=== PATIENT | male | born 1955 | race Caucasian/White ===

== ENCOUNTER 2018-08-13 15:23 | Observation (INO) | payer OTHER, SELFPAY ==
[2018-08-13 16:19] LABS: #Basophils 0.1 thou/uL (0.0-0.2); #Eosinphils 0.2 thou/uL (0.0-0.7); #Lymphocytes 2.3 thou/uL (1.20-3.40); #Monocytes 0.9 thou/uL (0.11-0.59); #Neutrophils 4.9 thou/uL (1.40-6.50); %Basophils 1.5 % (0.0-1.0); %Lymphocytes 27.7 % (21.0-51.0); %Monocytes 10.7 % (0.0-10.0); Mean Corpuscular HGB CONC 31.9 g/dL (32.0-36.0); Mean Corpuscular Hemoglobin 29.3 pg (27.0-31.0); Mean Corpuscular Volume 91.9 fL (78.0-98.0); Platelet Count 252 thou/uL (130-400); Red Blood Cell (RBC) Count 5.79 mill/uL (4.70-6.10); White Blood Cell (WBC) Count 8.4 thou/uL (4.8-10.8)
[2018-08-13 16:27] LABS: INR-International Normal Ratio 1.1; PTT 29.8 SEC (22.9-36.1); Prothrombin Time 13.8 SEC (12.0-14.7)
[2018-08-13 16:41] LABS: ALT (SGPT) 14 U/L (8-55); AST (SGOT) 18 U/L (5-34); Albumin 4.2 g/dL (3.4-4.8); Alkaline Phosphatase 130 U/L (40-150); Anion Gap 15 mmol/L (10-20); BUN (Urea Nitrogen) 14 mg/dL (8.4-25.7); Bilirubin, Total 0.2 mg/dL (0.2-1.2); Calc. Creatinine Clearance 0 mL/min (70-130); Calcium 9.7 mg/dL (7.8-10.44); Carbon Dioxide 20 mmol/L (23-31); Chloride 103 mmol/L (98-107); Estimated GFR-MDRD 87; Globulin 3.8 g/dL (2.4-3.5); Glucose 124 mg/dL (80-115); Potassium 4.2 mmol/L (3.5-5.1); Sodium 134 mmol/L (136-145)
[2018-08-13] MEDS ORDERED: Morphine 4 MG/ML VIAL ONE (17:52)
[2018-08-13] MEDS ORDERED: Ondansetron PF 4 MG/2 ML Vial ONE (17:52)
--- NOTE | 2018-08-13 19:27 | RAD ---
PORTABLE CHEST: 08/13/18 HISTORY: Upper extremity edema. No comparison available. Mild interstitial prominence in the lung bases. No infiltrate or significant vascular congestion. Hea rt size is within normal range. No significant effusion. IMPRESSION: Questionable interstitial prominence. No evidence of acute process. POS: [facility]
[2018-08-13] MEDS ORDERED: Ondansetron PF 4 MG/2 ML Vial IVP PRN (22:45)
[2018-08-13] MEDS ORDERED: Acetaminophen 325 MG TAB PO PRN (22:45)
[2018-08-13] MEDS ORDERED: Ondansetron ODT 4 MG TAB PO PRN (22:45)
[2018-08-13] MEDS ORDERED: Melatonin 3 MG TAB PO PRN (22:54)
[2018-08-13] MEDS ORDERED: Amlodipine 5 MG TAB PO SCH (23:15)
[2018-08-13] MEDS ORDERED: Nicotine 14 MG PATCH TOP SCH (23:59)
[2018-08-14] MEDS ORDERED: Morphine 4 MG/ML VIAL ONE ×2 (00:10→01:41)
[2018-08-14] MEDS ORDERED: Amlodipine 5 MG TAB ONE (03:10)
[2018-08-14] MEDS ORDERED: Ketorolac Tromethamine 30 MG/ML VIAL ONE (03:11)
[2018-08-14] MEDS ORDERED: Amlodipine 5 MG TAB PO SCH (03:30)
[2018-08-14] MEDS ORDERED: Dextrose 5% in Water 1,000 ML IV PRN (03:51)
[2018-08-14] MEDS ORDERED: Dextrose 50% Abboject 50 ML SYRINGE SLOW IVP PRN (03:51)
[2018-08-14 04:01] LABS: #Basophils 0.1 thou/uL (0.0-0.2); #Eosinphils 0.2 thou/uL (0.0-0.7); #Lymphocytes 2.4 thou/uL (1.20-3.40); #Monocytes 0.9 thou/uL (0.11-0.59); %Eosinophils 1.9 % (0.0-10.0); %Lymphocytes 27.7 % (21.0-51.0); %Monocytes 10.9 % (0.0-10.0); %Neutrophils 58.6 % (42.0-75.0); Hemoglobin 15.4 g/dL (14.0-18.0); Mean Corpuscular HGB CONC 32.9 g/dL (32.0-36.0); Mean Corpuscular Hemoglobin 30.4 pg (27.0-31.0); Mean Corpuscular Volume 92.3 fL (78.0-98.0); Mean Platelet Volume 8.1 fL (7.4-10.4); Platelet Count 225 thou/uL (130-400); RBC Distribution Width 13.9 % (11.5-14.5); Red Blood Cell (RBC) Count 5.07 mill/uL (4.70-6.10); White Blood Cell (WBC) Count 8.5 thou/uL (4.8-10.8)
[2018-08-14 04:13] LABS: Anion Gap 14 mmol/L (10-20); BUN (Urea Nitrogen) 12 mg/dL (8.4-25.7); Calc. Creatinine Clearance 0 mL/min (70-130); Calcium 8.9 mg/dL (7.8-10.44); Carbon Dioxide 21 mmol/L (23-31); Chloride 99 mmol/L (98-107); Estimated GFR-MDRD 81; Glucose 386 mg/dL (80-115); Potassium 4.1 mmol/L (3.5-5.1); Sodium 130 mmol/L (136-145)
[2018-08-14 05:20] VITALS: BMI 28.9
--- NOTE | 2018-08-14 05:37 | HP ---
PRIMARY CARE PHYSICIAN: The patient goes to [facility]. CODE STATUS: Full code. TIME OF EVALUATION: 8:10 p.m. CHIEF COMPLAINT: "My fingers are turning blue." HISTORY OF PRESENT ILLNESS: This is a 63-year-old male patient with past medical history of diabetes, hyperlipidemia, hypertension, came to the hospital after having worsening of fingers, pain, primary distribution with blue discoloration. Symptoms have been present for the past couple of months. For the past week, it has been really very very severe, the discoloration started about 3 days. The pain has been very severe. No clear triggers. No alleviating factors. Also cold temperatures making worse and when he is able to warm up his fingers, it gets better. REVIEW OF SYSTEMS: CONSTITUTIONAL: No fever or chills. The patient reported generalized weakness. RESPIRATORY: No cough, sputum production, or shortness of breath. CARDIOVASCULAR: No chest pain or palpitation. The patient has bluish discoloration of bilateral lower extremities. GASTROINTESTINAL: The patient has no nausea, vomiting, diarrhea or abdominal pain. RADIOGRAPHER TECHNOLOGIST: No dizziness, headache, or feeling lightheaded. GENITOURINARY: No burning on urination. EXTREMITIES: The patient has right big toe ingrown nail. PAST MEDICAL HISTORY: As mentioned in HPI. PAST SURGICAL HISTORY: No surgical history. PSYCHIATRIC HISTORY: Depression and anxiety. SOCIAL HISTORY: The patient drinks everyday more than 10 drinks per day. No drugs. Smokes on a daily basis. Reportedly has not been drinking in the past seven months. KNOWN ALLERGIES: No known drug allergies reported. MEDICATIONS: 1. Buspirone. 2. Amitriptyline. 3. Pantoprazole. 4. Glyburide. 5. Atorvastatin. 6. Lisinopril. 7. Hydrochlorothiazide. 8. Levothyroxine. 9. Vitamin B1. 10. Metformin. PHYSICAL EXAMINATION: VITAL SIGNS: On presentation, blood pressure 146/86, heart rate 102, respiratory rate was 18, temperature 98.1, pain was 9. Oxygen saturation was 95% on room air. GENERAL APPEARANCE: The patient is alert, and oriented, in mild distress due to bilateral hand pain. HEENT: Eyes, normal conjunctivae. Moist oral mucosa. Anicteric. No JVD. RESPIRATORY: Bilateral air entry. No rales. No wheezes. Symmetric expansion. CARDIOVASCULAR: Normal rate, regular rhythm. No murmurs. No gallops. No edema. ABDOMEN: Soft. Normal bowel sounds. MUSCULOSKELETAL: Baseline range of motion and strength. No tenderness except for bilateral hands. The patient has bilateral fingers with bluish discoloration and swelling. The patient reportedly has been having this problem for about a few days. Significant tenderness. SKIN: Warm, intact. No pallor. No rash. No redness. The patient has bluish discoloration in bilateral fingers. Peripheral pulses are present. Capillary refill seems to be intact. NEUROLOGIC: No evidence of any new focal weakness. Baseline speech. Cranial nerves seems to be intact. PSYCHIATRIC: The patient is in good mood. No anxiety. Optimal judgment. IMAGING STUDIES: EKG was reviewed. The patient has sinus tachycardia at the rate of 108 with HI 152, QRS 82, QT corrected 444. Chest x-ray was reviewed. The patient has questionable interstitial prominence, no evidence of acute process. LABORATORY DATA: Labs were reviewed. The patient has white count 8.4, hemoglobin 17, MCV 91.9, platelet count 252, coagulation 13.8, INR 1.1, PTT 29.8. Chemistry; sodium 134, potassium 4.2, chloride 103, carbon dioxide 20, anion gap 15, BUN 14 , creatinine 0.88, GFR 87, glucose 134, calcium 9.7, total bilirubin 0.2. LFTs were negative. C-reactive protein 0.71, globulin 3.8, albumin to globulin ratio is 1.1. ASSESSMENT AND PLAN: The patient will be placed in the hospital with following medical problems: 1. possible Raynauds syndrome, Bluish bilateral finger discoloration of unclear etiology. The patient has been having these symptoms for the past few days, although he referred that all the symptoms have been going on and gradually getting worse for the past 2 months. 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 We have sent some workup trying to find any other neurological disease may be related to current presentation, all possibilities could be vasculitis, or changes secondary to advanced neuropathy from diabetes. Less frequent diagnosis could be infections disease with insidious presentation like endocarditis, although this is rare, and lesions did not exactly recall Osler's nodules or Janeway lesions. Blood cultures have been sent. ESR is normal. We will send a procalcitonin . Workup has been sent and we will follow. 2. Controlled diabetes. We will reconcile home medications, sliding scale for optimal control. 3. Hyperlipidemia, low-cholesterol diet is advised, reconcile home medications. 4. Contemporary hypertension. The patient presents with systolic blood pressure more than 140, we will reconcile home medications and we will adjust treatment as needed. 5. Deep venous thrombosis prophylaxis. Job ID: [id number] [email or web address]
[2018-08-14] MEDS: Levothyroxine 150 MCG TAB PO SCH (06:37)
[2018-08-14] MEDS ORDERED: busPIRone HCl 10 MG TAB PO PRN (08:04)
[2018-08-14] MEDS ORDERED: glyBURIDE 5 MG TAB PO SCH (08:15)
[2018-08-14] MEDS: Ketorolac Tromethamine 30 MG/ML VIAL IVP SCH ×2 (08:16→13:25)
[2018-08-14] MEDS: Amlodipine 5 MG TAB PO SCH (08:20)
[2018-08-14] MEDS: Lisinopril/Hydrochlorothiazide 20 mg/12.5 mg Tablet PO SCH (08:21)
[2018-08-14] MEDS: Multivit, Therapeutic 1 TAB PO SCH (08:21)
[2018-08-14] MEDS: Folic Acid 1 MG TAB PO SCH (08:21)
[2018-08-14] MEDS: Thiamine 100 MG TAB PO SCH (08:21)
[2018-08-14] MEDS: Enoxaparin Sodium 40 MG/0.4 ML SYRINGE SC SCH (08:21)
[2018-08-14] MEDS ORDERED: methylPREDNISolone Sod Succ 40 MG VIAL IVP SCH (11:00)
--- NOTE | 2018-08-14 12:17 | PDOC.PN ---
- Subjective Encounter Start Date: 08/14/18 Encounter Start Time: 09:00 -: old records requested/rev Patient seen and examined. No new complaints. No overnight events he has dectylitis, he has buck phenomenon - Objective Resuscitation Status - Order Detail: 08/13/18 22:45 Resuscitation Status Routine Resuscitation Status: FULL: Full Resuscitation MAR Reviewed: Yes Vital Signs & Weight: Vital Signs (12 hours) Temp Pulse Resp BP Pulse Ox 08/14/18 11:00 97.9 F 91 20 127/73 95 08/14/18 08:21 92 08/14/18 08:20 92 08/14/18 07:30 97.9 F 92 20 133/80 95 08/14/18 07:06 93 08/14/18 07:03 93 08/14/18 04:38 98.0 F 93 20 148/83 H 97 Weight Weight 195 lb 12.8 oz I&O: 08/13/18 08/14/18 08/15/18 06:59 06:59 06:59 Intake Total 240 Balance 240 Result Diagrams: 08/14/18 03:30 08/14/18 03:30 Additional Labs: Accuchecks 08/14/18 05:22 POC Glucose 260 H Phys Exam - Physical Examination Constitutional: NAD HEENT: PERRLA, moist MMs, sclera anicteric Neck: no JVD, supple Respiratory: no wheezing, no rales, no rhonchi Cardiovascular: RRR, no significant murmur, no rub Gastrointestinal: soft, non-tender, no distention, positive bowel sounds Musculoskeletal: no edema, pulses present Neurological: non-focal, normal sensation, moves all 4 limbs Lymphatic: no nodes Psychiatric: normal affect, A&O x 3 Skin: no rash, normal turgor Dx/Plan (1) Dactylitis Code(s): GNI1233 - Status: Acute (2) Buck syndrome Code(s): M35.8 - OTHER SPECIFIED SYSTEMIC INVOLVEMENT OF CONNECTIVE TISSUE Status: Acute (3) Hyponatremia Code(s): E87.1 - HYPO-OSMOLALITY AND HYPONATREMIA Status: Acute Comment: mild (4) Alcohol abuse Code(s): F10.10 - ALCOHOL ABUSE, UNCOMPLICATED Status: Chronic (5) DM2 (diabetes mellitus, type 2) Status: Chronic Comment: continue accuchecks, insulin sliding scale (6) Dyslipidemia Code(s): E78.5 - HYPERLIPIDEMIA, UNSPECIFIED Status: Chronic Comment: hold statin until LFTs improve significantly (7) Hypothyroidism Code(s): E03.9 - HYPOTHYROIDISM, UNSPECIFIED Status: Chronic Comment: on synthroid (8) Tobacco use Code(s): Z72.0 - TOBACCO USE Status: Chronic Comment: continue nicotine patch - Plan cont current plan of care * outpt rheumatology follow up advised * will start solumedrol today * continue toradol * nicotin patch * medication reviewed as below * symptomatic treatment. * follow up on send out test result Review of Systems - Review of Systems ENT: negative: Ear Pain, Ear Discharge, Nose Pain, Nose Discharge, Nose Congestion, Mouth Pain, Mouth Swelling, Throat Pain, Throat Swelling, Other Respiratory: negative: Cough, Dry, Shortness of Breath, Hemoptysis, SOB with Excertion, Pleuritic Pain, Sputum, Wheezing Cardiovascular: negative: chest pain, palpitations, orthopnea, paroxysmal nocturnal dyspnea, edema, light headedness, other Gastrointestinal: negative: Nausea, Vomiting, Abdominal Pain, Diarrhea, Constipation, Melena, Hematochezia, Other Genitourinary: negative: Dysuria, Frequency, Incontinence, Hematuria, Retention , Other Musculoskeletal: negative: Neck Pain, Shoulder Pain, Arm Pain, Back Pain, Hand Pain, Leg Pain, Foot Pain, Other Skin: negative: Rash, Lesions, Vik, Bruising, Other - Medications/Allergies Allergies/Adverse Reactions: Allergies Allergy/AdvReac Type Severity Reaction Status Date / Time No Known Allergies Allergy Unverified 01/10/18 00:40 Medications: Current Medications Acetaminophen (Tylenol) 650 mg PO Q4H PRN PRN Reason: Headache/Fever/Mild Pain (1-3) Amitriptyline HCl (Elavil) 25 mg PO HS KAMINI Amlodipine Besylate (Norvasc) 5 mg PO DAILY [facility] Last Admin: 08/14/18 08:20 Dose: 5 mg Buspirone HCl (Buspar) 10 mg PO BIDPRN PRN PRN Reason: Anxiety Dextrose/Water (Dextrose 50%) 25 gm SLOW IVP PRN PRN PRN Reason: Hypoglycemia Enoxaparin Sodium (Lovenox) 40 mg SC 0900 [facility] Last Admin: 08/14/18 08:21 Dose: 40 mg Folic Acid (Folvite) 1 mg PO DAILY [facility] Last Admin: 08/14/18 08:21 Dose: 1 mg Glucagon (Glucagon) 1 mg IM PRN PRN PRN Reason: Hypoglycemia Glyburide (Diabeta) 5 mg PO DAILY-[facility] Lisinopril/HCTZ (Prinizide 20-12.5) 1 tab PO DAILY [facility] Last Admin: 08/14/18 08:21 Dose: 1 tab Dextrose/Water (D5w) 1,000 mls @ 0 mls/hr IV .Q0M PRN PRN Reason: Hypoglycemia Insulin Human Lispro (Humalog) 0 units SC .MILD SLIDING SCALE PRN PRN Reason: Mild Correctional Scale Ketorolac Tromethamine (Toradol) 15 mg IVP Q6HR [facility] Stop: 08/15/18 06:01 Last Admin: 08/14/18 08:16 Dose: 15 mg Levothyroxine Sodium (Synthroid) 150 mcg PO 0600 [facility] Last Admin: 08/14/18 06:37 Dose: 150 mcg Melatonin (Melatonin) 3 mg PO HS PRN PRN Reason: Insomnia Metformin HCl (Glucophage) 1,000 mg PO BID-[facility] Methylprednisolone Sodium Succinate (Solu-Medrol) 40 mg IVP Q6H [facility] Multivitamins (Theragran) 1 tab PO DAILY [facility] Last Admin: 08/14/18 08:21 Dose: 1 tab Nicotine (Nicoderm Patch) 14 mg TOP 2359 [facility] Last Admin: 08/14/18 07:04 Dose: Not Given Ondansetron HCl (Zofran Odt) 4 mg PO Q6H PRN PRN Reason: Nausea/Vomiting Ondansetron HCl (Zofran) 4 mg IVP Q6H PRN PRN Reason: Nausea/Vomiting Pantoprazole Sodium (Protonix) 40 mg PO DAILY-[facility] Pravastatin Sodium (Pravachol) 10 mg PO QPM [facility] Thiamine HCl (Thiamine) 100 mg PO DAILY [facility] Last Admin: 08/14/18 08:21 Dose: 100 mg
[2018-08-14] MEDS: HYDROcodone/Acetaminophen 10/325 mg Tablet PO PRN ×2 (13:28→20:14)
[2018-08-14] MEDS ORDERED: predniSONE 20 MG TAB PO SCH (13:30)
[2018-08-14] MEDS ORDERED: Nicotine 21 MG PATCH TOP SCH (14:30)
[2018-08-14] MEDS: HumaLOG 300 UNITS/3 ML VIAL SC PRN ×2 (17:26→20:39)
[2018-08-14] MEDS ORDERED: Amitriptyline HCl 25 MG TAB PO SCH (21:00)
[2018-08-14] MEDS ORDERED: Atorvastatin Calcium 10 MG TAB PO SCH (21:00)
[2018-08-14] MEDS ORDERED: Pravastatin Sodium 20 MG TAB PO SCH (21:00)
[2018-08-15] MEDS: Levothyroxine 150 MCG TAB PO SCH (05:27)
[2018-08-15 07:22] VITALS: TEMP 98
[2018-08-15] MEDS ORDERED: glyBURIDE 5 MG TAB PO SCH (07:30)
[2018-08-15] MEDS ORDERED: predniSONE 20 MG TAB PO SCH (08:00)
[2018-08-15] MEDS ORDERED: metFORMIN 500 MG TAB PO SCH (08:00)
[2018-08-15] MEDS: Lisinopril/Hydrochlorothiazide 20 mg/12.5 mg Tablet PO SCH (08:23)
[2018-08-15] MEDS: Multivit, Therapeutic 1 TAB PO SCH (08:23)
[2018-08-15] MEDS: Folic Acid 1 MG TAB PO SCH (08:23)
[2018-08-15] MEDS: Enoxaparin Sodium 40 MG/0.4 ML SYRINGE SC SCH ×2 (08:24→08:34)
[2018-08-15] MEDS: Amlodipine 5 MG TAB PO SCH (08:24)
[2018-08-15] MEDS: HYDROcodone/Acetaminophen 10/325 mg Tablet PO PRN ×2 (08:27→14:59)
[2018-08-15] MEDS: Thiamine 100 MG TAB PO SCH (08:29)
--- NOTE | 2018-08-15 09:46 | DIS ---
DATE OF ADMISSION: 08/13/2018 DATE OF DISCHARGE: 08/15/2018 PRIMARY CARE PHYSICIAN: Westley Abbasi. DISCHARGE DISPOSITION: Home. PRIMARY DISCHARGE DIAGNOSES: 1. Raynaud phenomenon. 2. Dactylitis. SECONDARY DISCHARGE DIAGNOSES: Alcohol abuse, diabetes type 2, dyslipidemia, hypothyroidism, tobacco abuse. PRIMARY PROCEDURE/OPERATION: None. RADIOLOGICAL INVESTIGATION: Chest x-ray normal. SIGNIFICANT LABORATORY DATA: WBC 8.5, hemoglobin 15.4, platelets 225. INR 1.1, sodium 130, potassium 4.1, BUN 12, creatinine 0.94, glucose 8.9. LFT normal. CRP 0.71. Procalcitonin 0.02. DISCHARGE MEDICATIONS: 1. Prednisone 40 mg p.o. daily for 10 days, and the patient will follow up with Rheumatology as an outpatient basis. 2. Continue amitriptyline 25 mg p.o. at bedtime. 3. Lipitor 10 mg p.o. at bedtime. 4. Buspirone 10 mg b.i.d. 5. Glyburide 5 mg p.o. daily. 6. Synthroid 150 mcg p.o. daily. 7. Prinzide 20/12.5 one tablet daily. 8. Metformin 1000 mg p.o. b.i.d. 9. Melatonin 3 mg p.o. at bedtime p.r.n. 10. Protonix 40 mg p.o. daily. 11. Multivitamin one tablet p.o. daily. 12. Thiamine 100 mg p.o. daily. CONTRAINDICATION: None. CODE STATUS: Full code. INPATIENT REGISTERED VETERINARY TECHNICIAN: None. ALLERGIES: NO KNOWN DRUG ALLERGIES. DISCHARGE PLAN: Posthospital, the patient is instructed to follow up with Rheumatology in 1 or 2 weeks. HOSPITAL COURSE: A 63-year-old male who was admitted for Raynaud phenomenon. He was having discoloration of the tip of the finger, which was getting worse with cold exposure. Based on his history, it was consistent with Raynaud syndrome. He was also having dactylitis of second and third fingers on the left side. We treated him with Solu-Medrol with significant improvement. The patient is doing very well. We provided the patient education that he needs to follow up with Rheumatology as an outpatient basis. He will continue all his previous medication. The patient will follow up with the primary care physician and primary care physician will refer him to Rheumatology. I have provided the patient education to avoid smoking and alcohol abuse. The patient is seen and examined at bedside today. REVIEW OF SYSTEMS: All review of systems reviewed with him and negative. PHYSICAL EXAMINATION: VITAL SIGNS: Currently, temperature 98.0, pulse 96, blood pressure 158/89, saturation 98% on room air, weight 195 pounds. GENERAL: The patient is currently alert, oriented, no obvious acute distress. HEENT: Head; normocephalic, atraumatic. Eyes; pupils round, reactive to light. Extraocular muscles intact. ENT; oropharynx within normal limits. Moist mucous membranes. No oral lesion. No pharyngeal erythema. No exudate. NECK: Supple. No thyromegaly. No carotid bruit. No jugular venous distention. LUNGS: Clear to auscultation without any rhonchi or rales. CARDIAC: S1, S2. Regular without any murmur. ABDOMEN: Soft and benign. EXTREMITIES: No edema. NEUROLOGIC: Nonfocal examination. Job ID: [id number]
[2018-08-15 11:33] VITALS: BP 119/72
[2018-08-15] MEDS: HumaLOG 300 UNITS/3 ML VIAL SC PRN (12:04)
[2018-08-15 17:45] LABS: ANA Symphony (Qualitative) Negative (Negative); ANA Symphony (Quantitative) 0.1 Ratio (< 0.7 Negative); EliA RAS New Method **** NEW METHOD ****; Rheumatoid Factor IgM Antibody 8.9 IU/mL (<3.5 Negative); dsDNA IgG Antibody Less than 0.5 IU/mL (<10 Negative)
== END 2018-08-15 15:47 | disposition home or self-care (01) ==
LOC: ERS 15:23 → ERHOLD 18:24 → T4-A 08-14 04:34
PROVIDERS: ADMIT Emergency Medicine; ATTEND Emergency Medicine
DX: I73.00 Raynaud's syndrome without gangrene (principal); F10.10 Alcohol abuse, uncomplicated; E11.9 Type 2 diabetes mellitus without complications; E78.5 Hyperlipidemia, unspecified; E03.9 Hypothyroidism, unspecified; I10 Essential (primary) hypertension; F41.9 Anxiety disorder, unspecified; F32.9 Major depressive disorder, single episode, unspecified; F17.200 Nicotine dependence, unspecified, uncomplicated; Z79.52 Long term (current) use of systemic steroids; Z79.84 Long term (current) use of oral hypoglycemic drugs; Z79.899 Other long term (current) drug therapy
CPT/HCPCS: 36415; 36416; 71045; 80048; 80053; 83520; 84145; 85025; 85610; 85652; 85730; 86038; 86140; 86200; 86225; 87040; 93005; 96372; 96374; 96375; 96376; G0378; J1650; J1885; J2270; J2405; J2920

== ENCOUNTER 2018-08-24 11:59 | Emergency (ER) | payer SELFPAY | END 2018-08-24 14:55 | disposition home or self-care (01) | LOC: ERS 11:59 | DX: I73.00 Raynaud's syndrome without gangrene (principal); E11.9 Type 2 diabetes mellitus without complications; E78.5 Hyperlipidemia, unspecified; I10 Essential (primary) hypertension; F32.9 Major depressive disorder, single episode, unspecified; F41.9 Anxiety disorder, unspecified; F17.210 Nicotine dependence, cigarettes, uncomplicated | CPT/HCPCS: 99283 ==

== ENCOUNTER 2019-06-11 08:32 | Emergency (ER) | payer MEDICARE, MEDICAID ==
[2019-06-11] MEDS ORDERED: Multivitamins, Adult 10 ML, Thiamine HCl 100 MG, Folic Acid 1 MG in Dextrose 5 %-0.45 %... IV SCH (09:00)
--- NOTE | 2019-06-11 09:01 | CT ---
EXAM: CT brain without contrast HISTORY: Alcoholic withdrawal with multiple falls COMPARISON: None TECHNIQUE: Multiple contiguous axial images were obtained and a CT of the brain without contrast. FINDINGS: There are scattered hypodensities in the subcortical and periventricular white matter consi stent with small vessel ischemic disease. There is no evidence of hydrocephalus, intracranial hemorrhage, or extra-axial fluid collection. The calvarium and overlying soft tissues are unremarkable. The visualized paranasal sinuses and masto id air cells are well aerated. IMPRESSION: No evidence of acute intracranial abnormality
[2019-06-11 09:33] LABS: Hemoglobin 17.3 g/dL (14.0-18.0); Mean Corpuscular HGB CONC 34.7 g/dL (32.0-36.0); Mean Corpuscular Hemoglobin 30.2 pg (27.0-31.0); Mean Platelet Volume 8.2 fL (7.4-10.4); Platelet Count 216 thou/uL (130-400); RBC Distribution Width 14.8 % (11.5-14.5); Red Blood Cell (RBC) Count 5.73 mill/uL (4.70-6.10); White Blood Cell (WBC) Count 9.4 thou/uL (4.8-10.8)
[2019-06-11 09:57] LABS: ALT (SGPT) 21 U/L (8-55); AST (SGOT) 37 U/L (5-34); Acetaminophen Less than 6.0 mcg/mL (10.0-30.0); Albumin 4.8 g/dL (3.4-4.8); Alcohol 211 mg/dL (Less than 10); Alkaline Phosphatase 187 U/L (40-110); Anion Gap 21 mmol/L (10-20); BUN (Urea Nitrogen) 5 mg/dL (8.4-25.7); Band 2 % (5-11); Bilirubin, Total 0.7 mg/dL (0.2-1.2); CK (CPK) 110 U/L (30-200); Calc. Creatinine Clearance 0 mL/min (70-130); Calcium 9.7 mg/dL (7.8-10.44); Carbon Dioxide 21 mmol/L (23-31); Chloride 85 mmol/L (98-107); Estimated GFR-MDRD 81; Globulin 4.4 g/dL (2.4-3.5); Glucose 304 mg/dL (80-115); Lymphocytes 26 % (21-51); MDiff Complete? YES; Monocytes 3 % (0-10); Neutrophil 69 % (42-75); Potassium 4.9 mmol/L (3.5-5.1); Protein, Total 9.2 g/dL (5.8-8.1); RBC Morphology Normal; Salicylate Less than 8.0 mg/dL (15.0-30.0); Sodium 122 mmol/L (136-145)
[2019-06-11 10:38] LABS: Amphetamine Not Detected (NotDetected); Barbiturates Screen Not Detected (NotDetected); Benzodiazepine Screen Not Detected (NotDetected); Cocaine Metabolite Screen Not Detected (NotDetected); Medtox Control Line Valid? VALID (VALID); Medtox Reader # READER 4; Methadone Not Detected (NotDetected); Methamphetamine Not Detected (NotDetected); Opiate Screen Not Detected (NotDetected); Oxycodone Screen Not Detected (NotDetected); Phencyclidine (PCP) Not Detected (NotDetected); THC/Cannabinoid Screen Detected (NotDetected); Tricyclic Screen Not Detected (NotDetected)
[2019-06-11] MEDS ORDERED: Thiamine HCl 200 MG/2 ML VIAL IM SCH (12:15)
[2019-06-11 13:34] LABS: Bilirubin Negative (Negative); Blood, Urine Negative (Negative); Clarity Clear (Clear); Glucose, Urine (Dipstick) >=1000 mg/dL (Negative); Leukocyte Negative Leu/uL (Negative); Nitrite Negative (Negative); Protein, Urine (Dipstick) Negative (Neg-Trace); Urobilinogen Normal mg/dL (Less than 2)
== END 2019-06-11 17:52 | disposition home or self-care (01) ==
LOC: ERS 08:32
DX: F10.129 Alcohol abuse with intoxication, unspecified (principal); E86.0 Dehydration; E11.9 Type 2 diabetes mellitus without complications; E78.5 Hyperlipidemia, unspecified; E78.00 Pure hypercholesterolemia, unspecified; I10 Essential (primary) hypertension; F32.9 Major depressive disorder, single episode, unspecified; F41.9 Anxiety disorder, unspecified; F17.290 Nicotine dependence, other tobacco product, uncomplicated; F17.210 Nicotine dependence, cigarettes, uncomplicated; F17.220 Nicotine dependence, chewing tobacco, uncomplicated; Z79.899 Other long term (current) drug therapy; Z79.82 Long term (current) use of aspirin; Z79.84 Long term (current) use of oral hypoglycemic drugs
CPT/HCPCS: 36415; 70450; 80053; 80306; 80307; 81003; 82010; 82140; 82550; 83690; 83880; 84443; 84484; 85025; 93005; 96361; 96365; 96366; J3411; J7042

== ENCOUNTER 2019-12-24 09:29 | Inpatient (IN) | payer MEDICARE, MEDICAID ==
[2019-12-24] MEDS ORDERED: Cefepime 2 GM VIAL ONE (10:36)
[2019-12-24] MEDS ORDERED: Vancomycin 1 GM/200 ML BAG ONE (10:36)
[2019-12-24 11:01] LABS: #Basophils 0.1 thou/uL (0.0-0.2); #Eosinphils 0.1 thou/uL (0.0-0.7); #Lymphocytes 1.5 thou/uL (1.20-3.40); #Monocytes 0.4 thou/uL (0.11-0.59); #Neutrophils 5.3 thou/uL (1.40-6.50); %Basophils 1.1 % (0.0-1.0); %Eosinophils 1.6 % (0.0-10.0); %Lymphocytes 20.4 % (21.0-51.0); %Neutrophils 70.9 % (42.0-75.0); Hemoglobin 14.6 g/dL (14.0-18.0); Mean Corpuscular HGB CONC 31.9 g/dL (32.0-36.0); Mean Corpuscular Hemoglobin 30.8 pg (27.0-31.0); Mean Corpuscular Volume 96.7 fL (78.0-98.0); Mean Platelet Volume 8.1 fL (7.4-10.4); Platelet Count 194 thou/uL (130-400); RBC Distribution Width 13.1 % (11.5-14.5); Red Blood Cell (RBC) Count 4.72 mill/uL (4.70-6.10); White Blood Cell (WBC) Count 7.4 thou/uL (4.8-10.8)
[2019-12-24] MEDS ORDERED: Morphine 4 MG/ML VIAL ONE (11:08)
[2019-12-24 11:19] LABS: Bilirubin Negative (Negative); Blood, Urine Negative (Negative); Clarity Clear (Clear); Glucose, Urine (Dipstick) Greater than 1000 mg/dL (Negative); Ketone, Urine Negative (Negative); Leukocyte Negative Leu/uL (Negative); Nitrite Negative (Negative); Protein, Urine (Dipstick) Negative (Neg-Trace); Specific Gravity, Urine 1.021 (1.002-1.036); Urobilinogen Normal mg/dL (Less than 2); pH, Urine 7.5 (5.0-9.0)
[2019-12-24 11:25] LABS: ALT (SGPT) 28 U/L (8-55); AST (SGOT) 51 U/L (5-34); Albumin 3.7 g/dL (3.4-4.8); Alkaline Phosphatase 168 U/L (40-110); Anion Gap 13 mmol/L (10-20); BUN (Urea Nitrogen) 8 mg/dL (8.4-25.7); Bilirubin, Total 0.2 mg/dL (0.2-1.2); Calc. Creatinine Clearance 0 mL/min (70-130); Calcium 8.9 mg/dL (7.8-10.44); Carbon Dioxide 25 mmol/L (23-31); Chloride 100 mmol/L (98-107); Estimated GFR-MDRD 69; Glucose 119 mg/dL (80-115); Protein, Total 7.7 g/dL (5.8-8.1); Sodium 134 mmol/L (136-145)
--- NOTE | 2019-12-24 11:42 | RAD ---
RIGHT FOOT 3 VIEWS: Date: 12/24/2019 HISTORY: Right foot pain. Concern for toe infection. FINDINGS/IMPRESSION: No acute fracture, dislocation, bony destruction, or periosteal reaction is seen. There is soft tissu e swelling in the right great toe. There is a small plantar calcaneal spur. If there is high clinical concern for osteomyelitis, further evaluation with MRI is recommended. POS: [facility]
[2019-12-24] MEDS ORDERED: HYDROcodone/Acetaminophen 5/325 mg Tablet PO PRN ×2 (13:40)
[2019-12-24] MEDS ORDERED: Ondansetron ODT 4 MG TAB SL PRN (13:40)
[2019-12-24] MEDS ORDERED: Ondansetron PF 4 MG/2 ML Vial IVP PRN (13:40)
[2019-12-24] MEDS ORDERED: Acetaminophen 325 MG TAB PO PRN (13:40)
[2019-12-24 14:19] VITALS: BMI 28.7
[2019-12-24] MEDS ORDERED: Dextrose 50% Abboject 50 ML SYRINGE SLOW IVP PRN (14:42)
[2019-12-24] MEDS ORDERED: Dextrose 5% in Water 1,000 ML IV PRN (14:42)
[2019-12-24] MEDS ORDERED: Vancomycin HCl 1.5 GM in Sodium Chloride 0.9% 250 ML 300 ML IVPB SCH (14:45)
--- NOTE | 2019-12-24 14:48 | PDOC.HHP ---
Hospitalist HPI - History of Present Illness Right foot pain History of Present Illness: 64 years old white male with past medical history of diabetes hyperlipidemia hypertension who came to the emergency room complaining of right foot swelling and pain that started 3 weeks ago started gradually with his big toe, more swelling and edema pain has increased now is sharp 8 out of 10 not relieved by anything denies any nausea vomiting fevers chills cough or shortness of breath or chest pain no exacerbating or alleviating factors no emergency room concern for cellulitis and osteo-therefore patient has been requested for admission he received IV vancomycin treatments Past medical history diabetes hyperlipidemia hypertension Past surgical history none Social history patient drinks daily however denies any symptoms of alcohol withdrawal denies any drug or smoking history No known allergies Patient denies no significant family history Hospitalist ROS - Review of Systems All other systems reviewed; all pertinent +/- noted in HPI/Subj - Medication Medications: Medication Instructions Recorded Confirmed Type glyBURIDE [Glyburide] 5 mg PO DAILY 01/10/18 12/24/19 History metFORMIN HCl [Metformin HCl] 1,000 mg PO BID-[facility] 01/10/18 12/24/19 History Atorvastatin Calcium 10 mg PO HS 08/14/18 12/24/19 History Pantoprazole Sodium 40 mg PO DAILY 08/14/18 12/24/19 History Canagliflozin [Invokana] 300 mg PO DAILY 12/24/19 12/24/19 History Finasteride 5 mg PO DAILY 12/24/19 12/24/19 History - Exam General Appearance: NAD, awake alert Eye: PERRL, anicteric sclera ENT: normocephalic atraumatic Neck: supple, symmetric Heart: RRR, no murmur Respiratory: CTAB, no wheezes Gastrointestinal: soft, non-tender Extremities - other findings: Right foot big toe erythema swelling up to the midfoot with tenderness to p Neurological: cranial nerve grossly intact, normal sensation to touch Musculoskeletal: normal tone, normal strength Psychiatric: normal affect, normal behavior Hospitalist Results - Labs Result Diagrams: 12/24/19 10:31 12/24/19 10:31 Lab results: WBC 7.4 thou/uL (4.8-10.8) 12/24/19 10:31 Hgb 14.6 g/dL (14.0-18.0) 12/24/19 10: Hct 45.6 % (42.0-52.0) 12/24/19 10:31 MCV 96.7 fL (78.0-98.0) 12/24/19 10:31 Plt Count 194 thou/uL (130-400) 12/24/19 10:31 Neutrophils % 70.9 % (42.0-75.0) 12/24/19 10:31 ESR Westergren 12 mm/hr (Less than 20) 12/24/19 10:31 Sodium 134 mmol/L (136-145) L 12/24/19 10:31 Potassium 4.0 mmol/L (3.5-5.1) 12/24/19 10:31 Chloride 100 mmol/L (98-107) 12/24/19 10:31 Carbon Dioxide 25 mmol/L (23-31) 12/24/19 10:31 BUN 8 mg/dL (8.4-25.7) L 12/24/19 10:31 Creatinine 1.07 mg/dL (0.7-1.3) 12/24/19 10:31 Glucose 119 mg/dL (80-115) H 12/24/19 10:31 Lactic Acid 0.7 mmol/L (0.5-2.2) 12/24/19 10:31 Calcium 8.9 mg/dL (7.8-10.44) 12/24/19 10:31 Total Bilirubin 0.2 mg/dL (0.2-1.2) 12/24/19 10:31 AST 51 U/L (5-34) H 12/24/19 10:31 ALT 28 U/L (8-55) 12/24/19 10:31 Alkaline Phosphatase 168 U/L (40-110) H 12/24/19 10:31 C-Reactive Protein 1.21 mg/dL (= or < 0.5) H 12/24/19 10:31 Serum Total Protein 7.7 g/dL (5.8-8.1) 12/24/19 10:31 Albumin 3.7 g/dL (3.4-4.8) 12/24/19 10:31 Urine Ketones Negative mg/dL (Negative) 12/24/19 10:54 Urine Blood Negative (Negative) 12/24/19 10:54 Urine Nitrite Negative (Negative) 12/24/19 10:54 Ur Leukocyte Esterase Negative Va/uL (Negative) 12/24/19 10:54 - Radiology Interpretation Other Additional Comment: Right foot x-ray showing high concerns for osteo-recommendation for MRI Hospitalist H&P A/P - Problem (1) Cellulitis of foot Code(s): L03.119 - CELLULITIS OF UNSPECIFIED PART OF LIMB Status: Acute (2) Alcohol abuse Code(s): F10.10 - ALCOHOL ABUSE, UNCOMPLICATED Status: Chronic (3) DM2 (diabetes mellitus, type 2) Status: Chronic (4) Dyslipidemia Code(s): E78.5 - HYPERLIPIDEMIA, UNSPECIFIED Status: Chronic (5) Hypothyroidism Code(s): E03.9 - HYPOTHYROIDISM, UNSPECIFIED Status: Chronic - Plan Plan: Patient presented with right foot swelling erythema and possible cellulitis Osteomyelitis: X-ray reviewed showed concerns for osteo-will order MRI We will continue with vancomycin follow blood cultures Continue with pain management PRN Depending on the MRI and if it shows osteo-will consider podiatry and infectious disease consult Type 2 diabetes: We will restart home medications Start patient on lispro sliding scale Send for A1c Diabetic diet hyperlipidemia: Continue with statin Continue the rest of home medications Monitor electrolytes and replace as needed DVT prophylaxis with Lovenox GI prophylaxis Patient is full code Plan discussed with patient and all questions has been answered Patient will be admitted under hospitalist services with anticipated length of stay for over 2 midnights
[2019-12-24] MEDS: Atorvastatin Calcium 10 MG TAB PO SCH (20:37)
[2019-12-24] MEDS: HumaLOG 300 UNITS/3 ML VIAL SC PRN (21:08)
[2019-12-24] MEDS ORDERED: Vancomycin 1 GM in Premix Bag 1 BAG IVPB SCH (22:00)
[2019-12-24] MEDS ORDERED: diphenhydrAMINE 50 MG/ML VIAL IVP SCH (23:45)
[2019-12-25] MEDS ORDERED: HYDROcodone/Acetaminophen 5/325 mg Tablet PO PRN (01:30)
[2019-12-25] MEDS: HYDROcodone/Acetaminophen 5/325 mg Tablet PO PRN ×4 (01:45→23:00)
[2019-12-25 06:57] LABS: Hemoglobin A1c 12.4 % (4.0-6.0)
[2019-12-25 06:57] LABS: #Eosinphils 0.1 thou/uL (0.0-0.7); #Lymphocytes 0.9 thou/uL (1.20-3.40); #Monocytes 0.4 thou/uL (0.11-0.59); #Neutrophils 3.5 thou/uL (1.40-6.50); %Basophils 0.7 % (0.0-1.0); %Eosinophils 1.7 % (0.0-10.0); %Lymphocytes 19.2 % (21.0-51.0); %Monocytes 7.4 % (0.0-10.0); Hemoglobin 15.3 g/dL (14.0-18.0); Mean Corpuscular HGB CONC 32.9 g/dL (32.0-36.0); Mean Corpuscular Volume 97.5 fL (78.0-98.0); Mean Platelet Volume 8.4 fL (7.4-10.4); Platelet Count 172 thou/uL (130-400); RBC Distribution Width 12.9 % (11.5-14.5); Red Blood Cell (RBC) Count 4.79 mill/uL (4.70-6.10); White Blood Cell (WBC) Count 4.9 thou/uL (4.8-10.8)
[2019-12-25 07:13] LABS: Anion Gap 13 mmol/L (10-20); BUN (Urea Nitrogen) 7 mg/dL (8.4-25.7); Calc. Creatinine Clearance 109 mL/min (70-130); Calcium 9.2 mg/dL (7.8-10.44); Carbon Dioxide 24 mmol/L (23-31); Cardiac Risk 3.2 (Less than 4.5); Chloride 100 mmol/L (98-107); Cholesterol 170 mg/dl (< 200 Desired); Estimated GFR-MDRD Greater than 90; Glucose 138 mg/dL (80-115); HDL Cholesterol 53 mg/dL (>60 Neg Risk); LDL Cholesterol, Calculated 104 mg/dL; Magnesium 1.9 mg/dL (1.6-2.6); Potassium 3.7 mmol/L (3.5-5.1); Sodium 133 mmol/L (136-145); Triglycerides 67 mg/dL (Less than 150)
[2019-12-25] MEDS: Empagliflozin 25 MG TAB PO SCH (08:17)
[2019-12-25] MEDS: glyBURIDE 5 MG TAB PO SCH (08:17)
[2019-12-25] MEDS: Enoxaparin Sodium 40 MG/0.4 ML SYRINGE SC SCH (08:18)
[2019-12-25] MEDS: Finasteride 5 MG TAB PO SCH (08:18)
[2019-12-25] MEDS ORDERED: Prevnar 13-Val Conj/PF 0.5 ML SYRINGE IM ONE (09:00)
--- NOTE | 2019-12-25 10:52 | PDOC.HOSPP ---
- Subjective Encounter Date: 12/25/19 Subjective: Patient seen and examined bedside this morning resting in bed no acute distress reports that he feels is right for swelling and tenderness has improved since admission no significant overnight events no chest pain shortness of breath nausea vomiting reports some mild itching after vancomycin which resolved with Benadryl - Objective Vital Signs & Weight: Vital Signs (12 hours) Temp Pulse Resp BP BP Pulse Ox 12/25/19 08:00 97.5 F L 84 20 153/78 H 100 12/25/19 04:20 97.7 F 77 18 143/85 H 96 12/24/19 23:43 97.5 F L 87 18 131/82 98 Weight Weight 194 lb 6.4 oz I&O: 12/24/19 12/25/19 12/26/19 06:59 06:59 06:59 Output Total 1400 Balance -1400 Result Diagrams: 12/25/19 06:24 12/25/19 06:24 Additional Labs: Accuchecks 12/25/19 12/24/19 12/24/19 05:21 19:26 16:22 POC Glucose 165 H 252 H 175 H Hospitalist ROS - Medication Medications: Active Medications Generic Name Dose Route Start Last Admin Trade Name Freq PRN Reason Stop Dose Admin Hydrocodone Bitart/Acetaminophen 2 tab 12/25/19 01:30 12/25/19 08:19 Harvey 5/325 PO 2 tab Q6H PRN Administration Moderate to Severe Pain (6-10) Atorvastatin Calcium 10 mg 12/24/19 21:00 12/24/19 20:37 Lipitor PO 10 mg HS KAMINI Administration Enoxaparin Sodium 40 mg 12/25/19 09:00 12/25/19 08:18 Lovenox SC 40 mg 0900 KAMINI Administration Finasteride 5 mg 12/25/19 09:00 12/25/19 08:18 Proscar PO 5 mg DAILY KAMINI Administration Glyburide 5 mg 12/25/19 07:30 12/25/19 08:17 Diabeta PO 5 mg DAILY-AC KAMINI Administration Insulin Human Lispro 0 units 12/24/19 20:49 12/24/19 21:08 Humalog SC 3 unit .BEDTIME SLIDING SC PRN Administration Bedtime Correctional Scale Miscellaneous Medication 25 mg 12/25/19 09:00 12/25/19 08:17 Jardiance PO 25 mg DAILY KAMINI Administration Pantoprazole Sodium 40 mg 12/25/19 09:00 12/25/19 08:18 Protonix PO 40 mg DAILY KAMINI Administration - Exam General Appearance: NAD Eye: PERRL ENT: normocephalic atraumatic Heart: RRR Respiratory: CTAB Gastrointestinal: soft, non-tender Extremities - other findings: Right foot erythema discharge with third and second toe with some improveme Hosp A/P (1) Cellulitis of foot Code(s): L03.119 - CELLULITIS OF UNSPECIFIED PART OF LIMB Status: Acute (2) Alcohol abuse Code(s): F10.10 - ALCOHOL ABUSE, UNCOMPLICATED Status: Chronic (3) DM2 (diabetes mellitus, type 2) Status: Chronic (4) Dyslipidemia Code(s): E78.5 - HYPERLIPIDEMIA, UNSPECIFIED Status: Chronic (5) Hypothyroidism Code(s): E03.9 - HYPOTHYROIDISM, UNSPECIFIED Status: Chronic - Plan Patient presented with right foot swelling erythema and possible cellulitis Rule out osteomyelitis: X-ray reviewed showed concerns for osteo-will order MRI Patient responded to the IV antibiotics swelling and erythema improving will follow on the cultures continue with wound care patient awaiting MRI to check for osteomyelitis. Depending on the MRI and if it shows osteo-will consider podiatry and infectious disease consult Continue with pain management PRN Type 2 diabetes: Uncontrolled with A1c above 12% We will restart home medications Start patient on lispro sliding scale Diabetic diet hyperlipidemia: Continue with statin Continue the rest of home medications Monitor electrolytes and replace as needed DVT prophylaxis with Lovenox GI prophylaxis Patient is full code Plan discussed with patient and all questions has been answered Depending on clinical improvement MRI results patient might need another 24 to 48 hours hospital stay
--- NOTE | 2019-12-25 14:50 | MRI ---
EXAM: RIGHT FOOT MRI WITH AND WITHOUT IV CONTRAST: 12/25/19 HISTORY: Swelling of the left second toe with concern for osteomyelitis, history of diabetes mellitus. There is extensive soft tissue swelling of the forefoot and midfoot, particularly dorsally, evidence for extensive edema and/or cellulitis. There is a metallic susceptibility artifact on the plantar asp ect of the second toe at the middle phalanx region. There is abnormal T1 hypointensity and T2 and ST IR hyperintensity involving the proximal, middle and distal phalanges of the second toe with some ass ociated soft tissue swelling. This is consistent with that of osteomyelitis without overt bony destru ctive change. No evidence for drainable abscess. There are generalized arthrosis and degenerative quita nges of the forefoot. IMPRESSION: Abnormal T1 hypointense, T2 and STIR hyperintense changes within the proximal middle and distal phala nges of the second toe, evidence for osteomyelitis. No evidence for drainable abscess. The third toe does not demonstrate any evidence for osteomyelitis. POS: RRE
[2019-12-25] MEDS: Atorvastatin Calcium 10 MG TAB PO SCH (20:16)
[2019-12-26] MEDS: HYDROcodone/Acetaminophen 5/325 mg Tablet PO PRN ×3 (06:12→19:19)
[2019-12-26] MEDS: Saccharomyces boulardii 250 MG CAP PO SCH (08:59)
[2019-12-26] MEDS: Finasteride 5 MG TAB PO SCH (08:59)
[2019-12-26] MEDS: Empagliflozin 25 MG TAB PO SCH (09:00)
[2019-12-26] MEDS: Enoxaparin Sodium 40 MG/0.4 ML SYRINGE SC SCH (09:00)
[2019-12-26] MEDS: glyBURIDE 5 MG TAB PO SCH (09:00)
--- NOTE | 2019-12-26 12:17 | PDOC.GSPN ---
Surgery Progress Note: Subj - Subjective Narrative: H&P states pt drinks daily but he clarifies that he used to drink daily but quit 2 years ago. Surgery Progress Note: Obj - Vital signs Vital signs: Vital Signs - Most Recent Temp Pulse Resp BP Pulse Ox 97.9 F 81 16 171/95 H 97 12/26/19 11:58 12/26/19 11:58 12/26/19 11:58 12/26/19 11:58 12/26/19 11:58 Surgery Progress Note: Results - Labs Result Diagrams: 12/25/19 06:24 12/25/19 06:24 Lab results: Laboratory Results - last 24 hr 12/26/19 05:41 POC Glucose 119 H
[2019-12-26] MEDS: HumaLOG 300 UNITS/3 ML VIAL SC PRN (12:34)
[2019-12-26] MEDS ORDERED: Polyethylene Glycol 3350 17 GM Packet PO PRN (13:19)
--- NOTE | 2019-12-26 13:21 | CON ---
DATE OF CONSULTATION: REASON FOR CONSULT: Right second toe infection. HISTORY OF PRESENT ILLNESS: Mr. Soler is a 64-year-old diabetic male who reports a 4 to 5 week history of a sore on his right second toe, which he has been trying to doctor at home. However, it got increasingly swollen and tender, so he decided to come into the hospital. He states that he would have come in sooner except for he has transportation issues. He does not recall any trauma or injury to the toe and does not know how he got the wound on his toe and he has not had any fevers or chills at home. He states since coming into the hospital 2 days ago and being placed on IV antibiotics, the swelling and redness and tenderness in his toe have significantly improved. He denies any history of claudication or rest pain. He denies any previous history of sores on his toes. He does have balance issues and has fallen several times at home. He states that he gets dizzy and overcorrect and then falls and has been unable to get back up. He lives by himself and has been down for hours at a time with these falls. PAST MEDICAL HISTORY: Hypertension, hyperlipidemia, diabetes, and Raynaud syndrome in both hands, benign prostatic hypertrophy. PAST SURGICAL HISTORY: None. ALLERGIES: NO KNOWN DRUG ALLERGIES. OUTPATIENT MEDICATIONS: Include: 1. Glyburide. 2. Metformin. 3. Atorvastatin. 4. Pantoprazole. 5. Invokana. 6. Finasteride. SOCIAL HISTORY: The patient smokes a couple of cigars a day and drinks daily as well. He denies any history of withdrawal and denies any drug use. FAMILY HISTORY: None. REVIEW OF SYSTEMS: Ten system review of systems is negative except per HPI. He specifically denies any dyspnea on exertion, orthopnea, or lower extremity swelling. He denies any chest pain or shortness of breath, cough or sore throat. PHYSICAL EXAMINATION: GENERAL: Reveals a talkative, healthy-appearing older man, in no acute distress. He is not flushed or toxic in appearance. He is not jaundiced or icteric. HEENT: Unremarkable. NECK: Supple without lymphadenopathy or thyroid nodules. HEART: Regular in its rate and rhythm without murmurs, rubs, or gallops. LUNGS: Clear to auscultation bilaterally. ABDOMEN: Soft, nontender, nondistended. He has an easily reducible protuberant of the abdominal hernia, which contains fat only. The fascial defect is slightly larger than a fingertip. EXTREMITIES: Warm and well perfused with normal pedal pulses. He has an ulceration of his lateral right second toe, which appears to be full thickness. There is no expressible drainage. He has minimal erythema of the toe and mild edema. The bone is palpable in the base of the wound. NEUROLOGIC: Slightly diminished peripheral sensation. No focal neural deficits. PSYCHIATRIC: Alert, oriented, and appropriate. LABORATORY DATA: White count is normal. Electrolytes are unremarkable. Foot x-ray showed osteomyelitis of the right second toe, which was confirmed by MRI. ASSESSMENT: Right second toe osteomyelitis. I have recommended toe amputation. He has lost a significant amount of skin and to salvage is not likely to be successful. He is agreeable to proceed with this. Unfortunately, he had creamer in his coffee this morning. Would require 8 hours of n.p.o., so I am adding him onto the OR schedule for tomorrow. He will be n.p.o. after midnight and continue his IV antibiotics in the meantime. Inherent risks of the surgery were discussed with the patient including risks of need for amputation at a higher level if he fails to heal. I am concerned about his functional status. He has had multiple falls at home and lives alone, has minimal social support, and is a drinker. I do not think he will be safe to discharge home post amputation and I have recommended that he go to rehab and he is considering this. We will ask Case Management to look into this further. Job ID: [id number]
--- NOTE | 2019-12-26 14:09 | PDOC.HOSPP ---
- Subjective Encounter Date: 12/26/19 Encounter Time: 14:00 Subjective: Patient seen and examined for toe infection. Pain controlled. No fever/N/V. No new complaints. No overnight events - Objective Vital Signs & Weight: Vital Signs (12 hours) Temp Pulse Resp BP BP Pulse Ox 12/26/19 13:49 138/86 12/26/19 11:58 97.9 F 81 16 171/95 H 97 12/26/19 07:15 98.1 F 89 16 137/83 95 Weight Admit Weight 194 lb Weight 194 lb 6.4 oz I&O: 12/25/19 12/26/19 12/27/19 06:59 06:59 06:59 Output Total 1400 Balance -1400 Result Diagrams: 12/27/19 05:34 12/27/19 05:34 Additional Labs: Accuchecks 12/26/19 12/26/19 12/25/19 12:05 05:41 19:38 POC Glucose 187 H 119 H 220 H 12/25/19 16:52 POC Glucose 145 H Microbiology 12/24/19 10:47 Venous blood - Right Hand Blood Culture - Preliminary NO GROWTH AT 48 HOURS 12/24/19 10:31 Venous blood - Right Arm Blood Culture - Preliminary NO GROWTH AT 48 HOURS Laboratory Tests 12/24/19 12/25/19 10:31 06:25 Hemoglobin A1c 12.4 H C-Reactive Protein 1.21 H Radiology Reviewed by me: Yes (MRI - osteo) Hospitalist ROS - Review of Systems Respiratory: denies: cough, dry, shortness of breath, hemoptysis, SOB with excertion, pleuritic pain, sputum, wheezing, other Cardiovascular: denies: chest pain, palpitations, orthopnea, paroxysmal noc. dyspnea, edema, light headedness, other Gastrointestinal: denies: nausea, vomiting, abdominal pain, diarrhea, constipation, melena, hematochezia, other - Medication Medications: Active Medications Generic Name Dose Route Start Last Admin Trade Name Freq PRN Reason Stop Dose Admin Hydrocodone Bitart/Acetaminophen 2 tab 12/25/19 01:30 12/26/19 12:38 [place] 5/325 PO 2 tab Q6H PRN Administration Moderate to Severe Pain (6-10) Atorvastatin Calcium 10 mg 12/24/19 21:00 12/25/19 20:16 Lipitor PO 10 mg HS KAMINI Administration Enoxaparin Sodium 40 mg 12/25/19 09:00 12/26/19 09:00 Lovenox SC 40 mg 0900 KAMINI Administration Finasteride 5 mg 12/25/19 09:00 12/26/19 08:59 Proscar PO 5 mg DAILY KAMINI Administration Glyburide 5 mg 12/25/19 07:30 12/26/19 09:00 Diabeta PO 5 mg DAILY-AC KAMINI Administration Levofloxacin 500 mg/ Device 100 mls @ 100 mls/hr 12/26/19 09:00 12/26/19 08: 59 IVPB 100 mls Q24HR KAMINI Administration Insulin Human Lispro 0 units 12/24/19 14:42 12/26/19 12:34 Humalog SC 2 unit .MODERATE SLIDING SC PRN Administration Moderate Correctional Scale Insulin Human Lispro 0 units 12/24/19 20:49 12/24/19 21:08 Humalog SC 3 unit .BEDTIME SLIDING SC PRN Administration Bedtime Correctional Scale Miscellaneous Medication 25 mg 12/25/19 09:00 12/26/19 09:00 Jardiance PO 25 mg DAILY KAMINI Administration Pantoprazole Sodium 40 mg 12/25/19 09:00 12/26/19 09:00 Protonix PO 40 mg DAILY KAMINI Administration Polyethylene Glycol 17 gm 12/26/19 13:19 12/26/19 13:40 Miralax PO 17 gm DAILYPRN PRN Administration Constipation Saccharomyces Boulardii 250 mg 12/26/19 09:00 12/26/19 08:59 Florastor PO 250 mg DAILY KAMINI Administration - Exam General Appearance: NAD Heart: RRR, no gallops Respiratory: no wheezes, no ronchi Gastrointestinal: non-tender, non-distended, normal bowel sounds Extremities: no cyanosis Extremities - other findings: no new findings Neurological: no new deficit Hosp A/P - Plan DVT proph w/SCDs Rt second toe cellulitis with Osteomyelitis HTN DM2 - uncontrolled HLD BPH PLAN: Cont IV Vancomycin Monitor Vancomycin level Add Levaquin Cont sliding scale Toe amputation in AM
[2019-12-26] MEDS: Senokot S 8.6-50 MG TAB PO SCH (20:29)
[2019-12-26] MEDS: Atorvastatin Calcium 10 MG TAB PO SCH (20:29)
[2019-12-27] MEDS: HYDROcodone/Acetaminophen 5/325 mg Tablet PO PRN ×4 (01:12→23:22)
[2019-12-27 05:49] LABS: #Eosinphils 0.2 thou/uL (0.0-0.7); #Lymphocytes 2.3 thou/uL (1.20-3.40); #Monocytes 0.5 thou/uL (0.11-0.59); #Neutrophils 3.3 thou/uL (1.40-6.50); %Basophils 0.5 % (0.0-1.0); %Eosinophils 3.3 % (0.0-10.0); %Lymphocytes 36.1 % (21.0-51.0); %Monocytes 7.8 % (0.0-10.0); %Neutrophils 52.3 % (42.0-75.0); Hemoglobin 15.2 g/dL (14.0-18.0); Mean Corpuscular HGB CONC 32.8 g/dL (32.0-36.0); Mean Corpuscular Hemoglobin 31.7 pg (27.0-31.0); Mean Corpuscular Volume 96.5 fL (78.0-98.0); Mean Platelet Volume 8.3 fL (7.4-10.4); Platelet Count 203 thou/uL (130-400); RBC Distribution Width 12.9 % (11.5-14.5); Red Blood Cell (RBC) Count 4.79 mill/uL (4.70-6.10); White Blood Cell (WBC) Count 6.3 thou/uL (4.8-10.8)
[2019-12-27 06:02] LABS: ALT (SGPT) 23 U/L (8-55); AST (SGOT) 48 U/L (5-34); Albumin 3.8 g/dL (3.4-4.8); Alkaline Phosphatase 135 U/L (40-110); Anion Gap 14 mmol/L (10-20); BUN (Urea Nitrogen) 10 mg/dL (8.4-25.7); Bilirubin, Total 0.4 mg/dL (0.2-1.2); Calc. Creatinine Clearance 101 mL/min (70-130); Calcium 9.2 mg/dL (7.8-10.44); Carbon Dioxide 22 mmol/L (23-31); Chloride 100 mmol/L (98-107); Estimated GFR-MDRD 84; Globulin 3.8 g/dL (2.4-3.5); Glucose 121 mg/dL (80-115); Magnesium 2.1 mg/dL (1.6-2.6); Potassium 3.7 mmol/L (3.5-5.1); Protein, Total 7.6 g/dL (5.8-8.1); Sodium 132 mmol/L (136-145)
[2019-12-27] MEDS ORDERED: Bupivacaine 0.25% HCL 30 ML VIAL ONE (06:34)
[2019-12-27] MEDS ORDERED: Lidocaine 1% w/Epinephrine 1:100K 20 ML VIAL ONE (06:34)
[2019-12-27] MEDS: glyBURIDE 5 MG TAB PO SCH (07:16)
[2019-12-27] MEDS: Enoxaparin Sodium 40 MG/0.4 ML SYRINGE SC SCH (07:16)
[2019-12-27] MEDS: Senokot S 8.6-50 MG TAB PO SCH ×2 (08:06→20:17)
[2019-12-27] MEDS: Polyethylene Glycol 3350 17 GM Packet PO SCH (08:06)
[2019-12-27] MEDS: Empagliflozin 25 MG TAB PO SCH (08:07)
[2019-12-27] MEDS ORDERED: Fentanyl 100 MCG/2 ML VIAL ONE (09:14)
[2019-12-27] MEDS: Saccharomyces boulardii 250 MG CAP PO SCH (10:20)
[2019-12-27] MEDS: Finasteride 5 MG TAB PO SCH (10:20)
[2019-12-27] MEDS: HumaLOG 300 UNITS/3 ML VIAL SC PRN ×3 (11:15→21:05)
[2019-12-27] MEDS ORDERED: EPHEDRINE 25 MG/5 ML SYRINGE ONE (11:45)
[2019-12-27] MEDS ORDERED: Lidocaine 1% PF 5 ML VIAL ONE (11:45)
[2019-12-27] MEDS ORDERED: PROPOFOL 200 MG/20 ML VIAL ONE (11:45)
[2019-12-27] MEDS ORDERED: Ondansetron PF 4 MG/2 ML Vial ONE (11:45)
[2019-12-27] MEDS ORDERED: PHENYLEPHRINE-NS 100 MCG/ML 10 ML SYRINGE ONE (11:45)
--- NOTE | 2019-12-27 12:32 | PDOC.OP ---
Operative Note - Operative Note Operative Note: DATE OF PROCEDURE: 12/27/2019 PROCEDURES: Right second toe ray amputation SURGEON: Charlotte Brown M.D. PREOPERATIVE DIAGNOSIS: Osteomyelitis of the right second toe POSTOPERATIVE DIAGNOSIS: Osteomyelitis of the right second toe FINDINGS: Tissues at the level of the metatarsal are viable. No abscess or necrosis. HISTORY: Patient with a 4-week history of a wound on his right second toe and obvious osteomyelitis on bedside exam. He also had undergone x-rays and MRI which confirmed presence of osteomyelitis in the proximal middle and distal phalanges of the right second toe. Amputation of the toe was recommended. He appears to have adequate blood flow to his foot to heal an amputation. PROCEDURE: After informed consent was obtained the patient was taken to the operating room he was placed in the supine position and general endotracheal anesthesia was administered. He was prepped and draped in the standard sterile fashion. A digital block was performed of the right second toe and a paddle shaped incision made to the level of the distal metatarsal bone. Soft tissues were divided down to the level of the distal metatarsal bone which was transected with bone yuri. The toe was passed from the field and the metatarsal bone was rongeured back to smooth the edges. These bone chips were sent for bone culture, but the metatarsal bone appeared grossly normal. The surrounding tissues were healthy and well perfused and there was no abscess or necrosis. The wound was irrigated and the subcutaneous tissues partially reapproximated with 3-0 Monocryl suture. The skin was partially reapproximated proximally as well and the wound base packed with wet-to-dry dressings. Wound care has been consulted for placement of a VAC dressing postoperatively. The patient tolerated the procedure well. Estimated blood loss was minimal. There were no complications. Specimen is right second toe, and metatarsal bone chips for bone culture.
--- NOTE | 2019-12-27 18:41 | PDOC.HOSPP ---
- Subjective Encounter Date: 12/27/19 Encounter Time: 14:00 Subjective: Patient seen and examined for Osteomyelitis. s/p toe amputation. Pain controlled. No new complaints. No overnight events - Objective Vital Signs & Weight: Vital Signs (12 hours) Temp Pulse Resp BP BP Pulse Ox 12/27/19 16:25 97.8 F 84 20 131/74 96 12/27/19 10:52 98.1 F 87 18 111/71 95 12/27/19 09:58 97.5 F L 64 18 118/72 95 12/27/19 08:00 98 12/27/19 07:38 97.6 F 71 18 144/85 H 98 Weight Admit Weight 194 lb Weight 194 lb 6.4 oz I&O: 12/26/19 12/27/19 12/28/19 06:59 06:59 06:59 Intake Total 920 Output Total 1200 Balance -280 Result Diagrams: 12/27/19 05:34 12/27/19 05:34 Additional Labs: Accuchecks 12/27/19 12/27/19 12/27/19 15:36 10:54 05:31 POC Glucose 246 H 156 H 119 H 12/26/19 19:22 POC Glucose 210 H Hospitalist ROS - Review of Systems Respiratory: denies: cough, dry, shortness of breath, hemoptysis, SOB with excertion, pleuritic pain, sputum, wheezing, other Cardiovascular: denies: chest pain, palpitations, orthopnea, paroxysmal noc. dyspnea, edema, light headedness, other - Medication Medications: Active Medications Generic Name Dose Route Start Last Admin Trade Name Freq PRN Reason Stop Dose Admin Hydrocodone Bitart/Acetaminophen 2 tab 12/25/19 01:30 12/27/19 16:55 [place] 5/325 PO 2 tab Q6H PRN Administration Moderate to Severe Pain (6-10) Atorvastatin Calcium 10 mg 12/24/19 21:00 12/26/19 20:29 Lipitor PO 10 mg HS KAMINI Administration Enoxaparin Sodium 40 mg 12/25/19 09:00 12/27/19 07:16 Lovenox SC Not Given 0900 KAMINI Finasteride 5 mg 12/25/19 09:00 12/27/19 10:20 Proscar PO 5 mg DAILY KAMINI Administration Glyburide 5 mg 12/25/19 07:30 12/27/19 07:16 Diabeta PO Not Given DAILY-AC KAMINI Levofloxacin 500 mg/ Device 100 mls @ 100 mls/hr 12/26/19 09:00 12/27/19 08: 08 IVPB 100 mls Q24HR KAMINI Administration Insulin Human Lispro 0 units 12/24/19 14:42 12/27/19 16:56 Humalog SC 4 unit .MODERATE SLIDING SC PRN Administration Moderate Correctional Scale Insulin Human Lispro 0 units 12/24/19 20:49 12/24/19 21:08 Humalog SC 3 unit .BEDTIME SLIDING SC PRN Administration Bedtime Correctional Scale Miscellaneous Medication 25 mg 12/25/19 09:00 12/27/19 08:07 Jardiance PO Not Given DAILY KAMINI Pantoprazole Sodium 40 mg 12/25/19 09:00 12/27/19 10:20 Protonix PO 40 mg DAILY KAMINI Administration Polyethylene Glycol 17 gm 12/27/19 09:00 12/27/19 08:06 Miralax PO Not Given DAILY KAMINI Polyethylene Glycol 17 gm 12/26/19 13:19 12/26/19 13:40 Miralax PO 17 gm DAILYPRN PRN Administration Constipation Saccharomyces Boulardii 250 mg 12/26/19 09:00 12/27/19 10:20 Florastor PO 250 mg DAILY KAMINI Administration Senna/Docusate Sodium 1 tab 12/26/19 21:00 12/27/19 08:06 Senokot S PO Not Given BID KAMINI - Exam General Appearance: NAD Heart: RRR, no gallops Respiratory: no wheezes, no ronchi Gastrointestinal: non-tender, non-distended Extremities: no cyanosis Extremities - other findings: wound dressing + Neurological: no new deficit Hosp A/P - Plan DVT proph w/SCDs Rt second toe cellulitis with Osteomyelitis -s/p toe amputation 12/26 HTN DM2 - uncontrolled HLD BPH PLAN: Cont IV Vancomycin/Levaquin Monitor Vancomycin level Cont sliding scale Cont wound care DC planning
[2019-12-27] MEDS ORDERED: Vancomycin 1 GM in Premix Bag 1 BAG IVPB SCH (18:45)
[2019-12-27] MEDS: Atorvastatin Calcium 10 MG TAB PO SCH (20:17)
[2019-12-27] MEDS ORDERED: Insulin Glargine 10 UNITS in Pre-Filled Syringe 1 EACH SC SCH (21:00)
[2019-12-27] MEDS ORDERED: Vancomycin 1.5 GRAM/300 ML BAG 1.5 GM in Premix Bag 1 BAG IVPB SCH (21:00)
[2019-12-28] MEDS: HYDROcodone/Acetaminophen 5/325 mg Tablet PO PRN ×4 (05:23→23:44)
[2019-12-28 06:37] LABS: #Basophils 0.1 thou/uL (0.0-0.2); #Eosinphils 0.2 thou/uL (0.0-0.7); #Lymphocytes 1.4 thou/uL (1.20-3.40); #Monocytes 0.5 thou/uL (0.11-0.59); #Neutrophils 4.7 thou/uL (1.40-6.50); %Basophils 0.9 % (0.0-1.0); %Eosinophils 2.5 % (0.0-10.0); %Lymphocytes 20.8 % (21.0-51.0); %Monocytes 7.3 % (0.0-10.0); %Neutrophils 68.4 % (42.0-75.0); Hemoglobin 14.6 g/dL (14.0-18.0); Mean Corpuscular HGB CONC 33.7 g/dL (32.0-36.0); Mean Corpuscular Hemoglobin 32.4 pg (27.0-31.0); Mean Corpuscular Volume 95.9 fL (78.0-98.0); Mean Platelet Volume 8.1 fL (7.4-10.4); Platelet Count 203 thou/uL (130-400); RBC Distribution Width 12.7 % (11.5-14.5); Red Blood Cell (RBC) Count 4.51 mill/uL (4.70-6.10); White Blood Cell (WBC) Count 6.9 thou/uL (4.8-10.8)
[2019-12-28 07:07] LABS: ALT (SGPT) 20 U/L (8-55); AST (SGOT) 40 U/L (5-34); Albumin 3.8 g/dL (3.4-4.8); Alkaline Phosphatase 121 U/L (40-110); Anion Gap 12 mmol/L (10-20); BUN (Urea Nitrogen) 10 mg/dL (8.4-25.7); Bilirubin, Total 0.4 mg/dL (0.2-1.2); Calc. Creatinine Clearance 100 mL/min (70-130); Calcium 9.1 mg/dL (7.8-10.44); Carbon Dioxide 23 mmol/L (23-31); Chloride 102 mmol/L (98-107); Estimated GFR-MDRD 83; Globulin 3.5 g/dL (2.4-3.5); Glucose 117 mg/dL (80-115); Protein, Total 7.3 g/dL (5.8-8.1); Sodium 133 mmol/L (136-145)
[2019-12-28] MEDS: metFORMIN 500 MG TAB PO SCH ×2 (08:29→16:24)
[2019-12-28] MEDS: Finasteride 5 MG TAB PO SCH (08:29)
[2019-12-28] MEDS: glyBURIDE 5 MG TAB PO SCH ×2 (08:30→16:24)
[2019-12-28] MEDS: Enoxaparin Sodium 40 MG/0.4 ML SYRINGE SC SCH (08:30)
[2019-12-28] MEDS: Empagliflozin 25 MG TAB PO SCH (08:30)
[2019-12-28] MEDS: Polyethylene Glycol 3350 17 GM Packet PO SCH (08:31)
[2019-12-28] MEDS: Saccharomyces boulardii 250 MG CAP PO SCH (08:31)
[2019-12-28] MEDS: Senokot S 8.6-50 MG TAB PO SCH ×2 (08:31→21:03)
[2019-12-28] MEDS ORDERED: Vancomycin HCl 1.25 GM in Sodium Chloride 0.9% 250 ML 250 ML IVPB SCH (09:00)
--- NOTE | 2019-12-28 10:06 | PDOC.GSPN ---
Surgery Progress Note: Subj - Subjective Narrative: Patient is feeling okay this morning. He had quite a bit of pain last night but this has improved. He thinks he overdid it "showing off" for physical therapy. He has been ambulating in the halls with his postop shoe. He is try to keep all of his weight on his heel. His wound VAC is in place and has minimal serosanguineous drainage. He is afebrile. I will see him with the wound care team tomorrow for his VAC change. Surgery Progress Note: Obj - Vital signs Vital signs: Vital Signs - Most Recent Temp Pulse Resp BP Pulse Ox 97.9 F 84 18 111/75 94 L 12/28/19 07:45 12/28/19 07:45 12/28/19 07:45 12/28/19 07:45 12/28/19 08:00 Surgery Progress Note: Results - Labs Result Diagrams: 12/28/19 06:24 12/28/19 06:24 Lab results: Laboratory Results - last 24 hr 12/28/19 12/28/19 12/28/19 00:06 05:20 06:24 WBC RBC Hgb Hct MCV MCH MCHC RDW Plt Count MPV Neutrophils % Lymphocytes % Monocytes % Eosinophils % Basophils % Neutrophils # Lymphocytes # Monocytes # Eosinophils # Basophils # Sodium 133 L Potassium 4.0 Chloride 102 Carbon Dioxide 23 Anion Gap 12 BUN 10 Creatinine 0.92 Estimated GFR (MDRD) 83 Glucose 117 H POC Glucose 234 H 127 H Calcium 9.1 Total Bilirubin 0.4 AST 40 H ALT 20 Alkaline Phosphatase 121 H Serum Total Protein 7.3 Albumin 3.8 Globulin 3.5 Albumin/Globulin Ratio 1.1 L 12/28/19 06:24 WBC 6.9 RBC 4.51 L Hgb 14.6 Hct 43.3 MCV 95.9 MCH 32.4 H MCHC 33.7 RDW 12.7 Plt Count 203 MPV 8.1 Neutrophils % 68.4 Lymphocytes % 20.8 L Monocytes % 7.3 Eosinophils % 2.5 Basophils % 0.9 Neutrophils # 4.7 Lymphocytes # 1.4 Monocytes # 0.5 Eosinophils # 0.2 Basophils # 0.1 Sodium Potassium Chloride Carbon Dioxide Anion Gap BUN Creatinine Estimated GFR (MDRD) Glucose POC Glucose Calcium Total Bilirubin AST ALT Alkaline Phosphatase Serum Total Protein Albumin Globulin Albumin/Globulin Ratio
--- NOTE | 2019-12-28 11:41 | PDOC.HOSPP ---
- Subjective Encounter Date: 12/28/19 Encounter Time: 13:59 Subjective: Mr. Soler is seen today for follow up of osteomyelitis of the right second toe s/p amputation 12/27/[address] Brown. He reports some brief episodes of shooting pains into his toe, but these only last a second. He also reports some ongoing soreness and pain in the toe, but this is significantly improved with his pain medications. He has been able to walk around in his post surgical shoe under the guidance of PT. - Objective Vital Signs & Weight: Vital Signs (12 hours) Temp Pulse Resp BP Pulse Ox 12/28/19 08:00 94 L 12/28/19 07:45 97.9 F 84 18 111/75 94 L 12/28/19 04:00 98.7 F 76 20 110/73 97 12/27/19 23:58 97.5 F L 74 20 114/72 98 Weight Admit Weight 194 lb Weight 194 lb 6.4 oz I&O: 12/27/19 12/28/19 12/29/19 06:59 06:59 06:59 Intake Total 920 Output Total 1200 Balance -280 Result Diagrams: 12/28/19 06:24 12/28/19 06:24 Additional Labs: Accuchecks 12/28/19 12/28/19 12/27/19 05:20 00:06 19:19 POC Glucose 127 H 234 H 328 H 12/27/19 15:36 POC Glucose 246 H Hospitalist ROS - Review of Systems Respiratory: denies: cough, dry, shortness of breath, hemoptysis, SOB with excertion, pleuritic pain, sputum, wheezing, other Cardiovascular: denies: chest pain, palpitations, orthopnea, paroxysmal noc. dyspnea, edema, light headedness, other - Medication Medications: Active Medications Generic Name Dose Route Start Last Admin Trade Name Freq PRN Reason Stop Dose Admin Hydrocodone Bitart/Acetaminophen 2 tab 12/25/19 01:30 12/28/19 11:05 [place] 5/325 PO 2 tab Q6H PRN Administration Moderate to Severe Pain (6-10) Atorvastatin Calcium 10 mg 12/24/19 21:00 12/27/19 20:17 Lipitor PO 10 mg HS KAMINI Administration Enoxaparin Sodium 40 mg 12/25/19 09:00 12/28/19 08:30 Lovenox SC 40 mg 0900 KAMINI Administration Finasteride 5 mg 12/25/19 09:00 12/28/19 08:29 Proscar PO 5 mg DAILY KAMINI Administration Glyburide 5 mg 12/28/19 08:00 12/28/19 08:30 Diabeta PO 5 mg BID-WM KAMINI Administration Levofloxacin 500 mg/ Device 100 mls @ 100 mls/hr 12/26/19 09:00 12/28/19 08: 37 IVPB 100 mls Q24HR KAMINI Administration Vancomycin HCl 1.25 gm/ Sodium 250 mls @ 166.667 mls/hr 12/28/19 09:00 08:37 Chloride IVPB 250 mls Q12HR KAMINI Administration Insulin Human Lispro 0 units 12/24/19 14:42 12/27/19 16:56 Humalog SC 4 unit .MODERATE SLIDING SC PRN Administration Moderate Correctional Scale Insulin Human Lispro 0 units 12/24/19 20:49 12/27/19 21:05 Humalog SC 4 unit .BEDTIME SLIDING SC PRN Administration Bedtime Correctional Scale Metformin HCl 1,000 mg 12/28/19 08:00 12/28/19 08:29 Glucophage PO 1,000 mg BID-WM KAMINI Administration Miscellaneous Medication 25 mg 12/25/19 09:00 12/28/19 08:30 Jardiance PO 25 mg DAILY KAMINI Administration Pantoprazole Sodium 40 mg 12/25/19 09:00 12/28/19 08:31 Protonix PO 40 mg DAILY KAMINI Administration Polyethylene Glycol 17 gm 12/27/19 09:00 12/28/19 08:31 Miralax PO 17 gm DAILY KAMINI Administration Polyethylene Glycol 17 gm 12/26/19 13:19 12/26/19 13:40 Miralax PO 17 gm DAILYPRN PRN Administration Constipation Saccharomyces Boulardii 250 mg 12/26/19 09:00 12/28/19 08:31 Florastor PO 250 mg DAILY KAMINI Administration Senna/Docusate Sodium 1 tab 12/26/19 21:00 12/28/19 08:31 Senokot S PO 1 tab BID KAMINI Administration - Exam General Appearance: NAD, awake alert Heart: RRR, no murmur, no gallops, no rubs Respiratory: CTAB Gastrointestinal: soft, non-tender, normal bowel sounds Extremities: no cyanosis Extremities - other findings: Wound vac in place over Rt 2nd toe draining some serosanguinous fluid Psychiatric: normal affect, A&O x 3 Hosp A/P - Plan Rt second toe cellulitis with Osteomyelitis -s/p toe amputation 12/26 HTN DM2 HLD BPH PLAN: Cont IV Vancomycin/Levaquin Monitor Vancomycin level Glyburide dose increased Cont sliding scale Cont wound care [facility] setup DC planning
[2019-12-28 20:29] LABS: Vancomycin, Trough 11.4 ug/mL
[2019-12-28] MEDS: Vancomycin 1.5 GRAM/300 ML BAG 1.5 GM in Premix Bag 1 BAG IVPB SCH (21:02)
[2019-12-28] MEDS: Atorvastatin Calcium 10 MG TAB PO SCH (21:03)
[2019-12-29] MEDS: HYDROcodone/Acetaminophen 5/325 mg Tablet PO PRN ×2 (05:51→11:59)
[2019-12-29] MEDS: glyBURIDE 5 MG TAB PO SCH (07:47)
[2019-12-29] MEDS: metFORMIN 500 MG TAB PO SCH (07:47)
[2019-12-29] MEDS: Senokot S 8.6-50 MG TAB PO SCH (07:47)
[2019-12-29] MEDS: Empagliflozin 25 MG TAB PO SCH (07:47)
[2019-12-29] MEDS: Finasteride 5 MG TAB PO SCH (07:47)
[2019-12-29] MEDS: Saccharomyces boulardii 250 MG CAP PO SCH (07:47)
[2019-12-29] MEDS: Enoxaparin Sodium 40 MG/0.4 ML SYRINGE SC SCH (07:48)
[2019-12-29] MEDS: Polyethylene Glycol 3350 17 GM Packet PO SCH (07:48)
--- NOTE | 2019-12-29 09:59 | PDOC.HOSPP ---
- Subjective Encounter Date: 12/29/19 - Objective Vital Signs & Weight: Vital Signs (12 hours) Temp Pulse Resp BP Pulse Ox 12/29/19 07:33 98.9 F 93 20 129/81 97 Weight Admit Weight 194 lb Weight 194 lb 6.4 oz I&O: 12/28/19 12/29/19 12/30/19 06:59 06:59 06:59 Intake Total 920 1220 Output Total 1200 975 Balance -280 245 Result Diagrams: 12/28/19 06:24 12/28/19 06:24 Additional Labs: Accuchecks 12/29/19 12/28/19 12/28/19 05:43 19:46 16:33 POC Glucose 123 H 123 H 89 12/28/19 12/27/19 11:35 15:36 POC Glucose 141 H 246 H Hospitalist ROS - Medication Medications: Active Medications Generic Name Dose Route Start Last Admin Trade Name Freq PRN Reason Stop Dose Admin Hydrocodone Bitart/Acetaminophen 2 tab 12/25/19 01:30 12/29/19 05:51 [place] 5/325 PO 2 tab Q6H PRN Administration Moderate to Severe Pain (6-10) Atorvastatin Calcium 10 mg 12/24/19 21:00 12/28/19 21:03 Lipitor PO 10 mg HS KAMINI Administration Enoxaparin Sodium 40 mg 12/25/19 09:00 12/29/19 07:48 Lovenox SC 40 mg 0900 KAMINI Administration Finasteride 5 mg 12/25/19 09:00 12/29/19 07:47 Proscar PO 5 mg DAILY KAMINI Administration Glyburide 5 mg 12/28/19 08:00 12/29/19 07:47 Diabeta PO 5 mg BID-WM KAMINI Administration Levofloxacin 500 mg/ Device 100 mls @ 100 mls/hr 12/26/19 09:00 12/29/19 07: 48 IVPB 100 mls Q24HR KAMINI Administration Vancomycin HCl 1.5 gm/ Device 300 mls @ 200 mls/hr 12/28/19 21:00 12/28/19 21 :02 IVPB 300 mls Q12HR KAMINI Administration Insulin Human Lispro 0 units 12/24/19 14:42 12/27/19 16:56 Humalog SC 4 unit .MODERATE SLIDING SC PRN Administration Moderate Correctional Scale Insulin Human Lispro 0 units 12/24/19 20:49 12/27/19 21:05 Humalog SC 4 unit .BEDTIME SLIDING SC PRN Administration Bedtime Correctional Scale Metformin HCl 1,000 mg 12/28/19 08:00 12/29/19 07:47 Glucophage PO 1,000 mg BID-WM KAMINI Administration Miscellaneous Medication 25 mg 12/25/19 09:00 12/29/19 07:47 Jardiance PO 25 mg DAILY KAMINI Administration Pantoprazole Sodium 40 mg 12/25/19 09:00 12/29/19 07:47 Protonix PO 40 mg DAILY KAMINI Administration Polyethylene Glycol 17 gm 12/27/19 09:00 12/29/19 07:48 Miralax PO 17 gm DAILY KAMINI Administration Polyethylene Glycol 17 gm 12/26/19 13:19 12/26/19 13:40 Miralax PO 17 gm DAILYPRN PRN Administration Constipation Saccharomyces Boulardii 250 mg 12/26/19 09:00 12/29/19 07:47 Florastor PO 250 mg DAILY KAMINI Administration Senna/Docusate Sodium 1 tab 12/26/19 21:00 12/29/19 07:47 Senokot S PO 1 tab BID KAMINI Administration Sodium Chloride 10 ml 12/24/19 13:40 12/28/19 21:03 Flush - Normal Saline IVF 10 ml PRN PRN Administration Saline Flush Hosp A/P - Plan Rt second toe cellulitis with Osteomyelitis -s/p toe amputation 12/26 HTN DM2 HLD BPH PLAN: Case d/w ID regarding outpt [facility] - Dr Andino recommended to wait on cultures Will consult ID Cont IV Vancomycin/Levaquin Monitor Vancomycin level Cont Glyburide Cont sliding scale Cont wound care [facility] setup DC planning
--- NOTE | 2019-12-29 11:25 | PDOC.GSPN ---
Surgery Progress Note: Subj - Subjective Narrative: Patient is feeling good today. He is ambulating with standby assist by physical therapy using a walker and a postop shoe. He will need these for home use. His wound looks good and has good blood flow and is granulating. VAC dressing was replaced and he will need this for home use as well. From a surgical standpoint he is ready for discharge. I will see him back in my clinic in 2 to 3 weeks. Surgery Progress Note: Obj - Vital signs Vital signs: Vital Signs - Most Recent Temp Pulse Resp BP Pulse Ox 97.5 F L 94 18 146/97 H 99 12/29/19 11:16 12/29/19 11:16 12/29/19 11:16 12/29/19 11:16 12/29/19 11:16 Surgery Progress Note: Results - Labs Result Diagrams: 12/28/19 06:24 12/28/19 06:24 Lab results: Laboratory Results - last 24 hr 12/29/19 05:43 POC Glucose 123 H
[2019-12-29] MEDS: Vancomycin 1.5 GRAM/300 ML BAG 1.5 GM in Premix Bag 1 BAG IVPB SCH (11:32)
[2019-12-29 15:51] VITALS: BP 133/82; TEMP 97.7
--- NOTE | 2019-12-29 17:24 | CON ---
DATE OF CONSULTATION: 12/29/2019 REASON FOR CONSULTATION: Osteomyelitis of right foot. HISTORY OF PRESENT ILLNESS: A 64-year-old with history of chronic smoking, peripheral vascular disease, type 2 diabetes, and hypertension, who was referred from his PCP's office with inflammatory process of right second toe cellulitis. His O2 saturations were 98, temperature 98.7, and BP 130/80. The patient had an MRI of the foot, which showed evidence of osteomyelitis of the middle and distal phalanges of second toe. There was redness along the dorsal aspect of the right foot and some swelling as well, but most of the inflammatory changes in ulceration were noted at the second toe site. He had a surgical amputation by Dr. Brown, that was carried out on 12/26. The surgical report was reviewed. The incision was made at the level of the distal metatarsal bone. Soft tissues divided down to the level of the distal metatarsal bone, which was transected with bone yuri, and the pathology report showed adequate and viable soft tissue margins. Currently, Mr. Soler has been prepared for discharge planning and he denies any headaches. No visual symptoms. He denies any respiratory symptoms or abdominal pain. He is voiding without difficulty. Minimal pain in the right foot. PAST MEDICAL HISTORY: 1. Type 2 diabetes. 2. Hypertension. 3. Hyperlipidemia. 4. Raynaud's. 5. Peripheral vascular disease. 6. Depression. SOCIAL HISTORY: Heavy drinker. Chronic smoker. Lives by himself. ALLERGIES: NONE. MEDICATIONS: Currently on: 1. [place]o. 2. Lipitor. 3. Lovenox. 4. Proscar. 5. DiaBeta. 6. Insulin. 7. Levofloxacin. 8. Metformin. 9. Protonix. 10. MiraLAX. 11. Florastor. 12. Vancomycin. FAMILY HISTORY: Noncontributory. PHYSICAL EXAMINATION: VITAL SIGNS: Temperature max 98.9, blood pressure 140/90, pulse 94, respirations 18, and O2 saturation 99. SKIN: The area of amputation. There is a hole in the removal of the distal aspect of the second metatarsal. The amputation site appears well. All the inflammatory changes have subsided. The patient has a peripheral IV access. No Kendall catheter. No lymphadenopathy. HEENT: He has numerous missing teeth, remainder one with quite a bit of decay and gum disease. NECK: Supple. No jugular vein distention. LUNGS: Symmetric. Clear breath sounds. HEART: S1 and S2. Regular rate. No S3 or S4. ABDOMEN: Soft, not distended or tender. No ascites. No bladder distention. EXTREMITIES: No joint inflammatory activity outside the involved area. Pulses are faintly palpable in popliteal, 1+ in dorsalis pedis. Cap refill is normal. NEUROLOGIC: He moves extremities on command. He is oriented. Follows commands. Strength appears to be preserved. Speech is normal. LABORATORY DATA: White cell count 7.4 and 6.9, hemoglobin is 14.6, and platelets 203 with mild lymphocytopenia. Creatinine 0.92, AST 40, ALT 20, and albumin 3.8. Urinalysis was essentially normal except for some glycosuria. Cultures revealed group B Streptococcus. The Gram stain with no organisms seen. There is some normal skin antonio present as well. ASSESSMENT: 1. Type 2 diabetes. 2. Chronic smoking. 3. Alcoholism. 4. Peripheral vascular disease. 5. Osteomyelitis of the second toe status post a second ray amputation, partial. DISCUSSION: In view of the wide margin of clearance, we will recommend transition to oral antimicrobial therapy with Keflex and rifampin for 3 weeks. Follow up clinical course in the outpatient setting. There is some risk because of the clinical evidence of peripheral vascular disease and an ultrasound has not been done. I would probably consider doing an arterial duplex ultrasound in the outpatient setting since he has been discharged. Job ID: [id number]
--- NOTE | 2019-12-30 09:27 | DIS ---
DATE OF ADMISSION: 12/24/2019 DATE OF DISCHARGE: 12/29/2019 DISCHARGE DISPOSITION: Home with [facility] with wound VAC. ALLERGIES: NO KNOWN DRUG ALLERGIES. FOLLOWUP: 1. The patient was advised to follow up with primary care physician in 1 week. 2. Follow up with Dr. Brown and Dr. Andino in 2 weeks. DISCHARGE MEDICATIONS: 1. Keflex 500 mg every eight hourly for 3 weeks. 2. Rifampin 300 mg b.i.d. for 3 weeks. 3. All other home medications were left unchanged. The patient was seen and examined on the day of discharge. Denies any new complaints. No chest pain, shortness of breath, or palpitations reported. BRIEF HOSPITAL COURSE: The patient is a 64-year-old male with diabetes mellitus type 2, hyperlipidemia, and hypertension, presented to the hospital with right foot swelling along with pain of 3 weeks' duration. His workup was consistent with cellulitis along with osteomyelitis of the right second toe. He had an MRI, which confirmed osteomyelitis. He was evaluated by General Surgery as well as Infectious Disease. He underwent right second toe ray amputation by Dr. Brown on December 27, 2019. Wound VAC has been placed. He will follow up with Dr. Brown as outpatient. He will be discharged home on antibiotics per Infectious Disease, Dr. Andino. The patient was found to have uncontrolled diabetes mellitus type 2 with A1c of 12.4. He was advised to increase glyburide to twice a day. His blood sugars were stable on glyburide b.i.d. He was extensively counseled on diabetes mellitus type 2 as well as dietary modification. He was counseled to monitor blood sugars on the daily basis and to maintain a log. If his blood sugar remains persistently elevated, he may benefit from insulin. Please note that the patient was placed on IV vancomycin and Levaquin, which were discontinued at discharge. The patient understands the side effects of the above medications and also understands the above plan of care. FINAL DIAGNOSES: 1. Right foot cellulitis with right second toe osteomyelitis, status post amputation as discussed above. 2. Hypertension. 3. Uncontrolled diabetes mellitus type 2. 4. Hyperlipidemia. 5. Benign prostatic hypertrophy. 6. Hyponatremia. 7. Elevated inflammatory markers. 8. Chronic kidney disease stage 2. TIME SPENT: Time coordinating the discharge of this patient was 35 minutes. Home Health Care has been arranged. Home wound VAC was placed at the time of discharge. Job ID: [id number]
== END 2019-12-29 16:44 | disposition home or self-care (01) | DRG 617 ==
LOC: ERS 09:29 → T4-A 13:32
PROVIDERS: ADMIT Internal Medicine; ATTEND Internal Medicine
PROC: 0Y6R0Z3 Detachment at Right 2nd Toe, Low, Open Approach (ICD-10-PCS; principal; 2019-12-27)
DX: E11.69 Type 2 diabetes mellitus with other specified complication (principal); M86.8X7 Other osteomyelitis, ankle and foot; L03.115 Cellulitis of right lower limb; E11.621 Type 2 diabetes mellitus with foot ulcer; E11.65 Type 2 diabetes mellitus with hyperglycemia; E11.51 Type 2 diabetes mellitus with diabetic peripheral angiopathy without gangrene; L97.519 Non-pressure chronic ulcer of other part of right foot with unspecified severity; E78.5 Hyperlipidemia, unspecified; I10 Essential (primary) hypertension; F10.10 Alcohol abuse, uncomplicated; E03.9 Hypothyroidism, unspecified; N40.0 Benign prostatic hyperplasia without lower urinary tract symptoms; I73.00 Raynaud's syndrome without gangrene; F32.9 Major depressive disorder, single episode, unspecified; Z79.84 Long term (current) use of oral hypoglycemic drugs; Z79.899 Other long term (current) drug therapy; E78.00 Pure hypercholesterolemia, unspecified; F41.9 Anxiety disorder, unspecified; F17.210 Nicotine dependence, cigarettes, uncomplicated
CPT/HCPCS: 36415; 36416; 80048; 80053; 80061; 80202; 81003; 83036; 83605; 83735; 85025; 85652; 86140; 87040; 87070; 87077; 87205; 88305; 88311; 96365; 96367; 96375; J0692; J1200; J1650; J1815; J1956; J2270; J2405; J2704; J3010; J3370; J7050; S0020

== ENCOUNTER 2020-02-05 23:21 | Inpatient (IN) | payer MEDICARE, MEDICAID, OTHER ==
--- NOTE | 2020-02-06 00:01 | RAD ---
XR Chest 1 View Portable HISTORY: Dizziness COMPARISON: 08/13/2018 FINDINGS: The heart size is normal. The lungs are well expanded without focal areas of consolidation, pneumothorax or pleural effusions. Mild chronic changes are again seen.. IMPRESSION: No radiographic evidence of acute cardiopulmonary process.
[2020-02-06 00:11] LABS: #Eosinphils 0.1 thou/uL (0.0-0.7); #Monocytes 0.6 thou/uL (0.11-0.59); %Basophils 0.3 % (0.0-1.0); %Eosinophils 1.8 % (0.0-10.0); %Lymphocytes 13.2 % (21.0-51.0); %Monocytes 7.4 % (0.0-10.0); %Neutrophils 77.2 % (42.0-75.0); Hemoglobin 13.2 g/dL (14.0-18.0); Mean Corpuscular HGB CONC 36.2 g/dL (32.0-36.0); Mean Corpuscular Hemoglobin 32.8 pg (27.0-31.0); Mean Corpuscular Volume 90.5 fL (78.0-98.0); Mean Platelet Volume 7.7 fL (7.4-10.4); Platelet Count 258 thou/uL (130-400); RBC Distribution Width 12.3 % (11.5-14.5); Red Blood Cell (RBC) Count 4.03 mill/uL (4.70-6.10); White Blood Cell (WBC) Count 7.7 thou/uL (4.8-10.8)
[2020-02-06 00:26] LABS: ALT (SGPT) 31 U/L (8-55); AST (SGOT) 91 U/L (5-34); Albumin 3.6 g/dL (3.4-4.8); Alkaline Phosphatase 147 U/L (40-110); Anion Gap 14 mmol/L (10-20); BUN (Urea Nitrogen) 8 mg/dL (8.4-25.7); Bilirubin, Total 0.7 mg/dL (0.2-1.2); Calc. Creatinine Clearance 0 mL/min (70-130); Calcium 8.3 mg/dL (7.8-10.44); Carbon Dioxide 22 mmol/L (23-31); Chloride 83 mmol/L (98-107); Estimated GFR-MDRD 86; Globulin 3.5 g/dL (2.4-3.5); Glucose 118 mg/dL (80-115); Potassium 3.5 mmol/L (3.5-5.1); Protein, Total 7.1 g/dL (5.8-8.1)
[2020-02-06 00:29] LABS: Sodium 115 mmol/L (136-145)
[2020-02-06 01:01] LABS: Acetaminophen Less than 6.0 mcg/mL (10.0-30.0); Alcohol Less than 10 mg/dL (Less than 10); Salicylate Less than 8.0 mg/dL (15.0-30.0)
[2020-02-06 01:49] LABS: Bilirubin Negative (Negative); Blood, Urine Negative (Negative); Clarity Clear (Clear); Glucose, Urine (Dipstick) Normal (Negative); Ketone, Urine Negative (Negative); Leukocyte Negative Leu/uL (Negative); Nitrite Negative (Negative); Protein, Urine (Dipstick) Negative (Neg-Trace); Specific Gravity, Urine 1.013 (1.002-1.036); Urobilinogen Normal mg/dL (Less than 2); pH, Urine 6.5 (5.0-9.0)
[2020-02-06 02:11] LABS: Amphetamine Not Detected (NotDetected); Barbiturates Screen Not Detected (NotDetected); Benzodiazepine Screen Not Detected (NotDetected); Cocaine Metabolite Screen Detected (NotDetected); Medtox Reader # READER 4; Methadone Not Detected (NotDetected); Methamphetamine Not Detected (NotDetected); Opiate Screen Detected (NotDetected); Oxycodone Screen Not Detected (NotDetected); Phencyclidine (PCP) Not Detected (NotDetected); THC/Cannabinoid Screen Not Detected (NotDetected); Tricyclic Screen Not Detected (NotDetected)
[2020-02-06 02:12] LABS: Medtox Control Line Valid? VALID (VALID)
[2020-02-06] MEDS ORDERED: Dextrose 50% Abboject 50 ML SYRINGE SLOW IVP PRN (03:12)
[2020-02-06] MEDS ORDERED: Dextrose 5% in Water 1,000 ML IV PRN (03:12)
[2020-02-06] MEDS ORDERED: Sodium Chloride 0.9% 1,000 ML IV SCH (03:15)
[2020-02-06 03:28] LABS: Troponin I 0.019 ng/mL (< 0.028)
--- NOTE | 2020-02-06 03:47 | HP ---
REASON FOR ADMISSION: Dizziness. HISTORY OF PRESENT ILLNESS: This is a 64-year-old male patient presenting to the ER reporting weakness. History going back to a couple of weeks before his presentation. He is somewhat of a poor historian, but he reports to me that he has been feeling weak and getting dizzy spells and losing his equilibrium. He fell a lot four times this last week. He also complains of generalized pain. Also, he recently was in our hospital, diagnosed with osteomyelitis of the right second toe. He was evaluated by the general surgery and ID. He underwent a right second toe amputation. Wound VAC was placed. He continues to follow with Dr. Brown and Dr. Andino as an outpatient. PAST MEDICAL HISTORY: 1. Diabetes type 2. 2. High blood pressure. 3. High cholesterol. 4. BPH. 5. Chronic kidney disease, stage 2. SOCIAL HISTORY: He has a documented history of alcoholism, but he claims he is not drinking anymore. ALLERGIES: NO NOTE OF ANY DRUG ALLERGY. REVIEW OF SYSTEMS: All systems reviewed except the above mentioned, found to be negative. PHYSICAL EXAMINATION: GENERAL: Awake, alert, and oriented. Does not appear in distress. VITAL SIGNS: His blood pressure is 158/81, heart rate is 83, temperature is 98 degrees, and saturating 95% on room air. HEENT: Head is nontraumatic and normocephalic. Pupils equal and reactive. Extraocular movements are intact. Nonicteric sclerae. Well injected conjunctivae. Oral mucosa normal. Nasal mucosa normal. NECK: Supple. No adenopathy. No murmur. Thyroid is not palpable. Trachea is midline. No supraclavicular lymphadenopathy. HEART: S1 and S2. Regular. No murmur. No gallop. No friction rubs. No displacement of PMI. LUNGS: Clear to auscultation bilaterally. No wheezes. No rhonchi. No crackles. ABDOMEN: Bowel sounds are positive. Nontender abdomen. EXTREMITIES: He does have 1+ pitting edema, mainly bilateral feet. I did examine the scar from his amputation, seems that it is dry. No erythema and no discharge. NEURO: Cranial nerves 2 through 12 within normal limits. Normal motor function. Normal sensory function. Normal reflexes. IMAGING: CT of the brain shows no acute disease. EKG shows normal sinus rhythm. LABORATORY DATA: Blood work shows WBC of 7.7, hemoglobin of 13.2, and platelets of 258. Sodium 115, potassium 3.5, bicarb 22, creatinine 0.89, AST 91, and ALT 31. Urine tox screen positive for opiates and cocaine. Alcohol level less than 10. ASSESSMENT AND PLAN: This is a 64-year-old male patient presenting with frequent falls, found to be severely hyponatremic. His urine tox screen showing cocaine. He is known to be an alcoholic, but denies actively drinking. His alcohol level is less than 10. Renal. The patient will be on IV fluids and we will recheck his sodium, adjust the fluid rate as per improvement of his potassium and we will ask Nephrology to see him. In regards of his alcoholism, he will be on thiamine, multivitamin, and folic acid. In regards of his wound, we will ask Wound Care team to see him. For his diabetes, he will be on insulin sliding scale. I am awaiting his med rec to be done. For deep venous thrombosis prophylaxis, he will be on Lovenox. For his pain, we will start him on [place] as needed. For his frequent falls, we will have Physical Therapy assess him. I did discuss with him his code status and he wishes to be full code. Job ID: [id number]
[2020-02-06] MEDS: HYDROcodone/Acetaminophen 5/325 mg Tablet PO PRN ×5 (05:37→23:49)
[2020-02-06 06:17] LABS: #Eosinphils 0.2 thou/uL (0.0-0.7); #Lymphocytes 1.1 thou/uL (1.20-3.40); #Monocytes 0.5 thou/uL (0.11-0.59); #Neutrophils 4.4 thou/uL (1.40-6.50); %Basophils 0.6 % (0.0-1.0); %Eosinophils 3.2 % (0.0-10.0); %Monocytes 7.2 % (0.0-10.0); Hemoglobin 13.4 g/dL (14.0-18.0); Mean Corpuscular HGB CONC 35.1 g/dL (32.0-36.0); Mean Corpuscular Volume 91.1 fL (78.0-98.0); Mean Platelet Volume 7.1 fL (7.4-10.4); Platelet Count 233 thou/uL (130-400); RBC Distribution Width 12.2 % (11.5-14.5); Red Blood Cell (RBC) Count 4.18 mill/uL (4.70-6.10); White Blood Cell (WBC) Count 6.2 thou/uL (4.8-10.8)
[2020-02-06 06:35] LABS: Anion Gap 9 mmol/L (10-20); BUN (Urea Nitrogen) 6 mg/dL (8.4-25.7); Calc. Creatinine Clearance 126 mL/min (70-130); Calcium 7.9 mg/dL (7.8-10.44); Carbon Dioxide 21 mmol/L (23-31); Chloride 90 mmol/L (98-107); Estimated GFR-MDRD Greater than 90; Glucose 151 mg/dL (80-115); Potassium 3.2 mmol/L (3.5-5.1)
[2020-02-06 06:39] LABS: Sodium 117 mmol/L (136-145)
[2020-02-06 06:41] LABS: Troponin I 0.021 ng/mL (< 0.028)
[2020-02-06] MEDS: HumaLOG 300 UNITS/3 ML VIAL SC PRN ×2 (06:50→16:57)
[2020-02-06] MEDS ORDERED: Potassium Chloride 20 MEQ TAB PO SCH (07:45)
[2020-02-06] MEDS ORDERED: NS 0.9% w/ 40 MEQ KCL 1,000 ML IV SCH (07:45)
--- NOTE | 2020-02-06 07:45 | PDOC.HOSPP ---
- Subjective Encounter Date: 02/06/20 (f/u severe hyponatremia) Encounter Time: 07:43 Subjective: Patient admitted overnight for severe hyponatremia. Pt reports he is feeling a little better. Reports a long history of back pain that's unchanged, and weakness/falls at home with little movement surviving on sips of water and food at his bedside. He denies any new sx today. He does report constipation at home. - Objective Vital Signs & Weight: Vital Signs (12 hours) Temp Pulse Ox 02/06/20 07:18 100 02/06/20 07:00 97.8 F 02/06/20 04:00 97.9 F 98 Weight Weight 205 lb 7.533 oz Most Recent Monitor Data Heart Rate from ECG 81 NIBP 135/55 NIBP BP-Mean 81 Respiration from ECG 10 SpO2 93 I&O: 02/05/20 02/06/20 02/07/20 06:59 06:59 06:59 Intake Total 240 Output Total 700 200 Balance -460 -200 Result Diagrams: 02/06/20 06:07 02/06/20 12:11 Additional Labs: Accuchecks 02/05/20 23:41 POC Glucose 131 H EKG Reviewed by me: Yes (tele - sinus 80's, no alarms) Hospitalist ROS - Medication Medications: Active Medications Generic Name Dose Route Start Last Admin Trade Name Freq PRN Reason Stop Dose Admin Hydrocodone Bitart/Acetaminophen 1 tab 02/06/20 03:09 02/06/20 05:37 [place]ilton 5/325 PO 1 tab Q4H PRN Administration Moderate Pain (4-6) Insulin Human Lispro 0 units 02/06/20 03:12 02/06/20 06:50 Humalog SC 2 unit .MILD SLIDING SCALE PRN Administration Mild Correctional Scale - Exam General Appearance: NAD Heart: RRR, no murmur Respiratory: CTAB, no wheezes, no rales, no ronchi Gastrointestinal: soft, non-tender, non-distended Extremities: no cyanosis, no clubbing, no edema Extremities - other findings: healing right 2nd toe amputation Psychiatric - other findings: sad at times discussing his current health Hosp A/P (1) Hyponatremia Code(s): E87.1 - HYPO-OSMOLALITY AND HYPONATREMIA Status: Acute (2) DM2 (diabetes mellitus, type 2) Status: Chronic (3) Dyslipidemia Code(s): E78.5 - HYPERLIPIDEMIA, UNSPECIFIED Status: Chronic (4) Hypothyroidism Code(s): E03.9 - HYPOTHYROIDISM, UNSPECIFIED Status: Chronic (5) Hypokalemia Code(s): E87.6 - HYPOKALEMIA Status: Acute (6) Constipation Code(s): K59.00 - CONSTIPATION, UNSPECIFIED Status: Acute - Plan Severe hyponatremia = - Add fluid restriction - continue NS and add potassium - at low rate - q4h bmp - nephrology consult Hypokalemia - replace orally and add potassium to NS IVF Home meds - resume finasteride Chronic pain - norco prn constipation - schedule bowel meds pt/ot as able dvt prophy - lovenox gi prophy - not indicated code status full pt remains at high risk in current condition reviewed plan of care, no questions or further needs at end of eval Addendum 12:57 - reviewed labs and sodium is now 123-124. will d/c IVF, Dr. Ackerman updated. Per RN - wound care team is requesting re-evaluation of foot by Dr. Brown - will place consult for tomorrow. Addendum 14:43 - reviewed labs and TSH is significantly elevated. Free T4 and T3 added - will need to initiate thyroid hormone replacement.
[2020-02-06] MEDS: Enoxaparin Sodium 40 MG/0.4 ML SYRINGE SC SCH (08:32)
[2020-02-06] MEDS: Docusate 100 MG CAP PO SCH ×2 (08:32→20:20)
[2020-02-06] MEDS: Folic Acid 1 MG TAB PO SCH (08:32)
[2020-02-06] MEDS: Multivitamin W/ Minerals 1 TAB PO SCH (08:32)
[2020-02-06] MEDS: Thiamine 100 MG TAB PO SCH (08:32)
[2020-02-06] MEDS: Finasteride 5 MG TAB PO SCH (08:33)
[2020-02-06] MEDS: Polyethylene Glycol 3350 17 GM Packet PO SCH (08:33)
--- NOTE | 2020-02-06 09:15 | CT ---
PRELIMINARY REPORT/DIRECT RADIOLOGY/AFTER HOURS PROCEDURE FINAL REPORT I agree with the preliminary report provided. There is a remote interval lacunar infarct involving the paraventricular white matter of the right fr ontal lobe when compared to prior, dated 06/11/2019. The Virchow-Sekou space involving the inferior a spect of the left globus pallidus is stable appearing. Mild chronic small vessel white matter ischemi c change is stable. No definite acute infarct, hemorrhage or hydrocephalus is present. CODE QA POS: BRITTANY
--- NOTE | 2020-02-06 09:50 | CON ---
DATE OF CONSULTATION: 02/06/2020 REASON FOR CONSULTATION: ICU management. HISTORY OF PRESENT ILLNESS: Mr. Soler is a 64-year-old male, who has been admitted to the hospital service for symptomatic hyponatremia. He is a heavy drinker. He is a very poor historian. He came to the ER with dizziness. He was found to have a sodium of 115, was subsequently placed in the ICU for further care. He has had no reported seizures. He is actually able to verbalize without much limitation. PAST MEDICAL HISTORY: 1. Diabetes mellitus type 2. 2. Alcohol abuse. 3. Hypertension. 4. Hyperlipidemia. 5. Peripheral vascular disease. 6. Benign prostatic hypertrophy. 7. Chronic kidney disease. PAST SURGICAL HISTORY: He has had a toe amputation. ALLERGIES: NONE. SOCIAL HISTORY: Very heavy drinker, smokes crack cocaine, smokes cigarettes. Lives by himself. He is retired from sales. MEDICATIONS: Prior to admission; 1. Tramadol. 2. Hydrocodone. 3. Finasteride. 4. Metformin. 5. Glyburide. 6. Florastor. 7. Atorvastatin. Current inpatient medications; 1. He is on normal saline at 75 mL/h. 2. Enoxaparin. 3. Finasteride. 4. [place]. 5. Insulin. 6. Thiamine. REVIEW OF SYSTEMS: Remarkable for back pain, some dizziness. No fever, chills, nausea, vomiting, hematemesis, melena, hematochezia, hematuria, or dysuria. PHYSICAL EXAMINATION: VITAL SIGNS: Temperature 97.8, pulse 81, blood pressure 135/55, O2 saturation 93%. GENERAL: He is awake, alert, and in no distress. HEENT: Unremarkable. NECK: No adenopathy or JVD. LUNGS: Clear. CARDIAC: S1, S2, regular. ABDOMEN: Protuberant, inverted umbilicus. He has dilated veins consistent with cirrhosis. EXTREMITIES: No clubbing, cyanosis, or edema. LABORATORY DATA: Sodium 117, potassium 3.2, chloride 90, CO2 of 21, BUN 6, creatinine 0.7, glucose 151. White blood cell count 6.2, hematocrit 38.1, platelet count 233. Urine drug screen was positive for cocaine and opiates. ASSESSMENT: 1. Beer drinkers potomania. 2. Hyponatremia, largely asymptomatic except for dizziness. 3. Alcohol abuse. RECOMMENDATIONS: 1. As you are doing slow correction of sodium, no faster than a rate of 0.5 mEq sodium corrected per hour. Normal saline is appropriate since the patient is not that symptomatic. 2. Nephrology has been consulted to deal with the hyponatremia. 3. Alcohol withdrawal precautions. Job ID: [id number]
[2020-02-06 12:15] LABS: SARS-CoV-2 MS2 Positive; SARS-CoV-2 N Gene Negative; SARS-CoV-2 S Gene Negative; SARS-CoV-2 by NAA Not Detected (NotDetected); SARS-CoV-2 orf1ab Negative
[2020-02-06 12:39] LABS: Anion Gap 8 mmol/L (10-20); BUN (Urea Nitrogen) 7 mg/dL (8.4-25.7); Calc. Creatinine Clearance 133 mL/min (70-130); Calcium 8.2 mg/dL (7.8-10.44); Carbon Dioxide 26 mmol/L (23-31); Chloride 94 mmol/L (98-107); Estimated GFR-MDRD Greater than 90; Glucose 122 mg/dL (80-115); Potassium 3.8 mmol/L (3.5-5.1); Sodium 124 mmol/L (136-145)
[2020-02-06 12:43] LABS: Anion Gap 9 mmol/L (10-20); BUN (Urea Nitrogen) 7 mg/dL (8.4-25.7); Calc. Creatinine Clearance 133 mL/min (70-130); Calcium 8.2 mg/dL (7.8-10.44); Carbon Dioxide 25 mmol/L (23-31); Chloride 93 mmol/L (98-107); Estimated GFR-MDRD Greater than 90; Glucose 120 mg/dL (80-115); Potassium 3.8 mmol/L (3.5-5.1); Sodium 123 mmol/L (136-145)
[2020-02-06 13:47] LABS: Creatinine, Urine 23.42 mg/dL (63-166); Sodium, Urine Less than 20 mmol/L (Not Available)
[2020-02-06] MEDS ORDERED: Levothyroxine Sodium 25 MCG TAB PO SCH (15:00)
--- NOTE | 2020-02-06 17:56 | CON ---
DATE OF CONSULTATION: HISTORY OF PRESENT ILLNESS: Mr. Soler is a 64-year-old white male, who initially came in for generalized malaise with dizziness. During the initial evaluation, he was found to be hyponatremic with a serum sodium 115. Empiric volume repletion was given and this has improved his serum sodium to a most recent value of 123. Due to the rapid correction, the IV fluid was discontinued. Please note, the patient has history of heavy alcohol intake, but he is denying that he is taking significant alcohol. REVIEW OF SYSTEMS: Positive for dizziness. Positive for generalized malaise. Appetite and energy level fair. No chest pain. No shortness of breath. No gross hematuria. No productive cough. No abdominal pain. No dysuria. No urinary frequency. No melena. No hematochezia. MEDICATIONS: Include the following 1. Docusate 100 mg p.o. b.i.d. 2. Lovenox 40 mg subcu daily. 3. Proscar 5 mg daily. 4. Folic acid 1 mg daily. 5. Hydrocodone p.r.n. 6. Multivitamin daily. 7. Normal saline at 75 mL/hour-currently on hold status post KCl. Home medications included 1. Atorvastatin 10 mg at bedtime. 2. Florastor 250 mg once a day. 3. Glyburide 5 mg p.o. b.i.d. 4. Metformin 1000 mg p.o. b.i.d. 5. Finasteride 5 mg daily. 6. Hydrocodone p.r.n. PAST MEDICAL HISTORY: 1. Heavy alcohol intake. 2. Type 2 diabetes mellitus. 3. BPH. 4. Hyperlipidemia. PAST SURGICAL HISTORY: Includes status post second toe amputation for osteomyelitis, status post inguinal hernia repair as a child. SOCIAL HISTORY: The patient has history of heavy alcohol intake. He is single. No children. He lives alone. 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 Smokes cigars, 1 to 2 cigars per day. Education, high school. ALLERGIES: NO KNOWN DRUG ALLERGIES. TRAUMA: None. IMMUNIZATIONS: Not up-to-date. HOSPITALIZATIONS: Please see past medical history. FAMILY HISTORY: No family history of ESRD. PHYSICAL EXAMINATION: VITAL SIGNS: Blood pressure 158/81, heart rate 83, respiratory rate 12, temperature is 98, O2 saturation 95% on room air. GENERAL: He is awake, alert, comfortable, not in distress, following commands. SKIN: Adequate turgor. HEENT: Pinkish conjunctivae, anicteric sclerae. NECK: No neck mass, no carotid bruits. No JVD. CHEST: No deformities. LUNGS: Clear breath sounds. No wheezing. No crackles. HEART: Normal sinus rhythm. No murmur. No gallops. No rubs. ABDOMEN: Globular, soft, nontender. No masses. Positive for umbilical hernia. EXTREMITIES: Positive for edema. NEUROLOGIC: Oriented to 3 spheres. Moving all extremities. No tremors. No asterixis. IMAGING: CT scan of the brain shows no acute intracranial abnormality. LABORATORY DATA: February 06, 2020, serum sodium 123, potassium 3.8, chloride 93, carbon dioxide 25, BUN 7, creatinine 0.73, glucose 120. Serum osmolality is 256. Uric acid 2.0. Urine sodium less than 20. Urine creatinine 23.42. Urine osmolality is 119. TSH is noted at 52. Cortisol level is 6.9. ASSESSMENT AND PLAN: 1. Hyponatremia-this could be multifactorial. It could be possibly from chronic heavy alcohol intake in the recent past. However, he is also noted to be hypothyroid with a TSH noted at 52. My bias is to start correcting these and start the patient's Synthroid at 25 mcg tablet daily. 2. IV fluid correction for the hyponatremia has been discontinued due to the rapid correction. Initial serum sodium with this patient was noted at 115 and it is currently at 123. He is simply placed on free water restriction at the present time. 3. The patient is mentating well. 4. Hypothyroidism. Synthroid 25 mcg tablet daily will be started. Overall prognosis remains guarded. Recheck base met in a.m. and at 8 p.m. Job ID: [id number]
[2020-02-06 17:57] LABS: Anion Gap 12 mmol/L (10-20); BUN (Urea Nitrogen) 8 mg/dL (8.4-25.7); Calc. Creatinine Clearance 117 mL/min (70-130); Calcium 8.3 mg/dL (7.8-10.44); Carbon Dioxide 22 mmol/L (23-31); Chloride 93 mmol/L (98-107); Estimated GFR-MDRD Greater than 90; Glucose 191 mg/dL (80-115); Potassium 3.7 mmol/L (3.5-5.1); Sodium 123 mmol/L (136-145)
[2020-02-06 18:32] LABS: Free T4 (Free Thyroxine) Less than 0.40 ng/dL (0.70-1.48)
[2020-02-06 20:27] LABS: Anion Gap 12 mmol/L (10-20); BUN (Urea Nitrogen) 10 mg/dL (8.4-25.7); Calc. Creatinine Clearance 118 mL/min (70-130); Calcium 8.3 mg/dL (7.8-10.44); Carbon Dioxide 23 mmol/L (23-31); Chloride 95 mmol/L (98-107); Estimated GFR-MDRD Greater than 90; Glucose 121 mg/dL (80-115); Potassium 3.9 mmol/L (3.5-5.1); Sodium 126 mmol/L (136-145)
[2020-02-07 03:28] LABS: #Eosinphils 0.1 thou/uL (0.0-0.7); #Monocytes 0.4 thou/uL (0.11-0.59); #Neutrophils 3.5 thou/uL (1.40-6.50); %Basophils 0.6 % (0.0-1.0); %Eosinophils 2.7 % (0.0-10.0); %Lymphocytes 19.2 % (21.0-51.0); %Monocytes 8.4 % (0.0-10.0); %Neutrophils 69.1 % (42.0-75.0); Hemoglobin 13.4 g/dL (14.0-18.0); Mean Corpuscular HGB CONC 35.2 g/dL (32.0-36.0); Mean Corpuscular Hemoglobin 32.8 pg (27.0-31.0); Mean Corpuscular Volume 93.2 fL (78.0-98.0); Mean Platelet Volume 7.3 fL (7.4-10.4); Platelet Count 226 thou/uL (130-400); RBC Distribution Width 12.4 % (11.5-14.5); Red Blood Cell (RBC) Count 4.08 mill/uL (4.70-6.10); White Blood Cell (WBC) Count 5.1 thou/uL (4.8-10.8)
[2020-02-07 03:48] LABS: Anion Gap 12 mmol/L (10-20); BUN (Urea Nitrogen) 8 mg/dL (8.4-25.7); Calc. Creatinine Clearance 126 mL/min (70-130); Calcium 8.2 mg/dL (7.8-10.44); Carbon Dioxide 23 mmol/L (23-31); Chloride 95 mmol/L (98-107); Estimated GFR-MDRD Greater than 90; Glucose 158 mg/dL (80-115); Potassium 3.8 mmol/L (3.5-5.1); Sodium 126 mmol/L (136-145)
[2020-02-07] MEDS: HYDROcodone/Acetaminophen 5/325 mg Tablet PO PRN ×3 (03:57→20:32)
[2020-02-07] MEDS ORDERED: Levothyroxine Sodium 25 MCG TAB PO SCH (06:00)
[2020-02-07] MEDS: Thiamine 100 MG TAB PO SCH (09:25)
[2020-02-07] MEDS: Enoxaparin Sodium 40 MG/0.4 ML SYRINGE SC SCH (09:25)
[2020-02-07] MEDS: Polyethylene Glycol 3350 17 GM Packet PO SCH (09:26)
[2020-02-07] MEDS: Docusate 100 MG CAP PO SCH ×2 (09:26→20:32)
[2020-02-07] MEDS: Finasteride 5 MG TAB PO SCH (09:26)
[2020-02-07] MEDS: Multivitamin W/ Minerals 1 TAB PO SCH (09:26)
[2020-02-07] MEDS: Folic Acid 1 MG TAB PO SCH (09:26)
--- NOTE | 2020-02-07 09:41 | PRG ---
DATE OF SERVICE: 02/07/2020 SUBJECTIVE: The patient is doing fairly well, had no acute complaints other than the fact that he is on fluid restriction. OBJECTIVE: VITAL SIGNS: Temperature 97.8, pulse 79, blood pressure 143/79, and O2 sat 97%. HEENT: Unremarkable. NECK: No JVD. LUNGS: Clear. CARDIAC: S1 and S2, regular. ABDOMEN: Soft. EXTREMITIES: No edema. LABORATORY DATA: White blood cell count 5.1, hematocrit 38, and platelet count 226. Sodium 126, potassium 3.8, chloride 95, CO2 of 23, BUN 8, creatinine 0.7, and glucose 158. ASSESSMENT: 1. Hyponatremia - most likely beer drinker's potomania. 2. Hypothyroidism. 3. Alcohol abuse. PLAN: He is stable enough for transfer to the medical floor. He is continuing fluid restriction. It looks like his normal saline was stopped by the hospitalist yesterday. No further pulmonary recommendations. We will sign off. Job ID: [id number]
--- NOTE | 2020-02-07 09:55 | PDOC.HOSPP ---
- Subjective Encounter Date: 02/07/20 Encounter Time: 11:10 Subjective: No complaints this morning. No pain or confusion. States he thinks he has been taking Levothyroxine daily since his radioablation of thyroid years ago, but wasn't in his bag of home meds. Nurse will call his pharmacy to confirm if on med and how much. - Objective Vital Signs & Weight: Vital Signs (12 hours) Temp 02/07/20 08:00 97.8 F 02/07/20 04:00 97.8 F 02/06/20 23:26 98.4 F Weight Weight 211 lb 11.2 oz Most Recent Monitor Data Heart Rate from ECG 79 NIBP 143/79 NIBP BP-Mean 100 Respiration from ECG 12 SpO2 97 I&O: 02/06/20 02/07/20 02/08/20 06:59 06:59 06:59 Intake Total 240 570 Output Total 700 3300 Balance -460 -3673 Result Diagrams: 02/07/20 03:03 02/07/20 03:03 Additional Labs: Accuchecks 02/07/20 02/06/20 02/06/20 06:27 20:15 16:52 POC Glucose 137 H 136 H 229 H 02/06/20 12:17 POC Glucose 134 H Hospitalist ROS - Review of Systems Constitutional: denies: fever, chills Respiratory: denies: cough, shortness of breath Cardiovascular: denies: chest pain, palpitations Gastrointestinal: denies: nausea, vomiting, abdominal pain - Medication Medications: Active Medications Generic Name Dose Route Start Last Admin Trade Name Freq PRN Reason Stop Dose Admin Hydrocodone Bitart/Acetaminophen 1 tab 02/06/20 03:09 02/07/20 03:57 [place] 5/325 PO 1 tab Q4H PRN Administration Moderate Pain (4-6) Docusate Sodium 100 mg 02/06/20 09:00 02/07/20 09:26 Colace PO 100 mg BID KAMINI Administration Enoxaparin Sodium 40 mg 02/06/20 09:00 02/07/20 09:25 Lovenox SC 40 mg 0900 KAMINI Administration Finasteride 5 mg 02/06/20 09:00 02/07/20 09:26 Proscar PO 5 mg DAILY KAMINI Administration Folic Acid 1 mg 02/06/20 09:00 02/07/20 09:26 Folvite PO 1 mg DAILY KAMINI Administration Insulin Human Lispro 0 units 02/06/20 03:12 02/06/20 16:57 Humalog SC 3 unit .MILD SLIDING SCALE PRN Administration Mild Correctional Scale Iron/Minerals/Multivitamins 1 tab 02/06/20 09:00 02/07/20 09:26 Theragran M PO 1 tab DAILY KAMINI Administration Levothyroxine Sodium 25 mcg 02/07/20 06:00 02/07/20 06:29 Synthroid PO 25 mcg 0600 KAMINI Administration Polyethylene Glycol 17 gm 02/06/20 09:00 02/07/20 09:26 Miralax PO 17 gm DAILY KAMINI Administration Thiamine HCl 100 mg 02/06/20 09:00 02/07/20 09:25 Thiamine PO 100 mg DAILY KAMINI Administration - Exam General Appearance: NAD, awake alert ENT: moist mucosa Heart: RRR, no murmur, no gallops, no rubs Respiratory: CTAB, no wheezes, no rales, no ronchi Gastrointestinal: soft, non-tender, non-distended, normal bowel sounds Psychiatric: normal affect, normal behavior, A&O x 3 Hosp A/P (1) Hyponatremia Code(s): E87.1 - HYPO-OSMOLALITY AND HYPONATREMIA Status: Acute (2) Hypothyroidism Code(s): E03.9 - HYPOTHYROIDISM, UNSPECIFIED Status: Chronic (3) Alcohol abuse Code(s): F10.10 - ALCOHOL ABUSE, UNCOMPLICATED Status: Chronic (4) DM2 (diabetes mellitus, type 2) Status: Chronic (5) Dyslipidemia Code(s): E78.5 - HYPERLIPIDEMIA, UNSPECIFIED Status: Chronic (6) Tobacco use Code(s): Z72.0 - TOBACCO USE Status: Chronic (7) Constipation Code(s): K59.00 - CONSTIPATION, UNSPECIFIED Status: Acute - Plan Severe hyponatremia = Stable at 126 for 2 days - On fluid restriction - nephrology consulted - possibly due to severe hypothyroidism Hypothyroidism - significantly elevated TSH with very low fT3 and fT4, staring levothyroxine, will try and find out his dose he is supposed to be on Hypokalemia - replaced orally, normalized Home meds - resumed finasteride Chronic pain - norco prn constipation - schedule bowel meds Foot wound - wound care - General surgery consult pt/ot as able dvt prophy - lovenox gi prophy - not indicated code status full pt remains at high risk in current condition reviewed plan of care, no questions or further needs at end of eval
--- NOTE | 2020-02-07 10:10 | PRG ---
DATE OF SERVICE: 02/07/2020 SUBJECTIVE: Mr. Soler is a 64-year-old white male, who was seen for hyponatremia. This was thought to be initially from possible SIADH as well as a combination from heavy alcohol intake. During the initial workup, he was also noted to be hypothyroid. For that reason, he was started on levothyroxine. Serum sodium is slowly improving with free water restriction. Most recent serum sodium is now noted at 126. The patient voices no new complaints. He has no mental status change. OBJECTIVE: VITAL SIGNS: Blood pressure 143/79, heart rate 79, and respiratory rate 12. GENERAL: The patient is awake, comfortable, not in distress. SKIN: Adequate turgor. HEENT: He has pinkish conjunctivae. Anicteric sclerae. NECK: No neck mass. No carotid bruits. No JVD. CHEST: No deformities. LUNGS: Clear breath sounds. No wheezing. No crackles. HEART: Normal sinus rhythm. No murmur. No gallops. No rubs. ABDOMEN: Globular, soft, and nontender. No masses. EXTREMITIES: No edema. No deformities. MEDICATIONS: Of February 07, 2020, was reviewed. LABORATORY DATA: Laboratories of February 07, 2020; white count 5.1, hemoglobin 13.4. Sodium 126, potassium 3.8, chloride 95, carbon dioxide 23, BUN 8, creatinine 0.77, glucose 158, and calcium 8.2. ASSESSMENT AND PLAN: Hyponatremia, multiple etiology. Syndrome of inappropriate antidiuretic hormone secretion was considered, but the hypothyroidism/slow TSH may be contributing to the low serum sodium. In addition, he has history of heavy alcohol intake, which also may be contributing to the low serum sodium. The suggestion is we continue free water restriction, try to address the hypothyroidism. There is no indication for any hypertonic saline. We will recheck basic metabolic panel in a.m. Job ID: [id number]
[2020-02-07] MEDS: HumaLOG 300 UNITS/3 ML VIAL SC PRN ×2 (11:42→16:17)
[2020-02-07] MEDS: metFORMIN 500 MG TAB PO SCH (16:13)
[2020-02-07] MEDS ORDERED: Levothyroxine Sodium 125 MCG TAB PO SCH (16:45)
[2020-02-07] MEDS: Atorvastatin Calcium 10 MG TAB PO SCH (20:32)
[2020-02-08] MEDS: HYDROcodone/Acetaminophen 5/325 mg Tablet PO PRN ×5 (00:40→19:40)
[2020-02-08] MEDS: Levothyroxine 150 MCG TAB PO SCH (05:01)
[2020-02-08 06:18] LABS: Anion Gap 11 mmol/L (10-20); BUN (Urea Nitrogen) 8 mg/dL (8.4-25.7); Calc. Creatinine Clearance 124 mL/min (70-130); Calcium 8.4 mg/dL (7.8-10.44); Carbon Dioxide 26 mmol/L (23-31); Chloride 96 mmol/L (98-107); Estimated GFR-MDRD Greater than 90; Glucose 121 mg/dL (80-115); Potassium 3.7 mmol/L (3.5-5.1); Sodium 129 mmol/L (136-145)
[2020-02-08] MEDS ORDERED: Ondansetron PF 4 MG/2 ML Vial IVP PRN (06:26)
[2020-02-08] MEDS: Multivitamin W/ Minerals 1 TAB PO SCH (08:33)
[2020-02-08] MEDS: Docusate 100 MG CAP PO SCH ×2 (08:33→19:42)
[2020-02-08] MEDS: metFORMIN 500 MG TAB PO SCH ×2 (08:33→17:16)
[2020-02-08] MEDS: Finasteride 5 MG TAB PO SCH (08:33)
[2020-02-08] MEDS: Enoxaparin Sodium 40 MG/0.4 ML SYRINGE SC SCH (08:33)
[2020-02-08] MEDS: Thiamine 100 MG TAB PO SCH (08:33)
[2020-02-08] MEDS: Folic Acid 1 MG TAB PO SCH (08:33)
[2020-02-08] MEDS: Polyethylene Glycol 3350 17 GM Packet PO SCH (08:34)
--- NOTE | 2020-02-08 09:36 | PRG ---
DATE OF SERVICE: 02/08/2020 SERVICE: Renal Medicine. SUBJECTIVE: Mr. Soler is a 64-year-old white male, who was seen for hyponatremia. Workup suggested that hyponatremia may be related from his severe hypothyroidism. He has an elevated TSH. In addition, he has been started initially on Synthroid. He is mentating better today. He denies any complaints. No chest pain or shortness of breath. He is also on free water restriction. OBJECTIVE: VITAL SIGNS: Blood pressure 130/76, heart rate 74, respiratory rate 18, temperature 98.2, O2 saturation 94%. GENERAL: The patient is awake, alert, comfortable, not in distress. SKIN: Adequate turgor. HEENT: He has pinkish conjunctivae. Anicteric sclerae. NECK: No neck mass. No carotid bruits. No JVD. CHEST: No deformities. LUNGS: Clear breath sounds. HEART: Normal sinus rhythm. No murmur. No gallops. No rubs. ABDOMEN: Globular, soft, nontender. No masses. EXTREMITIES: No edema. No deformities. MEDICATIONS: On February 08, 2020, were reviewed. LABORATORY DATA: On February 07, 2020; white count 5.1, hemoglobin 13.4. Sodium 129, potassium 3.7, chloride 96, carbon dioxide 26, BUN 8, creatinine 0.78, calcium 8.4. ASSESSMENT AND PLAN: Hyponatremia-possibly secondary to hypothyroidism. Continue free water restriction. Continue Synthroid replacement and adjust as needed. No indication for any hypertonic saline. The patient is feeling better. Recheck basic metabolic profile in a.m. Job ID: [id number]
--- NOTE | 2020-02-08 11:05 | PDOC.HOSPP ---
- Subjective Encounter Date: 02/08/20 Encounter Time: 11:20 Subjective: Patient feeling much better. Very weak though and states he doesn't think he can go home until he has regained some strength and ability to walk. Open to rehab/SNF stay after hospitalization. - Objective Vital Signs & Weight: Vital Signs (12 hours) Temp Pulse Resp BP Pulse Ox 02/08/20 08:00 94 L 02/08/20 07:34 98.2 F 74 18 130/76 94 L 02/08/20 04:00 98.0 F 84 20 120/74 93 L 02/08/20 00:50 81 20 121/75 93 L Weight Admit Weight 205 lb 7.533 oz Weight 204 lb 1.6 oz Most Recent Monitor Data Heart Rate from ECG 88 NIBP 104/57 NIBP BP-Mean 72 Respiration from ECG 20 SpO2 97 I&O: 02/07/20 02/08/20 02/09/20 06:59 06:59 06:59 Intake Total 570 1210 Output Total 3300 1100 Balance -2730 110 Result Diagrams: 02/07/20 03:03 02/08/20 05:35 Additional Labs: Accuchecks 02/08/20 02/07/20 02/07/20 04:30 20:48 16:18 POC Glucose 125 H 188 H 232 H Hospitalist ROS - Review of Systems Constitutional: denies: fever, chills Respiratory: denies: cough, shortness of breath Cardiovascular: denies: chest pain, palpitations Gastrointestinal: denies: nausea, vomiting, abdominal pain - Medication Medications: Active Medications Generic Name Dose Route Start Last Admin Trade Name Freq PRN Reason Stop Dose Admin Hydrocodone Bitart/Acetaminophen 1 tab 02/06/20 03:09 02/08/20 10:12 [place] 5/325 PO 1 tab Q4H PRN Administration Moderate Pain (4-6) Atorvastatin Calcium 10 mg 02/07/20 21:00 02/07/20 20:32 Lipitor PO 10 mg HS KAMINI Administration Docusate Sodium 100 mg 02/06/20 09:00 02/08/20 08:33 Colace PO 100 mg BID KAMINI Administration Enoxaparin Sodium 40 mg 02/06/20 09:00 02/08/20 08:33 Lovenox SC 40 mg 0900 KAMINI Administration Finasteride 5 mg 02/06/20 09:00 02/08/20 08:33 Proscar PO 5 mg DAILY KAMINI Administration Folic Acid 1 mg 02/06/20 09:00 02/08/20 08:33 Folvite PO 1 mg DAILY KAMINI Administration Insulin Human Lispro 0 units 02/06/20 03:12 02/07/20 16:17 Humalog SC 3 unit .MILD SLIDING SCALE PRN Administration Mild Correctional Scale Iron/Minerals/Multivitamins 1 tab 02/06/20 09:00 02/08/20 08:33 Theragran M PO 1 tab DAILY KAMINI Administration Levothyroxine Sodium 150 mcg 02/08/20 06:00 02/08/20 05:01 Synthroid PO 150 mcg 0600 KAMINI Administration Metformin HCl 1,000 mg 02/07/20 17:00 02/08/20 08:33 Glucophage PO 1,000 mg BID-WM KAMINI Administration Ondansetron HCl 4 mg 02/08/20 06:26 02/08/20 06:37 Zofran IVP 4 mg Q6H PRN Administration Nausea/Vomiting Polyethylene Glycol 17 gm 02/06/20 09:00 02/08/20 08:34 Miralax PO 17 gm DAILY KAMINI Administration Sodium Chloride 10 ml 02/08/20 09:00 02/08/20 08:34 Flush - Normal Saline IVF 10 ml Q12HR KAMINI Administration Thiamine HCl 100 mg 02/06/20 09:00 02/08/20 08:33 Thiamine PO 100 mg DAILY KAMINI Administration - Exam General Appearance: NAD, awake alert ENT: moist mucosa Heart: RRR, no murmur, no gallops, no rubs Respiratory: CTAB, no wheezes, no rales, no ronchi Gastrointestinal: soft, non-tender, non-distended, normal bowel sounds Psychiatric: normal affect, normal behavior, A&O x 3 Hosp A/P (1) Hyponatremia Code(s): E87.1 - HYPO-OSMOLALITY AND HYPONATREMIA Status: Acute (2) Hypothyroidism Code(s): E03.9 - HYPOTHYROIDISM, UNSPECIFIED Status: Chronic (3) Alcohol abuse Code(s): F10.10 - ALCOHOL ABUSE, UNCOMPLICATED Status: Chronic (4) DM2 (diabetes mellitus, type 2) Status: Chronic (5) Dyslipidemia Code(s): E78.5 - HYPERLIPIDEMIA, UNSPECIFIED Status: Chronic (6) Tobacco use Code(s): Z72.0 - TOBACCO USE Status: Chronic (7) Constipation Code(s): K59.00 - CONSTIPATION, UNSPECIFIED Status: Acute - Plan Severe hyponatremia = improving, up to 129 today - On free water restriction - nephrology following - possibly due to severe hypothyroidism Hypothyroidism - significantly elevated TSH with very low fT3 and fT4, resumed home dose that patient hasn't refilled since July per his pharmacy Hypokalemia - replaced orally, normalized Home meds - resumed finasteride Chronic pain - norco prn constipation - schedule bowel meds 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 Brown to see today pt/ot as able dvt prophy - lovenox gi prophy - not indicated code status full Patient improved, ready for d/c to rehab/SNF once decision made about foot wound
[2020-02-08] MEDS: HumaLOG 300 UNITS/3 ML VIAL SC PRN (12:38)
[2020-02-08] MEDS: Atorvastatin Calcium 10 MG TAB PO SCH (19:40)
[2020-02-08] MEDS: Ibuprofen 200 MG TAB PO PRN (21:24)
[2020-02-09] MEDS: HYDROcodone/Acetaminophen 5/325 mg Tablet PO PRN ×6 (00:52→23:08)
[2020-02-09] MEDS: Ibuprofen 200 MG TAB PO PRN ×6 (00:55→23:08)
[2020-02-09] MEDS: Levothyroxine 150 MCG TAB PO SCH (05:34)
[2020-02-09] MEDS: HumaLOG 300 UNITS/3 ML VIAL SC PRN (05:36)
[2020-02-09 06:28] LABS: Anion Gap 11 mmol/L (10-20); BUN (Urea Nitrogen) 9 mg/dL (8.4-25.7); Calc. Creatinine Clearance 117 mL/min (70-130); Calcium 8.6 mg/dL (7.8-10.44); Carbon Dioxide 25 mmol/L (23-31); Chloride 91 mmol/L (98-107); Estimated GFR-MDRD Greater than 90; Glucose 168 mg/dL (80-115); Potassium 4.1 mmol/L (3.5-5.1); Sodium 123 mmol/L (136-145)
[2020-02-09] MEDS: metFORMIN 500 MG TAB PO SCH ×2 (08:35→17:08)
[2020-02-09] MEDS: Docusate 100 MG CAP PO SCH ×2 (08:35→19:49)
[2020-02-09] MEDS: Multivitamin W/ Minerals 1 TAB PO SCH (08:35)
[2020-02-09] MEDS: Finasteride 5 MG TAB PO SCH (08:35)
[2020-02-09] MEDS: Enoxaparin Sodium 40 MG/0.4 ML SYRINGE SC SCH (08:35)
[2020-02-09] MEDS: Folic Acid 1 MG TAB PO SCH (08:35)
[2020-02-09] MEDS: Thiamine 100 MG TAB PO SCH (08:35)
[2020-02-09] MEDS: Polyethylene Glycol 3350 17 GM Packet PO SCH (08:36)
--- NOTE | 2020-02-09 09:26 | PDOC.HOSPP ---
- Subjective Encounter Date: 02/09/20 Encounter Time: 12:30 Subjective: Patient without complaints. Energy feels a little better. - Objective Vital Signs & Weight: Vital Signs (12 hours) Temp Pulse Resp BP Pulse Ox 02/09/20 07:09 97.7 F 73 16 136/81 97 Weight Admit Weight 205 lb 7.533 oz Weight 201 lb Most Recent Monitor Data Heart Rate from ECG 88 NIBP 104/57 NIBP BP-Mean 72 Respiration from ECG 20 SpO2 97 I&O: 02/08/20 02/09/20 02/10/20 06:59 06:59 06:59 Intake Total 1210 1440 Output Total 1100 1550 Balance 110 -110 Result Diagrams: 02/07/20 03:03 02/09/20 13:03 Additional Labs: Accuchecks 02/09/20 02/09/20 02/08/20 06:43 04:28 19:32 POC Glucose 139 H 296 H 188 H 02/08/20 02/08/20 15:59 11:42 POC Glucose 155 H 183 H Hospitalist ROS - Review of Systems Constitutional: reports: weakness. denies: fever, chills Respiratory: denies: cough, shortness of breath Cardiovascular: denies: chest pain, palpitations Gastrointestinal: denies: nausea, vomiting, abdominal pain - Medication Medications: Active Medications Generic Name Dose Route Start Last Admin Trade Name Freq PRN Reason Stop Dose Admin Hydrocodone Bitart/Acetaminophen 1 tab 02/06/20 03:09 02/09/20 05:34 [place] 5/325 PO 1 tab Q4H PRN Administration Moderate Pain (4-6) Atorvastatin Calcium 10 mg 02/07/20 21:00 02/08/20 19:40 Lipitor PO 10 mg HS KAMINI Administration Docusate Sodium 100 mg 02/06/20 09:00 02/09/20 08:35 Colace PO 100 mg BID KAMINI Administration Enoxaparin Sodium 40 mg 02/06/20 09:00 02/09/20 08:35 Lovenox SC 40 mg 0900 KAMINI Administration Finasteride 5 mg 02/06/20 09:00 02/09/20 08:35 Proscar PO 5 mg DAILY KAMINI Administration Folic Acid 1 mg 02/06/20 09:00 02/09/20 08:35 Folvite PO 1 mg DAILY KAMINI Administration Ibuprofen 400 mg 02/08/20 20:50 02/09/20 05:34 Motrin PO 400 mg Q4H PRN Administration Pain Insulin Human Lispro 0 units 02/06/20 03:12 02/09/20 05:36 Humalog SC 4 unit .MILD SLIDING SCALE PRN Administration Mild Correctional Scale Iron/Minerals/Multivitamins 1 tab 02/06/20 09:00 02/09/20 08:35 Theragran M PO 1 tab DAILY KAMINI Administration Levothyroxine Sodium 150 mcg 02/08/20 06:00 02/09/20 05:34 Synthroid PO 150 mcg 0600 KAMINI Administration Metformin HCl 1,000 mg 02/07/20 17:00 02/09/20 08:35 Glucophage PO 1,000 mg BID-WM KAMINI Administration Ondansetron HCl 4 mg 02/08/20 06:26 02/08/20 06:37 Zofran IVP 4 mg Q6H PRN Administration Nausea/Vomiting Polyethylene Glycol 17 gm 02/06/20 09:00 02/09/20 08:36 Miralax PO 17 gm DAILY KAMINI Administration Sodium Chloride 10 ml 02/08/20 09:00 02/08/20 19:45 Flush - Normal Saline IVF 10 ml Q12HR KAMINI Administration Thiamine HCl 100 mg 02/06/20 09:00 02/09/20 08:35 Thiamine PO 100 mg DAILY KAMINI Administration - Exam General Appearance: NAD, awake alert ENT: moist mucosa Heart: RRR, no murmur, no gallops, no rubs Respiratory: CTAB, no wheezes, no rales, no ronchi Gastrointestinal: soft, non-tender, non-distended, normal bowel sounds Psychiatric: normal affect, normal behavior, A&O x 3 Hosp A/P (1) Hyponatremia Code(s): E87.1 - HYPO-OSMOLALITY AND HYPONATREMIA Status: Acute (2) Hypothyroidism Code(s): E03.9 - HYPOTHYROIDISM, UNSPECIFIED Status: Chronic (3) Alcohol abuse Code(s): F10.10 - ALCOHOL ABUSE, UNCOMPLICATED Status: Chronic (4) DM2 (diabetes mellitus, type 2) Status: Chronic (5) Dyslipidemia Code(s): E78.5 - HYPERLIPIDEMIA, UNSPECIFIED Status: Chronic (6) Tobacco use Code(s): Z72.0 - TOBACCO USE Status: Chronic (7) Constipation Code(s): K59.00 - CONSTIPATION, UNSPECIFIED Status: Acute - Plan Severe hyponatremia = back down to 123 today, drank 1400mL yesterday - On 1000mL free water restriction but not following, reiterated to patient how much he can drink. 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 Brown saw yesterday and per patient report he doesn't need surgery pt/ot as able dvt prophy - lovenox gi prophy - not indicated code status full Patient improved, ready for d/c to rehab/SNF once sodium stabilized
[2020-02-09] MEDS: Sodium Chloride 1 GM TAB PO SCH ×3 (09:53→19:49)
--- NOTE | 2020-02-09 09:55 | PRG ---
DATE OF SERVICE: 02/09/2020 SUBJECTIVE: Mr. Fontaine is a 64-year-old white male who was seen by the Renal Service for hyponatremia. Serum sodium has slowly been improving with replacement of his thyroid. However, this morning, his serum sodium was noted to be at 123 and yesterday, this was noted at 129. I will be repeating the serum sodium. If it is still low, we will probably start him on some hypertonic saline. Initially, I felt that he may have underlying SIADH as well as a contribution by the hypothyroidism to explain the low serum sodium. I did ask the nursing staff and they said he is on free water restriction at least 1 L per day. The patient is mentating well. I also started him sodium chloride tablets. OBJECTIVE: VITAL SIGNS: Blood pressure 136/81, heart rate 73, respiratory rate 16, temperature 97.7, and O2 saturation 97%. GENERAL: The patient is awake, alert, and comfortable, not in distress. SKIN: Adequate turgor. HEENT: Pinkish conjunctivae. Anicteric sclerae. NECK: No neck mass. No carotid bruits. No JVD. CHEST: No deformities. LUNGS: Clear breath sounds. HEART: Normal sinus rhythm. No murmur. No gallops. No rubs. ABDOMEN: Globular, soft, and nontender. No masses. EXTREMITIES: No edema. No deformities. MEDICATIONS: Medications of February 09, 2020, reviewed. LABORATORY DATA: Laboratories of February 09, 2020; sodium 123, potassium 4.1, chloride 91, carbon dioxide 25, BUN 9, and creatinine 0.81. ASSESSMENT AND PLAN: 1. Hyponatremia-serum sodium has dropped from 129 to 123. Start sodium chloride tablet at 1 g p.o. t.i.d. Continue free water restriction. Recheck basic met at 1:00 p.m. If it is still low or further goes done, we will start this patient on hypertonic 1.5% solution, which will run at 50 mL/h. 2. Continue current management. Job ID: [id number]
[2020-02-09 13:34] LABS: Anion Gap 11 mmol/L (10-20); BUN (Urea Nitrogen) 8 mg/dL (8.4-25.7); Calc. Creatinine Clearance 119 mL/min (70-130); Carbon Dioxide 27 mmol/L (23-31); Chloride 90 mmol/L (98-107); Estimated GFR-MDRD Greater than 90; Glucose 134 mg/dL (80-115); Potassium 4.1 mmol/L (3.5-5.1); Sodium 124 mmol/L (136-145)
[2020-02-09] MEDS ORDERED: Sodium Chloride 256 MEQ in Sterile Water Injection 936 ML IV SCH (15:30)
--- NOTE | 2020-02-09 19:10 | PDOC.GSPN ---
Surgery Progress Note: Subj - Subjective Narrative: Patient admitted for severe hyponatremia, possibly due to untreated hypothyroidism, seen on morning rounds yesterday and discussed with the wound care team today. He has a stable toe amputation wound which has been slow to heal, but has no exposed bone and does not appear to be actively infected. His perfusion appears adequate but he has multiple barriers to care and is unable to really reach or see the wound himself. I had asked his home health team, who can only come out 3 times a week, to place medihoney to the wound since the wound was getting desiccated between appointments, but this was denied by his insurance as they consider medihoney to be a "food". They denied my request for a doctor to doctor review of this denial. After discussion with the wound care team Promogran has been placed to the wound. This can be changed 3 times a week and hopefully will encourage continued ingrowth. He is at high risk for limb loss if we cannot get this wound to heal. No new recommendations. I will see him with the wound care team when they change his dressing. Hopefully the swelling in his legs will improve with treatment of his neglected hypothyroidism , which will also help with wound healing. Surgery Progress Note: Obj - Vital signs Vital signs: Vital Signs - Most Recent Temp Pulse Resp BP Pulse Ox 98.1 F 74 16 137/83 96 02/09/20 15:33 02/09/20 15:33 02/09/20 15:33 02/09/20 15:33 02/09/20 15:33 Surgery Progress Note: Results - Labs Result Diagrams: 02/07/20 03:03 02/09/20 13:03 Lab results: Laboratory Results - last 24 hr 02/09/20 02/09/20 02/09/20 11:29 13:03 15:37 Sodium 124 L Potassium 4.1 Chloride 90 L Carbon Dioxide 27 Anion Gap 11 BUN 8 L Creatinine 0.80 Estimated GFR (MDRD) Greater than 90 Glucose 134 H POC Glucose 199 H 152 H Calcium 9.0
[2020-02-09] MEDS: Atorvastatin Calcium 10 MG TAB PO SCH (19:49)
[2020-02-09 23:41] LABS: Anion Gap 11 mmol/L (10-20); BUN (Urea Nitrogen) 7 mg/dL (8.4-25.7); Calc. Creatinine Clearance 112 mL/min (70-130); Carbon Dioxide 27 mmol/L (23-31); Chloride 91 mmol/L (98-107); Estimated GFR-MDRD 90; Glucose 161 mg/dL (80-115); Sodium 125 mmol/L (136-145)
[2020-02-10] MEDS: HYDROcodone/Acetaminophen 5/325 mg Tablet PO PRN ×5 (05:05→22:35)
[2020-02-10] MEDS: Levothyroxine 150 MCG TAB PO SCH (05:05)
[2020-02-10] MEDS: Ibuprofen 200 MG TAB PO PRN ×5 (05:05→22:35)
[2020-02-10 06:14] LABS: Anion Gap 12 mmol/L (10-20); BUN (Urea Nitrogen) 7 mg/dL (8.4-25.7); Calc. Creatinine Clearance 123 mL/min (70-130); Calcium 8.9 mg/dL (7.8-10.44); Carbon Dioxide 25 mmol/L (23-31); Chloride 92 mmol/L (98-107); Estimated GFR-MDRD Greater than 90; Glucose 131 mg/dL (80-115); Potassium 3.9 mmol/L (3.5-5.1); Sodium 125 mmol/L (136-145)
[2020-02-10] MEDS: metFORMIN 500 MG TAB PO SCH ×2 (08:23→17:00)
[2020-02-10] MEDS: Folic Acid 1 MG TAB PO SCH (08:23)
[2020-02-10] MEDS: Sodium Chloride 1 GM TAB PO SCH ×3 (08:23→20:08)
[2020-02-10] MEDS: Multivitamin W/ Minerals 1 TAB PO SCH (08:23)
[2020-02-10] MEDS: Enoxaparin Sodium 40 MG/0.4 ML SYRINGE SC SCH (08:23)
[2020-02-10] MEDS: Thiamine 100 MG TAB PO SCH (08:23)
[2020-02-10] MEDS: Finasteride 5 MG TAB PO SCH (08:23)
[2020-02-10] MEDS: Docusate 100 MG CAP PO SCH ×2 (08:23→20:08)
[2020-02-10] MEDS: Polyethylene Glycol 3350 17 GM Packet PO SCH (08:26)
--- NOTE | 2020-02-10 09:11 | PDOC.HOSPP ---
- Subjective Encounter Date: 02/10/20 Encounter Time: 11:00 Subjective: Patient states strength coming and going. Also with increasing anxiety and insomnia. No other complaints. - Objective Vital Signs & Weight: Vital Signs (12 hours) Temp Pulse Resp BP Pulse Ox 02/10/20 08:00 69 16 132/56 L 98 02/10/20 04:00 98.1 F 74 18 128/79 96 02/10/20 00:00 97.7 F 81 18 121/78 94 L Weight Admit Weight 205 lb 7.533 oz Weight 197 lb 1.6 oz Most Recent Monitor Data Heart Rate from ECG 88 NIBP 104/57 NIBP BP-Mean 72 Respiration from ECG 20 SpO2 97 I&O: 02/09/20 02/10/20 02/11/20 06:59 06:59 06:59 Intake Total 1440 1480 Output Total 1550 650 Balance -110 830 Result Diagrams: 02/07/20 03:03 02/10/20 05:29 Additional Labs: Accuchecks 02/10/20 02/09/20 02/09/20 04:44 20:03 15:37 POC Glucose 170 H 153 H 152 H 02/09/20 11:29 POC Glucose 199 H Hospitalist ROS - Review of Systems Constitutional: reports: weakness. denies: fever, chills Respiratory: denies: cough, shortness of breath Cardiovascular: denies: chest pain, palpitations Gastrointestinal: denies: nausea, vomiting, abdominal pain - Medication Medications: Active Medications Generic Name Dose Route Start Last Admin Trade Name Freq PRN Reason Stop Dose Admin Hydrocodone Bitart/Acetaminophen 1 tab 02/06/20 03:09 02/10/20 05:05 [place] 5/325 PO 1 tab Q4H PRN Administration Moderate Pain (4-6) Atorvastatin Calcium 10 mg 02/07/20 21:00 02/09/20 19:49 Lipitor PO 10 mg HS KAMINI Administration Docusate Sodium 100 mg 02/06/20 09:00 02/10/20 08:23 Colace PO 100 mg BID KAMINI Administration Enoxaparin Sodium 40 mg 02/06/20 09:00 02/10/20 08:23 Lovenox SC 40 mg 0900 KAMINI Administration Finasteride 5 mg 02/06/20 09:00 02/10/20 08:23 Proscar PO 5 mg DAILY KAMINI Administration Folic Acid 1 mg 02/06/20 09:00 02/10/20 08:23 Folvite PO 1 mg DAILY KAMINI Administration Ibuprofen 400 mg 02/08/20 20:50 02/10/20 05:05 Motrin PO 400 mg Q4H PRN Administration Pain Insulin Human Lispro 0 units 02/06/20 03:12 02/09/20 05:36 Humalog SC 4 unit .MILD SLIDING SCALE PRN Administration Mild Correctional Scale Iron/Minerals/Multivitamins 1 tab 02/06/20 09:00 02/10/20 08:23 Theragran M PO 1 tab DAILY KAMINI Administration Levothyroxine Sodium 150 mcg 02/08/20 06:00 02/10/20 05:05 Synthroid PO 150 mcg 0600 KAMINI Administration Metformin HCl 1,000 mg 02/07/20 17:00 02/10/20 08:23 Glucophage PO 1,000 mg BID-WM KAMINI Administration Ondansetron HCl 4 mg 02/08/20 06:26 02/08/20 06:37 Zofran IVP 4 mg Q6H PRN Administration Nausea/Vomiting Polyethylene Glycol 17 gm 02/06/20 09:00 02/10/20 08:26 Miralax PO 17 gm DAILY KAMINI Administration Sodium Chloride 10 ml 02/08/20 09:00 02/10/20 08:26 Flush - Normal Saline IVF 10 ml Q12HR KAMINI Administration Sodium Chloride 1 gm 02/09/20 09:00 02/10/20 08:23 Sodium Chloride PO 1 gm TID KAMINI Administration Thiamine HCl 100 mg 02/06/20 09:00 02/10/20 08:23 Thiamine PO 100 mg DAILY KAMINI Administration - Exam General Appearance: NAD, awake alert ENT: moist mucosa Heart: RRR, no murmur, no gallops, no rubs Respiratory: CTAB, no wheezes, no rales, no ronchi Gastrointestinal: soft, non-tender, non-distended, normal bowel sounds Psychiatric: normal affect, normal behavior, A&O x 3 Psychiatric - other findings: a little sleepy Hosp A/P (1) Hyponatremia Code(s): E87.1 - HYPO-OSMOLALITY AND HYPONATREMIA Status: Acute (2) Hypothyroidism Code(s): E03.9 - HYPOTHYROIDISM, UNSPECIFIED Status: Chronic (3) Alcohol abuse Code(s): F10.10 - ALCOHOL ABUSE, UNCOMPLICATED Status: Chronic (4) DM2 (diabetes mellitus, type 2) Status: Chronic (5) Dyslipidemia Code(s): E78.5 - HYPERLIPIDEMIA, UNSPECIFIED Status: Chronic (6) Tobacco use Code(s): Z72.0 - TOBACCO USE Status: Chronic (7) Constipation Code(s): K59.00 - CONSTIPATION, UNSPECIFIED Status: Acute - Plan Severe hyponatremia = Sodium climbing back up to 125 today - On 1000mL oral free water restriction and kept to it yesterday. - nephrology following, added oral NaCl and hypertonic saline - possibly due to severe hypothyroidism Hypothyroidism - significantly elevated TSH with very low fT3 and fT4, resumed home dose that patient hasn't refilled since July per his pharmacy Hypokalemia - replaced orally, normalized Home meds - resumed finasteride Chronic pain - norco prn constipation - schedule bowel meds 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 Brown saw yesterday and per patient report he doesn't need surgery pt/ot as able dvt prophy - lovenox gi prophy - not indicated code status full Patient improved, ready for d/c to rehab/SNF once sodium stabilized and off hypertonic saline.
--- NOTE | 2020-02-10 09:41 | PRG ---
DATE OF SERVICE: 02/10/2020 SUBJECTIVE: Mr. Soler is a 64-year-old white man seen for his hyponatremia. This was felt that this could be from SIADH and/or worsened by his hypothyroidism. Yesterday, we noted his serum sodium has dropped from 129 to 124. On careful investigation, the patient has been drinking usual amounts of water, although he has instruction to limit his fluid intake. He was hiding a gallon of water in his cabinet. He voices no new complaints today. I started him on hypertonic saline yesterday-1.5% sodium chloride and running at 40 mL/h. His serum sodium this morning is noted at 125. The patient voices no new complaints. No chest pain or shortness of breath. OBJECTIVE: VITAL SIGNS: Blood pressure is 132/56, heart rate 69, respiratory rate 16, and O2 saturation 98%. GENERAL: The patient is awake, alert, and comfortable, not in distress. SKIN: Adequate turgor. HEENT: He has pinkish conjunctivae. Anicteric sclerae. No neck mass. No carotid bruits. No JVD. CHEST: No deformities. LUNGS: Clear breath sounds. No wheezing. No crackles. HEART: Normal sinus rhythm. No murmur. No gallops. No rubs. ABDOMEN: Globular, soft, and nontender. No masses. EXTREMITIES: No edema. No deformities. MEDICATIONS: Of February 10, 2020, were reviewed. LABORATORY DATA: February 10, 2020; sodium 125, potassium 3.9, chloride 92, carbon dioxide 25, BUN 7, creatinine 0.76, and calcium is 8.9. ASSESSMENT AND PLAN: 1. Hyponatremia-secondary to a possible syndrome of inappropriate antidiuretic hormone secretion. Continue free water restriction 1 L per day. I have started him on hypertonic saline 1.5% sodium chloride. We will increase from 40 mL/h to 50 mL/hour. We will repeat basement at 1:00 p.m. today. Adjust upwards as needed. Please note that Motrin at times also worsen the hyponatremia. 2. Continue free water restriction. Job ID: [id number]
[2020-02-10] MEDS: Sodium Chloride 256 MEQ in Sterile Water Injection 936 ML IV SCH ×2 (09:57→17:16)
--- NOTE | 2020-02-10 12:12 | PDOC.GSPN ---
Surgery Progress Note: Subj - Subjective Narrative: Saw patient with wound care team today. Amputation site is stable. He has some fibrinous peel which was removed from the wound and there is viable granulation tissue under this. No exposed bone and no expressible drainage. He still has mild to moderate edema of the foot and was encouraged to elevate it. We will continue with Promogran to the wound. From a surgical standpoint he can ambulate with heel weightbearing on the right with a postop shoe. Will continue to see with wound care. Next dressing changes scheduled for Friday. If he is discharged home he should have home health for Promogran dressing changes to the right toe amputation site 3 times per week, and follow-up with me every 2 weeks. Surgery Progress Note: Obj - Vital signs Vital signs: Vital Signs - Most Recent Temp Pulse Resp BP Pulse Ox 98.1 F 69 16 132/56 L 98 02/10/20 04:00 02/10/20 08:00 02/10/20 08:00 02/10/20 08:00 02/10/20 08:00 Surgery Progress Note: Results - Labs Result Diagrams: 02/07/20 03:03 02/10/20 05:29 Lab results: Laboratory Results - last 24 hr 02/09/20 02/10/20 02/10/20 20:03 04:44 05:29 Sodium 125 L Potassium 3.9 Chloride 92 L Carbon Dioxide 25 Anion Gap 12 BUN 7 L Creatinine 0.76 Estimated GFR (MDRD) Greater than 90 Glucose 131 H POC Glucose 153 H 170 H Calcium 8.9
[2020-02-10 13:37] LABS: Anion Gap 12 mmol/L (10-20); BUN (Urea Nitrogen) 6 mg/dL (8.4-25.7); Calc. Creatinine Clearance 118 mL/min (70-130); Calcium 9.1 mg/dL (7.8-10.44); Carbon Dioxide 26 mmol/L (23-31); Chloride 92 mmol/L (98-107); Estimated GFR-MDRD Greater than 90; Glucose 130 mg/dL (80-115); Sodium 126 mmol/L (136-145)
[2020-02-10] MEDS: Atorvastatin Calcium 10 MG TAB PO SCH (20:08)
[2020-02-10] MEDS: Temazepam 15 MG CAP PO PRN (20:08)
[2020-02-10] MEDS: HumaLOG 300 UNITS/3 ML VIAL SC PRN (21:41)
[2020-02-11] MEDS: Ibuprofen 200 MG TAB PO PRN (03:32)
[2020-02-11] MEDS: HYDROcodone/Acetaminophen 5/325 mg Tablet PO PRN ×4 (03:32→20:21)
[2020-02-11] MEDS: Levothyroxine 150 MCG TAB PO SCH (06:25)
[2020-02-11] MEDS: HumaLOG 300 UNITS/3 ML VIAL SC PRN ×2 (06:25→21:53)
[2020-02-11] MEDS: Thiamine 100 MG TAB PO SCH (08:23)
[2020-02-11] MEDS: metFORMIN 500 MG TAB PO SCH ×2 (08:23→16:00)
[2020-02-11] MEDS: Sodium Chloride 1 GM TAB PO SCH ×3 (08:23→20:21)
[2020-02-11] MEDS: Docusate 100 MG CAP PO SCH ×2 (08:24→20:21)
[2020-02-11] MEDS: Folic Acid 1 MG TAB PO SCH (08:24)
[2020-02-11] MEDS: Multivitamin W/ Minerals 1 TAB PO SCH (08:24)
[2020-02-11] MEDS: Finasteride 5 MG TAB PO SCH (08:24)
[2020-02-11] MEDS: Enoxaparin Sodium 40 MG/0.4 ML SYRINGE SC SCH (08:24)
[2020-02-11] MEDS: Polyethylene Glycol 3350 17 GM Packet PO SCH (08:25)
--- NOTE | 2020-02-11 09:00 | PDOC.HOSPP ---
- Subjective Encounter Date: 02/11/20 Encounter Time: 11:20 Subjective: Patient without complaints. Still quite weak but improving. Very worried about his bills. - Objective Vital Signs & Weight: Vital Signs (12 hours) Temp Pulse Resp BP Pulse Ox 02/11/20 07:32 97.4 F L 86 16 131/84 96 Weight Admit Weight 205 lb 7.533 oz Weight 197 lb 1.6 oz Most Recent Monitor Data Heart Rate from ECG 88 NIBP 104/57 NIBP BP-Mean 72 Respiration from ECG 20 SpO2 97 I&O: 02/10/20 02/11/20 02/12/20 06:59 06:59 06:59 Intake Total 1480 1380 Output Total 650 1650 Balance 830 -270 Result Diagrams: 02/07/20 03:03 02/11/20 09:23 Additional Labs: Accuchecks 02/11/20 02/10/20 02/10/20 05:12 19:38 15:37 POC Glucose 218 H 237 H 173 H 02/10/20 11:01 POC Glucose 184 H Hospitalist ROS - Review of Systems Constitutional: reports: weakness. denies: fever, chills Respiratory: denies: cough, shortness of breath Cardiovascular: denies: chest pain, palpitations Gastrointestinal: denies: nausea, vomiting, abdominal pain - Medication Medications: Active Medications Generic Name Dose Route Start Last Admin Trade Name Freq PRN Reason Stop Dose Admin Hydrocodone Bitart/Acetaminophen 1 tab 02/06/20 03:09 02/11/20 03:32 [place] 5/325 PO 1 tab Q4H PRN Administration Moderate Pain (4-6) Atorvastatin Calcium 10 mg 02/07/20 21:00 02/10/20 20:08 Lipitor PO 10 mg HS KAMINI Administration Docusate Sodium 100 mg 02/06/20 09:00 02/11/20 08:24 Colace PO 100 mg BID KAMINI Administration Enoxaparin Sodium 40 mg 02/06/20 09:00 02/11/20 08:24 Lovenox SC 40 mg 0900 KAMINI Administration Finasteride 5 mg 02/06/20 09:00 02/11/20 08:24 Proscar PO 5 mg DAILY KAMINI Administration Folic Acid 1 mg 02/06/20 09:00 02/11/20 08:24 Folvite PO 1 mg DAILY KAMINI Administration Insulin Human Lispro 0 units 02/06/20 03:12 02/11/20 06:25 Humalog SC 3 unit .MILD SLIDING SCALE PRN Administration Mild Correctional Scale Insulin Human Lispro 0 units 02/10/20 21:29 02/10/20 21:41 Humalog SC 2 unit .BEDTIME SLIDING SC PRN Administration Bedtime Correctional Scale Iron/Minerals/Multivitamins 1 tab 02/06/20 09:00 02/11/20 08:24 Theragran M PO 1 tab DAILY KAMINI Administration Levothyroxine Sodium 150 mcg 02/08/20 06:00 02/11/20 06:25 Synthroid PO 150 mcg 0600 KAMINI Administration Metformin HCl 1,000 mg 02/07/20 17:00 02/11/20 08:23 Glucophage PO 1,000 mg BID-WM KAMINI Administration Ondansetron HCl 4 mg 02/08/20 06:26 02/08/20 06:37 Zofran IVP 4 mg Q6H PRN Administration Nausea/Vomiting Polyethylene Glycol 17 gm 02/06/20 09:00 02/11/20 08:25 Miralax PO 17 gm DAILY KAMINI Administration Sodium Chloride 10 ml 02/08/20 09:00 02/11/20 08:25 Flush - Normal Saline IVF Not Given Q12HR KAMINI Sodium Chloride 1 gm 02/09/20 09:00 02/11/20 08:23 Sodium Chloride PO 1 gm TID KAMINI Administration Temazepam 15 mg 02/10/20 11:12 02/10/20 20:08 Restoril PO 15 mg HSPRN PRN Administration Insomnia Thiamine HCl 100 mg 02/06/20 09:00 02/11/20 08:23 Thiamine PO 100 mg DAILY KAMINI Administration - Exam General Appearance: NAD, awake alert ENT: moist mucosa Heart: RRR, no murmur, no gallops, no rubs Respiratory: CTAB, no wheezes, no rales, no ronchi Gastrointestinal: soft, non-tender, non-distended, normal bowel sounds Psychiatric: normal affect, normal behavior, A&O x 3 Hosp A/P (1) Hyponatremia Code(s): E87.1 - HYPO-OSMOLALITY AND HYPONATREMIA Status: Acute (2) Hypothyroidism Code(s): E03.9 - HYPOTHYROIDISM, UNSPECIFIED Status: Chronic (3) Alcohol abuse Code(s): F10.10 - ALCOHOL ABUSE, UNCOMPLICATED Status: Chronic (4) DM2 (diabetes mellitus, type 2) Status: Chronic (5) Dyslipidemia Code(s): E78.5 - HYPERLIPIDEMIA, UNSPECIFIED Status: Chronic (6) Tobacco use Code(s): Z72.0 - TOBACCO USE Status: Chronic (7) Constipation Code(s): K59.00 - CONSTIPATION, UNSPECIFIED Status: Acute - Plan Severe hyponatremia = Sodium climbing back up to 126 today - On 1000mL oral free water restriction and kept to it yesterday. 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 Brown saw and per patient report he doesn't need surgery pt/ot as able dvt prophy - lovenox gi prophy - not indicated code status full Patient improved, ready for d/c to rehab/SNF once sodium stabilized and off hypertonic saline/ cleared by nephrology.
--- NOTE | 2020-02-11 09:38 | PRG ---
DATE OF SERVICE: 02/11/2020 SERVICE: Renal Medicine. SUBJECTIVE: Mr. Soler is a 64-year-old white male, who was seen for his hyponatremia. He was also noted to have been hypothyroid. He was given Synthroid replacement. In addition, we felt that he may have underlying SIADH. Due to his noncompliance with free water restriction, his serum sodium worsened from 129, went down to 123. At that time, we did counseling department chair the patient on strict free water restriction. He told us that he will try to comply with this. In addition, I have started him on hypertonic saline - 1.5%. I have decided to increase this to 60 mL/hour. No other complaints. No acute events. OBJECTIVE: VITAL SIGNS: Blood pressure is 131/84, heart rate 86, respiratory rate 16, temperature 97.4, and O2 saturation 96%. GENERAL: The patient is awake, alert, comfortable, not in distress. SKIN: Adequate turgor. HEENT: He has pinkish conjunctivae. Anicteric sclerae. NECK: No neck mass. No carotid bruits. No JVD. CHEST: No deformities. LUNGS: Clear breath sounds. HEART: Normal sinus rhythm. No murmur. No gallops. No rubs. ABDOMEN: Globular, soft, and nontender. No masses. EXTREMITIES: No edema. No deformities. MEDICATIONS: Of February 11, 2020, was reviewed. LABORATORY DATA: Laboratories of February 10, 2020; sodium 126, potassium 4, chloride 92, carbon dioxide 26, BUN 6, and creatinine 0.79. ASSESSMENT AND PLAN: Hyponatremia. Last serum sodium is 126. Still with slow improvement. Increase 1.5% sodium chloride to 60 mL/hour. We will do a stat basic metabolic panel today and we will recheck another basic metabolic panel at 1800. Continue free water restriction. We will also recheck basic metabolic panel in a.m. I did not give him tolvaptan due to his mildly impaired liver function test. Job ID: [id number]
[2020-02-11 09:50] LABS: Anion Gap 11 mmol/L (10-20); BUN (Urea Nitrogen) 9 mg/dL (8.4-25.7); Calc. Creatinine Clearance 118 mL/min (70-130); Calcium 8.8 mg/dL (7.8-10.44); Carbon Dioxide 26 mmol/L (23-31); Chloride 96 mmol/L (98-107); Estimated GFR-MDRD Greater than 90; Glucose 116 mg/dL (80-115); Potassium 3.6 mmol/L (3.5-5.1); Sodium 129 mmol/L (136-145)
[2020-02-11] MEDS: Sodium Chloride 256 MEQ in Sterile Water Injection 936 ML IV SCH ×2 (10:53→16:02)
[2020-02-11 18:22] LABS: Anion Gap 11 mmol/L (10-20); BUN (Urea Nitrogen) 9 mg/dL (8.4-25.7); Calc. Creatinine Clearance 110 mL/min (70-130); Calcium 9.2 mg/dL (7.8-10.44); Carbon Dioxide 27 mmol/L (23-31); Chloride 95 mmol/L (98-107); Estimated GFR-MDRD 90; Glucose 128 mg/dL (80-115); Potassium 3.9 mmol/L (3.5-5.1); Sodium 129 mmol/L (136-145)
[2020-02-11] MEDS: Atorvastatin Calcium 10 MG TAB PO SCH (20:21)
[2020-02-11] MEDS: Temazepam 15 MG CAP PO PRN (21:52)
[2020-02-12] MEDS: HYDROcodone/Acetaminophen 5/325 mg Tablet PO PRN ×5 (00:51→21:07)
[2020-02-12] MEDS: Sodium Chloride 256 MEQ in Sterile Water Injection 936 ML IV SCH ×2 (01:23→10:17)
[2020-02-12] MEDS: Levothyroxine 150 MCG TAB PO SCH (05:21)
[2020-02-12 06:17] LABS: Anion Gap 13 mmol/L (10-20); BUN (Urea Nitrogen) 8 mg/dL (8.4-25.7); Calc. Creatinine Clearance 126 mL/min (70-130); Carbon Dioxide 23 mmol/L (23-31); Chloride 98 mmol/L (98-107); Estimated GFR-MDRD Greater than 90; Glucose 117 mg/dL (80-115); Potassium 3.8 mmol/L (3.5-5.1); Sodium 130 mmol/L (136-145)
[2020-02-12] MEDS: Docusate 100 MG CAP PO SCH ×2 (08:57→21:06)
[2020-02-12] MEDS: Enoxaparin Sodium 40 MG/0.4 ML SYRINGE SC SCH (08:57)
[2020-02-12] MEDS: metFORMIN 500 MG TAB PO SCH ×2 (08:57→16:27)
[2020-02-12] MEDS: Sodium Chloride 1 GM TAB PO SCH ×3 (08:57→21:06)
[2020-02-12] MEDS: Multivitamin W/ Minerals 1 TAB PO SCH (08:57)
[2020-02-12] MEDS: Folic Acid 1 MG TAB PO SCH (08:58)
[2020-02-12] MEDS: Finasteride 5 MG TAB PO SCH (08:58)
[2020-02-12] MEDS: Thiamine 100 MG TAB PO SCH (08:58)
[2020-02-12] MEDS ORDERED: Sodium Chloride 256 MEQ in Sterile Water Injection 936 ML IV SCH (10:59)
[2020-02-12] MEDS: Polyethylene Glycol 3350 17 GM Packet PO SCH (11:01)
--- NOTE | 2020-02-12 11:25 | PDOC.HOSPP ---
- Subjective Encounter Date: 02/12/20 Encounter Time: 12:30 Subjective: No complaints. Patient worrying about his bills at home. - Objective Vital Signs & Weight: Vital Signs (12 hours) Temp Pulse Resp BP Pulse Ox 02/12/20 08:00 98.0 F 87 17 136/89 94 L Weight Admit Weight 205 lb 7.533 oz Weight 197 lb 1.6 oz Most Recent Monitor Data Heart Rate from ECG 88 NIBP 104/57 NIBP BP-Mean 72 Respiration from ECG 20 SpO2 97 I&O: 02/11/20 02/12/20 02/13/20 06:59 06:59 06:59 Intake Total 1380 1810 Output Total 1650 550 850 Balance -270 1260 -850 Result Diagrams: 02/07/20 03:03 02/12/20 05:22 Additional Labs: Accuchecks 02/12/20 02/11/20 02/11/20 05:00 20:43 16:07 POC Glucose 123 H 319 H 167 H 02/11/20 12:08 POC Glucose 185 H Hospitalist ROS - Review of Systems Constitutional: denies: fever, chills Respiratory: denies: cough, shortness of breath Cardiovascular: denies: chest pain, palpitations, orthopnea Gastrointestinal: denies: nausea, vomiting, abdominal pain - Medication Medications: Active Medications Generic Name Dose Route Start Last Admin Trade Name Freq PRN Reason Stop Dose Admin Hydrocodone Bitart/Acetaminophen 1 tab 02/06/20 03:09 02/12/20 11:01 [place] 5/325 PO 1 tab Q4H PRN Administration Moderate Pain (4-6) Atorvastatin Calcium 10 mg 02/07/20 21:00 02/11/20 20:21 Lipitor PO 10 mg HS KAMINI Administration Docusate Sodium 100 mg 02/06/20 09:00 02/12/20 08:57 Colace PO 100 mg BID KAMINI Administration Enoxaparin Sodium 40 mg 02/06/20 09:00 02/12/20 08:57 Lovenox SC 40 mg 0900 KAMINI Administration Finasteride 5 mg 02/06/20 09:00 02/12/20 08:58 Proscar PO 5 mg DAILY KAMINI Administration Folic Acid 1 mg 02/06/20 09:00 02/12/20 08:58 Folvite PO 1 mg DAILY KAMINI Administration Insulin Human Lispro 0 units 02/06/20 03:12 02/11/20 06:25 Humalog SC 3 unit .MILD SLIDING SCALE PRN Administration Mild Correctional Scale Insulin Human Lispro 0 units 02/10/20 21:29 02/11/20 21:53 Humalog SC 4 unit .BEDTIME SLIDING SC PRN Administration Bedtime Correctional Scale Iron/Minerals/Multivitamins 1 tab 02/06/20 09:00 02/12/20 08:57 Theragran M PO 1 tab DAILY KAMINI Administration Levothyroxine Sodium 150 mcg 02/08/20 06:00 02/12/20 05:21 Synthroid PO 150 mcg 0600 KAMINI Administration Metformin HCl 1,000 mg 02/07/20 17:00 02/12/20 08:57 Glucophage PO 1,000 mg BID-WM KAMINI Administration Ondansetron HCl 4 mg 02/08/20 06:26 02/08/20 06:37 Zofran IVP 4 mg Q6H PRN Administration Nausea/Vomiting Polyethylene Glycol 17 gm 02/06/20 09:00 02/12/20 11:01 Miralax PO 17 gm DAILY KAMINI Administration Sodium Chloride 10 ml 02/08/20 09:00 02/12/20 09:04 Flush - Normal Saline IVF Not Given Q12HR KAMINI Sodium Chloride 1 gm 02/09/20 09:00 02/12/20 08:57 Sodium Chloride PO 1 gm TID KAMINI Administration Temazepam 15 mg 02/10/20 11:12 02/11/20 21:52 Restoril PO 15 mg HSPRN PRN Administration Insomnia Thiamine HCl 100 mg 02/06/20 09:00 02/12/20 08:58 Thiamine PO 100 mg DAILY KAMINI Administration - Exam General Appearance: NAD, awake alert ENT: moist mucosa Heart: RRR, no murmur, no gallops, no rubs Respiratory: CTAB, no wheezes, no rales, no ronchi Gastrointestinal: soft, non-tender, non-distended, normal bowel sounds Psychiatric: normal affect, normal behavior, A&O x 3 Hosp A/P (1) Hyponatremia Code(s): E87.1 - HYPO-OSMOLALITY AND HYPONATREMIA Status: Acute (2) Hypothyroidism Code(s): E03.9 - HYPOTHYROIDISM, UNSPECIFIED Status: Chronic (3) Alcohol abuse Code(s): F10.10 - ALCOHOL ABUSE, UNCOMPLICATED Status: Chronic (4) DM2 (diabetes mellitus, type 2) Status: Chronic (5) Dyslipidemia Code(s): E78.5 - HYPERLIPIDEMIA, UNSPECIFIED Status: Chronic (6) Tobacco use Code(s): Z72.0 - TOBACCO USE Status: Chronic (7) Constipation Code(s): K59.00 - CONSTIPATION, UNSPECIFIED Status: Acute - Plan Severe hyponatremia = Sodium climbing up to 130 today - On 1000mL oral free water restriction and kept to it yesterday. 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 Brown saw and per patient report he doesn't need surgery pt/ot as able dvt prophy - lovenox gi prophy - not indicated code status full Patient improved, ready for d/c to rehab/SNF once sodium stabilized and off hypertonic saline/ cleared by nephrology.
--- NOTE | 2020-02-12 11:31 | PRG ---
DATE OF SERVICE: 02/12/2020 SERVICE: Renal Medicine. SUBJECTIVE: Mr. 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 He has also a diagnosis of hypothyroidism. We have been adjusting his 1.5% sodium chloride in the last several days. Serum sodium is slowly improving. Most recent serum sodium is 130. No complaints of chest pain or shortness of breath. OBJECTIVE: VITAL SIGNS: Blood pressure 136/89, heart rate 87, respiratory rate 17, temperature 98, O2 saturation 94%. GENERAL: The patient is awake, alert, comfortable, not in distress. SKIN: Adequate turgor. HEENT: He has pinkish conjunctivae. Anicteric sclerae. NECK: No neck mass. No carotid bruits. No JVD. CHEST: No deformities. LUNGS: Clear breath sounds. No wheezing. No crackles. HEART: Normal sinus rhythm. No murmur. No gallops. No rubs. ABDOMEN: Globular, soft, nontender. No masses. EXTREMITIES: No edema. No deformities. MEDICATIONS: On February 12, 2020, were reviewed. LABORATORY DATA: On February 12, 2020; sodium 130, potassium 3.8, chloride 98, carbon dioxide 23, BUN 8, creatinine 0.74, glucose 117, calcium 9. ASSESSMENT AND PLAN: Hyponatremia. Continue 1.5% sodium chloride. We will increase it to 70 mL/h. We will be rechecking another basic metabolic profile at 1800 hours and adjust sodium chloride as needed. We will recheck basic metabolic profile also in a.m. Continue free water 1000 L, restriction. The patient is currently on sodium chloride tablet also at 1 g p.o. t.i.d. Job ID: [id number]
[2020-02-12] MEDS: HumaLOG 300 UNITS/3 ML VIAL SC PRN (12:20)
--- NOTE | 2020-02-12 13:15 | PDOC.GSPN ---
Surgery Progress Note: Subj - Subjective Narrative: Patient feels fine. He denies pain in his feet. His wound looks good and has slightly improved granulation tissue. Promogran was placed. I would recommend continuing this with home health as an outpatient. I have previously recommended on numerous occasions to the patient that he go to a assisted living situation due to his frequent falls but he has refused this. I will see him with the wound care team at his next dressing change if he is still an inpatient. If he is discharged, he should follow-up in my clinic in 2 weeks. Surgery Progress Note: Obj - Vital signs Vital signs: Vital Signs - Most Recent Temp Pulse Resp BP Pulse Ox 98.0 F 87 17 136/89 94 L 02/12/20 08:00 02/12/20 08:00 02/12/20 08:00 02/12/20 08:00 02/12/20 08:00 Surgery Progress Note: Results - Labs Result Diagrams: 02/07/20 03:03 02/12/20 05:22 Lab results: Laboratory Results - last 24 hr 02/12/20 02/12/20 02/12/20 05:00 05:22 11:48 Sodium 130 L Potassium 3.8 Chloride 98 Carbon Dioxide 23 Anion Gap 13 BUN 8 L Creatinine 0.74 Estimated GFR (MDRD) Greater than 90 Glucose 117 H POC Glucose 123 H 309 H Calcium 9.0
--- NOTE | 2020-02-12 14:41 | EKG ---
Test Reason : Blood Pressure : / mmHG Vent. Rate : 087 BPM Atrial Rate : 087 BPM P-R Int : 178 ms QRS Dur : 118 ms QT Int : 396 ms P-R-T Axes : 047 -28 089 degrees QTc Int : 476 ms Normal sinus rhythm Septal infarct , age undetermined Abnormal ECG Confirmed by CAITLYN AVALOS, FELICIANO Marcus ([id number]), sound editor HIRA GOLDSMITH ([id number]) on 02/12/2020 2:40:56 PM Referred By: Confirmed By:FELICIANO BRADY MD
[2020-02-12] MEDS: Atorvastatin Calcium 10 MG TAB PO SCH (21:06)
[2020-02-12] MEDS: Temazepam 15 MG CAP PO PRN (22:36)
[2020-02-12] MEDS ORDERED: Sodium Chloride 256 MEQ in Sterile Water Injection 897.6 ML IV SCH (23:45)
[2020-02-13] MEDS: HYDROcodone/Acetaminophen 5/325 mg Tablet PO PRN ×6 (01:41→23:22)
[2020-02-13] MEDS: Levothyroxine 150 MCG TAB PO SCH (05:37)
[2020-02-13] MEDS: HumaLOG 300 UNITS/3 ML VIAL SC PRN ×3 (05:37→16:45)
[2020-02-13 05:57] LABS: Anion Gap 12 mmol/L (10-20); BUN (Urea Nitrogen) 12 mg/dL (8.4-25.7); Calc. Creatinine Clearance 116 mL/min (70-130); Carbon Dioxide 25 mmol/L (23-31); Chloride 98 mmol/L (98-107); Estimated GFR-MDRD Greater than 90; Glucose 191 mg/dL (80-115); Potassium 3.9 mmol/L (3.5-5.1); Sodium 131 mmol/L (136-145)
[2020-02-13] MEDS: Sodium Chloride 1 GM TAB PO SCH ×3 (08:36→21:19)
[2020-02-13] MEDS: Polyethylene Glycol 3350 17 GM Packet PO SCH (08:37)
[2020-02-13] MEDS: Finasteride 5 MG TAB PO SCH (08:37)
[2020-02-13] MEDS: Multivitamin W/ Minerals 1 TAB PO SCH (08:37)
[2020-02-13] MEDS: Folic Acid 1 MG TAB PO SCH (08:37)
[2020-02-13] MEDS: Thiamine 100 MG TAB PO SCH (08:37)
[2020-02-13] MEDS: Docusate 100 MG CAP PO SCH ×2 (08:37→21:19)
[2020-02-13] MEDS: Enoxaparin Sodium 40 MG/0.4 ML SYRINGE SC SCH (08:37)
[2020-02-13] MEDS: metFORMIN 500 MG TAB PO SCH ×2 (08:38→16:45)
[2020-02-13 11:41] LABS: ALT (SGPT) 19 U/L (8-55); AST (SGOT) 39 U/L (5-34); Albumin 3.9 g/dL (3.4-4.8); Alkaline Phosphatase 127 U/L (40-110); Bilirubin, Direct 0.2 mg/dL (0.1-0.3); Bilirubin, Total 0.3 mg/dL (0.2-1.2); Protein, Total 7.6 g/dL (5.8-8.1)
--- NOTE | 2020-02-13 11:42 | PRG ---
DATE OF SERVICE: 02/13/2020 SUBJECTIVE: Mr. Soler is a 64-year-old white male, followed up for his hyponatremia secondary to SIADH. He has also finding of hypothyroidism. Serum sodium is slowly improving over time. I have decided to increase his 1.5% sodium chloride from 70 to 80 mL an hour. No new complaints today. Awaiting mcc placement. OBJECTIVE: VITAL SIGNS: Blood pressure is 147/83, heart rate 82, respiratory rate 16, temperature 98.1, O2 saturation 93%. GENERAL: The patient is awake, alert, comfortable, not in distress. SKIN: Adequate turgor. HEENT: Pinkish conjunctivae. Anicteric sclerae. NECK: No neck mass. No carotid bruits. No JVD. CHEST: No deformities. LUNGS: Clear breath sounds. No wheezing. No crackles. HEART: Normal sinus rhythm. No murmur. No gallops. No rubs. ABDOMEN: Globular, soft, nontender. No masses. EXTREMITIES: No edema. No deformities. MEDICATIONS: Medications of February 13, 2020, were reviewed. LABORATORY DATA: Laboratories of February 07, 2020; white count 5.1, hemoglobin 13.4. Sodium 131, potassium 3.9, chloride 98, carbon dioxide 25, BUN 12, creatinine 0.8, calcium is 9. ASSESSMENT AND PLAN: Hyponatremia secondary to presumed syndrome of inappropriate antidiuretic hormone secretion, slowly improving serum sodium. Most recent serum sodium was noted at 131. I will be checking a liver function test with this patient. If this is within normal, I will consider giving him tolvaptan and stopping the 1.5% sodium chloride. Continue free water restriction of 1 L per day. He is tolerating the 1.5% sodium chloride. He is not in any volume overload. We are awaiting mcc placement with this patient. Job ID: [id number]
[2020-02-13] MEDS: Sodium Chloride 256 MEQ in Sterile Water Injection 897.6 ML IV SCH (12:45)
--- NOTE | 2020-02-13 16:06 | PDOC.HOSPP ---
- Subjective Encounter Date: 02/13/20 Encounter Time: 09:20 Subjective: Pt has no clinical concerns. He is concerned about getting street clothes to wear while in rehab. He has no family or friends who can get his clothes from his home. He's also concerned about paying his bills. - Objective Vital Signs & Weight: Vital Signs (12 hours) Temp Pulse Resp BP BP Pulse Ox 02/13/20 15:15 82 12 143/94 H 97 02/13/20 12:20 78 18 151/90 H 96 02/13/20 08:36 93 L 02/13/20 08:00 98.1 F 82 16 147/83 H 93 L Weight Admit Weight 205 lb 7.533 oz Weight 197 lb 1.6 oz Most Recent Monitor Data Heart Rate from ECG 88 NIBP 104/57 NIBP BP-Mean 72 Respiration from ECG 20 SpO2 97 I&O: 02/12/20 02/13/20 02/14/20 06:59 06:59 06:59 Intake Total 1810 1965 Output Total 550 3650 Balance 1260 -1685 Result Diagrams: 02/07/20 03:03 02/13/20 05:17 Additional Labs: Accuchecks 02/13/20 02/13/20 02/12/20 11:15 04:29 20:58 POC Glucose 231 H 180 H 200 H 02/12/20 16:15 POC Glucose 97 Hospitalist ROS - Review of Systems Constitutional: denies: fever, chills, sweats, weakness, malaise, other Eyes: denies: pain, vision change, conjunctivae inflammation, eyelid inflammation, redness, other ENT: denies: ear pain, ear discharge, nose pain, nose discharge, nose congestion , mouth pain, mouth swelling, throat pain, throat swelling, other Respiratory: denies: cough, dry, shortness of breath, hemoptysis, SOB with excertion, pleuritic pain, sputum, wheezing, other Cardiovascular: denies: chest pain, palpitations, orthopnea, paroxysmal noc. dyspnea, edema, light headedness, other Gastrointestinal: denies: nausea, vomiting, abdominal pain, diarrhea, constipation, melena, hematochezia, other Genitourinary: denies: dysuria, frequency, incontinence, hematuria, retention, other Musculoskeletal: denies: neck pain, shoulder pain, arm pain, back pain, hand pain, leg pain, foot pain, other Neurological: reports: weakness - Medication Medications: Active Medications Generic Name Dose Route Start Last Admin Trade Name Freq PRN Reason Stop Dose Admin Hydrocodone Bitart/Acetaminophen 1 tab 02/06/20 03:09 02/13/20 14:31 [place] 5/325 PO 1 tab Q4H PRN Administration Moderate Pain (4-6) Atorvastatin Calcium 10 mg 02/07/20 21:00 02/12/20 21:06 Lipitor PO 10 mg HS KAMINI Administration Docusate Sodium 100 mg 02/06/20 09:00 02/13/20 08:37 Colace PO 100 mg BID KAMINI Administration Enoxaparin Sodium 40 mg 02/06/20 09:00 02/13/20 08:37 Lovenox SC 40 mg 0900 KAMINI Administration Finasteride 5 mg 02/06/20 09:00 02/13/20 08:37 Proscar PO 5 mg DAILY KAMINI Administration Folic Acid 1 mg 02/06/20 09:00 02/13/20 08:37 Folvite PO 1 mg DAILY KAMINI Administration Sodium Chloride 256 meq/ 1,000 mls @ 80 mls/hr 02/13/20 11:21 02/13/20 12:45 Sterile Water IV 1,000 mls .[id number] KAMINI Administration Insulin Human Lispro 0 units 02/06/20 03:12 02/13/20 12:27 Humalog SC 3 unit .MILD SLIDING SCALE PRN Administration Mild Correctional Scale Insulin Human Lispro 0 units 02/10/20 21:29 02/11/20 21:53 Humalog SC 4 unit .BEDTIME SLIDING SC PRN Administration Bedtime Correctional Scale Iron/Minerals/Multivitamins 1 tab 02/06/20 09:00 02/13/20 08:37 Theragran M PO 1 tab DAILY KAMINI Administration Levothyroxine Sodium 150 mcg 02/08/20 06:00 02/13/20 05:37 Synthroid PO 150 mcg 0600 KAMINI Administration Metformin HCl 1,000 mg 02/07/20 17:00 02/13/20 08:38 Glucophage PO 1,000 mg BID-WM KAMINI Administration Ondansetron HCl 4 mg 02/08/20 06:26 02/08/20 06:37 Zofran IVP 4 mg Q6H PRN Administration Nausea/Vomiting Polyethylene Glycol 17 gm 02/06/20 09:00 02/13/20 08:37 Miralax PO 17 gm DAILY KAMINI Administration Sodium Chloride 10 ml 02/08/20 09:00 02/13/20 08:38 Flush - Normal Saline IVF Not Given Q12HR KAMINI Sodium Chloride 1 gm 02/09/20 09:00 02/13/20 15:16 Sodium Chloride PO 1 gm TID KAMINI Administration Temazepam 15 mg 02/10/20 11:12 02/12/20 22:36 Restoril PO 15 mg HSPRN PRN Administration Insomnia Thiamine HCl 100 mg 02/06/20 09:00 02/13/20 08:37 Thiamine PO 100 mg DAILY KAMINI Administration - Exam General Appearance: awake alert Eye: PERRL, anicteric sclera ENT: normocephalic atraumatic, no oropharyngeal lesions Neck: supple, symmetric, no JVD, no thyromegaly Heart: RRR, no murmur, no gallops, no rubs Respiratory: CTAB, no wheezes, no rales, no ronchi Gastrointestinal: soft, non-tender, non-distended Extremities: no cyanosis, no clubbing, no edema Extremities - other findings: s/p right foot amputation covered with dressing Skin: normal turgor Neurological: cranial nerve grossly intact, no focal deficits Musculoskeletal: normal tone, no muscle wasting Musculoskeletal - other findings: s/p right foot amputation covered with dressing Psychiatric: normal affect, A&O x 3 Hosp A/P (1) Hyponatremia Code(s): E87.1 - HYPO-OSMOLALITY AND HYPONATREMIA Status: Acute Plan: Improving. Hypertonic saline to be d/c today. Cont water restriction. F/u with further Nephro recs. (2) Alcohol abuse Code(s): F10.10 - ALCOHOL ABUSE, UNCOMPLICATED Status: Chronic Plan: Has been counseled. (3) DM2 (diabetes mellitus, type 2) Status: Chronic Qualifiers: Diabetes mellitus complication status: with circulatory complication Diabetes mellitus complication detail: with other circulatory complications Plan: Controlled. Cont w metformin, cover with SSI. (4) Dyslipidemia Code(s): E78.5 - HYPERLIPIDEMIA, UNSPECIFIED Status: Chronic Plan: Cont Statins. (5) Hypothyroidism Code(s): E03.9 - HYPOTHYROIDISM, UNSPECIFIED Status: Chronic Qualifiers: Hypothyroidism type: unspecified Qualified Code(s): E03.9 - Hypothyroidism , unspecified Plan: Cont Synthroid. (6) Tobacco use Code(s): Z72.0 - TOBACCO USE Status: Chronic Plan: Has been counseled. (7) Amputation foot, unilat Code(s): S98.919A - COMPLETE TRAUMATIC AMPUTATION OF UNSP FOOT, LEVEL UNSP, INIT Status: Acute Qualifiers: Laterality: right Plan: S/p foot amputation. Cont wound dressing per Sx. - Plan DVT proph w/SCDs PPx: SCDs. CODE: FULL. Dispo: Monitor Na. Likely dc to SNF tmr.
[2020-02-13] MEDS: Atorvastatin Calcium 10 MG TAB PO SCH (21:19)
[2020-02-13] MEDS: Temazepam 15 MG CAP PO PRN (21:20)
[2020-02-14] MEDS: Sodium Chloride 256 MEQ in Sterile Water Injection 897.6 ML IV SCH ×2 (02:51→16:30)
[2020-02-14] MEDS: HYDROcodone/Acetaminophen 5/325 mg Tablet PO PRN ×4 (03:36→20:50)
[2020-02-14] MEDS: Levothyroxine 150 MCG TAB PO SCH (05:38)
[2020-02-14] MEDS: HumaLOG 300 UNITS/3 ML VIAL SC PRN ×2 (05:53→17:08)
[2020-02-14 06:20] LABS: Anion Gap 15 mmol/L (10-20); BUN (Urea Nitrogen) 10 mg/dL (8.4-25.7); Calc. Creatinine Clearance 119 mL/min (70-130); Calcium 8.8 mg/dL (7.8-10.44); Carbon Dioxide 21 mmol/L (23-31); Chloride 99 mmol/L (98-107); Estimated GFR-MDRD Greater than 90; Glucose 130 mg/dL (80-115); Potassium 3.9 mmol/L (3.5-5.1); Sodium 131 mmol/L (136-145)
[2020-02-14] MEDS: Thiamine 100 MG TAB PO SCH (08:16)
[2020-02-14] MEDS: Folic Acid 1 MG TAB PO SCH (08:16)
[2020-02-14] MEDS: Finasteride 5 MG TAB PO SCH (08:16)
[2020-02-14] MEDS: Docusate 100 MG CAP PO SCH ×2 (08:16→20:50)
[2020-02-14] MEDS: metFORMIN 500 MG TAB PO SCH ×2 (08:16→17:08)
[2020-02-14] MEDS: Sodium Chloride 1 GM TAB PO SCH ×3 (08:16→20:50)
[2020-02-14] MEDS: Polyethylene Glycol 3350 17 GM Packet PO SCH (08:16)
[2020-02-14] MEDS: Enoxaparin Sodium 40 MG/0.4 ML SYRINGE SC SCH (08:16)
[2020-02-14] MEDS: Multivitamin W/ Minerals 1 TAB PO SCH (08:16)
--- NOTE | 2020-02-14 09:42 | PRG ---
DATE OF SERVICE: 02/14/2020 SUBJECTIVE: Mr. Soler is a 64-year-old white male, followed up for his hyponatremia secondary to SIADH. He is currently still on hypertonic saline and free water restriction. Serum sodium is slowly improved. No other complaints today. We are awaiting long term placement with this patient. OBJECTIVE: VITAL SIGNS: Blood pressure is noted at 123/82, heart rate 76, respiratory rate 16, temperature 97.5, and O2 saturation 99%. GENERAL: The patient is awake, alert, comfortable, not in overt distress. SKIN: Adequate turgor. HEENT: Pinkish conjunctivae. Anicteric sclerae. NECK: No neck mass. No carotid bruits. No JVD. CHEST: No deformities. LUNGS: Clear breath sounds. HEART: Normal sinus rhythm. No murmur. No gallops. No rubs. ABDOMEN: Globular, soft, and nontender. No masses. EXTREMITIES: No edema. No deformities. MEDICATIONS: Of February 14, 2020, was reviewed. LABORATORY DATA: Laboratories of February 07, 2020, white count 5.1, hemoglobin 13.4. On February 14, 2020; sodium 131, potassium 3.9, chloride 99, carbon dioxide 21, BUN 10, creatinine 0.78, and calcium 8.8. ASSESSMENT AND PLAN: Chronic hyponatremia - currently on hypertonic saline. Continue current IV fluid. Continue sodium chloride tablet also 1 g p.o. t.i.d. We will recheck basic metabolic panel in a.m. No changes to be made for the moment. We have not given tolvaptan due to previously elevated LFT. Once it normalizes, we can give him one-time dose. Job ID: [id number]
--- NOTE | 2020-02-14 12:10 | PDOC.HOSPP ---
- Subjective Encounter Date: 02/14/20 Encounter Time: 12:02 Subjective: snoring, complained of inability to sleep when i woke him up (11:30am) - Objective Vital Signs & Weight: Vital Signs (12 hours) Temp Pulse Resp BP Pulse Ox 02/14/20 08:00 99 02/14/20 07:36 97.5 F L 76 16 123/82 99 Weight Admit Weight 205 lb 7.533 oz Weight 197 lb 1.6 oz Most Recent Monitor Data Heart Rate from ECG 88 NIBP 104/57 NIBP BP-Mean 72 Respiration from ECG 20 SpO2 97 I&O: 02/13/20 02/14/20 02/15/20 06:59 06:59 06:59 Intake Total 1965 2039 Output Total 9793 7319 300 Balance -1685 -2910 -300 Result Diagrams: 02/07/20 03:03 02/14/20 05:41 Additional Labs: Accuchecks 02/14/20 02/13/20 02/13/20 04:28 21:24 16:50 POC Glucose 213 H 166 H 263 H 02/13/20 11:15 POC Glucose 231 H Hospitalist ROS - Medication Medications: Active Medications Generic Name Dose Route Start Last Admin Trade Name Freq PRN Reason Stop Dose Admin Hydrocodone Bitart/Acetaminophen 1 tab 02/06/20 03:09 02/14/20 08:16 [place] 5/325 PO 1 tab Q4H PRN Administration Moderate Pain (4-6) Atorvastatin Calcium 10 mg 02/07/20 21:00 02/13/20 21:19 Lipitor PO 10 mg HS KAMINI Administration Docusate Sodium 100 mg 02/06/20 09:00 02/14/20 08:16 Colace PO 100 mg BID KAMINI Administration Enoxaparin Sodium 40 mg 02/06/20 09:00 02/14/20 08:16 Lovenox SC 40 mg 0900 KAMINI Administration Finasteride 5 mg 02/06/20 09:00 02/14/20 08:16 Proscar PO 5 mg DAILY KAMINI Administration Folic Acid 1 mg 02/06/20 09:00 02/14/20 08:16 Folvite PO 1 mg DAILY KAMINI Administration Sodium Chloride 256 meq/ 1,000 mls @ 80 mls/hr 02/13/20 11:21 02/14/20 02:51 Sterile Water IV 1,000 mls .[id number] KAMINI Administration Insulin Human Lispro 0 units 02/06/20 03:12 02/14/20 05:53 Humalog SC 3 unit .MILD SLIDING SCALE PRN Administration Mild Correctional Scale Insulin Human Lispro 0 units 02/10/20 21:29 02/11/20 21:53 Humalog SC 4 unit .BEDTIME SLIDING SC PRN Administration Bedtime Correctional Scale Iron/Minerals/Multivitamins 1 tab 02/06/20 09:00 02/14/20 08:16 Theragran M PO 1 tab DAILY KAMINI Administration Levothyroxine Sodium 150 mcg 02/08/20 06:00 02/14/20 05:38 Synthroid PO 150 mcg 0600 KAMINI Administration Metformin HCl 1,000 mg 02/07/20 17:00 02/14/20 08:16 Glucophage PO 1,000 mg BID-WM KAMINI Administration Ondansetron HCl 4 mg 02/08/20 06:26 02/08/20 06:37 Zofran IVP 4 mg Q6H PRN Administration Nausea/Vomiting Polyethylene Glycol 17 gm 02/06/20 09:00 02/14/20 08:16 Miralax PO 17 gm DAILY KAMINI Administration Sodium Chloride 10 ml 02/08/20 09:00 02/14/20 08:22 Flush - Normal Saline IVF Not Given Q12HR KAMINI Sodium Chloride 1 gm 02/09/20 09:00 02/14/20 08:16 Sodium Chloride PO 1 gm TID KAMINI Administration Temazepam 15 mg 02/10/20 11:12 02/13/20 21:20 Restoril PO 15 mg HSPRN PRN Administration Insomnia Thiamine HCl 100 mg 02/06/20 09:00 02/14/20 08:16 Thiamine PO 100 mg DAILY KAMINI Administration - Exam Neck: no JVD Heart: RRR, no murmur Respiratory: CTAB Gastrointestinal: soft, non-tender, normal bowel sounds Extremities: 1+ LE edema Hosp A/P (1) Hyponatremia Code(s): E87.1 - HYPO-OSMOLALITY AND HYPONATREMIA Status: Acute (2) DM2 (diabetes mellitus, type 2) Status: Chronic Qualifiers: Diabetes mellitus group home insulin use: without group home use Diabetes mellitus complication status: with circulatory complication Diabetes mellitus complication detail: with other circulatory complications Qualified Code(s): E11.59 - Type 2 diabetes mellitus with other circulatory complications (3) Dyslipidemia Code(s): E78.5 - HYPERLIPIDEMIA, UNSPECIFIED Status: Chronic (4) Hypothyroidism Code(s): E03.9 - HYPOTHYROIDISM, UNSPECIFIED Status: Chronic Qualifiers: Hypothyroidism type: acquired Qualified Code(s): E03.9 - Hypothyroidism, unspecified (5) Tobacco use Code(s): Z72.0 - TOBACCO USE Status: Chronic - Plan rpt liver profile, TSH, T4 cont iv fluids discuss with Renal cont metformin, etc
[2020-02-14 12:50] LABS: ALT (SGPT) 20 U/L (8-55); AST (SGOT) 37 U/L (5-34); Albumin 4.1 g/dL (3.4-4.8); Alkaline Phosphatase 123 U/L (40-110); Bilirubin, Direct 0.2 mg/dL (0.1-0.3); Bilirubin, Total 0.4 mg/dL (0.2-1.2); Protein, Total 7.8 g/dL (5.8-8.1)
[2020-02-14 13:16] LABS: Free T4 (Free Thyroxine) 0.78 ng/dL (0.70-1.48); Thyroid Stimulating Hormone 35.377 uIU/mL (0.35-4.94)
[2020-02-14 14:19] VITALS: BMI 29.0
[2020-02-14] MEDS ORDERED: Tolvaptan 15 MG TAB PO SCH (17:15)
[2020-02-14] MEDS: Atorvastatin Calcium 10 MG TAB PO SCH (20:50)
[2020-02-14] MEDS: Temazepam 15 MG CAP PO PRN (20:50)
[2020-02-15] MEDS: HYDROcodone/Acetaminophen 5/325 mg Tablet PO PRN ×4 (01:29→14:43)
[2020-02-15] MEDS: Levothyroxine 150 MCG TAB PO SCH (05:30)
[2020-02-15] MEDS: HumaLOG 300 UNITS/3 ML VIAL SC PRN (05:31)
[2020-02-15 05:50] LABS: ALT (SGPT) 18 U/L (8-55); AST (SGOT) 36 U/L (5-34); Alkaline Phosphatase 126 U/L (40-110); Anion Gap 14 mmol/L (10-20); BUN (Urea Nitrogen) 11 mg/dL (8.4-25.7); Bilirubin, Total 0.3 mg/dL (0.2-1.2); Calc. Creatinine Clearance 115 mL/min (70-130); Calcium 9.7 mg/dL (7.8-10.44); Carbon Dioxide 24 mmol/L (23-31); Chloride 103 mmol/L (98-107); Estimated GFR-MDRD Greater than 90; Globulin 3.9 g/dL (2.4-3.5); Glucose 148 mg/dL (80-115); Potassium 4.1 mmol/L (3.5-5.1); Protein, Total 7.9 g/dL (5.8-8.1); Sodium 137 mmol/L (136-145)
[2020-02-15 07:48] VITALS: BP 136/82; TEMP 97.9
[2020-02-15] MEDS: Finasteride 5 MG TAB PO SCH (09:49)
[2020-02-15] MEDS: Docusate 100 MG CAP PO SCH (09:49)
[2020-02-15] MEDS: Multivitamin W/ Minerals 1 TAB PO SCH (09:49)
[2020-02-15] MEDS: Sodium Chloride 1 GM TAB PO SCH ×2 (09:50→14:43)
[2020-02-15] MEDS: Folic Acid 1 MG TAB PO SCH (09:50)
[2020-02-15] MEDS: Polyethylene Glycol 3350 17 GM Packet PO SCH (09:50)
[2020-02-15] MEDS: Enoxaparin Sodium 40 MG/0.4 ML SYRINGE SC SCH (09:50)
[2020-02-15] MEDS: metFORMIN 500 MG TAB PO SCH (09:50)
[2020-02-15] MEDS: Thiamine 100 MG TAB PO SCH (09:51)
--- NOTE | 2020-02-15 10:05 | PRG ---
DATE OF SERVICE: 02/15/2020 SUBJECTIVE: Mr. Soler is a 64-year-old white male, who was seen by the Renal Service for his hyponatremia. He has received hypertonic saline in the last several days. We did lose the peripheral access yesterday and for that reason, we gave him a one-time dose of tolvaptan at 15 mg tablet once a day. His serum sodium has normalized to normal. We will continue sodium chloride tablets as well as free water restriction. The patient will be discharged to skilled nursing today. The patient voices no new complaints. He denies any chest pain or shortness of breath. OBJECTIVE: VITAL SIGNS: Blood pressure 136/82, heart rate 88, respiratory rate 18, temperature 97.9, and O2 saturation 97%. GENERAL: Sleeping, but arousable, comfortable. SKIN: Adequate turgor. HEENT: Pinkish conjunctivae. Anicteric sclerae. No neck mass. No carotid bruits. No JVD. CHEST: No deformities. LUNGS: Clear breath sounds. No wheezing. HEART: Normal sinus rhythm. No murmur. No gallops. No rubs. ABDOMEN: Globular, soft, and nontender. No masses. EXTREMITIES: No edema. No deformities. MEDICATIONS: Of February 15, 2020, reviewed. LABORATORY DATA: Of February 15, 2020; sodium 137, potassium 4.1, chloride 103, carbon dioxide 24, BUN 11, creatinine 0.81, alkaline phosphatase 126, AST 36, ALT 18, and albumin 4. ASSESSMENT AND PLAN: Hyponatremia-received one time dose of tolvaptan at 15 mg tablet once a day. Hyponatremia is much improved. Continue free water restriction and sodium chloride tablets. No indication to maintain him on tolvaptan. Agree with current management and the patient to be discharged to skilled nursing. Job ID: [id number]
--- NOTE | 2020-02-15 10:43 | DIS ---
DATE OF ADMISSION: 02/06/2020 DATE OF DISCHARGE: 02/15/2020 PRIMARY CARE PHYSICIAN: Hakeem Christy, Darion Portillo MD DISCHARGE DISPOSITION: [facility]. FINAL DIAGNOSES: Severe hyponatremia, hypothyroidism, diabetes mellitus type 2, anxiety disorder, dyslipidemia, and tobacco abuse. DISCHARGE MEDICATIONS: 1. Levothyroxine 150 mcg a day. 2. Glyburide 5 mg twice a day. 3. Lipitor 10 mg a day. 4. Tramadol 50 mg p.o. q.6 hours p.r.n. 5. Finasteride 5 mg a day. 6. Metformin 1000 mg twice a day. 7. Thiamine 100 mg a day. 8. Temazepam 15 mg at bedtime p.r.n. 9. Sodium chloride 1 g t.i.d. 10. Polyethylene glycol 17 g daily. 11. Multivitamin/folic acid 1 mg a day. 12. Colace 100 mg twice a day. ALLERGIES: NO KNOWN DRUG ALLERGIES. PENDING AT TIME OF DISCHARGE: Nothing. CODE STATUS: Full. DIET: Diabetic. HOSPITAL COURSE: The patient was admitted to the hospital through [facility] with lightheadedness, found to be severely hyponatremic with a sodium of 115, normal renal functions. Urine tox screen was positive for opiates and cocaine. He has a history of alcoholism. Initial laboratory; white count 7.7, hemoglobin 13.2, platelet count 258,000. Initial sodium 117, potassium 3.2, chloride 90, CO2 of 21, creatinine 0.77, blood sugar 151, uric acid 2, calcium 7.9. Consultations were obtained with Dr. Dale Law, Pulmonology, for ICU management. Dr. Jarrett Ackerman, Nephrology, for help with severe hyponatremia. He was placed in ICU. He has severe constipation among his other problems. He was given fluid restriction, continued on normal saline at a low rate, q.4 hours BMP. His finasteride was continued. He was put on Lovenox and Colace for his bowel movements. He also was seen by Dr. Brown, General Surgery, for a lesion on his foot. The patient had a brain CT, which showed no acute findings. Chest x-ray, no acute findings. The patient was eventually put on fluid restriction, oral salt. In evaluation, he was found to have a normal cortisol. His TSH, however, was 52. T3 and T4 were undetectable. Thyroid medicine was instituted. His sodium has now come up to 137, creatinine 0.81, BUN 11. Some minor abnormalities of his liver profile. His T4 has come up to normal 0.78, however, his TSH is slowly responding. He was negative for COVID. He is being discharged to [facility] for continuing care with the medicines as dictated. His exam at the time of discharge, vital signs were stable. Cardiorespiratory exam was normal. He is being discharged to care home facility, [facility], for continuing care. Physical therapy, occupational therapy. He will need his basic metabolic profile checked while he is there. He will also be receiving wound care per Dr. Brown. At discharge, he needs to follow up with his PCP. Job ID: [id number]
== END 2020-02-15 14:55 | DRG 645 ==
LOC: ERS 23:21 → ERHOLD 02-06 01:52 → CCU 02-06 03:47 → IMCU/EMU 02-06 13:59 → T4-B 02-07 15:09
PROVIDERS: ADMIT Internal Medicine; ATTEND Internal Medicine
DX: E22.2 Syndrome of inappropriate secretion of antidiuretic hormone (principal); E03.9 Hypothyroidism, unspecified; Z20.828 Contact with and (suspected) exposure to other viral communicable diseases; F41.9 Anxiety disorder, unspecified; E78.5 Hyperlipidemia, unspecified; F17.210 Nicotine dependence, cigarettes, uncomplicated; F10.20 Alcohol dependence, uncomplicated; K59.00 Constipation, unspecified; E78.00 Pure hypercholesterolemia, unspecified; I12.9 Hypertensive chronic kidney disease with stage 1 through stage 4 chronic kidney disease, or unspecified chronic kidney disease; E11.22 Type 2 diabetes mellitus with diabetic chronic kidney disease; N18.2 Chronic kidney disease, stage 2 (mild); E87.6 Hypokalemia; E11.51 Type 2 diabetes mellitus with diabetic peripheral angiopathy without gangrene; G89.29 Other chronic pain; G47.00 Insomnia, unspecified; N40.0 Benign prostatic hyperplasia without lower urinary tract symptoms; Z79.84 Long term (current) use of oral hypoglycemic drugs; Z79.899 Other long term (current) drug therapy
CPT/HCPCS: 36415; 36416; 36600; 70450; 71045; 80048; 80053; 80076; 80306; 80307; 81003; 82533; 82570; 83605; 83930; 83935; 84300; 84439; 84443; 84481; 84484; 84550; 85025; 87635; 93005; 96360; 96361; A4217; J1650; J2405; J3480; U0003

== ENCOUNTER 2020-02-29 20:00 | Emergency (ER) | payer MEDICARE, MEDICAID ==
--- NOTE | 2020-02-29 20:44 | RAD ---
Frontal radiograph chest: 02/29/2020 COMPARISON: 02/05/2020 HISTORY: Weakness FINDINGS: Stable increased linear interstitial density with pulmonary hyperinflation suggesting air t rapping. No pneumothorax or pleural fluid. No focal consolidation or alveolar edema. IMPRESSION: Stable appearance of the chest as detailed above.
[2020-02-29 21:09] LABS: Bacteria/HPF None Seen HPF (None Seen); Bilirubin Negative (Negative); Blood, Urine Negative (Negative); Clarity Clear (Clear); Glucose, Urine (Dipstick) Normal (Negative); Ketone, Urine Negative (Negative); Leukocyte Negative Leu/uL (Negative); Nitrite Negative (Negative); Protein, Urine (Dipstick) 30 mg/dL (Neg-Trace); RBC/HPF 0-3 HPF (0-3); Specific Gravity, Urine 1.021 (1.002-1.036); Squamous Epithelial None Seen HPF (0-3); Urobilinogen Normal mg/dL (Less than 2); WBC/HPF 0-3 HPF (0-3)
[2020-02-29 21:22] LABS: Hemoglobin 12.9 g/dL (14.0-18.0); Mean Corpuscular HGB CONC 34.2 g/dL (32.0-36.0); Mean Corpuscular Volume 96.4 fL (78.0-98.0); Platelet Count 250 thou/uL (130-400); RBC Distribution Width 12.1 % (11.5-14.5); Red Blood Cell (RBC) Count 3.92 mill/uL (4.70-6.10); White Blood Cell (WBC) Count 8.6 thou/uL (4.8-10.8)
[2020-02-29 21:23] LABS: Mean Platelet Volume 7.4 fL (7.4-10.4)
[2020-02-29 21:25] LABS: %Eosinophils 2.1 % (0.0-10.0); %Lymphocytes 17.5 % (21.0-51.0); %Monocytes 11.8 % (0.0-10.0); %Neutrophils 67.8 % (42.0-75.0)
[2020-02-29 21:26] LABS: %Basophils 0.8 % (0.0-1.0)
[2020-02-29 21:27] LABS: #Basophils 0.1 thou/uL (0.0-0.2); #Eosinphils 0.2 thou/uL (0.0-0.7); #Lymphocytes 1.5 thou/uL (1.20-3.40); #Neutrophils 5.8 thou/uL (1.40-6.50)
--- NOTE | 2020-02-29 21:40 | CT ---
Head CT without contrast 02/29/2020: COMPARISON: 02/06/2020 HISTORY: Fall, trauma, pain TECHNIQUE: Axial CT imaging at 5 mm intervals from vertex through skull base without contrast FINDINGS: Imaged paranasal sinuses and mastoid air cells are well-aerated. No displaced calvarial fra cture. No intracranial hemorrhage, midline shift, mass effect, or ventricular enlargement. Stable periventricular hypodensity, evidence of small vessel disease. IMPRESSION: No acute findings.
[2020-02-29 21:47] LABS: ALT (SGPT) 22 U/L (8-55); AST (SGOT) 38 U/L (5-34); Alkaline Phosphatase 149 U/L (40-110); BUN (Urea Nitrogen) 15 mg/dL (8.4-25.7); Calcium 9.6 mg/dL (7.8-10.44); Globulin 3.7 g/dL (2.4-3.5)
[2020-02-29 21:48] LABS: Anion Gap 16 mmol/L (10-20); Calc. Creatinine Clearance 0 mL/min (70-130); Carbon Dioxide 21 mmol/L (23-31); Chloride 97 mmol/L (98-107); Estimated GFR-MDRD Greater than 90; Glucose 97 mg/dL (80-115); Potassium 4.1 mmol/L (3.5-5.1); Sodium 130 mmol/L (136-145)
[2020-02-29 21:49] LABS: Albumin 4.1 g/dL (3.4-4.8); Bilirubin, Total 0.7 mg/dL (0.2-1.2); Protein, Total 7.8 g/dL (5.8-8.1)
--- NOTE | 2020-02-29 21:55 | CT ---
CT of thelumbar spine: 02/29/2020 COMPARISON:None available HISTORY:Fall, trauma, pain TECHNIQUE: Serial axial CT imaging at2.5 mm intervals from thelower thoracic spine through the lower sacrum without contrast. Coronal and sagittal reformatted imaging obtained Findings:There is an old fracture involving the medial aspect of the left 11th rib. There is scattere d atherosclerotic calcification of the abdominal aorta and its branches. Asymmetry of the pelvic musculature anterior to the left sacral ala noted, unchanged when compared to 01/17/2018 CT abdomen and pelvis. No significant anterolisthesis or retrolisthesis is noted within the lumbar spine. At T12-L1 there is minimal disc bulge with no osseous cause of significant central canal or neural fo raminal stenosis. At L1-2 there is disc space narrowing with vacuum disc formation and a disc osteophyte complex. This in combination with mild degenerative change causes mild central canal stenosis. Mild bilateral facet hypertrophy with mild central canal stenosis noted at L2-3. At L3-4 there is prominent bilateral facet hypertrophy with disc bulge causing moderate central canal stenosis and moderate bilateral neural foraminal stenosis. At L4-5 there is prominent bilateral facet hypertrophy with mild/moderate bilateral neural foraminal stenosis, left greater than right, and probable mild central canal stenosis. At the L5-S1 level there is no significant central canal or neural foraminal stenosis. The L5 vertebr al body is sacralized. No acute fracture or dislocation is seen. Impression: Degenerative change. No acute osseous abnormality.
== END 2020-02-29 23:50 | disposition home or self-care (01) ==
LOC: ERS 20:00
DX: M62.81 Muscle weakness (generalized) (principal); E11.9 Type 2 diabetes mellitus without complications; E78.5 Hyperlipidemia, unspecified; E78.00 Pure hypercholesterolemia, unspecified; I10 Essential (primary) hypertension; F41.9 Anxiety disorder, unspecified; F32.9 Major depressive disorder, single episode, unspecified; F17.210 Nicotine dependence, cigarettes, uncomplicated; W18.30XA Fall on same level, unspecified, initial encounter
CPT/HCPCS: 36415; 70450; 71045; 72131; 80053; 81003; 81015; 82550; 83605; 84443; 84484; 85025; 93005

== ENCOUNTER 2020-03-11 03:23 | Emergency (ER) | payer MEDICARE, MEDICAID | END 2020-03-11 03:40 | disposition home or self-care (01) | LOC: ERS 03:23 | DX: F10.10 Alcohol abuse, uncomplicated (principal); R29.6 Repeated falls; E11.9 Type 2 diabetes mellitus without complications; E78.5 Hyperlipidemia, unspecified; E78.00 Pure hypercholesterolemia, unspecified; I10 Essential (primary) hypertension; F41.9 Anxiety disorder, unspecified; F17.220 Nicotine dependence, chewing tobacco, uncomplicated | CPT/HCPCS: 99284 ==

== ENCOUNTER 2020-03-13 19:23 | Inpatient (IN) | payer MEDICARE, MEDICAID, OTHER ==
[~2020-03-13 19:23] MED LIST: Iopamidol-370 76% 500 ML 1 ML ONE
[2020-03-13 20:06] LABS: Bilirubin Negative (Negative); Blood, Urine Negative (Negative); Clarity Clear (Clear); Glucose, Urine (Dipstick) 30 mg/dL (Negative); Ketone, Urine Negative (Negative); Leukocyte Negative Leu/uL (Negative); Nitrite Negative (Negative); Protein, Urine (Dipstick) 20 mg/dL (Neg-Trace); Specific Gravity, Urine 1.017 (1.002-1.036); Urobilinogen Normal mg/dL (Less than 2); pH, Urine 7.5 (5.0-9.0)
[2020-03-13 20:10] LABS: ALT (SGPT) 22 U/L (8-55); AST (SGOT) 30 U/L (5-34); Alkaline Phosphatase 152 U/L (40-110); Anion Gap 16 mmol/L (10-20); BUN (Urea Nitrogen) 8 mg/dL (8.4-25.7); Bilirubin, Total 0.7 mg/dL (0.2-1.2); CK (CPK) 371 U/L (30-200); Calc. Creatinine Clearance 0 mL/min (70-130); Calcium 8.8 mg/dL (7.8-10.44); Carbon Dioxide 20 mmol/L (23-31); Chloride 101 mmol/L (98-107); Estimated GFR-MDRD Greater than 90; Globulin 3.6 g/dL (2.4-3.5); Glucose 206 mg/dL (80-115); Lipase 27 U/L (8-78); Potassium 3.8 mmol/L (3.5-5.1); Protein, Total 7.6 g/dL (5.8-8.1); Sodium 133 mmol/L (136-145)
[2020-03-13 20:13] LABS: #Basophils 0.1 thou/uL (0.0-0.2); #Eosinphils 0.3 thou/uL (0.0-0.7); #Lymphocytes 1.4 thou/uL (1.20-3.40); #Monocytes 0.7 thou/uL (0.11-0.59); #Neutrophils 6.1 thou/uL (1.40-6.50); %Basophils 0.8 % (0.0-1.0); %Eosinophils 3.8 % (0.0-10.0); %Lymphocytes 15.9 % (21.0-51.0); %Neutrophils 71.5 % (42.0-75.0); Hemoglobin 13.3 g/dL (14.0-18.0); Mean Corpuscular HGB CONC 35.1 g/dL (32.0-36.0); Mean Corpuscular Hemoglobin 33.4 pg (27.0-31.0); Mean Corpuscular Volume 95.3 fL (78.0-98.0); Mean Platelet Volume 7.8 fL (7.4-10.4); Platelet Count 184 thou/uL (130-400); RBC Distribution Width 11.9 % (11.5-14.5); Red Blood Cell (RBC) Count 3.99 mill/uL (4.70-6.10); White Blood Cell (WBC) Count 8.5 thou/uL (4.8-10.8)
[2020-03-13 20:16] LABS: Amphetamine Not Detected (NotDetected); Benzodiazepine Screen Not Detected (NotDetected); Cocaine Metabolite Screen Not Detected (NotDetected); Medtox Reader # READER 1; Methamphetamine Detected (NotDetected); Opiate Screen Not Detected (NotDetected); Phencyclidine (PCP) Not Detected (NotDetected); THC/Cannabinoid Screen Not Detected (NotDetected); Tricyclic Screen Not Detected (NotDetected)
[2020-03-13 20:17] LABS: Barbiturates Screen Not Detected (NotDetected); Medtox Control Line Valid? VALID (VALID); Methadone Not Detected (NotDetected); Oxycodone Screen Not Detected (NotDetected)
[2020-03-13 20:20] LABS: PTT 31.6 sec (22.9-36.1); Prothrombin Time 13.3 sec (12.0-14.7)
[2020-03-13 20:27] LABS: Acetaminophen Less than 6.0 mcg/mL (10.0-30.0); Alcohol Less than 10 mg/dL (Less than 10); Salicylate Less than 8.0 mg/dL (15.0-30.0)
--- NOTE | 2020-03-13 20:27 | CT ---
CT BRAIN WITHOUT CONTRAST: History: Stroke, left sided weakness, facial droop. Comparison: 02-29-2020 FINDINGS: Changes of chronic small vessel ischemic disease again seen. The ventricular size is stable and the b asilar cisterns patent. There is focal hypodensity in the right basal ganglia. This was not definitel y seen on the previous study. No midline shift, hemorrhage, or abnormal extraaxial fluid collection i s seen. The bony calvarium is intact. The visualized paranasal sinuses and mastoid air cells are well aerated. IMPRESSION: Findings are suggestive of right acute non-hemorrhagic infarction in the right basal ganglia. Discussed over the telephone with ER physician, Dr. Goodman at 7:33 p.m. POS: OFF
--- NOTE | 2020-03-13 20:28 | RAD ---
PORTABLE CHEST ONE VIEW: Date: 03-13-2020 Time: 8:00 p.m. History: Altered mental status. FINDINGS: Comparison made with exam of 02-29-2020. Mild chronic changes are again seen. The heart size is normal. The lungs are well expanded without lo bar consolidation, pneumothoraces, or pleural effusions. IMPRESSION: No acute process. POS: OFF
--- NOTE | 2020-03-13 20:56 | CT ---
CTA OF HEAD WITH IV CONTRAST AND 3D POST PROCESSING CTA OF NECK WITH IV CONTRAST AND 3D POST PROCESSING: FINDINGS: There is good flow in the internal carotid system of the neck and head and the right vertebral artery and basilar artery. There is moderate to severe stenosis involving a segment of the left cervical ve rtebral artery at C2 and C3 levels. It cannot be said with certainty if this is due to a intraluminal thrombus or mass effect from an external process such as a hematoma. However, no adjacent fracture i s seen. There are marked degenerative changes in the cervical spine in this region. No major branch occlusion or aneurysm formation seen. Discussed over the telephone with ER physician, Dr. Fazal Goodman at 8:06 p.m. POS: OFF
[2020-03-13] MEDS ORDERED: Multivitamins, Adult 10 ML, Thiamine HCl 100 MG, Folic Acid 1 MG in Dextrose 5 %-0.45 %... IV SCH (21:45)
[2020-03-13] MEDS ORDERED: Aspirin 325 MG TAB ONE (21:48)
[2020-03-13] MEDS ORDERED: Acetaminophen 500 MG TAB ONE (21:48)
[2020-03-13] MEDS ORDERED: Lorazepam 2 MG/ML VIAL ONE (21:48)
[2020-03-14] MEDS ORDERED: Aspirin 325 MG TAB PO SCH (00:45)
[2020-03-14] MEDS ORDERED: Sodium Chloride 0.9% 1,000 ML IV SCH (00:45)
[2020-03-14] MEDS ORDERED: Ondansetron PF 4 MG/2 ML Vial IVP PRN ×2 (00:45→05:56)
[2020-03-14] MEDS ORDERED: Ondansetron ODT 4 MG TAB SL PRN (00:45)
[2020-03-14] MEDS ORDERED: Dextrose 50% Abboject 50 ML SYRINGE SLOW IVP PRN (05:56)
[2020-03-14] MEDS ORDERED: Ondansetron ODT 4 MG TAB PO PRN (05:56)
[2020-03-14] MEDS ORDERED: Dextrose 5% in Water 1,000 ML IV PRN (05:56)
[2020-03-14] MEDS ORDERED: Labetalol HCl 100 MG/20 ML VIAL SLOW IVP PRN (05:56)
[2020-03-14] MEDS ORDERED: Lorazepam 2 MG/ML VIAL SLOW IVP PRN (05:56)
[2020-03-14] MEDS: Sodium Chloride 0.9% 1,000 ML IV SCH ×2 (06:13→20:35)
[2020-03-14] MEDS: Acetaminophen 500 MG TAB PO PRN ×2 (09:08→20:35)
[2020-03-14] MEDS: Levothyroxine 150 MCG TAB PO SCH (09:44)
[2020-03-14] MEDS: Thiamine 100 MG TAB PO SCH ×2 (09:44→09:46)
[2020-03-14] MEDS: Aspirin 325 mg Enteric Coated Tablet PO SCH (09:44)
[2020-03-14] MEDS: Famotidine/PF 20 mg/2ml Vial SLOW IVP SCH ×2 (09:45→20:33)
[2020-03-14] MEDS: Enoxaparin Sodium 40 MG/0.4 ML SYRINGE SC SCH (09:45)
--- NOTE | 2020-03-14 09:59 | HP ---
PRIMARY CARE PROVIDER: Dr. Darion Portillo. CHIEF COMPLAINT: Left-sided paralysis and unable to speak. HISTORY OF PRESENT ILLNESS: This is a 65-year-old male who presents to [facility] Emergency Department after presenting to his primary care provider's office with metabolic screening showing hyponatremia. The patient presented in the emergency room, however, was not wanting to stay in the emergency room, complaining of back pain, which is chronic. The patient was adamant about leaving against medical advice and did not want any further blood draws to assess his sodium level. The patient apparently returned back home, then presented back to the emergency room later in the evening on 03/13/2020 exhibiting left-sided deficit with aphasia consistent with stroke. The patient underwent CT imaging of the brain showing a right basal ganglia infarct without hemorrhage. The patient received aspirin 325 mg, intravenous normal saline x1 liter, Tylenol, Ativan, and a banana bag. The patient states that he typically is able to ambulate at home, but has been falling recently even using a walker. The patient states he has some assistance with a care provider at home, but is able to eat his meals on his own. PAST MEDICAL HISTORY: 1. Diabetes mellitus, type 2. 2. Hyperlipidemia. 3. Raynaud phenomenon. 4. Chronic back pain. 5. Polysubstance abuse including methamphetamines and alcohol. 6. Hypothyroidism. 7. Tobacco abuse. PAST SURGICAL HISTORY: 1. Status post amputation of the right second toe. 2. Status post hernia repair. CURRENT MEDICATIONS: 1. Lipitor 10 mg p.o. at bedtime. 2. Finasteride 5 mg p.o. daily. 3. Metformin 1000 mg p.o. b.i.d. 4. Levothyroxine 150 mcg p.o. daily. 5. Tramadol 50 mg p.o. q.6 hours p.r.n. 6. Folic acid 1 mg p.o. daily. 7. Glyburide 5 mg p.o. b.i.d. 8. Proscar 5 mg p.o. daily. 9. Thiamine 100 mg p.o. daily. 10. Multivitamin one tablet p.o. daily. ALLERGIES: NO KNOWN DRUG ALLERGIES. FAMILY HISTORY: Positive for hypertension. ALLERGIES: NO KNOWN DRUG ALLERGIES. SOCIAL HISTORY: Resides in [place], [place]. Ambulates with a walker at home. History of falls. Admits to drinking up to 10 alcoholic beverages daily. Smokes up to half a pack of cigarettes or cigars daily. Positive methamphetamine use. REVIEW OF SYSTEMS: CONSTITUTIONAL: Negative for weight loss or gain, ability to conduct usual activities. SKIN: Negative for rash, itching. EYES: Negative for double vision, pain. ENT/MOUTH: Negative for nose bleeding, neck stiffness, pain, tenderness. CARDIOVASCULAR: Negative for palpitations, dyspnea on exertion, orthopnea. RESPIRATORY: Negative for shortness of breath, wheezing, cough, hemoptysis, fever or night sweats. GASTROINTESTINAL: Negative for poor appetite, abdominal pain, heartburn, nausea, vomiting, constipation, or diarrhea. GENITOURINARY: Negative for urgency, frequency, dysuria, nocturia. MUSCULOSKELETAL: Negative for pain, swelling. NEUROLOGIC/PSYCHIATRIC: Negative for anxiety, depression. ALLERGY/IMMUNOLOGIC: Negative for skin rash, bleeding tendency. Otherwise negative except as stated per HPI. PHYSICAL EXAMINATION: VITAL SIGNS: On admission, blood pressure 161/101, pulse 89, respiratory rate 20, temperature 98 degrees Fahrenheit, and O2 saturation 98% on room air. GENERAL APPEARANCE: This is a 65-year-old male, alert, responsive with prominent expressive aphasia, in no acute distress. HEENT: Pupils are equal, round, reactive to light and accommodation. Extraocular muscles are intact. No scleral icterus. No conjunctival injection. Nares patent. OP is clear. Left facial droop. NECK: Supple. No cervical adenopathy. No thyromegaly. No carotid bruits. No JVD appreciated. Cervical spine with full active and passive range of motion. No meningeal signs noted. CHEST: Lungs are clear to auscultation bilaterally. CARDIOVASCULAR EXAM: S1 and S2 without noted murmur, rub, or gallop. ABDOMEN: Rounded, soft, nontender, and nondistended. Bowel sounds are positive in all 4 quadrants. There is no hepatosplenomegaly. No abdominal bruits. No rebound or guarding appreciated. EXTREMITIES: Warm and dry with fair turgor. No clubbing, cyanosis, or asymmetric edema appreciated. Pulses palpable distally at the dorsalis pedis, posterior tibial, and popliteal arteries bilaterally. Capillary refill less than 2 seconds. Postsurgical changes noted of the right foot. NEUROLOGIC: Left facial asymmetry. Left hemiparesis. Expressive aphasia. Not observed ambulatory during this exam. PERTINENT LABORATORY AND X-RAY FINDINGS: Sodium 133, potassium 3.8, chloride 101, CO2 of 20, BUN 8, creatinine 0.74, glucose 206, calcium 8.8. Alkaline phosphatase 152, total CK of 371. Serum ammonia level less than 12. BNP 49. Lipase 27. CBC showed a white blood cell count of 8.5, hemoglobin 13, hematocrit 38, platelet count 184. PT 13.3, INR 1.0, and PTT 31.6. Urinalysis negative. Urine drug screen dated 03/13/2020, positive for methamphetamines. Plasma alcohol level less than 10. CT of the brain without contrast dated 03/13/2020, showed acute nonhemorrhagic infarct of the right basal ganglia. CT angiogram of the head and neck dated 03/13/2020, showed [id number] stenosis of the left cervical vertebral artery at C2 and C3 levels. Portable chest x-ray dated 03/13/2020, showed chronic changes without acute process. EKG dated 03/13/2020, by my interpretation shows sinus mechanism with heart rates in the 90s. No acute ST-T wave changes appreciated. ASSESSMENT AND PLAN: 1. Acute right basal ganglia cerebrovascular accident. The patient will be admitted to the stroke unit. We will continue general stroke protocol. Neurosurgery was consulted in the emergency room regarding stenosis of the left cervical vertebral artery; however, no intervention was recommended due to the anatomy and location. Continue aspirin 325 mg daily. Check 2D transthoracic echocardiogram. Consult Neurology Service. PT, OT, and Speech Therapy. 2. Left hemiparesis secondary to #1. See #1 above. General fall risk precautions. 3. Polysubstance abuse. We will offer cessation resources prior to discharge. 4. Diabetes mellitus, type 2. Insulin sliding scale for reflexive coverage. ADA diet when tolerating p.o. intake. Serial Accu-Cheks before meals and at bedtime. 5. Hypothyroidism. Continue levothyroxine 150 mcg p.o. daily. 6. Prophylaxis. SCDs while in bed. Pepcid 20 mg IV b.i.d. Case Management consult for disposition planning. 7. Code status, full. Surrogate medical decision maker not identified. Job ID: [id number]
[2020-03-14] MEDS: Multivitamin W/ Minerals 1 TAB PO SCH (10:11)
--- NOTE | 2020-03-14 13:07 | MRI ---
MRI of thebrain: 03/14/2020 COMPARISON:None available HISTORY:Evaluate for acute infarction, altered mental status, left-sided weakness, facial droop TECHNIQUE: Multiplanar multisequence MR imaging of thebrain without contrast Findings:The diffusion weighted imaging demonstrates foci of restricted diffusion consistent with acu te infarction on the right including a 4 mm focus within the caudate head, a 4 mm focus within the ventral aspect of the thalamus, and a 1.9 cm area of acute infarction involving the periventricular w sherrie matter abutting the mid body of the right lateral ventricle extending into the region of the right lentiform nucleus. The axial gradient echo imaging demonstrates no evidence for intracranial he morrhage. Numerous subcentimeter foci of increased T2 and FLAIR signal noted within the periventricular, deep, and subcortical white matter, evidence of small vessel disease. The areas of above described acute infarction on the right also demonstrate increased T2 and FLAIR signal. The sagittal T1 weighted imaging demonstrates normal osseous marrow signal. Arterial flow voids at the axial level of the skull base appear grossly unremarkable on the T2-weight ed imaging. IMPRESSION:Multiple foci of acute infarction on the right as detailed above. Evidence of significant small vessel disease. No intracranial hemorrhage.
--- NOTE | 2020-03-14 13:54 | CON ---
NEUROLOGY CONSULTATION DATE OF CONSULTATION: 03/14/2020 REASON FOR CONSULTATION: Stroke-like symptoms. HISTORY OF PRESENT ILLNESS: Mr. Soler is a 65-year-old male with history significant for diabetes, hyperlipidemia, Raynaud phenomenon, chronic back pain, polysubstance abuse, hypothyroidism, tobacco abuse, presented to the emergency room from his primary care provider's office because of hyponatremia. The patient presented to the emergency room with complaint of back pain and wanted to leave against medical advice as he does not want further blood draws to assess his sodium level. He returned home and then he presented to the emergency room on evening of 03/13/2020 with acute-onset left-sided weakness with aphasia. The CT scan of the head was done, which showed right basal ganglia infarct without hemorrhage. He received 325 mg of aspirin and admitted for further stroke workup. The patient denies nausea, vomiting, headache, chest pain, abdominal pain, recent illness or recent exposure to COVID, blurred vision, double vision, loss of consciousness, dizziness, or vertigo associated with this episode. REVIEW OF SYSTEMS: All 14 systems were reviewed and were negative except the pertinent positive and negative mentioned in the HPI. PAST MEDICAL HISTORY: Diabetes mellitus, hyperlipidemia, Raynaud phenomenon, chronic back pain, polysubstance abuse, hypothyroidism, tobacco abuse. PAST SURGICAL HISTORY: Status post amputation of the right second toe, status post hernia repair. HOME MEDICATIONS: 1. Lipitor 10 mg at bedtime. 2. Finasteride 5 mg daily. 3. Metformin 1000 mg p.o. b.i.d. 4. Levothyroxine 150 mcg p.o. daily. 5. Tramadol 50 mg p.o. q.6 hours p.r.n. 6. Folic acid 1 mg p.o. daily. 7. Glyburide 5 mg twice daily. 8. Proscar 5 mg daily. 9. Thiamine 100 mg daily. 10. Multivitamin one tablet daily. ALLERGIES: NO KNOWN DRUG ALLERGIES. FAMILY HISTORY: Significant for hypertension. SOCIAL HISTORY: The patient lives in [place], [place]. He ambulates with a walker at home. He drinks up to 10 alcoholic beverages daily. He smokes a half a pack of cigars a day. He also has history of methamphetamine abuse. PHYSICAL EXAMINATION: VITAL SIGNS: Blood pressure 160/90, pulse 80, respiratory rate 18. GENERAL APPEARANCE: Alert and awake male with left facial droop and expressive aphasia. CARDIOVASCULAR SYSTEM: Regular rate and rhythm CHEST: Clear. ABDOMEN: Soft. NECK: Supple. NEUROLOGIC: Mental status; the patient is alert and oriented to person, place, and time. He does have dysarthria and receptive aphasia. Cranial nerves 2 through 12 intact except IX,X, dysarthria, and V11, left facial droop. Motor; muscle tone is decreased in the left upper and lower extremities. Left upper extremity, 1/5; left lower extremity, 2/5; right upper and lower extremities, 5/5. Toe Babinski upgoing on the left. Cerebellar, unable to perform on the left secondary to weakness. Gait, deferred due to patient's safety reasons. Sensory; withdraws to nailbed pressure, right upper and lower extremities greater than left upper and lower extremities. DATA REVIEWED: I reviewed the CT scan from 02/22/2020, which showed acute infarction in the right basal ganglia. CT angiogram of the head and neck showed [id number] stenosis in the left cervical vertebral artery at C2 and C3 level. EKG showed normal sinus rhythm. ASSESSMENT AND PLAN: Mr. William Soler is a 65-year-old male with history significant for hypertension, hyperlipidemia, presented with acute right basal ganglia infarction. Neurosurgery was consulted in the emergency room about stenosis of the left cervical vertebral artery. No intervention is needed at this time. Continue aspirin and high-intensity statin for secondary stroke prevention. MRI Brain to further assess acute intracranial process. Neuro checks every 4 hours. Telemetry to rule out arrhythmias. 2D echo to evaluate for left ventricular ejection fraction. Permissive control of blood pressure at this time. Strict control of blood glucose. Physical Therapy/Occupational Therapy/Speech. Check hemoglobin A1c, fasting lipid panel, and TSH. Continue home medications. Continue medical management per primary team. We will continue to follow. Thank you for the consult. Job ID: [id number] MTDD
[2020-03-14 15:03] LABS: SARS-CoV-2 MS2 Positive; SARS-CoV-2 N Gene Negative; SARS-CoV-2 S Gene Negative; SARS-CoV-2 by NAA Not Detected (NotDetected); SARS-CoV-2 orf1ab Negative
--- NOTE | 2020-03-14 18:30 | PDOC.HOSPP ---
- Subjective Encounter Date: 03/14/20 Encounter Time: 12:00 Subjective: The patient still has mild dysarthria. He is not able to move his left arm. He was initially demanding to leave, but after explaining MRI results, he has decided to stay. - Objective Vital Signs & Weight: Vital Signs (12 hours) Temp Pulse Pulse Pulse Resp BP BP 03/14/20 15:33 98.4 F 88 18 03/14/20 11:52 98.5 F 89 20 03/14/20 09:55 94 94 132/85 137/76 03/14/20 09:54 94 94 137/76 152/85 H 03/14/20 08:20 03/14/20 08:05 97.9 F 94 20 BP Pulse Ox 03/14/20 15:33 127/59 L 96 03/14/20 11:52 158/85 H 97 03/14/20 09:55 03/14/20 09:54 03/14/20 08:20 94 L 03/14/20 08:05 155/88 H 94 L Weight Admit Weight 187 lb 3.2 oz Weight 187 lb 3.2 oz Result Diagrams: 03/13/20 19:44 03/13/20 19:41 Additional Labs: Accuchecks 03/14/20 03/14/20 03/13/20 18:12 12:15 19:32 POC Glucose 164 H 233 H 215 H Hospitalist ROS - Review of Systems Constitutional: denies: fever, chills - Medication Medications: Active Medications Generic Name Dose Route Start Last Admin Trade Name Freq PRN Reason Stop Dose Admin Acetaminophen 1,000 mg 03/14/20 05:56 03/14/20 09:08 Acetaminophen 500 Mg Tab PO 1,000 mg Q6H PRN Administration Mild Pain (1-3) Aspirin 325 mg 03/14/20 09:00 03/14/20 09:44 Aspirin 325 Mg Enteric Coated Tablet PO 325 mg DAILY KAMINI Administration Enoxaparin Sodium 40 mg 03/14/20 09:00 03/14/20 09:45 Enoxaparin Sodium 40 Mg/0.4 Ml Syringe SC 40 mg 0900 KAMINI Administration Famotidine 20 mg 03/14/20 09:00 03/14/20 09:45 Famotidine/Pf 20 Mg/2ml Vial SLOW IVP 20 mg Q12HR KAMINI Administration Sodium Chloride 1,000 mls @ 75 mls/hr 03/14/20 06:00 03/14/20 06:13 Normal Saline 0.9% IV 1,000 mls .[id number] KAMINI Administration Iron/Minerals/Multivitamins 1 tab 03/14/20 09:00 03/14/20 10:11 Multivitamin W/ Minerals 1 Tab PO 1 tab DAILY KAMINI Administration Levothyroxine Sodium 150 mcg 03/14/20 09:00 03/14/20 09:44 Levothyroxine 150 Mcg Tab PO 150 mcg DAILY KAMINI Administration Thiamine HCl 100 mg 03/14/20 09:00 03/14/20 09:46 Thiamine 100 Mg Tab PO 100 mg DAILY KAMINI Administration - Exam General Appearance: NAD, awake alert Eye: PERRL, anicteric sclera ENT: normocephalic atraumatic, no oropharyngeal lesions Neck: no JVD Heart: RRR, no murmur, no gallops, no rubs Respiratory: CTAB, no wheezes, no rales, no ronchi Gastrointestinal: soft, non-tender, non-distended, normal bowel sounds Extremities: no cyanosis, no clubbing, no edema Skin: normal turgor, no lesions, no rashes Neurological: cranial nerve grossly intact, normal sensation to touch, no focal deficits, no new deficit Neurological - other findings: dysarthria, unable to move his left arm. Musculoskeletal: normal tone, normal strength, no muscle wasting Musculoskeletal - other findings: 5/5 strength RUE and RLE, LLE 4/5. 0/5 strength elft arm Psychiatric: normal affect, normal behavior, A&O x 3, oriented to person Hosp A/P - Plan MRI brain: multiple foci of acute infarction on the right. Chest X ray: no acute process CTA head and neck: moderate to severe stenosis involving a segment of the left cervical vertebral artery at C2 and C3 levels. Possible thrombus or mass effect CT brain: right acute non-hemorrhagic infarction in the right basal ganglia This is a 65 year old male with type II diabetes, polysubstance abuse, hypothyroidism who presented with left sided weakness Acute stroke - BP well controlled 120-150. MRI brain shows acute infarction on the right with multiple foci. CTA head and neck showed stenosis of left cervical vertebral artery. Neurosurgery recommended no intervention - Neurology has been consulted, will check HbA1C and TSH - ECHO is pending Type II diabetes - blood sugars in the 200's. Continue insulin sliding scale Hyponatremia - sodium was 133, stable. Methamphetamine abuse - noted on serum toxicology Anemia - Hb 13, check B12/folate in the am Code status: full code
[2020-03-14] MEDS: HumaLOG 300 UNITS/3 ML VIAL SC PRN ×2 (18:45→20:35)
[2020-03-14] MEDS: Atorvastatin Calcium 40 MG TAB PO SCH (20:33)
[2020-03-15 04:42] LABS: #Eosinphils 0.3 thou/uL (0.0-0.7); #Lymphocytes 1.2 thou/uL (1.20-3.40); #Monocytes 0.5 thou/uL (0.11-0.59); #Neutrophils 4.9 thou/uL (1.40-6.50); %Basophils 0.7 % (0.0-1.0); %Lymphocytes 17.3 % (21.0-51.0); %Monocytes 6.7 % (0.0-10.0); %Neutrophils 71.4 % (42.0-75.0); Hemoglobin 13.8 g/dL (14.0-18.0); Mean Corpuscular HGB CONC 34.3 g/dL (32.0-36.0); Mean Corpuscular Hemoglobin 32.7 pg (27.0-31.0); Mean Corpuscular Volume 95.1 fL (78.0-98.0); Mean Platelet Volume 8.1 fL (7.4-10.4); Platelet Count 184 thou/uL (130-400); RBC Distribution Width 11.8 % (11.5-14.5); Red Blood Cell (RBC) Count 4.23 mill/uL (4.70-6.10); White Blood Cell (WBC) Count 6.9 thou/uL (4.8-10.8)
[2020-03-15 04:44] LABS: Hemoglobin A1c 7.2 % (4.0-6.0)
[2020-03-15 05:00] LABS: ALT (SGPT) 15 U/L (8-55); AST (SGOT) 18 U/L (5-34); Albumin 3.7 g/dL (3.4-4.8); Alkaline Phosphatase 140 U/L (40-110); Anion Gap 13 mmol/L (10-20); BUN (Urea Nitrogen) 6 mg/dL (8.4-25.7); Bilirubin, Total 0.7 mg/dL (0.2-1.2); Calc. Creatinine Clearance 120 mL/min (70-130); Calcium 8.5 mg/dL (7.8-10.44); Carbon Dioxide 20 mmol/L (23-31); Cardiac Risk 3.2 (Less than 4.5); Chloride 103 mmol/L (98-107); Cholesterol 126 mg/dl (< 200 Desired); Estimated GFR-MDRD Greater than 90; Globulin 3.3 g/dL (2.4-3.5); Glucose 160 mg/dL (80-115); HDL Cholesterol 40 mg/dL (>60 Neg Risk); LDL Cholesterol, Calculated 68 mg/dL; Potassium 3.6 mmol/L (3.5-5.1); Sodium 132 mmol/L (136-145); Triglycerides 88 mg/dL (Less than 150)
[2020-03-15] MEDS: Aspirin 325 mg Enteric Coated Tablet PO SCH (08:29)
[2020-03-15] MEDS: Levothyroxine 150 MCG TAB PO SCH (08:29)
[2020-03-15] MEDS: Thiamine 100 MG TAB PO SCH (08:29)
[2020-03-15] MEDS: Famotidine/PF 20 mg/2ml Vial SLOW IVP SCH ×2 (08:30→22:34)
[2020-03-15] MEDS: Multivitamin W/ Minerals 1 TAB PO SCH (08:30)
[2020-03-15] MEDS: Enoxaparin Sodium 40 MG/0.4 ML SYRINGE SC SCH (08:30)
[2020-03-15] MEDS: Sodium Chloride 0.9% 1,000 ML IV SCH (08:36)
--- NOTE | 2020-03-15 12:40 | PDOC.NEUPN ---
- Subjective Encounter Date: 03/15/20 Subjective: Patient continues to have dysarthria and left-sided weakness. - Objective Vital Signs & Weight: Vital Signs (12 hours) Temp Pulse Pulse Pulse Resp BP BP 03/15/20 11:10 98.5 F 94 18 03/15/20 09:18 84 89 159/90 H 170/96 H 03/15/20 08:07 98.8 F 88 18 03/15/20 03:16 98.6 F 92 16 BP Pulse Ox Pulse Ox Pulse Ox 03/15/20 11:10 157/94 H 97 03/15/20 09:18 95 95 03/15/20 08:07 139/84 97 03/15/20 03:16 172/91 H 95 Weight Admit Weight 187 lb 3.2 oz Weight 189 lb 3.2 oz I&O: 03/14/20 03/15/20 03/16/20 06:59 06:59 06:59 Intake Total 1551 Balance 1551 Result Diagrams: 03/15/20 04:06 03/15/20 04:06 Additional Labs: Accuchecks 03/15/20 03/14/20 03/14/20 06:02 20:33 18:12 POC Glucose 161 H 201 H 164 H Radiology Reviewed by me: Yes EKG Reviewed by me: Yes ROS - Review of Systems Constitutional: denies: fever, chills, sweats, weakness, malaise, other Eyes: denies: pain, vision change, conjunctivae inflammation, eyelid inflammation, redness, other ENT: denies: ear pain, ear discharge, nose pain, nose discharge, nose congestion, mouth pain, mouth swelling, throat pain, throat swelling, other Respiratory: denies: cough, dry, shortness of breath, hemoptysis, SOB with excertion, pleuritic pain, sputum, wheezing, other Cardiovascular: reports: no pertinent history Gastrointestinal: denies: nausea, vomiting, abdominal pain, diarrhea, constipation, melena, hematochezia, other Genitourinary: denies: dysuria, frequency, incontinence, hematuria, retention, other Skin: denies: rash, lesions, sravan, bruising, other Neurological: reports: weakness, numbness, incoordination, change in speech. denies: confusion, seizures, other - Medication Medications: Active Medications Generic Name Dose Route Start Last Admin Trade Name Freq PRN Reason Stop Dose Admin Acetaminophen 1,000 mg 03/14/20 05:56 03/14/20 20:35 Acetaminophen 500 Mg Tab PO 1,000 mg Q6H PRN Administration Mild Pain (1-3) Aspirin 325 mg 03/14/20 09:00 03/15/20 08:29 Aspirin 325 Mg Enteric Coated Tablet PO 325 mg DAILY KAMINI Administration Atorvastatin Calcium 40 mg 03/14/20 21:00 03/14/20 20:33 Atorvastatin Calcium 40 Mg Tab PO 40 mg HS KAMINI Administration Enoxaparin Sodium 40 mg 03/14/20 09:00 03/15/20 08:30 Enoxaparin Sodium 40 Mg/0.4 Ml Syringe SC 40 mg 0900 KAMINI Administration Famotidine 20 mg 03/14/20 09:00 03/15/20 08:30 Famotidine/Pf 20 Mg/2ml Vial SLOW IVP 20 mg Q12HR KAMINI Administration Sodium Chloride 1,000 mls @ 75 mls/hr 03/14/20 06:00 03/15/20 08:36 Normal Saline 0.9% IV 1,000 mls .[id number] KAMINI Administration Insulin Human Lispro 0 units 03/14/20 05:56 03/14/20 18:45 Humalog 300 Units/3 Ml Vial SC 2 unit .MODERATE SLIDING SC PRN Administration Moderate Correctional Scale Insulin Human Lispro 0 units 03/14/20 05:56 03/14/20 20:35 Humalog 300 Units/3 Ml Vial SC 2 unit .BEDTIME SLIDING SC PRN Administration Bedtime Correctional Scale Iron/Minerals/Multivitamins 1 tab 03/14/20 09:00 03/15/20 08:30 Multivitamin W/ Minerals 1 Tab PO 1 tab DAILY KAMINI Administration Levothyroxine Sodium 150 mcg 03/14/20 09:00 03/15/20 08:29 Levothyroxine 150 Mcg Tab PO 150 mcg DAILY KAMINI Administration Sodium Chloride 10 ml 03/14/20 05:56 03/15/20 08:29 Flush - Normal Saline 10 Ml Syringe IVF 10 ml PRN PRN Administration Saline Flush Thiamine HCl 100 mg 03/14/20 09:00 03/15/20 08:29 Thiamine 100 Mg Tab PO 100 mg DAILY KAMINI Administration Results - Labs Result Diagrams: 03/15/20 04:06 03/15/20 04:06 Lab results: WBC 6.9 thou/uL (4.8-10.8) 03/15/20 04:06 Hgb 13.8 g/dL (14.0-18.0) L 03/15/20 04:06 Hct 40.2 % (42.0-52.0) L 03/15/20 04:06 MCV 95.1 fL (78.0-98.0) 03/15/20 04:06 Plt Count 184 thou/uL (130-400) 03/15/20 04:06 Neutrophils % 71.4 % (42.0-75.0) 03/15/20 04:06 Sodium 132 mmol/L (136-145) L 03/15/20 04:06 Potassium 3.6 mmol/L (3.5-5.1) 03/15/20 04:06 Chloride 103 mmol/L (98-107) 03/15/20 04:06 Carbon Dioxide 20 mmol/L (23-31) L 03/15/20 04:06 BUN 6 mg/dL (8.4-25.7) L 03/15/20 04:06 Creatinine 0.73 mg/dL (0.7-1.3) 03/15/20 04:06 Glucose 160 mg/dL (80-115) H 03/15/20 04:06 Calcium 8.5 mg/dL (7.8-10.44) 03/15/20 04:06 Total Bilirubin 0.7 mg/dL (0.2-1.2) 03/15/20 04:06 AST 18 U/L (5-34) 03/15/20 04:06 ALT 15 U/L (8-55) 03/15/20 04:06 Alkaline Phosphatase 140 U/L (40-110) H 03/15/20 04:06 Ammonia Less than 12 umol/L (18-72) L 03/13/20 19:44 Creatine Kinase 371 U/L (30-200) H 03/13/20 19:41 Troponin I 0.021 ng/mL (< 0.028) 03/13/20 19:44 B-Natriuretic Peptide 48.9 pg/mL (0-100) 03/13/20 19:44 Serum Total Protein 7.0 g/dL (5.8-8.1) 03/15/20 04:06 Albumin 3.7 g/dL (3.4-4.8) 03/15/20 04:06 Lipase 27 U/L (8-78) 03/13/20 19:41 Urine Ketones Negative mg/dL (Negative) 03/13/20 19:57 Urine Blood Negative (Negative) 03/13/20 19:57 Urine Nitrite Negative (Negative) 03/13/20 19:57 Ur Leukocyte Esterase Negative Va/uL (Negative) 03/13/20 19:57 - Radiology Interpretation MRI - head Status: image reviewed by me, report reviewed by me PN A/P (1) Acute CVA (cerebrovascular accident) Code(s): I63.9 - CEREBRAL INFARCTION, UNSPECIFIED Status: Acute (2) Alcohol abuse Code(s): F10.10 - ALCOHOL ABUSE, UNCOMPLICATED Status: Chronic (3) DM2 (diabetes mellitus, type 2) Status: Chronic Qualifiers: Diabetes mellitus watermelon harvesting supervisor insulin use: without group home use Diabetes mellitus complication status: with circulatory complication Diabetes mellitus complication detail: with other circulatory complications Qualified Code(s): E11.59 - Type 2 diabetes mellitus with other circulatory complications (4) Dyslipidemia Code(s): E78.5 - HYPERLIPIDEMIA, UNSPECIFIED Status: Chronic (5) Hypothyroidism Code(s): E03.9 - HYPOTHYROIDISM, UNSPECIFIED Status: Chronic Qualifiers: Hypothyroidism type: acquired Qualified Code(s): E03.9 - Hypothyroidism, unspecified (6) Tobacco use Code(s): Z72.0 - TOBACCO USE Status: Chronic - Plan Daily Plan: PT/OT, speech therapy, DVT proph w/lovenox 65-year-old male with multiple comorbidities presented with acute onset left- sided weakness. MRI of the brain consistent with acute infarction. MRI of the brain reviewed and was consistent with acute multiple foci of infarcts on the right. CTA of the head reviewed and was consistent with moderate to severe stenosis of the left cervical vertebral artery at the C2 and C3 level. Neurosurgery consulted in the emergency room and no surgical intervention was needed per neurosurgery. 2D echo cardiogram showed left ventricular ejection fraction 55 to 60%. No PFO or thrombus. Neurochecks every 4 hours. Telemetry did not reveal any evidence of atrial fibrillation. Continue aspirin and high intensity statin for secondary stroke prevention. Strict control of blood pressure and blood glucose. PT/OT/speech. Continue medical management per primary team. Plan discussed with the patient, and during stroke rounds. Case also discussed with the primary attending Dr. Key yesterday.
[2020-03-15] MEDS: HumaLOG 300 UNITS/3 ML VIAL SC PRN ×2 (15:46→18:32)
[2020-03-15] MEDS: Acetaminophen 500 MG TAB PO PRN ×2 (15:47→22:35)
--- NOTE | 2020-03-15 18:32 | PDOC.HOSPP ---
- Subjective Encounter Date: 03/15/20 Encounter Time: 11:00 Subjective: The patient states he is not doing well. He still cannot lift up his left arm. He still has dysarthria. Patient was noted to have food spilled all over his gown - Objective Vital Signs & Weight: Vital Signs (12 hours) Temp Pulse Pulse Pulse Resp BP BP 03/15/20 16:00 98.6 F 92 20 03/15/20 13:46 97.1 F L 87 18 03/15/20 11:10 98.5 F 94 18 03/15/20 09:18 84 89 159/90 H 170/96 H 03/15/20 08:07 98.8 F 88 18 BP Pulse Ox Pulse Ox Pulse Ox 03/15/20 16:00 164/84 H 92 L 03/15/20 13:46 153/83 H 97 03/15/20 11:10 157/94 H 97 03/15/20 09:18 95 95 03/15/20 08:07 139/84 97 Weight Admit Weight 187 lb 3.2 oz Weight 189 lb 3.2 oz I&O: 03/14/20 03/15/20 03/16/20 06:59 06:59 06:59 Intake Total 1551 Balance 1551 Result Diagrams: 03/15/20 04:06 03/15/20 04:06 Additional Labs: Accuchecks 03/15/20 03/15/20 03/15/20 18:10 16:17 13:14 POC Glucose 159 H 311 H 212 H 03/15/20 03/15/20 03/14/20 06:02 02:34 20:33 POC Glucose 161 H 148 H 201 H 03/14/20 05:45 POC Glucose 215 H Hospitalist ROS - Review of Systems Constitutional: denies: fever, chills - Medication Medications: Active Medications Generic Name Dose Route Start Last Admin Trade Name Freq PRN Reason Stop Dose Admin Acetaminophen 1,000 mg 03/14/20 05:56 03/15/20 15:47 Acetaminophen 500 Mg Tab PO 1,000 mg Q6H PRN Administration Mild Pain (1-3) Aspirin 325 mg 03/14/20 09:00 03/15/20 08:29 Aspirin 325 Mg Enteric Coated Tablet PO 325 mg DAILY KAMINI Administration Atorvastatin Calcium 40 mg 03/14/20 21:00 03/14/20 20:33 Atorvastatin Calcium 40 Mg Tab PO 40 mg HS KAMINI Administration Enoxaparin Sodium 40 mg 03/14/20 09:00 03/15/20 08:30 Enoxaparin Sodium 40 Mg/0.4 Ml Syringe SC 40 mg 0900 KAMINI Administration Famotidine 20 mg 03/14/20 09:00 03/15/20 08:30 Famotidine/Pf 20 Mg/2ml Vial SLOW IVP 20 mg Q12HR KAMINI Administration Sodium Chloride 1,000 mls @ 75 mls/hr 03/14/20 06:00 03/15/20 08:36 Normal Saline 0.9% IV 1,000 mls .[id number] KAMINI Administration Insulin Human Lispro 0 units 03/14/20 05:56 03/15/20 15:46 Humalog 300 Units/3 Ml Vial SC 4 unit .MODERATE SLIDING SC PRN Administration Moderate Correctional Scale Insulin Human Lispro 0 units 03/14/20 05:56 03/14/20 20:35 Humalog 300 Units/3 Ml Vial SC 2 unit .BEDTIME SLIDING SC PRN Administration Bedtime Correctional Scale Iron/Minerals/Multivitamins 1 tab 03/14/20 09:00 03/15/20 08:30 Multivitamin W/ Minerals 1 Tab PO 1 tab DAILY KAMINI Administration Levothyroxine Sodium 150 mcg 03/14/20 09:00 03/15/20 08:29 Levothyroxine 150 Mcg Tab PO 150 mcg DAILY KAMINI Administration Sodium Chloride 10 ml 03/14/20 05:56 03/15/20 08:29 Flush - Normal Saline 10 Ml Syringe IVF 10 ml PRN PRN Administration Saline Flush Thiamine HCl 100 mg 03/14/20 09:00 03/15/20 08:29 Thiamine 100 Mg Tab PO 100 mg DAILY KAMINI Administration - Exam General Appearance: NAD, awake alert Eye: PERRL, anicteric sclera ENT: normocephalic atraumatic, no oropharyngeal lesions Neck: no JVD Gastrointestinal: soft, non-tender, non-distended, normal bowel sounds Extremities: no cyanosis, no clubbing, no edema Skin: normal turgor, no lesions, no rashes Neurological: cranial nerve grossly intact, facial droop (le) Neurological - other findings: Unable to lift left arm Musculoskeletal - other findings: 0/5 strength LUE, 5/5 LLE, 5/5 RUE, 5/5 RLE Psychiatric: normal affect, normal behavior, A&O x 3 Hosp A/P - Plan MRI brain: multiple foci of acute infarction on the right. Chest X ray: no acute process CTA head and neck: moderate to severe stenosis involving a segment of the left cervical vertebral artery at C2 and C3 levels. Possible thrombus or mass effect CT brain: right acute non-hemorrhagic infarction in the right basal ganglia This is a 65 year old male with type II diabetes, polysubstance abuse, hypothyroidism who presented with left sided weakness Acute stroke - BP well controlled 120-150. MRI brain shows acute infarction on the right with multiple foci. CTA head and neck showed stenosis of left cervical vertebral artery. Neurosurgery recommended no intervention - neurology is following, has recommended a ROXANNE. After discussing with ca rdiology, this has been ordered. Will need to schedule with anasthesia. NPO day prio Type II diabetes - blood sugars in the 200's. Continue insulin sliding scale - Hb A1C 7.1 Hyponatremia - sodium was 133, stable. Methamphetamine abuse - noted on serum toxicology Hypothyroidism - TSH was noted to be 31. Continue levothyroxine Anemia - Hb 13, check B12/folate in the am Disposition: case management consulted for rehab Code status: full code
[2020-03-15] MEDS: Atorvastatin Calcium 40 MG TAB PO SCH (22:34)
[2020-03-16] MEDS: Sodium Chloride 0.9% 1,000 ML IV SCH ×2 (00:15→13:21)
[2020-03-16 05:26] LABS: Free T4 (Free Thyroxine) 0.79 ng/dL (0.70-1.48); Thyroid Stimulating Hormone 33.1729 uIU/mL (0.35-4.94)
[2020-03-16] MEDS ORDERED: PHENYLEPHRINE-NS 100 MCG/ML 10 ML SYRINGE ONE (06:47)
[2020-03-16] MEDS ORDERED: PROPOFOL 20 ML ONE (06:47)
[2020-03-16] MEDS ORDERED: Ketamine 50 MG/ML (10ML VIAL) ONE (06:47)
[2020-03-16] MEDS ORDERED: PROPOFOL 200 MG/20 ML VIAL ONE (10:31)
[2020-03-16 11:44] LABS: Sodium 133 mmol/L (136-145)
[2020-03-16] MEDS: Multivitamin W/ Minerals 1 TAB PO SCH (13:22)
[2020-03-16] MEDS: Enoxaparin Sodium 40 MG/0.4 ML SYRINGE SC SCH (13:22)
[2020-03-16] MEDS: Famotidine/PF 20 mg/2ml Vial SLOW IVP SCH ×2 (13:22→21:54)
[2020-03-16] MEDS: HumaLOG 300 UNITS/3 ML VIAL SC PRN ×2 (13:24→18:16)
[2020-03-16] MEDS: Aspirin 325 mg Enteric Coated Tablet PO SCH (13:24)
[2020-03-16] MEDS: Levothyroxine 150 MCG TAB PO SCH (13:24)
[2020-03-16] MEDS: Acetaminophen 500 MG TAB PO PRN ×2 (13:28→21:54)
[2020-03-16] MEDS ORDERED: Thiamine 100 MG TAB PO SCH (13:45)
--- NOTE | 2020-03-16 14:03 | PDOC.NEUPN ---
- Subjective Encounter Date: 03/16/20 Subjective: Patient continues to have dysarthria and left-sided weakness. Awaiting ROXANNE to rule out cardioembolic source for recent CVA. - Objective Vital Signs & Weight: Vital Signs (12 hours) Temp Pulse Resp BP Pulse Ox 03/16/20 07:48 98.3 F 79 16 156/83 H 94 L 03/16/20 04:00 97.8 F 80 18 161/92 H 96 Weight Admit Weight 187 lb 3.2 oz Weight 189 lb 3.2 oz I&O: 03/15/20 03/16/20 03/17/20 06:59 06:59 06:59 Intake Total 1551 1267 Output Total 450 Balance 1551 817 Result Diagrams: 03/15/20 04:06 03/16/20 11:06 Additional Labs: Accuchecks 03/16/20 03/16/20 03/16/20 10:51 05:46 00:18 POC Glucose 181 H 173 H 174 H 03/15/20 03/15/20 18:10 16:17 POC Glucose 159 H 311 H Radiology Reviewed by me: Yes EKG Reviewed by me: Yes ROS - Review of Systems Constitutional: denies: fever, chills, sweats, weakness, malaise, other Eyes: denies: pain, vision change, conjunctivae inflammation, eyelid inflammation, redness, other ENT: denies: ear pain, ear discharge, nose pain, nose discharge, nose congestion, mouth pain, mouth swelling, throat pain, throat swelling, other Respiratory: denies: cough, dry, shortness of breath, hemoptysis, SOB with excertion, pleuritic pain, sputum, wheezing, other Cardiovascular: denies: no pertinent history, AFIB, CAD, CHF, HTN, NE, Syncope, Hyperlipidemia, Mitral valve stenosis, Aortic stenosis, Valve insufficiency, Pulmonary hypertension, Other Gastrointestinal: denies: nausea, vomiting, abdominal pain, diarrhea, constipation, melena, hematochezia, other Musculoskeletal: reports: shoulder pain, back pain. denies: neck pain, arm pain, hand pain, leg pain, foot pain, other Skin: denies: rash, lesions, sravan, bruising, other Neurological: reports: weakness, numbness, incoordination, change in speech. denies: confusion, seizures, other - Medication Medications: Active Medications Generic Name Dose Route Start Last Admin Trade Name Freq PRN Reason Stop Dose Admin Acetaminophen 1,000 mg 03/14/20 05:56 03/16/20 13:28 Acetaminophen 500 Mg Tab PO 1,000 mg Q6H PRN Administration Mild Pain (1-3) Aspirin 325 mg 03/14/20 09:00 03/16/20 13:24 Aspirin 325 Mg Enteric Coated Tablet PO 325 mg DAILY KAMINI Administration Atorvastatin Calcium 40 mg 03/14/20 21:00 03/15/20 22:34 Atorvastatin Calcium 40 Mg Tab PO 40 mg HS KAMINI Administration Enoxaparin Sodium 40 mg 03/14/20 09:00 03/16/20 13:22 Enoxaparin Sodium 40 Mg/0.4 Ml Syringe SC 40 mg 0900 KAMINI Administration Famotidine 20 mg 03/14/20 09:00 03/16/20 13:22 Famotidine/Pf 20 Mg/2ml Vial SLOW IVP 20 mg Q12HR KAMINI Administration Sodium Chloride 1,000 mls @ 75 mls/hr 03/14/20 06:00 03/16/20 13:21 Normal Saline 0.9% IV 1,000 mls .[id number] KAMINI Administration Insulin Human Lispro 0 units 03/14/20 05:56 03/16/20 13:24 Humalog 300 Units/3 Ml Vial SC 2 unit .MODERATE SLIDING SC PRN Administration Moderate Correctional Scale Insulin Human Lispro 0 units 03/14/20 05:56 03/14/20 20:35 Humalog 300 Units/3 Ml Vial SC 2 unit .BEDTIME SLIDING SC PRN Administration Bedtime Correctional Scale Iron/Minerals/Multivitamins 1 tab 03/14/20 09:00 03/16/20 13:22 Multivitamin W/ Minerals 1 Tab PO 1 tab DAILY KAMINI Administration Levothyroxine Sodium 150 mcg 03/14/20 09:00 03/16/20 13:24 Levothyroxine 150 Mcg Tab PO 150 mcg DAILY KAMINI Administration Sodium Chloride 10 ml 03/14/20 05:56 03/15/20 08:29 Flush - Normal Saline 10 Ml Syringe IVF 10 ml PRN PRN Administration Saline Flush Thiamine HCl 100 mg 03/14/20 09:00 03/15/20 08:29 Thiamine 100 Mg Tab PO 100 mg DAILY KAMINI Administration Thiamine HCl 100 mg 03/16/20 13:45 03/16/20 13:39 Thiamine 100 Mg Tab PO 03/16/20 15:00 100 mg NOW KAMINI Administration - Exam General Appearance: awake alert Eye: PERRL ENT: normocephalic atraumatic Neck: supple Respiratory: CTAB Cardiovascular: RRR Gastrointestinal: soft Extremities: no cyanosis Skin: normal turgor Neurological: no new deficit, facial droop, hemiplegia, speech deficit Musculoskeletal: no muscle wasting PSYCH: normal affect, normal behavior, A&O x 3 Results - Labs Result Diagrams: 03/15/20 04:06 03/16/20 11:06 Lab results: WBC 6.9 thou/uL (4.8-10.8) 03/15/20 04:06 Hgb 13.8 g/dL (14.0-18.0) L 03/15/20 04:06 Hct 40.2 % (42.0-52.0) L 03/15/20 04:06 MCV 95.1 fL (78.0-98.0) 03/15/20 04:06 Plt Count 184 thou/uL (130-400) 03/15/20 04:06 Neutrophils % 71.4 % (42.0-75.0) 03/15/20 04:06 Sodium 133 mmol/L (136-145) L 03/16/20 11:06 Potassium 3.6 mmol/L (3.5-5.1) 03/15/20 04:06 Chloride 103 mmol/L (98-107) 03/15/20 04:06 Carbon Dioxide 20 mmol/L (23-31) L 03/15/20 04:06 BUN 6 mg/dL (8.4-25.7) L 03/15/20 04:06 Creatinine 0.73 mg/dL (0.7-1.3) 03/15/20 04:06 Glucose 160 mg/dL (80-115) H 03/15/20 04:06 Calcium 8.5 mg/dL (7.8-10.44) 03/15/20 04:06 Total Bilirubin 0.7 mg/dL (0.2-1.2) 03/15/20 04:06 AST 18 U/L (5-34) 03/15/20 04:06 ALT 15 U/L (8-55) 03/15/20 04:06 Alkaline Phosphatase 140 U/L (40-110) H 03/15/20 04:06 Ammonia Less than 12 umol/L (18-72) L 03/13/20 19:44 Creatine Kinase 371 U/L (30-200) H 03/13/20 19:41 Troponin I 0.021 ng/mL (< 0.028) 03/13/20 19:44 B-Natriuretic Peptide 48.9 pg/mL (0-100) 03/13/20 19:44 Serum Total Protein 7.0 g/dL (5.8-8.1) 03/15/20 04:06 Albumin 3.7 g/dL (3.4-4.8) 03/15/20 04:06 Lipase 27 U/L (8-78) 03/13/20 19:41 Urine Ketones Negative mg/dL (Negative) 03/13/20 19:57 Urine Blood Negative (Negative) 03/13/20 19:57 Urine Nitrite Negative (Negative) 03/13/20 19:57 Ur Leukocyte Esterase Negative Va/uL (Negative) 03/13/20 19:57 - EKG Interpretation EKG: Normal sinus rhythm - Radiology Interpretation MRI - head Status: report reviewed by me Additional Comment: MRI brain reviewed and was consistent with acute infarction PN A/P (1) Acute CVA (cerebrovascular accident) Code(s): I63.9 - CEREBRAL INFARCTION, UNSPECIFIED Status: Acute (2) Alcohol abuse Code(s): F10.10 - ALCOHOL ABUSE, UNCOMPLICATED Status: Chronic (3) DM2 (diabetes mellitus, type 2) Status: Chronic Qualifiers: Diabetes mellitus jail insulin use: without tree and shrub technician use Diabetes mellitus complication status: with circulatory complication Diabetes mellitus complication detail: with other circulatory complications Qualified Code(s): E11.59 - Type 2 diabetes mellitus with other circulatory complications (4) Dyslipidemia Code(s): E78.5 - HYPERLIPIDEMIA, UNSPECIFIED Status: Chronic (5) Hypothyroidism Code(s): E03.9 - HYPOTHYROIDISM, UNSPECIFIED Status: Chronic Qualifiers: Hypothyroidism type: acquired Qualified Code(s): E03.9 - Hypothyroidism, unspecified (6) Tobacco use Code(s): Z72.0 - TOBACCO USE Status: Chronic - Plan Daily Plan: PT/OT, speech therapy, DVT proph w/lovenox 65-year-old male with multiple comorbidities presented with acute onset left- sided weakness. MRI of the brain consistent with acute infarction. 2D echo was essentially unremarkable. Awaiting ROXANNE to rule out cardioembolic source since patient has multiple lacunar infarcts on the right side on recent MRI. MRI of the brain reviewed and was consistent with acute multiple foci of infarcts on the right. CTA of the head reviewed and was consistent with moderate to severe stenosis of the left cervical vertebral artery at the C2 and C3 level. Neurosurgery co nsulted in the emergency room and no surgical intervention was needed per neurosurgery. 2D echo cardiogram showed left ventricular ejection fraction 55 to 60%. No PFO or thrombus. Neurochecks every 4 hours. Telemetry did not reveal any evidence of atrial fibrillation. Continue aspirin and high intensity statin for secondary stroke prevention. Strict control of blood pressure and blood glucose. PT/OT/speech. Continue medical management per primary team. Plan discussed with the patient and during MDR rounds.
--- NOTE | 2020-03-16 19:45 | PDOC.HOSPP ---
- Subjective Encounter Date: 03/16/20 Encounter Time: 15:00 Subjective: The patient had ROXANNE today which showed no thrombus. He was able to lift up his left arm today. He denies numbness, headaches, tingling He ambulated with PT, had significant deficits still. [place] unsafe to go home Patient admits to smoking meth, but not daily, occasionally. He does not want his cousin to know about his health information He agrees he is not reliable in taking his home meds. He lives alone and was re fusing rehab - Objective Vital Signs & Weight: Vital Signs (12 hours) Temp Pulse Resp BP BP Pulse Ox 03/16/20 15:17 98.3 F 96 18 147/88 H 97 03/16/20 11:15 144/81 H 03/16/20 10:40 97.8 F 77 13 160/93 H 98 03/16/20 07:48 98.3 F 79 16 156/83 H 94 L Weight Admit Weight 187 lb 3.2 oz Weight 189 lb 3.2 oz I&O: 03/15/20 03/16/20 03/17/20 06:59 06:59 06:59 Intake Total 1551 1267 480 Output Total 450 Balance 1551 817 480 Result Diagrams: 03/15/20 04:06 03/16/20 11:06 Additional Labs: Accuchecks 03/16/20 03/16/20 03/16/20 16:45 10:51 05:46 POC Glucose 209 H 181 H 173 H 03/16/20 00:18 POC Glucose 174 H Hospitalist ROS - Review of Systems Constitutional: denies: fever, chills - Medication Medications: Active Medications Generic Name Dose Route Start Last Admin Trade Name Freq PRN Reason Stop Dose Admin Acetaminophen 1,000 mg 03/14/20 05:56 03/16/20 13:28 Acetaminophen 500 Mg Tab PO 1,000 mg Q6H PRN Administration Mild Pain (1-3) Aspirin 325 mg 03/14/20 09:00 03/16/20 13:24 Aspirin 325 Mg Enteric Coated Tablet PO 325 mg DAILY KAMINI Administration Atorvastatin Calcium 40 mg 03/14/20 21:00 03/15/20 22:34 Atorvastatin Calcium 40 Mg Tab PO 40 mg HS KAMINI Administration Enoxaparin Sodium 40 mg 03/14/20 09:00 03/16/20 13:22 Enoxaparin Sodium 40 Mg/0.4 Ml Syringe SC 40 mg 0900 KAMINI Administration Famotidine 20 mg 03/14/20 09:00 03/16/20 13:22 Famotidine/Pf 20 Mg/2ml Vial SLOW IVP 20 mg Q12HR KAMINI Administration Sodium Chloride 1,000 mls @ 75 mls/hr 03/14/20 06:00 03/16/20 13:21 Normal Saline 0.9% IV 1,000 mls .[id number] KAMINI Administration Insulin Human Lispro 0 units 03/14/20 05:56 03/16/20 18:16 Humalog 300 Units/3 Ml Vial SC 4 unit .MODERATE SLIDING SC PRN Administration Moderate Correctional Scale Insulin Human Lispro 0 units 03/14/20 05:56 03/14/20 20:35 Humalog 300 Units/3 Ml Vial SC 2 unit .BEDTIME SLIDING SC PRN Administration Bedtime Correctional Scale Iron/Minerals/Multivitamins 1 tab 03/14/20 09:00 03/16/20 13:22 Multivitamin W/ Minerals 1 Tab PO 1 tab DAILY KAMINI Administration Levothyroxine Sodium 150 mcg 03/14/20 09:00 03/16/20 13:24 Levothyroxine 150 Mcg Tab PO 150 mcg DAILY KAMINI Administration Sodium Chloride 10 ml 03/14/20 05:56 03/15/20 08:29 Flush - Normal Saline 10 Ml Syringe IVF 10 ml PRN PRN Administration Saline Flush Thiamine HCl 100 mg 03/14/20 09:00 03/15/20 08:29 Thiamine 100 Mg Tab PO 100 mg DAILY KAMINI Administration - Exam General Appearance: NAD, awake alert Eye: PERRL, anicteric sclera ENT: normocephalic atraumatic, no oropharyngeal lesions Neck: no JVD Heart: RRR, no murmur, no gallops, no rubs Respiratory: CTAB, no wheezes, no rales, no ronchi Gastrointestinal: soft, non-tender, non-distended, normal bowel sounds Extremities: no cyanosis, no clubbing, no edema Skin: normal turgor, no lesions, no rashes Neurological: cranial nerve grossly intact, normal sensation to touch, no focal deficits, no new deficit, facial droop (left facial droop) Musculoskeletal: normal tone, normal strength, no muscle wasting Musculoskeletal - other findings: can lift up left arm some, has 2/5 strength left arm Psychiatric: normal affect, normal behavior, A&O x 3 Hosp A/P - Plan MRI brain: multiple foci of acute infarction on the right. Chest X ray: no acute process CTA head and neck: moderate to severe stenosis involving a segment of the left c ervical vertebral artery at C2 and C3 levels. Possible thrombus or mass effect CT brain: right acute non-hemorrhagic infarction in the right basal ganglia ROXANNE: normal This is a 65 year old male with type II diabetes, polysubstance abuse, hypothyr oidism who presented with left sided weakness Acute stroke - BP well controlled 120-150. MRI brain shows acute infarction on the right with multiple foci. CTA head and neck showed stenosis of left cervical vertebral artery. Neurosurgery recommended no intervention - neurology is following, has recommended a ROXANNE. ROXANNE was normal 03/16. May need loop recorder vs anticoagulation for possible embolic stroke. Per cardiology, recommend outpatient follow up since patient is non-compliant Type II diabetes - blood sugars in the 200's. Continue insulin sliding scale - Hb A1C 7.1 Hyponatremia - sodium was 133, stable. Methamphetamine abuse - noted on serum toxicology Hypothyroidism - TSH was noted to be 31. Continue levothyroxine. Free T4 normal Anemia - Hb 13, B12/folate normal Disposition: case management consulted for rehab Code status: full code
[2020-03-16] MEDS: Atorvastatin Calcium 40 MG TAB PO SCH (21:54)
[2020-03-17 04:22] LABS: Hemoglobin 14.3 g/dL (14.0-18.0); Mean Corpuscular HGB CONC 33.3 g/dL (32.0-36.0); Mean Corpuscular Hemoglobin 32.5 pg (27.0-31.0); Mean Corpuscular Volume 97.6 fL (78.0-98.0); Mean Platelet Volume 7.8 fL (7.4-10.4); Platelet Count 202 thou/uL (130-400); RBC Distribution Width 12.1 % (11.5-14.5); Red Blood Cell (RBC) Count 4.41 mill/uL (4.70-6.10); White Blood Cell (WBC) Count 6.2 thou/uL (4.8-10.8)
[2020-03-17] MEDS: Sodium Chloride 0.9% 1,000 ML IV SCH (04:30)
[2020-03-17 04:42] LABS: Anion Gap 15 mmol/L (10-20); BUN (Urea Nitrogen) 8 mg/dL (8.4-25.7); Calc. Creatinine Clearance 121 mL/min (70-130); Calcium 8.6 mg/dL (7.8-10.44); Carbon Dioxide 19 mmol/L (23-31); Chloride 103 mmol/L (98-107); Estimated GFR-MDRD Greater than 90; Glucose 159 mg/dL (80-115); Potassium 3.8 mmol/L (3.5-5.1); Sodium 133 mmol/L (136-145)
[2020-03-17] MEDS: HumaLOG 300 UNITS/3 ML VIAL SC PRN ×4 (06:31→21:29)
[2020-03-17] MEDS: Multivitamin W/ Minerals 1 TAB PO SCH (09:14)
[2020-03-17] MEDS: Aspirin 325 mg Enteric Coated Tablet PO SCH (09:14)
[2020-03-17] MEDS: Thiamine 100 MG TAB PO SCH (09:15)
[2020-03-17] MEDS: Famotidine/PF 20 mg/2ml Vial SLOW IVP SCH ×3 (09:15→23:06)
[2020-03-17] MEDS: Enoxaparin Sodium 40 MG/0.4 ML SYRINGE SC SCH (09:15)
[2020-03-17] MEDS: Levothyroxine 150 MCG TAB PO SCH (10:34)
--- NOTE | 2020-03-17 11:24 | PDOC.NEUPN ---
- Subjective Encounter Date: 03/17/20 Subjective: Patient feels better but continues to have left sided deficits which are slowly improving 3/5. - Objective Vital Signs & Weight: Vital Signs (12 hours) Temp Pulse Resp BP Pulse Ox 03/17/20 08:14 98.5 F 83 18 145/81 H 97 03/17/20 04:00 98.3 F 87 20 167/91 H 96 Weight Admit Weight 187 lb 3.2 oz Weight 189 lb 3.2 oz I&O: 03/16/20 03/17/20 03/18/20 06:59 06:59 06:59 Intake Total 1267 720 Output Total 450 Balance 817 720 Result Diagrams: 03/17/20 04:13 03/17/20 04:13 Additional Labs: Accuchecks 03/17/20 03/17/20 03/16/20 10:51 06:26 21:36 POC Glucose 236 H 206 H 196 H 03/16/20 16:45 POC Glucose 209 H Radiology Reviewed by me: Yes EKG Reviewed by me: Yes ROS - Review of Systems Constitutional: denies: fever, chills, sweats, weakness, malaise, other Eyes: denies: pain, vision change, conjunctivae inflammation, eyelid inflammation, redness, other ENT: denies: ear pain, ear discharge, nose pain, nose discharge, nose congestion, mouth pain, mouth swelling, throat pain, throat swelling, other Respiratory: denies: cough, dry, shortness of breath, hemoptysis, SOB with excertion, pleuritic pain, sputum, wheezing, other Gastrointestinal: denies: nausea, vomiting, abdominal pain, diarrhea, constipation, melena, hematochezia, other Genitourinary: denies: dysuria, frequency, incontinence, hematuria, retention, other Musculoskeletal: denies: neck pain, shoulder pain, arm pain, back pain, hand pain, leg pain, foot pain, other Neurological: reports: weakness, numbness, incoordination, change in speech. denies: confusion, seizures, other - Medication Medications: Active Medications Generic Name Dose Route Start Last Admin Trade Name Freq PRN Reason Stop Dose Admin Acetaminophen 1,000 mg 03/14/20 05:56 03/16/20 21:54 Acetaminophen 500 Mg Tab PO 1,000 mg Q6H PRN Administration Mild Pain (1-3) Aspirin 325 mg 03/14/20 09:00 03/17/20 09:14 Aspirin 325 Mg Enteric Coated Tablet PO 325 mg DAILY KAIMNI Administration Atorvastatin Calcium 40 mg 03/14/20 21:00 03/16/20 21:54 Atorvastatin Calcium 40 Mg Tab PO 40 mg HS KAMINI Administration Enoxaparin Sodium 40 mg 03/14/20 09:00 03/17/20 09:15 Enoxaparin Sodium 40 Mg/0.4 Ml Syringe SC 40 mg 0900 KAMINI Administration Famotidine 20 mg 03/14/20 09:00 03/17/20 09:15 Famotidine/Pf 20 Mg/2ml Vial SLOW IVP 20 mg Q12HR KAMINI Administration Insulin Human Lispro 0 units 03/14/20 05:56 03/17/20 11:18 Humalog 300 Units/3 Ml Vial SC 4 unit .MODERATE SLIDING SC PRN Administration Moderate Correctional Scale Insulin Human Lispro 0 units 03/14/20 05:56 03/14/20 20:35 Humalog 300 Units/3 Ml Vial SC 2 unit .BEDTIME SLIDING SC PRN Administration Bedtime Correctional Scale Iron/Minerals/Multivitamins 1 tab 03/14/20 09:00 03/17/20 09:14 Multivitamin W/ Minerals 1 Tab PO 1 tab DAILY KAMINI Administration Sodium Chloride 10 ml 03/14/20 05:56 03/16/20 21:54 Flush - Normal Saline 10 Ml Syringe IVF 10 ml PRN PRN Administration Saline Flush Thiamine HCl 100 mg 03/14/20 09:00 03/17/20 09:15 Thiamine 100 Mg Tab PO 100 mg DAILY KAMINI Administration - Exam General Appearance: awake alert Eye: PERRL ENT: normocephalic atraumatic Neck: supple Respiratory: CTAB Cardiovascular: RRR Gastrointestinal: soft Extremities: no cyanosis Skin: normal turgor Neurological: no new deficit, facial droop, hemiplegia, speech deficit Musculoskeletal: normal tone, no muscle wasting PSYCH: normal affect, normal behavior, A&O x 3 Results - Labs Result Diagrams: 03/17/20 04:13 03/17/20 04:13 Lab results: WBC 6.2 thou/uL (4.8-10.8) 03/17/20 04:13 Hgb 14.3 g/dL (14.0-18.0) 03/17/20 04:13 Hct 43.0 % (42.0-52.0) 03/17/20 04:13 MCV 97.6 fL (78.0-98.0) 03/17/20 04:13 Plt Count 202 thou/uL (130-400) 03/17/20 04:13 Neutrophils % 71.4 % (42.0-75.0) 03/15/20 04:06 Sodium 133 mmol/L (136-145) L 03/17/20 04:13 Potassium 3.8 mmol/L (3.5-5.1) 03/17/20 04:13 Chloride 103 mmol/L (98-107) 03/17/20 04:13 Carbon Dioxide 19 mmol/L (23-31) L 03/17/20 04:13 BUN 8 mg/dL (8.4-25.7) L 03/17/20 04:13 Creatinine 0.73 mg/dL (0.7-1.3) 03/17/20 04:13 Glucose 159 mg/dL (80-115) H 03/17/20 04:13 Calcium 8.6 mg/dL (7.8-10.44) 03/17/20 04:13 Total Bilirubin 0.7 mg/dL (0.2-1.2) 03/15/20 04:06 AST 18 U/L (5-34) 03/15/20 04:06 ALT 15 U/L (8-55) 03/15/20 04:06 Alkaline Phosphatase 140 U/L (40-110) H 03/15/20 04:06 Ammonia Less than 12 umol/L (18-72) L 03/13/20 19:44 Creatine Kinase 371 U/L (30-200) H 03/13/20 19:41 Troponin I 0.021 ng/mL (< 0.028) 03/13/20 19:44 B-Natriuretic Peptide 48.9 pg/mL (0-100) 03/13/20 19:44 Serum Total Protein 7.0 g/dL (5.8-8.1) 03/15/20 04:06 Albumin 3.7 g/dL (3.4-4.8) 03/15/20 04:06 Lipase 27 U/L (8-78) 09/28/20 19:41 Urine Ketones Negative mg/dL (Negative) 03/13/20 19:57 Urine Blood Negative (Negative) 03/13/20 19:57 Urine Nitrite Negative (Negative) 03/13/20 19:57 Ur Leukocyte Esterase Negative Va/uL (Negative) 03/13/20 19:57 - Radiology Interpretation MRI - head Status: image reviewed by me, report reviewed by me Additional Comment: MRI brain consistent with acute infarction. 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 Diabetes mellitus complication status: with circulatory complication Diabetes mellitus complication detail: with other circulatory complications Qualified Code(s): E11.59 - Type 2 diabetes mellitus with other circulatory complications (4) Dyslipidemia Code(s): E78.5 - HYPERLIPIDEMIA, UNSPECIFIED Status: Chronic (5) Hypothyroidism Code(s): E03.9 - HYPOTHYROIDISM, UNSPECIFIED Status: Chronic Qualifiers: Hypothyroidism type: acquired Qualified Code(s): E03.9 - Hypothyroidism, unspecified (6) Tobacco use Code(s): Z72.0 - TOBACCO USE Status: Chronic (7) Dyslipidemia Code(s): E78.5 - HYPERLIPIDEMIA, UNSPECIFIED Status: Acute (8) Hypothyroidism Code(s): E03.9 - HYPOTHYROIDISM, UNSPECIFIED Status: Acute - Plan Daily Plan: PT/OT, speech therapy, DVT proph w/lovenox Consults: Other (rehab) 65-year-old male with multiple comorbidities presented with acute onset left- sided weakness. MRI of the brain consistent with acute infarction. 2D echo was essentially unremarkable. ROXANNE to rule out cardioembolic source since patient has multiple lacunar infarcts on the right side on recent MRI was negative. CM on board regarding discharge planning. Awaiting rehab placement MRI of the brain reviewed and was consistent with acute multiple foci of infarcts on the right. CTA of the head reviewed and was consistent with moderate to severe stenosis of the left cervical vertebral artery at the C2 and C3 level. Neurosurgery consulted in the emergency room and no surgical intervention was needed per neurosurgery. 2D echo cardiogram showed left ventricular ejection fraction 55 to 60%. No PFO or thrombus. Neurochecks every 4 hours. Telemetry did not reveal any evidence of atrial fibrillation. Continue aspirin and high intensity statin for secondary stroke prevention. Strict control of blood pressure and blood glucose. Continue PT/OT/speech therapy. Continue medical management per primary team. Plan discussed with the patient and during stroke rounds.
[2020-03-17] MEDS ORDERED: Amlodipine 5 MG TAB PO SCH (12:30)
--- NOTE | 2020-03-17 14:12 | RAD ---
THORACIC SPINE THREE VIEWS: 03/17/20 HISTORY: Back pain status post fall. The vertebral bodies maintain normal height. Degenerative osteophytes are seen. Pedicles appear intac t. The bones are demineralized. IMPRESSION: No acute findings. Arthritic changes of the spine. POS: NOEL
--- NOTE | 2020-03-17 14:14 | RAD ---
LUMBAR SPINE SERIES THREE VIEWS: 03/17/20 HISTORY: Back pain status post fall. Vertebral bodies are normal height. Degenerative osteophytes are seen along the course of the spine. Mild disc narrowing at L2-3. Degenerative facet changes are present. Pedicle are intact. IMPRESSION: Moderate arthritic changes of the spine. No acute injury. POS: NOEL
[2020-03-17 14:27] VITALS: BMI 27.9
--- NOTE | 2020-03-17 14:28 | PDOC.HOSPP ---
- Subjective Encounter Date: 03/17/20 Encounter Time: 11:00 Subjective: The patient complains of significant back pain since his falls. He states it is constant, radiates to his upper back at times. Denies burning in his legs. He states he is not able to sleep because of this. He is still weak with therapy. He is willing to go to rehab - Objective Vital Signs & Weight: Vital Signs (12 hours) Temp Pulse Resp BP Pulse Ox 03/17/20 12:54 90 03/17/20 11:18 98.9 F 90 18 158/95 H 96 03/17/20 09:14 97 03/17/20 08:14 98.5 F 83 18 145/81 H 97 03/17/20 04:00 98.3 F 87 20 167/91 H 96 Weight Admit Weight 187 lb 3.2 oz Weight 189 lb 3.2 oz I&O: 03/16/20 03/17/20 03/18/20 06:59 06:59 06:59 Intake Total 1267 720 Output Total 450 Balance 817 720 Result Diagrams: 03/17/20 04:13 03/17/20 04:13 Additional Labs: Accuchecks 03/17/20 03/17/20 03/16/20 10:51 06:26 21:36 POC Glucose 236 H 206 H 196 H 03/16/20 16:45 POC Glucose 209 H Hospitalist ROS - Review of Systems Constitutional: denies: fever, chills - Medication Medications: Active Medications Generic Name Dose Route Start Last Admin Trade Name Freq PRN Reason Stop Dose Admin Acetaminophen 1,000 mg 03/14/20 05:56 03/16/20 21:54 Acetaminophen 500 Mg Tab PO 1,000 mg Q6H PRN Administration Mild Pain (1-3) Amlodipine Besylate 5 mg 03/17/20 12:30 03/17/20 12:54 Amlodipine 5 Mg Tab PO 03/17/20 14:30 5 mg NOW KAMINI Administration Atorvastatin Calcium 40 mg 03/14/20 21:00 03/16/20 21:54 Atorvastatin Calcium 40 Mg Tab PO 40 mg HS KAMINI Administration Enoxaparin Sodium 40 mg 03/14/20 09:00 03/17/20 09:15 Enoxaparin Sodium 40 Mg/0.4 Ml Syringe SC 40 mg 0900 KAMINI Administration Famotidine 20 mg 03/14/20 09:00 03/17/20 09:15 Famotidine/Pf 20 Mg/2ml Vial SLOW IVP 20 mg Q12HR KAMINI Administration Insulin Human Lispro 0 units 03/14/20 05:56 03/17/20 11:18 Humalog 300 Units/3 Ml Vial SC 4 unit .MODERATE SLIDING SC PRN Administration Moderate Correctional Scale Insulin Human Lispro 0 units 03/14/20 05:56 03/14/20 20:35 Humalog 300 Units/3 Ml Vial SC 2 unit .BEDTIME SLIDING SC PRN Administration Bedtime Correctional Scale Iron/Minerals/Multivitamins 1 tab 03/14/20 09:00 03/17/20 09:14 Multivitamin W/ Minerals 1 Tab PO 1 tab DAILY KAMINI Administration Sodium Chloride 10 ml 03/14/20 05:56 03/16/20 21:54 Flush - Normal Saline 10 Ml Syringe IVF 10 ml PRN PRN Administration Saline Flush Thiamine HCl 100 mg 03/14/20 09:00 03/17/20 09:15 Thiamine 100 Mg Tab PO 100 mg DAILY KAMINI Administration - Exam General Appearance: NAD, awake alert Eye: PERRL, anicteric sclera ENT: normocephalic atraumatic, no oropharyngeal lesions Neck: no JVD Heart: RRR, no murmur, no gallops, no rubs Respiratory: CTAB, no wheezes, no rales, no ronchi Gastrointestinal: soft, non-tender, non-distended, normal bowel sounds Extremities: no cyanosis, no clubbing, no edema Skin: normal turgor, no lesions, no rashes Neurological: facial droop (left) Neurological - other findings: Can raise left arm more, 3/5 strength LUE, 5/5 RUE. 4/5 LLE, 5/5 RLE Musculoskeletal: normal tone, normal strength, no muscle wasting Hosp A/P - Plan MRI brain: multiple foci of acute infarction on the right in acaudate, thalamus, periventricular white matter abutting mid body of right lateral ventricle extending into region of right lentiform nucleus. Chest X ray: no acute process CTA head and neck: moderate to severe stenosis involving a segment of the left cervical vertebral artery at C2 and C3 levels. Possible thrombus or mass effect CT brain: right acute non-hemorrhagic infarction in the right basal ganglia ROXANNE: normal Thoracic and lumbar spine X ray: moderate arthritic changes This is a 65 year old male with type II diabetes, polysubstance abuse, hypothyroidism who presented with left sided weakness Acute stroke on caudate/thalamus - MRI brain shows acute infarction on the right with multiple foci. CTA head and neck showed stenosis of left cervical vertebral artery. Neurosurgery recommended no intervention - ROXANNE was normal 03/16. May need anticoagulation or loop recorder, cardiology recommended outpatient follow up due to history of noncompliance - case management consulted for rehab placement, patient is willing to go now Hypertension - BP 150-160. Will add amlodipine 5 mg daily Type II diabetes - blood sugars in the 200's. Continue insulin sliding scale. Has been requiring 6 units, will start lantus 3 units qhs - Hb A1C 7.1 Hyponatremia - sodium was 133, stable. Methamphetamine abuse - noted on serum toxicology Hypothyroidism - TSH was noted to be 31. Continue levothyroxine. Free T4 normal Anemia - Hb 13, B12/folate normal Disposition: case management consulted for rehab Code status: full code
[2020-03-17] MEDS: traMADol HCl 50 MG TAB PO PRN ×2 (15:15→21:26)
[2020-03-17] MEDS: Atorvastatin Calcium 40 MG TAB PO SCH (21:28)
[2020-03-17] MEDS: Insulin Glargine 3 UNITS in Pre-Filled Syringe 1 EACH SC SCH (21:32)
--- NOTE | 2020-03-17 22:07 | CCLSPC ---
Transesophageal echo was performed for evaluation of a recent stroke. The Anesthesiology Department provided with sedation for the patient. Please see their notes for details. After adequate sedation was achieved, the transesophageal probe was inserted into the mouth and into the esophagus, and multiplanar views were then obtained. Left ventricle is normal size with normal wall thickness. Systolic function is normal, estimated at 50% to 55%. Left atrium is mildly dilated. Left atrial appendage is widely patent with no evidence of mass or thrombus. Right atrium is normal size with no evidence of mass or thrombus. Right ventricle is normal size and normal systolic function. Aortic valve is structurally normal with no stenosis or regurgitation. Tricuspid valve is structurally normal. No stenosis. Mild regurgitation. Pulmonary valve is structurally normal. No stenosis or regurgitation. Mitral valve is structurally normal. There is mild MR. No stenosis. Interatrial septum appears to be intact by color Doppler and by agitated saline study. Thoracic aorta has grade 2/5 atherosclerotic disease minimal, and no evidence of dissections. I can only see the first part of the root in the ascending aorta and the last part of the arch and the thoracic aorta. CONCLUSIONS: 1. Normal systolic function, EF at 50% to 55%. 2. Mild left atrial enlargement. 3. Intact interatrial septum by agitated saline study and color Doppler. 4. Mild MR and mild TR. 5. No evidence of mass or thrombus in any of the cardiac chambers. No evidence of shunting. No obvious cause for CVA on imaged portions of the aorta. Job ID: [id number]
[2020-03-17] MEDS ORDERED: Famotidine 20 MG TAB PO SCH (23:15)
[2020-03-18] MEDS: traMADol HCl 50 MG TAB PO PRN ×4 (02:00→20:39)
[2020-03-18] MEDS: Levothyroxine 150 MCG TAB PO SCH (05:17)
[2020-03-18 05:38] LABS: Anion Gap 13 mmol/L (10-20); BUN (Urea Nitrogen) 7 mg/dL (8.4-25.7); Calc. Creatinine Clearance 119 mL/min (70-130); Calcium 8.9 mg/dL (7.8-10.44); Carbon Dioxide 24 mmol/L (23-31); Chloride 99 mmol/L (98-107); Estimated GFR-MDRD Greater than 90; Glucose 180 mg/dL (80-115); Potassium 3.7 mmol/L (3.5-5.1); Sodium 132 mmol/L (136-145)
[2020-03-18] MEDS: HumaLOG 300 UNITS/3 ML VIAL SC PRN ×2 (05:59→18:14)
[2020-03-18] MEDS: Aspirin 81 mg Enteric Coated Tablet PO SCH (08:49)
[2020-03-18] MEDS: Amlodipine 5 MG TAB PO SCH (08:49)
[2020-03-18] MEDS: Multivitamin W/ Minerals 1 TAB PO SCH (08:49)
[2020-03-18] MEDS: Famotidine 20 MG TAB PO SCH ×2 (08:49→20:38)
[2020-03-18] MEDS: Enoxaparin Sodium 40 MG/0.4 ML SYRINGE SC SCH (08:50)
[2020-03-18] MEDS: Thiamine 100 MG TAB PO SCH (08:50)
--- NOTE | 2020-03-18 12:41 | PDOC.NEUPN ---
- Subjective Encounter Date: 03/18/20 Subjective: Feels better today. He continues to have left-sided deficits but improved since admission and speech deficits - Objective Vital Signs & Weight: Vital Signs (12 hours) Temp Pulse Resp BP Pulse Ox 03/18/20 08:49 85 03/18/20 07:43 98.3 F 83 20 156/98 H 95 03/18/20 04:00 97.7 F 81 13 133/78 95 Weight Admit Weight 187 lb 3.2 oz Weight 189 lb 3.2 oz I&O: 03/17/20 03/18/20 03/19/20 06:59 06:59 06:59 Intake Total 720 1680 Output Total 425 100 Balance 720 1255 -100 Result Diagrams: 03/17/20 04:13 03/18/20 04:33 Additional Labs: Accuchecks 03/18/20 03/17/20 03/17/20 05:47 20:29 16:55 POC Glucose 198 H 239 H 188 H Radiology Reviewed by me: Yes EKG Reviewed by me: Yes ROS - Review of Systems Constitutional: denies: fever, chills, sweats, weakness, malaise, other Eyes: denies: pain, vision change, conjunctivae inflammation, eyelid inflammation, redness, other ENT: denies: ear pain, ear discharge, nose pain, nose discharge, nose congestion, mouth pain, mouth swelling, throat pain, throat swelling, other Respiratory: denies: cough, dry, shortness of breath, hemoptysis, SOB with excertion, pleuritic pain, sputum, wheezing, other Cardiovascular: reports: no pertinent history Gastrointestinal: denies: nausea, vomiting, abdominal pain, diarrhea, constipation, melena, hematochezia, other Genitourinary: denies: dysuria, frequency, incontinence, hematuria, retention, other Musculoskeletal: denies: neck pain, shoulder pain, arm pain, back pain, hand pain, leg pain, foot pain, other Skin: denies: rash, lesions, sravan, bruising, other Neurological: reports: weakness, numbness, incoordination, change in speech. denies: confusion, seizures, other - Medication Medications: Active Medications Generic Name Dose Route Start Last Admin Trade Name Freq PRN Reason Stop Dose Admin Acetaminophen 1,000 mg 03/14/20 05:56 03/16/20 21:54 Acetaminophen 500 Mg Tab PO 1,000 mg Q6H PRN Administration Mild Pain (1-3) Amlodipine Besylate 5 mg 03/18/20 09:00 03/18/20 08:49 Amlodipine 5 Mg Tab PO 5 mg DAILY KAMINI Administration Aspirin 81 mg 03/18/20 09:00 03/18/20 08:49 Aspirin 81 Mg Enteric Coated Tablet PO 81 mg DAILY KAMINI Administration Atorvastatin Calcium 40 mg 03/14/20 21:00 03/17/20 21:28 Atorvastatin Calcium 40 Mg Tab PO 40 mg HS KAMINI Administration Enoxaparin Sodium 40 mg 03/14/20 09:00 03/18/20 08:50 Enoxaparin Sodium 40 Mg/0.4 Ml Syringe SC 40 mg 0900 KAMINI Administration Famotidine 20 mg 03/18/20 09:00 03/18/20 08:49 Famotidine 20 Mg Tab PO 20 mg BID KAMINI Administration Insulin Glargine 3 units/ 0.03 mls @ 0 mls/hr 03/17/20 21:00 03/17/20 21:32 Miscellaneous Medication SC 0.03 mls HS KAMINI Administration Insulin Human Lispro 0 units 03/14/20 05:56 03/18/20 05:59 Humalog 300 Units/3 Ml Vial SC 2 unit .MODERATE SLIDING SC PRN Administration Moderate Correctional Scale Insulin Human Lispro 0 units 03/14/20 05:56 03/17/20 21:29 Humalog 300 Units/3 Ml Vial SC 2 unit .BEDTIME SLIDING SC PRN Administration Bedtime Correctional Scale Iron/Minerals/Multivitamins 1 tab 03/14/20 09:00 03/18/20 08:49 Multivitamin W/ Minerals 1 Tab PO 1 tab DAILY KAMINI Administration Levothyroxine Sodium 150 mcg 03/18/20 06:00 03/18/20 05:17 Levothyroxine 150 Mcg Tab PO 150 mcg 0600 KAMINI Administration Sodium Chloride 10 ml 03/14/20 05:56 03/17/20 21:29 Flush - Normal Saline 10 Ml Syringe IVF 10 ml PRN PRN Administration Saline Flush Thiamine HCl 100 mg 03/14/20 09:00 03/18/20 08:50 Thiamine 100 Mg Tab PO 100 mg DAILY KAMINI Administration Tramadol HCl 25 mg 03/17/20 14:24 03/18/20 08:53 Tramadol Hcl 50 Mg Tab PO 25 mg Q4H PRN Administration Severe Pain (7-10) - Exam General Appearance: awake alert Eye: PERRL ENT: normocephalic atraumatic Neck: supple Respiratory: CTAB Cardiovascular: RRR Gastrointestinal: soft Extremities: no cyanosis Skin: normal turgor Neurological: facial droop, hemiplegia, speech deficit Neurological - other findings: left hemiparesis Musculoskeletal: normal tone, no muscle wasting PSYCH: normal affect, normal behavior, A&O x 3 Results - Labs Result Diagrams: 03/17/20 04:13 03/18/20 04:33 Lab results: WBC 6.2 thou/uL (4.8-10.8) 03/17/20 04:13 Hgb 14.3 g/dL (14.0-18.0) 03/17/20 04:13 Hct 43.0 % (42.0-52.0) 03/17/20 04:13 MCV 97.6 fL (78.0-98.0) 03/17/20 04:13 Plt Count 202 thou/uL (130-400) 03/17/20 04:13 Neutrophils % 71.4 % (42.0-75.0) 03/15/20 04:06 Sodium 132 mmol/L (136-145) L 03/18/20 04:33 Potassium 3.7 mmol/L (3.5-5.1) 03/18/20 04:33 Chloride 99 mmol/L (98-107) 03/18/20 04:33 Carbon Dioxide 24 mmol/L (23-31) 03/18/20 04:33 BUN 7 mg/dL (8.4-25.7) L 03/18/20 04:33 Creatinine 0.74 mg/dL (0.7-1.3) 03/18/20 04:33 Glucose 180 mg/dL (80-115) H 03/18/20 04:33 Calcium 8.9 mg/dL (7.8-10.44) 03/18/20 04:33 Total Bilirubin 0.7 mg/dL (0.2-1.2) 03/15/20 04:06 AST 18 U/L (5-34) 03/15/20 04:06 ALT 15 U/L (8-55) 03/15/20 04:06 Alkaline Phosphatase 140 U/L (40-110) H 03/15/20 04:06 Ammonia Less than 12 umol/L (18-72) L 03/13/20 19:44 Creatine Kinase 371 U/L (30-200) H 03/13/20 19:41 Troponin I 0.021 ng/mL (< 0.028) 03/13/20 19:44 B-Natriuretic Peptide 48.9 pg/mL (0-100) 03/13/20 19:44 Serum Total Protein 7.0 g/dL (5.8-8.1) 03/15/20 04:06 Albumin 3.7 g/dL (3.4-4.8) 03/15/20 04:06 Lipase 27 U/L (8-78) 03/13/20 19:41 Urine Ketones Negative mg/dL (Negative) 03/13/20 19:57 Urine Blood Negative (Negative) 03/13/20 19:57 Urine Nitrite Negative (Negative) 03/13/20 19:57 Ur Leukocyte Esterase Negative Va/uL (Negative) 03/13/20 19:57 PN A/P (1) Acute CVA (cerebrovascular accident) Code(s): I63.9 - CEREBRAL INFARCTION, UNSPECIFIED Status: Acute (2) Alcohol abuse Code(s): F10.10 - ALCOHOL ABUSE, UNCOMPLICATED Status: Chronic (3) DM2 (diabetes mellitus, type 2) Status: Chronic Qualifiers: 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 Diabetes mellitus complication status: with circulatory complication Diabetes mellitus complication detail: with other circulatory complications Qualified Code(s): E11.59 - Type 2 diabetes mellitus with other circulatory complications (4) Dyslipidemia Code(s): E78.5 - HYPERLIPIDEMIA, UNSPECIFIED Status: Chronic (5) Hypothyroidism Code(s): E03.9 - HYPOTHYROIDISM, UNSPECIFIED Status: Chronic Qualifiers: Hypothyroidism type: acquired Qualified Code(s): E03.9 - Hypothyroidism, unspecified (6) Tobacco use Code(s): Z72.0 - TOBACCO USE Status: Chronic (7) Dyslipidemia Code(s): E78.5 - HYPERLIPIDEMIA, UNSPECIFIED Status: Acute (8) Hypothyroidism Code(s): E03.9 - HYPOTHYROIDISM, UNSPECIFIED Status: Acute - Plan Daily Plan: PT/OT, speech therapy 65-year-old male with multiple comorbidities presented with acute onset left- sided weakness. MRI of the brain consistent with acute infarction. Patient stable and no reported complaints. 2D echo was essentially unremarkable. ROXANNE to rule out cardioembolic source since patient has multiple lacunar infarcts on the right side on recent MRI was negative. CM on board regarding discharge planning. Awaiting rehab placement probably on friday. MRI of the brain reviewed and was consistent with acute multiple foci of infarcts on the right. CTA of the head reviewed and was consistent with moderate to severe stenosis of the left cervical vertebral artery at the C2 and C3 level. Neurosurgery consulted in the emergency room and no surgical intervention was needed per neurosurgery. 2D echo cardiogram showed left ventricular ejection fraction 55 to 60%. No PFO or thrombus. Neurochecks every 4 hours. Telemetry did not reveal any evidence of atrial fibrillation. Continue aspirin and high intensity statin for secondary stroke prevention. Strict control of blood pressure and blood glucose. Continue PT/OT/speech therapy. Continue medical management per primary team. Plan discussed with the patient and with the nursing staff
--- NOTE | 2020-03-18 14:48 | PDOC.HOSPP ---
- Subjective Encounter Date: 03/18/20 Encounter Time: 14:45 Subjective: f/u for acute R -sided CVA with residual L-hemiparesis, dysarthria. Feels stronger overall and slept well overnight. - Objective Vital Signs & Weight: Vital Signs (12 hours) Temp Pulse Resp BP Pulse Ox 03/18/20 12:15 98.5 F 84 16 143/95 H 95 03/18/20 08:53 95 03/18/20 08:49 85 03/18/20 07:43 98.3 F 83 20 156/98 H 95 03/18/20 04:00 97.7 F 81 13 133/78 95 Weight Admit Weight 187 lb 3.2 oz Weight 189 lb 3.2 oz I&O: 03/17/20 03/18/20 03/19/20 06:59 06:59 06:59 Intake Total 720 1680 Output Total 425 100 Balance 720 1255 -100 Result Diagrams: 03/17/20 04:13 03/18/20 04:33 Additional Labs: Accuchecks 03/18/20 03/17/20 03/17/20 05:47 20:29 16:55 POC Glucose 198 H 239 H 188 H EKG Reviewed by me: Yes (Tele - SR) Hospitalist ROS - Medication Medications: Active Medications Generic Name Dose Route Start Last Admin Trade Name Freq PRN Reason Stop Dose Admin Acetaminophen 1,000 mg 03/14/20 05:56 03/16/20 21:54 Acetaminophen 500 Mg Tab PO 1,000 mg Q6H PRN Administration Mild Pain (1-3) Amlodipine Besylate 5 mg 03/18/20 09:00 03/18/20 08:49 Amlodipine 5 Mg Tab PO 5 mg DAILY KAMINI Administration Aspirin 81 mg 03/18/20 09:00 03/18/20 08:49 Aspirin 81 Mg Enteric Coated Tablet PO 81 mg DAILY KAMINI Administration Atorvastatin Calcium 40 mg 03/14/20 21:00 03/17/20 21:28 Atorvastatin Calcium 40 Mg Tab PO 40 mg HS KAMINI Administration Enoxaparin Sodium 40 mg 03/14/20 09:00 03/18/20 08:50 Enoxaparin Sodium 40 Mg/0.4 Ml Syringe SC 40 mg 0900 KAMINI Administration Famotidine 20 mg 03/18/20 09:00 03/18/20 08:49 Famotidine 20 Mg Tab PO 20 mg BID KAMINI Administration Insulin Glargine 3 units/ 0.03 mls @ 0 mls/hr 03/17/20 21:00 03/17/20 21:32 Miscellaneous Medication SC 0.03 mls HS KAMINI Administration Insulin Human Lispro 0 units 03/14/20 05:56 03/18/20 05:59 Humalog 300 Units/3 Ml Vial SC 2 unit .MODERATE SLIDING SC PRN Administration Moderate Correctional Scale Insulin Human Lispro 0 units 03/14/20 05:56 03/17/20 21:29 Humalog 300 Units/3 Ml Vial SC 2 unit .BEDTIME SLIDING SC PRN Administration Bedtime Correctional Scale Iron/Minerals/Multivitamins 1 tab 03/14/20 09:00 03/18/20 08:49 Multivitamin W/ Minerals 1 Tab PO 1 tab DAILY KAMINI Administration Levothyroxine Sodium 150 mcg 03/18/20 06:00 03/18/20 05:17 Levothyroxine 150 Mcg Tab PO 150 mcg 0600 KAMINI Administration Sodium Chloride 10 ml 03/14/20 05:56 03/17/20 21:29 Flush - Normal Saline 10 Ml Syringe IVF 10 ml PRN PRN Administration Saline Flush Thiamine HCl 100 mg 03/14/20 09:00 03/18/20 08:50 Thiamine 100 Mg Tab PO 100 mg DAILY KAMINI Administration Tramadol HCl 25 mg 03/17/20 14:24 03/18/20 08:53 Tramadol Hcl 50 Mg Tab PO 25 mg Q4H PRN Administration Severe Pain (7-10) - Exam General Appearance: NAD, awake alert Eye: PERRL, anicteric sclera ENT: normocephalic atraumatic, no oropharyngeal lesions Neck: supple, symmetric, no JVD, no thyromegaly, no lymphadenopathy Heart: RRR, no murmur, no gallops, no rubs, normal peripheral pulses Heart - other findings: S1, S2 Respiratory: CTAB, no wheezes, no rales, no ronchi, normal chest expansion, no tachypnea Gastrointestinal: soft, non-tender, non-distended, normal bowel sounds, no palpable masses Extremities: no cyanosis, no clubbing, no edema Skin: normal turgor, no lesions Neurological - other findings: L hemiparesis, dysarthria, L facial droop Musculoskeletal: generalized weakness Psychiatric: A&O x 3, flat affect Hosp A/P (1) Acute CVA (cerebrovascular accident) Code(s): I63.9 - CEREBRAL INFARCTION, UNSPECIFIED Status: Acute Plan: Continue routine stroke protocol, ASA/Lipitor, Rehab options pending (2) DM2 (diabetes mellitus, type 2) Status: Chronic Qualifiers: Diabetes mellitus pattern and chain maker insulin use: without pattern and chain maker use Diabetes mellitus complication status: with circulatory complication Diabetes mellitus complication detail: with other circulatory complications Qualified Code(s): E11.59 - Type 2 diabetes mellitus with other circulatory complications Plan: Labile, resume Glyburide/Metformin, ISS, ADA (3) Alcohol abuse Code(s): F10.10 - ALCOHOL ABUSE, UNCOMPLICATED Status: Chronic (4) Hypothyroidism Code(s): E03.9 - HYPOTHYROIDISM, UNSPECIFIED Status: Chronic Qualifiers: Hypothyroidism type: acquired Qualified Code(s): E03.9 - Hypothyroidism, unspecified Plan: Continue Levothyroxine 150mcg daily (5) Tobacco use Code(s): Z72.0 - TOBACCO USE Status: Chronic - Plan PT/OT, social services designee, speech therapy, out of bed/ambulate, DVT proph w/SCDs Stable currently Continue ASA/Lipitor OOB with PT ENGINEER AND GEOLOGIST monitoring dietary intake CM for Rehab options Resume Glyburide/Metformin
[2020-03-18] MEDS: metFORMIN 500 MG TAB PO SCH (16:32)
[2020-03-18] MEDS: Atorvastatin Calcium 40 MG TAB PO SCH (20:38)
[2020-03-18] MEDS: Insulin Glargine 3 UNITS in Pre-Filled Syringe 1 EACH SC SCH (20:40)
[2020-03-18] MEDS: Acetaminophen 500 MG TAB PO PRN (23:03)
[2020-03-19] MEDS: traMADol HCl 50 MG TAB PO PRN ×5 (01:05→22:21)
[2020-03-19] MEDS: Acetaminophen 500 MG TAB PO PRN ×3 (06:22→20:24)
[2020-03-19] MEDS: Levothyroxine 150 MCG TAB PO SCH (06:23)
[2020-03-19] MEDS: HumaLOG 300 UNITS/3 ML VIAL SC PRN ×2 (06:24→13:09)
[2020-03-19] MEDS: Aspirin 81 mg Enteric Coated Tablet PO SCH (09:59)
[2020-03-19] MEDS: Finasteride 5 MG TAB PO SCH (10:00)
[2020-03-19] MEDS: metFORMIN 500 MG TAB PO SCH ×2 (10:00→16:12)
[2020-03-19] MEDS: Thiamine 100 MG TAB PO SCH (10:00)
[2020-03-19] MEDS: Folic Acid 1 MG TAB PO SCH (10:01)
[2020-03-19] MEDS: glyBURIDE 5 MG TAB PO SCH (10:01)
[2020-03-19] MEDS: Multivitamin W/ Minerals 1 TAB PO SCH (10:02)
[2020-03-19] MEDS: Famotidine 20 MG TAB PO SCH ×2 (10:02→20:22)
[2020-03-19] MEDS: Amlodipine 5 MG TAB PO SCH (10:03)
[2020-03-19] MEDS: Enoxaparin Sodium 40 MG/0.4 ML SYRINGE SC SCH (10:03)
--- NOTE | 2020-03-19 14:49 | PDOC.HOSPP ---
- Subjective Encounter Date: 03/19/20 Encounter Time: 14:30 Subjective: f/u for CVA with dysarthria/L-hemiparesis/dysphagia. States feeling stronger each day but difficulty ambulating. Awaiting rehab options. - Objective Vital Signs & Weight: Vital Signs (12 hours) Temp Pulse Resp BP Pulse Ox 03/19/20 12:00 98.1 F 81 18 142/78 H 94 L 03/19/20 11:00 98.1 F 85 17 139/60 99 03/19/20 10:03 83 03/19/20 08:00 98.8 F 83 18 138/81 96 03/19/20 04:00 97.9 F 78 15 145/82 H 93 L Weight Admit Weight 187 lb 3.2 oz Weight 189 lb 3.2 oz I&O: 03/18/20 03/19/20 03/20/20 06:59 06:59 06:59 Intake Total 1680 1000 Output Total 425 575 250 Balance 1255 425 -250 Result Diagrams: 03/17/20 04:13 03/18/20 04:33 Additional Labs: Accuchecks 03/19/20 03/19/20 03/18/20 11:09 06:00 20:46 POC Glucose 226 H 199 H 160 H 03/18/20 17:09 POC Glucose 247 H EKG Reviewed by me: Yes (Tele - SR) Hospitalist ROS - Medication Medications: Active Medications Generic Name Dose Route Start Last Admin Trade Name Freq PRN Reason Stop Dose Admin Acetaminophen 1,000 mg 03/14/20 05:56 03/19/20 14:02 Acetaminophen 500 Mg Tab PO 1,000 mg Q6H PRN Administration Mild Pain (1-3) Amlodipine Besylate 5 mg 03/18/20 09:00 03/19/20 10:03 Amlodipine 5 Mg Tab PO 5 mg DAILY KAMINI Administration Aspirin 81 mg 03/18/20 09:00 03/19/20 09:59 Aspirin 81 Mg Enteric Coated Tablet PO 81 mg DAILY KAMINI Administration Atorvastatin Calcium 40 mg 03/14/20 21:00 03/18/20 20:38 Atorvastatin Calcium 40 Mg Tab PO 40 mg HS KAMINI Administration Enoxaparin Sodium 40 mg 03/14/20 09:00 03/19/20 10:03 Enoxaparin Sodium 40 Mg/0.4 Ml Syringe SC 40 mg 0900 KAMINI Administration Famotidine 20 mg 03/18/20 09:00 03/19/20 10:02 Famotidine 20 Mg Tab PO 20 mg BID KAMINI Administration Finasteride 5 mg 03/19/20 09:00 03/19/20 10:00 Finasteride 5 Mg Tab PO 5 mg DAILY KAMINI Administration Folic Acid 1 mg 03/19/20 09:00 03/19/20 10:01 Folic Acid 1 Mg Tab PO 1 mg DAILY KAMINI Administration Glyburide 5 mg 03/19/20 09:00 03/19/20 10:01 Glyburide 5 Mg Tab PO 5 mg DAILY KAMINI Administration Insulin Glargine 3 units/ 0.03 mls @ 0 mls/hr 03/17/20 21:00 03/18/20 20:40 Miscellaneous Medication SC 0.03 mls HS KAMINI Administration Insulin Human Lispro 0 units 03/14/20 05:56 03/19/20 13:09 Humalog 300 Units/3 Ml Vial SC 4 unit .MODERATE SLIDING SC PRN Administration Moderate Correctional Scale Insulin Human Lispro 0 units 03/14/20 05:56 03/17/20 21:29 Humalog 300 Units/3 Ml Vial SC 2 unit .BEDTIME SLIDING SC PRN Administration Bedtime Correctional Scale Iron/Minerals/Multivitamins 1 tab 03/14/20 09:00 03/19/20 10:02 Multivitamin W/ Minerals 1 Tab PO 1 tab DAILY KAMINI Administration Levothyroxine Sodium 150 mcg 03/18/20 06:00 03/19/20 06:23 Levothyroxine 150 Mcg Tab PO 150 mcg 0600 KAMINI Administration Metformin HCl 1,000 mg 03/18/20 17:00 03/19/20 10:00 Metformin 500 Mg Tab PO 1,000 mg BID-WM KAMINI Administration Sodium Chloride 10 ml 03/14/20 05:56 03/17/20 21:29 Flush - Normal Saline 10 Ml Syringe IVF 10 ml PRN PRN Administration Saline Flush Thiamine HCl 100 mg 03/14/20 09:00 03/19/20 10:00 Thiamine 100 Mg Tab PO 100 mg DAILY KAMINI Administration Tramadol HCl 25 mg 03/17/20 14:24 03/19/20 11:30 Tramadol Hcl 50 Mg Tab PO 25 mg Q4H PRN Administration Severe Pain (7-10) - Exam General Appearance: NAD, awake alert Eye: PERRL, anicteric sclera ENT: normocephalic atraumatic, no oropharyngeal lesions Neck: supple, symmetric, no JVD, no thyromegaly, no lymphadenopathy Heart: RRR, no gallops, no rubs, normal peripheral pulses Heart - other findings: S1, S2 Respiratory: CTAB, no wheezes, no rales, no ronchi, normal chest expansion, no tachypnea Gastrointestinal: soft, non-tender, non-distended, normal bowel sounds, no palpable masses Extremities: no cyanosis, no clubbing, no edema Skin: normal turgor, no lesions Neurological - other findings: L hemiparesis, dysarthria, dysphagia Musculoskeletal: normal tone, generalized weakness Psychiatric: A&O x 3, flat affect Hosp A/P (1) Acute CVA (cerebrovascular accident) Code(s): I63.9 - CEREBRAL INFARCTION, UNSPECIFIED Status: Acute Plan: Continue routine stroke protocol, ASA/Lipitor/PT/OT/COUNSELING SPECIALIST (2) DM2 (diabetes mellitus, type 2) Status: Chronic Qualifiers: Diabetes mellitus termite exterminator helper insulin use: without termite exterminator helper use Diabetes mellitus complication status: with circulatory complication Diabetes mellitus complication detail: with other circulatory complications Qualified Code(s): E11.59 - Type 2 diabetes mellitus with other circulatory complications Plan: Continue ISS, Glyburide/Metformin (3) Alcohol abuse Code(s): F10.10 - ALCOHOL ABUSE, UNCOMPLICATED Status: Chronic (4) Hypothyroidism Code(s): E03.9 - HYPOTHYROIDISM, UNSPECIFIED Status: Chronic Qualifiers: Hypothyroidism type: acquired Qualified Code(s): E03.9 - Hypothyroidism, unspecified (5) Tobacco use Code(s): Z72.0 - TOBACCO USE Status: Chronic - Plan PT/OT, social work manager, speech therapy, out of bed/ambulate, DVT proph w/SCDs Stable currently Continue ASA/Lipitor OOB with PT COUNSELING SPECIALIST monitoring dietary intake CM for Rehab options Resume Glyburide/Metformin Sit in chair BID Trial Lidocaine Patch 5% TD daily
[2020-03-19] MEDS ORDERED: Lidocaine 5% Patch TD SCH (15:30)
--- NOTE | 2020-03-19 15:41 | PDOC.NEUPN ---
- Subjective Encounter Date: 03/19/20 Subjective: Patient feels better today - Objective Vital Signs & Weight: Vital Signs (12 hours) Temp Pulse Resp BP Pulse Ox 03/19/20 12:00 98.1 F 81 18 142/78 H 94 L 03/19/20 11:00 98.1 F 85 17 139/60 99 03/19/20 10:03 83 03/19/20 08:00 98.8 F 83 18 138/81 96 03/19/20 04:00 97.9 F 78 15 145/82 H 93 L Weight Admit Weight 187 lb 3.2 oz Weight 189 lb 3.2 oz I&O: 03/18/20 03/19/20 03/20/20 06:59 06:59 06:59 Intake Total 1680 1000 Output Total 425 575 250 Balance 1255 425 -250 Result Diagrams: 03/17/20 04:13 03/18/20 04:33 Additional Labs: Accuchecks 03/19/20 03/19/20 03/18/20 11:09 06:00 20:46 POC Glucose 226 H 199 H 160 H 03/18/20 17:09 POC Glucose 247 H Radiology Reviewed by me: Yes EKG Reviewed by me: Yes ROS - Review of Systems Constitutional: denies: fever, chills, sweats, weakness, malaise, other Eyes: denies: pain, vision change, conjunctivae inflammation, eyelid inflammation, redness, other ENT: denies: ear pain, ear discharge, nose pain, nose discharge, nose conge stion, mouth pain, mouth swelling, throat pain, throat swelling, other Respiratory: denies: cough, dry, shortness of breath, hemoptysis, SOB with excertion, pleuritic pain, sputum, wheezing, other Cardiovascular: reports: AFIB Genitourinary: denies: dysuria, frequency, incontinence, hematuria, retention, other Musculoskeletal: denies: neck pain, shoulder pain, arm pain, back pain, hand pain, leg pain, foot pain, other Skin: denies: rash, lesions, sravan, bruising, other Neurological: reports: weakness, numbness, incoordination, change in speech. denies: confusion, seizures, other - Medication Medications: Active Medications Generic Name Dose Route Start Last Admin Trade Name Freq PRN Reason Stop Dose Admin Acetaminophen 1,000 mg 03/14/20 05:56 03/19/20 14:02 Acetaminophen 500 Mg Tab PO 1,000 mg Q6H PRN Administration Mild Pain (1-3) Amlodipine Besylate 5 mg 03/18/20 09:00 03/19/20 10:03 Amlodipine 5 Mg Tab PO 5 mg DAILY KAMINI Administration Aspirin 81 mg 03/18/20 09:00 03/19/20 09:59 Aspirin 81 Mg Enteric Coated Tablet PO 81 mg DAILY KAMINI Administration Atorvastatin Calcium 40 mg 03/14/20 21:00 03/18/20 20:38 Atorvastatin Calcium 40 Mg Tab PO 40 mg HS KAMINI Administration Enoxaparin Sodium 40 mg 03/14/20 09:00 03/19/20 10:03 Enoxaparin Sodium 40 Mg/0.4 Ml Syringe SC 40 mg 0900 KAMINI Administration Famotidine 20 mg 03/18/20 09:00 03/19/20 10:02 Famotidine 20 Mg Tab PO 20 mg BID KAMINI Administration Finasteride 5 mg 03/19/20 09:00 03/19/20 10:00 Finasteride 5 Mg Tab PO 5 mg DAILY KAMINI Administration Folic Acid 1 mg 03/19/20 09:00 03/19/20 10:01 Folic Acid 1 Mg Tab PO 1 mg DAILY KAMINI Administration Glyburide 5 mg 03/19/20 09:00 03/19/20 10:01 Glyburide 5 Mg Tab PO 5 mg DAILY KAMINI Administration Insulin Glargine 3 units/ 0.03 mls @ 0 mls/hr 03/17/20 21:00 03/18/20 20:40 Miscellaneous Medication SC 0.03 mls HS KAMINI Administration Insulin Human Lispro 0 units 03/14/20 05:56 03/19/20 13:09 Humalog 300 Units/3 Ml Vial SC 4 unit .MODERATE SLIDING SC PRN Administration Moderate Correctional Scale Insulin Human Lispro 0 units 03/14/20 05:56 03/17/20 21:29 Humalog 300 Units/3 Ml Vial SC 2 unit .BEDTIME SLIDING SC PRN Administration Bedtime Correctional Scale Iron/Minerals/Multivitamins 1 tab 03/14/20 09:00 03/19/20 10:02 Multivitamin W/ Minerals 1 Tab PO 1 tab DAILY KAMINI Administration Levothyroxine Sodium 150 mcg 03/18/20 06:00 03/19/20 06:23 Levothyroxine 150 Mcg Tab PO 150 mcg 0600 KAMINI Administration Metformin HCl 1,000 mg 03/18/20 17:00 03/19/20 10:00 Metformin 500 Mg Tab PO 1,000 mg BID-WM KAMINI Administration Sodium Chloride 10 ml 03/14/20 05:56 03/17/20 21:29 Flush - Normal Saline 10 Ml Syringe IVF 10 ml PRN PRN Administration Saline Flush Thiamine HCl 100 mg 03/14/20 09:00 03/19/20 10:00 Thiamine 100 Mg Tab PO 100 mg DAILY KAMINI Administration - Exam General Appearance: awake alert Eye: PERRL ENT: normocephalic atraumatic Neck: supple Respiratory: CTAB Cardiovascular: RRR Gastrointestinal: soft Extremities: no cyanosis Skin: normal turgor Neurological: no new deficit, hemiplegia, speech deficit Musculoskeletal: no muscle wasting PSYCH: normal affect, normal behavior, A&O x 3 Results - Labs Result Diagrams: 03/17/20 04:13 03/18/20 04:33 Lab results: WBC 6.2 thou/uL (4.8-10.8) 03/17/20 04:13 Hgb 14.3 g/dL (14.0-18.0) 03/17/20 04:13 Hct 43.0 % (42.0-52.0) 03/17/20 04:13 MCV 97.6 fL (78.0-98.0) 03/17/20 04:13 Plt Count 202 thou/uL (130-400) 03/17/20 04:13 Neutrophils % 71.4 % (42.0-75.0) 03/15/20 04:06 Sodium 132 mmol/L (136-145) L 03/18/20 04:33 Potassium 3.7 mmol/L (3.5-5.1) 03/18/20 04:33 Chloride 99 mmol/L (98-107) 03/18/20 04:33 Carbon Dioxide 24 mmol/L (23-31) 03/18/20 04:33 BUN 7 mg/dL (8.4-25.7) L 03/18/20 04:33 Creatinine 0.74 mg/dL (0.7-1.3) 03/18/20 04:33 Glucose 180 mg/dL (80-115) H 03/18/20 04:33 Calcium 8.9 mg/dL (7.8-10.44) 03/18/20 04:33 Total Bilirubin 0.7 mg/dL (0.2-1.2) 03/15/20 04:06 AST 18 U/L (5-34) 03/15/20 04:06 ALT 15 U/L (8-55) 03/15/20 04:06 Alkaline Phosphatase 140 U/L (40-110) H 03/15/20 04:06 Ammonia Less than 12 umol/L (18-72) L 03/13/20 19:44 Creatine Kinase 371 U/L (30-200) H 03/13/20 19:41 Troponin I 0.021 ng/mL (< 0.028) 03/13/20 19:44 B-Natriuretic Peptide 48.9 pg/mL (0-100) 03/13/20 19:44 Serum Total Protein 7.0 g/dL (5.8-8.1) 03/15/20 04:06 Albumin 3.7 g/dL (3.4-4.8) 03/15/20 04:06 Lipase 27 U/L (8-78) 03/13/20 19:41 Urine Ketones Negative mg/dL (Negative) 03/13/20 19:57 Urine Blood Negative (Negative) 03/13/20 19:57 Urine Nitrite Negative (Negative) 03/13/20 19:57 Ur Leukocyte Esterase Negative Va/uL (Negative) 03/13/20 19:57 - Radiology Interpretation MRI - head Status: image reviewed by me, report reviewed by me Additional Comment: consistent with acute infarction on the right PN A/P (1) Acute CVA (cerebrovascular accident) Code(s): I63.9 - CEREBRAL INFARCTION, UNSPECIFIED Status: Acute (2) Alcohol abuse Code(s): F10.10 - ALCOHOL ABUSE, UNCOMPLICATED Status: Chronic (3) DM2 (diabetes mellitus, type 2) Status: Chronic Qualifiers: Diabetes mellitus halfway insulin use: without halfway use Diabetes mellitus complication status: with circulatory complication Diabetes mellitus complication detail: with other circulatory complications Qualified Code(s): E11.59 - Type 2 diabetes mellitus with other circulatory complications (4) Dyslipidemia Code(s): E78.5 - HYPERLIPIDEMIA, UNSPECIFIED Status: Chronic (5) Hypothyroidism Code(s): E03.9 - HYPOTHYROIDISM, UNSPECIFIED Status: Chronic Qualifiers: Hypothyroidism type: acquired Qualified Code(s): E03.9 - Hypothyroidism, unspecified (6) Tobacco use Code(s): Z72.0 - TOBACCO USE Status: Chronic (7) Dyslipidemia Code(s): E78.5 - HYPERLIPIDEMIA, UNSPECIFIED Status: Acute (8) Hypothyroidism Code(s): E03.9 - HYPOTHYROIDISM, UNSPECIFIED Status: Acute - Plan Daily Plan: PT/OT, speech therapy, DVT proph w/lovenox 65-year-old male with multiple comorbidities presented with acute onset left- sided weakness. MRI of the brain consistent with acute infarction. Patient stable and no reported complaints overnight. ROXANNE to rule out cardioembolic source since patient has multiple lacunar infarcts on the right side on recent MRI was negative for embolus. CM on board regarding discharge planning. Awaiting rehab placement probably on friday. MRI of the brain reviewed and was consistent with acute multiple foci of infarcts on the right. CTA of the head reviewed and was consistent with moderate to severe stenosis of the left cervical vertebral artery at the C2 and C3 level. Neurosurgery consulted in the emergency room and no surgical intervention was needed per neurosurgery. 2D echo cardiogram showed left ventricular ejection fraction 55 to 60%. No PFO or thrombus. Neurochecks every 4 hours. Telemetry did not reveal any evidence of atrial fibrillation. Continue aspirin and high intensity statin for secondary stroke prevention. Strict control of blood pressure and blood glucose. Continue PT/OT/speech therapy. Continue medical management per primary team. Plan discussed with the patient and with the nursing staff
[2020-03-19] MEDS: Atorvastatin Calcium 40 MG TAB PO SCH (20:22)
[2020-03-19] MEDS: Insulin Glargine 3 UNITS in Pre-Filled Syringe 1 EACH SC SCH (20:35)
[2020-03-19] MEDS: Lidocaine Patch Removal 1 EACH TOP SCH (21:29)
[2020-03-20] MEDS: Acetaminophen 500 MG TAB PO PRN ×4 (02:30→21:04)
[2020-03-20] MEDS: traMADol HCl 50 MG TAB PO PRN ×3 (04:12→16:46)
[2020-03-20] MEDS: Levothyroxine 150 MCG TAB PO SCH (05:52)
[2020-03-20] MEDS: Amlodipine 5 MG TAB PO SCH (08:45)
[2020-03-20] MEDS: Famotidine 20 MG TAB PO SCH ×2 (08:45→21:04)
[2020-03-20] MEDS: Finasteride 5 MG TAB PO SCH (08:45)
[2020-03-20] MEDS: Aspirin 81 mg Enteric Coated Tablet PO SCH (08:45)
[2020-03-20] MEDS: Enoxaparin Sodium 40 MG/0.4 ML SYRINGE SC SCH (08:45)
[2020-03-20] MEDS: glyBURIDE 5 MG TAB PO SCH (08:45)
[2020-03-20] MEDS: Thiamine 100 MG TAB PO SCH (08:45)
[2020-03-20] MEDS: Multivitamin W/ Minerals 1 TAB PO SCH (08:45)
[2020-03-20] MEDS: Folic Acid 1 MG TAB PO SCH (08:45)
[2020-03-20] MEDS ORDERED: Lidocaine 5% Patch TD SCH (09:00)
[2020-03-20] MEDS: metFORMIN 500 MG TAB PO SCH ×2 (10:25→16:45)
[2020-03-20] MEDS: HumaLOG 300 UNITS/3 ML VIAL SC PRN (12:16)
--- NOTE | 2020-03-20 13:16 | PDOC.NEUPN ---
- Subjective Encounter Date: 03/20/20 Subjective: Patient denies any acute issues overnight. - Objective Vital Signs & Weight: Vital Signs (12 hours) Temp Pulse Resp BP BP BP Pulse Ox 03/20/20 12:02 98.1 F 69 14 147/105 H 93 L 03/20/20 09:53 139/87 153/94 H 03/20/20 08:00 97.5 F L 74 12 151/94 H 74 L 03/20/20 04:00 98.0 F 81 16 140/84 97 Weight Admit Weight 187 lb 3.2 oz Weight 189 lb 3.2 oz I&O: 03/19/20 03/20/20 03/21/20 06:59 06:59 06:59 Intake Total 1000 1850 702 Output Total 575 475 90 Balance 425 1375 612 Result Diagrams: 03/17/20 04:13 03/18/20 04:33 Additional Labs: Accuchecks 03/20/20 03/20/20 03/20/20 11:11 05:34 00:59 POC Glucose 166 H 115 H 105 H 03/19/20 03/19/20 03/18/20 22:30 16:30 10:43 POC Glucose 89 89 210 H Radiology Reviewed by me: Yes EKG Reviewed by me: Yes ROS - Review of Systems Constitutional: denies: fever, chills, sweats, weakness, malaise, other Eyes: denies: pain, vision change, conjunctivae inflammation, eyelid inflammation, redness, other ENT: denies: ear pain, ear discharge, nose pain, nose discharge, nose congestion, mouth pain, mouth swelling, throat pain, throat swelling, other Respiratory: denies: cough, dry, shortness of breath, hemoptysis, SOB with excertion, pleuritic pain, sputum, wheezing, other Gastrointestinal: denies: nausea, vomiting, abdominal pain, diarrhea, constipation, melena, hematochezia, other Musculoskeletal: reports: back pain Skin: denies: rash, lesions, sravan, bruising, other Neurological: reports: weakness, numbness, incoordination, change in speech. denies: confusion, seizures, other - Medication Medications: Active Medications Generic Name Dose Route Start Last Admin Trade Name Freq PRN Reason Stop Dose Admin Acetaminophen 1,000 mg 03/14/20 05:56 03/20/20 08:45 Acetaminophen 500 Mg Tab PO 1,000 mg Q6H PRN Administration Mild Pain (1-3) Amlodipine Besylate 5 mg 03/18/20 09:00 03/20/20 08:45 Amlodipine 5 Mg Tab PO 5 mg DAILY KAMINI Administration Aspirin 81 mg 03/18/20 09:00 03/20/20 08:45 Aspirin 81 Mg Enteric Coated Tablet PO 81 mg DAILY KAMINI Administration Atorvastatin Calcium 40 mg 03/14/20 21:00 03/19/20 20:22 Atorvastatin Calcium 40 Mg Tab PO 40 mg HS KAMINI Administration Enoxaparin Sodium 40 mg 03/14/20 09:00 03/20/20 08:45 Enoxaparin Sodium 40 Mg/0.4 Ml Syringe SC 40 mg 0900 KAMINI Administration Famotidine 20 mg 03/18/20 09:00 03/20/20 08:45 Famotidine 20 Mg Tab PO 20 mg BID KAMINI Administration Finasteride 5 mg 03/19/20 09:00 03/20/20 08:45 Finasteride 5 Mg Tab PO 5 mg DAILY KAMINI Administration Folic Acid 1 mg 03/19/20 09:00 03/20/20 08:45 Folic Acid 1 Mg Tab PO 1 mg DAILY KAMINI Administration Glyburide 5 mg 03/19/20 09:00 03/20/20 08:45 Glyburide 5 Mg Tab PO 5 mg DAILY KAMINI Administration Insulin Human Lispro 0 units 03/14/20 05:56 03/20/20 12:16 Humalog 300 Units/3 Ml Vial SC 2 unit .MODERATE SLIDING SC PRN Administration Moderate Correctional Scale Insulin Human Lispro 0 units 03/14/20 05:56 03/17/20 21:29 Humalog 300 Units/3 Ml Vial SC 2 unit .BEDTIME SLIDING SC PRN Administration Bedtime Correctional Scale Iron/Minerals/Multivitamins 1 tab 03/14/20 09:00 03/20/20 08:45 Multivitamin W/ Minerals 1 Tab PO 1 tab DAILY KAMINI Administration Levothyroxine Sodium 150 mcg 03/18/20 06:00 03/20/20 05:52 Levothyroxine 150 Mcg Tab PO 150 mcg 0600 KAMINI Administration Lidocaine 2 patch 03/20/20 09:00 03/20/20 08:41 Lidocaine 5% Patch TD 2 patch DAILY KAMINI Administration Metformin HCl 1,000 mg 03/18/20 17:00 03/20/20 10:25 Metformin 500 Mg Tab PO Not Given BID-WM KAMINI Miscellaneous Medication 1 each 03/19/20 21:00 03/19/20 21:29 Lidocaine Patch Removal 1 Each TOP Not Given 2100 KAMINI Sodium Chloride 10 ml 03/14/20 05:56 03/17/20 21:29 Flush - Normal Saline 10 Ml Syringe IVF 10 ml PRN PRN Administration Saline Flush Thiamine HCl 100 mg 03/14/20 09:00 03/20/20 08:45 Thiamine 100 Mg Tab PO 100 mg DAILY KAMINI Administration Tramadol HCl 50 mg 03/19/20 15:05 03/20/20 10:44 Tramadol Hcl 50 Mg Tab PO 50 mg Q6H PRN Administration Severe Pain (7-10) - Exam General Appearance: awake alert Eye: PERRL ENT: normocephalic atraumatic Neck: supple Respiratory: CTAB Cardiovascular: RRR Gastrointestinal: soft Extremities: no cyanosis Skin: normal turgor, no lesions Neurological: no new deficit, facial droop, hemiplegia, speech deficit Musculoskeletal: no muscle wasting PSYCH: normal affect, normal behavior, A&O x 3 Results - Labs Result Diagrams: 03/17/20 04:13 03/18/20 04:33 Lab results: WBC 6.2 thou/uL (4.8-10.8) 03/17/20 04:13 Hgb 14.3 g/dL (14.0-18.0) 03/17/20 04:13 Hct 43.0 % (42.0-52.0) 03/17/20 04:13 MCV 97.6 fL (78.0-98.0) 03/17/20 04:13 Plt Count 202 thou/uL (130-400) 03/17/20 04:13 Neutrophils % 71.4 % (42.0-75.0) 03/15/20 04:06 Sodium 132 mmol/L (136-145) L 03/18/20 04:33 Potassium 3.7 mmol/L (3.5-5.1) 03/18/20 04:33 Chloride 99 mmol/L (98-107) 03/18/20 04:33 Carbon Dioxide 24 mmol/L (23-31) 03/18/20 04:33 BUN 7 mg/dL (8.4-25.7) L 03/18/20 04:33 Creatinine 0.74 mg/dL (0.7-1.3) 03/18/20 04:33 Glucose 180 mg/dL (80-115) H 03/18/20 04:33 Calcium 8.9 mg/dL (7.8-10.44) 03/18/20 04:33 Total Bilirubin 0.7 mg/dL (0.2-1.2) 03/15/20 04:06 AST 18 U/L (5-34) 03/15/20 04:06 ALT 15 U/L (8-55) 03/15/20 04:06 Alkaline Phosphatase 140 U/L (40-110) H 03/15/20 04:06 Ammonia Less than 12 umol/L (18-72) L 03/13/20 19:44 Creatine Kinase 371 U/L (30-200) H 03/13/20 19:41 Troponin I 0.021 ng/mL (< 0.028) 03/13/20 19:44 B-Natriuretic Peptide 48.9 pg/mL (0-100) 03/13/20 19:44 Serum Total Protein 7.0 g/dL (5.8-8.1) 03/15/20 04:06 Albumin 3.7 g/dL (3.4-4.8) 03/15/20 04:06 Lipase 27 U/L (8-78) 03/13/20 19:41 Urine Ketones Negative mg/dL (Negative) 03/13/20 19:57 Urine Blood Negative (Negative) 03/13/20 19:57 Urine Nitrite Negative (Negative) 03/13/20 19:57 Ur Leukocyte Esterase Negative Va/uL (Negative) 03/13/20 19:57 - Radiology Interpretation MRI - head Status: image reviewed by me, report reviewed by me Additional Comment: consistent with acute infarcts on the right. PN A/P (1) Acute CVA (cerebrovascular accident) Code(s): I63.9 - CEREBRAL INFARCTION, UNSPECIFIED Status: Acute (2) Alcohol abuse Code(s): F10.10 - ALCOHOL ABUSE, UNCOMPLICATED Status: Chronic (3) DM2 (diabetes mellitus, type 2) Status: Chronic Qualifiers: Diabetes mellitus detention insulin use: without adjunct faculty for medical terminology use Diabetes mellitus complication status: with circulatory complication Diabetes mellitus complication detail: with other circulatory complications Qualified Code(s): E11.59 - Type 2 diabetes mellitus with other circulatory complications (4) Dyslipidemia Code(s): E78.5 - HYPERLIPIDEMIA, UNSPECIFIED Status: Chronic (5) Hypothyroidism Code(s): E03.9 - HYPOTHYROIDISM, UNSPECIFIED Status: Chronic Qualifiers: Hypothyroidism type: acquired Qualified Code(s): E03.9 - Hypothyroidism, unspecified (6) Tobacco use Code(s): Z72.0 - TOBACCO USE Status: Chronic (7) Dyslipidemia Code(s): E78.5 - HYPERLIPIDEMIA, UNSPECIFIED Status: Acute (8) Hypothyroidism Code(s): E03.9 - HYPOTHYROIDISM, UNSPECIFIED Status: Acute - Plan Daily Plan: PT/OT, speech therapy 65-year-old male with multiple comorbidities presented with acute onset left- sided weakness. MRI of the brain consistent with acute infarction. Patient stable and no reported complaints overnight. He does complain of occasional pain. ROXANNE to rule out cardioembolic source since patient has multiple lacunar infarcts on the right side on recent MRI was negative for embolus. CM on board regarding discharge planning. Awaiting rehab placement MRI of the brain reviewed and was consistent with acute multiple foci of infarcts on the right. CTA of the head reviewed and was consistent with moderate to severe stenosis of the left cervical vertebral artery at the C2 and C3 level. Neurosurgery consulted in the emergency room and no surgical intervention was needed per neurosurgery. 2D echo cardiogram showed left ventricular ejection fraction 55 to 60%. No PFO or thrombus. Neurochecks every 4 hours. Telemetry did not reveal any evidence of atrial fibrillation. Continue aspirin and high intensity statin for secondary stroke prevention. Strict control of blood pressure and blood glucose. Continue PT/OT/speech therapy. Continue medical management per primary team. Plan discussed with the patient and during Stroke rounds.
[2020-03-20 20:39] VITALS: BP 142/81; TEMP 97.6
[2020-03-20] MEDS: Lidocaine Patch Removal 1 EACH TOP SCH (21:00)
[2020-03-20] MEDS: Atorvastatin Calcium 40 MG TAB PO SCH (21:04)
--- NOTE | 2020-03-21 02:42 | DIS ---
DATE OF ADMISSION: 03/13/2020 DATE OF DISCHARGE: 03/20/2020 DISCHARGE DIAGNOSES: 1. Acute cerebrovascular accident of the right basal ganglia. 2. Left hemiparesis and dysarthria secondarily to #1. 3. Diabetes mellitus type 2. 4. Alcohol abuse. 5. Hypothyroidism. 6. Tobacco abuse. CONSULTATIONS: 1. Dr. Del Cid with Neurology Service. 2. Dr. Sanchez with Cardiology Service. PERTINENT LABORATORY AND X-RAY FINDINGS: Sodium ranged between 132 to 133. Hemoglobin A1c 7.2. BNP 49. Total cholesterol 126, triglycerides 88, HDL 40, LDL 68. TSH 31.2, free T4 level 0.79. Vitamin B12 of 298, folate 16. Urine drug screen dated 03/13/2020, positive for methamphetamines. Plasma alcohol level less than 10. COVID-19 PCR not detected, 03/13/2020. CT of the brain without contrast dated 03/13/2020 showed right acute infarct in the right basal ganglia distribution. CT angiogram of the head and neck dated 03/13/2020, showed no hemodynamically significant stenosis or occlusion or aneurysm. MRI of the brain dated 03/14/2020 showed multiple foci of acute infarct in the right side distribution of the basal ganglia. 2D transthoracic echocardiogram dated 03/14/2020, showed ejection fraction of 55% to 60%. Mild left atrial enlargement. No significant aortic valve stenosis or regurgitation. Thoracic and lumbar spinal radiographs dated 03/17/2020 showed degenerative changes without acute process. Transesophageal echocardiogram dated 03/17/2020 showed normal ejection fraction of 50% to 55%. No evidence of mass or thrombus of the cardiac chambers. No evidence of shunt. HOSPITAL COURSE: The patient was initially admitted to the stroke unit after presenting with left-sided paralysis and inability to speak. The patient underwent general stroke protocol with initial CT of the brain showing evidence of acute infarct in the right basal ganglia distribution. The patient received aspirin and general stroke protocol. CT angiogram of the head and neck revealed no focal stenosis and 2D transthoracic echocardiogram was essentially unremarkable. The patient received ongoing physical, occupational, and speech therapy. Initially placed on n.p.o. status, but given a modified diet for safe oral intake. The patient continued to clinically improve with general supportive management with increased strength and mobility of the left upper and lower extremity. The patient underwent evaluation to rule out embolic phenomenon after MRI of the brain did show multiple foci of acute infarct. Transthoracic and transesophageal echocardiogram were performed showing no evidence of shunt or patent foramen ovale. No vegetations were noted on the valves. Due to the patient's severe deficits, the patient was deemed an appropriate candidate for ongoing inpatient rehabilitation and we will transfer to [facility] on 03/20/2020. I have examined the patient at the time of discharge and discussed followup instructions. The patient verbalizes understanding and agreement, ready for discharge on 03/20/2020. DISCHARGE MEDICATIONS: 1. Enteric-coated aspirin 81 mg p.o. daily. 2. Glyburide 5 mg p.o. daily. 3. Metformin 1000 mg p.o. b.i.d. 4. Temazepam 15 mg p.o. at bedtime p.r.n. 5. Levothyroxine 150 mcg p.o. daily. 6. Tramadol 50 mg p.o. q.6 hours p.r.n. pain. 7. Folic acid 1 mg p.o. daily. 8. Lidocaine patch 5% two patches transdermally daily, then remove. 9. Lipitor 40 mg p.o. at bedtime. 10. Norvasc 5 mg p.o. daily. 11. Proscar 5 mg p.o. daily. 12. Multivitamin 1 tablet p.o. daily. 13. Thiamine 100 mg p.o. daily. FOLLOWUP: The patient may follow up with his primary care provider, Darion Portillo after discharge from inpatient rehabilitation. CONDITION ON DISCHARGE: Fair. ACTIVITY: Ad keerthi, rolling walker with standby/contact guard assistance. DIET: ADA. CODE STATUS: Full. DISPOSITION: Discharged to [facility] on 03/20/2020. TIME SPENT: Total time preparing and coordinating discharge is 35 minutes. Job ID: [id number]
--- NOTE | 2020-03-22 16:54 | EKG ---
Test Reason : Blood Pressure : / mmHG Vent. Rate : 083 BPM Atrial Rate : 083 BPM P-R Int : 142 ms QRS Dur : 086 ms QT Int : 386 ms P-R-T Axes : 032 -18 032 degrees QTc Int : 453 ms Normal sinus rhythm Septal infarct , age undetermined Abnormal ECG Confirmed by DUNIA AVALOS, GEMINI ([id number]), features editor NESTOR SCHROEDER ([id number]) on 03/22/2020 4:53:44 PM Referred By: Confirmed By:GEMINI DUQUE MD
== END 2020-03-20 22:32 | DRG 65 ==
LOC: ERS 19:23 → ERHOLD 21:37 → 2NO 03-14 00:20 → 2SE 03-15 13:36
PROVIDERS: ADMIT Family Medicine; ATTEND Family Medicine
DX: I63.9 Cerebral infarction, unspecified (principal); E87.1 Hypo-osmolality and hyponatremia; G81.94 Hemiplegia, unspecified affecting left nondominant side; R29.810 Facial weakness; R47.01 Aphasia; E11.9 Type 2 diabetes mellitus without complications; I10 Essential (primary) hypertension; E78.00 Pure hypercholesterolemia, unspecified; F41.9 Anxiety disorder, unspecified; F32.9 Major depressive disorder, single episode, unspecified; F17.210 Nicotine dependence, cigarettes, uncomplicated; R29.706 NIHSS score 6; R40.2362 Coma scale, best motor response, obeys commands, at arrival to emergency department; R40.2142 Coma scale, eyes open, spontaneous, at arrival to emergency department; R40.2252 Coma scale, best verbal response, oriented, at arrival to emergency department; F15.10 Other stimulant abuse, uncomplicated; R47.1 Dysarthria and anarthria; F10.10 Alcohol abuse, uncomplicated; Z20.828 Contact with and (suspected) exposure to other viral communicable diseases
CPT/HCPCS: 36415; 36416; 36600; 70450; 70496; 70498; 70551; 71045; 72072; 72100; 80048; 80053; 80061; 80306; 80307; 81003; 82140; 82550; 82607; 82746; 83036; 83690; 83880; 84295; 84439; 84443; 84484; 85025; 85027; 85610; 85730; 87635; 93005; 93306; 93312; 96360; 96365; 96375; 99283; 99284; J1650; J1815; J2060; J2704; J3411; J7042; Q9967; S0028; U0003

== ENCOUNTER 2020-04-29 09:49 | Emergency (ER) | payer MEDICARE, MEDICAID ==
[2020-04-29] MEDS ORDERED: HYDROcodone/Acetaminophen 10/325 mg Tablet ONE (10:48)
--- NOTE | 2020-04-29 10:58 | RAD ---
Exam:3 views left shoulder HISTORY: Fall. Pain. COMPARISON: None FINDINGS: Mild degenerative change acromioclavicular joint space No fracture or dislocation. Glenohumeral joint is base is preserved. Visualized left ribs and lung parenchyma do not demonstrate posttraumatic change. IMPRESSION: No fracture or dislocation.
--- NOTE | 2020-04-29 11:01 | RAD ---
Exam:4 views right knee HISTORY: Fall. Pain. COMPARISON: None FINDINGS: Mild degenerative change involving the medial and lateral compartments. There is loss of kali int space height. No joint effusion. No fracture, cortical irregularity or periosteal reaction. IMPRESSION: No fracture.
--- NOTE | 2020-04-29 11:01 | RAD ---
XR Knee Lt 4 View STANDARD: 04/29/2020 10:24 AM CLINICAL INDICATION: Mechanical fall from ground-level with left knee pain COMPARISON: None. FINDINGS: Bones: No acute fracture is demonstrated. Joints: There is mild osteoarthrosis of the left knee. No joint capsular distention is evident.. Soft Tissue: No acute abnormality.. IMPRESSION: No acute osseous abnormality..
--- NOTE | 2020-04-29 11:02 | RAD ---
Chest AP view INDICATION: Mechanical fall from from level with left shoulder and right knee pain COMPARISON: March 05, 2020 FINDINGS: Lungs: The lungs are clear Cardiac silhouette: The cardiomediastinal silhouette appears within normal limits. Pulmonary vasculature: Normal Pleural spaces: No pleural effusion or pneumothorax is demonstrated. Upper abdomen: No abnormality seen. Osseous structures: No acute osseous abnormality. Additional findings: None. IMPRESSION: No acute cardiopulmonary abnormality.
--- NOTE | 2020-04-29 11:28 | CT ---
CT Brain WO Con: 04/29/2020 11:20 AM CLINICAL HISTORY: 65-year-old male status post fall with head injury. IMAGING TECHNIQUE: Multiple CT images were obtained of the brain without IV contrast. COMPARISON: Prior noncontrast CT the brain dated February 22, 2020 MR the brain dated March 14, 2020. FINDINGS: BRAIN: Evidence of acute infarct: None. Evidence of chronic ischemic change:There are evolutionary changes involving the previously documente d acute infarcts involving the right zaman radiata as well as the right basal ganglia. There is stable moderate chronic small vessel white matter ischemic change. Evidence of intracranial hemorrhage: None. Evidence of brain volume loss:None. Evidence of midline shift: Third ventricle and septum pellucidum are midline. Ventricles: Normal. No hydrocephalus. SKULL: Intact. VISUALIZED PARANASAL SINUSES: Clear. MASTOID AIR CELLS: Clear. EXTRACRANIAL SOFT TISSUES: Normal. IMPRESSION: No acute intracranial abnormality.
[2020-04-29 11:46] LABS: #Eosinphils 0.1 thou/uL (0.0-0.7); #Monocytes 1.1 thou/uL (0.11-0.59); %Basophils 0.3 % (0.0-1.0); %Eosinophils 0.6 % (0.0-10.0); %Lymphocytes 9.7 % (21.0-51.0); %Monocytes 10.3 % (0.0-10.0); %Neutrophils 78.9 % (42.0-75.0); Hemoglobin 13.7 g/dL (14.0-18.0); Mean Corpuscular HGB CONC 33.7 g/dL (32.0-36.0); Mean Corpuscular Hemoglobin 31.5 pg (27.0-31.0); Mean Corpuscular Volume 93.3 fL (78.0-98.0); Mean Platelet Volume 7.5 fL (7.4-10.4); Platelet Count 223 thou/uL (130-400); RBC Distribution Width 12.1 % (11.5-14.5); Red Blood Cell (RBC) Count 4.34 mill/uL (4.70-6.10); White Blood Cell (WBC) Count 10.2 thou/uL (4.8-10.8)
[2020-04-29 11:59] LABS: ALT (SGPT) 14 U/L (8-55); AST (SGOT) 20 U/L (5-34); Albumin 3.7 g/dL (3.4-4.8); Alkaline Phosphatase 150 U/L (40-110); Anion Gap 15 mmol/L (10-20); BUN (Urea Nitrogen) 20 mg/dL (8.4-25.7); Bilirubin, Total 0.4 mg/dL (0.2-1.2); Calc. Creatinine Clearance 0 mL/min (70-130); Calcium 8.8 mg/dL (7.8-10.44); Carbon Dioxide 23 mmol/L (23-31); Chloride 102 mmol/L (98-107); Globulin 3.4 g/dL (2.4-3.5); Glucose 130 mg/dL (80-115); Potassium 3.9 mmol/L (3.5-5.1); Protein, Total 7.1 g/dL (5.8-8.1); Sodium 136 mmol/L (136-145)
--- NOTE | 2020-04-29 12:24 | CT ---
Exam: Lumbar spine CT without contrast COMPARISON: 02/29/2020 HISTORY: Patient had a mechanical fall on . Persistent pain. FINDINGS: There are 4 lumbar type vertebra. There is partial sacralization of L5 with pseudoarthrosis of the le ft and right L5 ala and the adjacent sacrum. Lumbar spine vertebral body heights are maintained. No fracture. 2.8 mm of retrolisthesis of L1 upon L2. There are chronic changes in the lung bases. Questionable nodule in the right lower lobe measuring 0. 4 cm. No paraspinal mass, lymphadenopathy or hematoma. Visualized solid organs have appropriate attenuation . Visualized sacral ala appear to be intact. Visualized bony pelvis is also intact. Minimal joint disc phenomenon in the left and right SI joint Limited evaluation the contents of the central spinal canal and neural foramina due to technique T9-T10 through T12-L1: No evidence of high-grade central canal stenosis. Patent neural foramina. L1-L2: Broad-based disc bulge, ligamentum flavum thickening and facet hypertrophy. Mild central canal stenosis. Narrowing of the right subarticular zone secondary to disc material. Presumed partial obscuration the traversing right L2 nerve root. Moderate bilateral neural foraminal narrowing. L2-L3: Broad-based disc bulge results in mild central canal stenosis. Mild bilateral neural foraminal narrowing L3-L4: Vacuum disc phenomenon. Broad-based disc bulge, ligament flavum thickening and facet hypertrop hy result in moderate to severe central canal stenosis. Moderate to severe bilateral neural foraminal narrowing. L3-4-L5: Broad-based disc bulge. Encroachment upon bilateral subarticular zones. Mass effect without obscuration of either traversing L5 nerve root. There is bilateral facet hypertrophy with vacuum joint phenomenon. Moderate bilateral neural foraminal narrowing. L5-S1: No significant central canal stenosis or significant neural foraminal narrowing IMPRESSION: 1. No evidence of a lumbar spine fracture. 2. Varying degrees of central canal stenosis and neural foraminal narrowing as detailed above. 3. Questionable 4 mm nodule in the right lower lobe. Code lung nodule
== END 2020-04-29 13:43 | disposition home or self-care (01) ==
LOC: ERS 09:49
DX: M25.512 Pain in left shoulder (principal); M54.5 Low back pain; M25.562 Pain in left knee; M25.561 Pain in right knee; E11.9 Type 2 diabetes mellitus without complications; E78.5 Hyperlipidemia, unspecified; E78.00 Pure hypercholesterolemia, unspecified; I10 Essential (primary) hypertension; F41.9 Anxiety disorder, unspecified; F32.9 Major depressive disorder, single episode, unspecified; F17.210 Nicotine dependence, cigarettes, uncomplicated; Z79.84 Long term (current) use of oral hypoglycemic drugs; W18.30XA Fall on same level, unspecified, initial encounter
CPT/HCPCS: 36415; 70450; 71045; 72131; 80053; 85025

== ENCOUNTER 2020-05-04 20:16 | Observation (INO) | payer MEDICARE, MEDICAID ==
[2020-05-04 20:49] LABS: #Basophils 0.1 thou/uL (0.0-0.2); #Eosinphils 0.1 thou/uL (0.0-0.7); #Lymphocytes 1.5 thou/uL (1.20-3.40); #Monocytes 0.7 thou/uL (0.11-0.59); #Neutrophils 5.9 thou/uL (1.40-6.50); %Basophils 0.9 % (0.0-1.0); %Eosinophils 1.8 % (0.0-10.0); %Monocytes 8.7 % (0.0-10.0); %Neutrophils 70.7 % (42.0-75.0); Hemoglobin 13.2 g/dL (14.0-18.0); Mean Corpuscular HGB CONC 34.1 g/dL (32.0-36.0); Mean Corpuscular Hemoglobin 32.1 pg (27.0-31.0); Mean Corpuscular Volume 94.2 fL (78.0-98.0); Mean Platelet Volume 7.2 fL (7.4-10.4); Platelet Count 246 thou/uL (130-400); RBC Distribution Width 12.3 % (11.5-14.5); Red Blood Cell (RBC) Count 4.12 mill/uL (4.70-6.10); White Blood Cell (WBC) Count 8.4 thou/uL (4.8-10.8)
[2020-05-04 21:07] LABS: ALT (SGPT) 13 U/L (8-55); AST (SGOT) 18 U/L (5-34); Acetaminophen Less than 6.0 mcg/mL (10.0-30.0); Albumin 3.6 g/dL (3.4-4.8); Alcohol 189 mg/dL (Less than 10); Alkaline Phosphatase 115 U/L (40-110); Anion Gap 17 mmol/L (10-20); BUN (Urea Nitrogen) 15 mg/dL (8.4-25.7); Bilirubin, Total 0.2 mg/dL (0.2-1.2); Calc. Creatinine Clearance 0 mL/min (70-130); Calcium 8.6 mg/dL (7.8-10.44); Carbon Dioxide 22 mmol/L (23-31); Chloride 102 mmol/L (98-107); Estimated GFR-MDRD 72; Globulin 2.9 g/dL (2.4-3.5); Glucose 76 mg/dL (80-115); Potassium 3.5 mmol/L (3.5-5.1); Protein, Total 6.5 g/dL (5.8-8.1); Salicylate Less than 8.0 mg/dL (15.0-30.0); Sodium 137 mmol/L (136-145)
--- NOTE | 2020-05-04 21:09 | RAD ---
AP CHEST: 05/04/20 HISTORY: Hypertension, hypoglycemia. COMPARISON: 04/29/20. No definite infiltrate identified. Heart and mediastinum unremarkable. IMPRESSION: No acute finding or interval change identified. POS: AGW
[2020-05-04] MEDS ORDERED: Octreotide Acetate 50 MCG/ML AMP ONE (22:22)
[2020-05-04 22:41] LABS: Bilirubin Negative (Negative); Blood, Urine Negative (Negative); Clarity Clear (Clear); Glucose, Urine (Dipstick) Normal (Negative); Ketone, Urine Negative (Negative); Leukocyte Negative Leu/uL (Negative); Nitrite Negative (Negative); Protein, Urine (Dipstick) 10 mg/dL (Neg-Trace); Specific Gravity, Urine 1.013 (1.002-1.036); Urobilinogen Normal mg/dL (Less than 2); pH, Urine 5.5 (5.0-9.0)
[2020-05-05 00:04] LABS: Lactic Acid 1.7 mmol/L (0.5-2.2)
--- NOTE | 2020-05-05 00:42 | PDOC.BPN ---
- Brief Progress Note [id number] HP dictated
--- NOTE | 2020-05-05 03:19 | HP ---
CHIEF COMPLAINT: Hypoglycemia and hypotension. HISTORY OF PRESENT ILLNESS: Mr. Soler is a 65-year-old male with past medical history of diabetes mellitus, type 2, on oral hypoglycemics, was brought to the emergency room for low blood pressure and hypoglycemia. The patient states that he has been drinking today and fell a few days ago and he has been having pain since then. He has been seen in the emergency room after the fall and was stated that no abnormality was noted. The patient did have a blood glucose in the 50s and had to be given D10 by EMS. The patient had a low blood pressure with systolic in the 80s. He did respond to fluids. The patient is on metformin and glyburide. In the emergency room, the patient's blood glucose fell again. He was given IV dextrose and is being admitted to the hospital for further management. Lab work also was found to have mildly elevated lactic acid of 2.6. The patient is being admitted to the hospital for further management. PAST MEDICAL HISTORY: 1. Diabetes mellitus, type 2. 2. Hyperlipidemia. 3. Hypertension. 4. Raynaud's. PAST SURGICAL HISTORY: 1. Amputation of toe. 2. Hernia repair. PAST PSYCHIATRIC HISTORY: Anxiety and depression. SOCIAL HISTORY: The patient drinks every day, about 10 drinks per day. Denies drug use. He smokes cigarettes. Lives at home, alone. FAMILY HISTORY: Reviewed and noncontributory. HOME MEDICATIONS: See home medication reconciliation form for updated medications. ALLERGIES: NO KNOWN ALLERGIES. REVIEW OF SYSTEMS: Review of 14 systems is negative except what is mentioned in history of present illness. PHYSICAL EXAMINATION: GENERAL: The patient is awake, alert, not in acute distress. VITAL SIGNS: Blood pressure is 114/62, pulse is 83, respiratory rate of 18, temperature 98.6, and oxygen saturation is 99% on room air. HEAD AND NECK: Normocephalic and atraumatic. NECK: Supple. No JVD. CHEST: Fair bilateral air entry. HEART: S1, S2. Regular. ABDOMEN: Soft, nontender. Bowel sounds present. NEUROLOGIC: Awake, alert, oriented. No focal deficit. PSYCH: Unable to assess. EXTREMITIES: No clubbing, no cyanosis. LABORATORY DATA: As mentioned above in the history of present illness. ASSESSMENT AND PLAN: 1. Hypoglycemia. 2. Diabetes mellitus, type 2, on glyburide and metformin. 3. Hypotension, responded to IV fluids. 4. Alcohol abuse. 5. History of hypertension. 6. Hyperlipidemia. 7. Recent fall. PLAN: 1. Admit. 2. Frequent neuro checks. 3. Frequent glucose monitoring. 4. Continue with IV D5. 5. Hold oral hypoglycemics. 6. Reconcile home medications. 7. DVT prophylaxis as appropriate. 8. Expected length of stay, at least 1 midnight if the patient is stable. Job ID: [id number]
[2020-05-05 05:03] LABS: #Basophils 0.1 thou/uL (0.0-0.2); #Eosinphils 0.1 thou/uL (0.0-0.7); #Lymphocytes 1.2 thou/uL (1.20-3.40); #Monocytes 0.6 thou/uL (0.11-0.59); #Neutrophils 4.5 thou/uL (1.40-6.50); %Basophils 0.8 % (0.0-1.0); %Eosinophils 1.7 % (0.0-10.0); %Lymphocytes 18.7 % (21.0-51.0); %Monocytes 9.6 % (0.0-10.0); %Neutrophils 69.3 % (42.0-75.0); Hemoglobin 13.7 g/dL (14.0-18.0); Mean Corpuscular HGB CONC 32.9 g/dL (32.0-36.0); Mean Corpuscular Hemoglobin 31.2 pg (27.0-31.0); Mean Corpuscular Volume 95.1 fL (78.0-98.0); Mean Platelet Volume 7.5 fL (7.4-10.4); Platelet Count 218 thou/uL (130-400); RBC Distribution Width 12.3 % (11.5-14.5); Red Blood Cell (RBC) Count 4.39 mill/uL (4.70-6.10); White Blood Cell (WBC) Count 6.5 thou/uL (4.8-10.8)
[2020-05-05 05:21] LABS: Anion Gap 14 mmol/L (10-20); BUN (Urea Nitrogen) 12 mg/dL (8.4-25.7); Calc. Creatinine Clearance 0 mL/min (70-130); Calcium 8.1 mg/dL (7.8-10.44); Carbon Dioxide 20 mmol/L (23-31); Chloride 103 mmol/L (98-107); Estimated GFR-MDRD Greater than 90; Glucose 262 mg/dL (80-115); Potassium 4.3 mmol/L (3.5-5.1); Sodium 133 mmol/L (136-145)
[2020-05-05] MEDS: Dextrose 5 % And 0.9 % NaCl 1,000 ML IV SCH ×3 (06:08→16:20)
[2020-05-05] MEDS: Acetaminophen 325 MG TAB PO PRN ×2 (06:18→11:08)
[2020-05-05 06:27] VITALS: BMI 28.3
[2020-05-05 09:38] LABS: SARS-CoV-2 MS2 Positive; SARS-CoV-2 N Gene Negative; SARS-CoV-2 S Gene Negative; SARS-CoV-2 by NAA Not Detected (NotDetected); SARS-CoV-2 orf1ab Negative
[2020-05-05 19:50] VITALS: BP 124/70; TEMP 98.5
--- NOTE | 2020-05-06 17:13 | EKG ---
Test Reason : Blood Pressure : / mmHG Vent. Rate : 083 BPM Atrial Rate : 083 BPM P-R Int : 162 ms QRS Dur : 102 ms QT Int : 404 ms P-R-T Axes : 054 -12 066 degrees QTc Int : 474 ms Normal sinus rhythm Normal ECG Confirmed by MARYJANE MENDEZ DO ([id number]), avid editor HIRA GOLDSMITH ([id number]) on 05/06/2020 5:13:28 PM Referred By: Confirmed By:MARYJANE MENDEZ DO
== END 2020-05-05 19:45 | disposition home or self-care (01) ==
LOC: ERS 20:16 → ERHOLD 22:45 → T4-A 05-05 05:59
PROVIDERS: ADMIT Internal Medicine; ATTEND Internal Medicine
DX: E11.649 Type 2 diabetes mellitus with hypoglycemia without coma (principal); I95.9 Hypotension, unspecified; E78.5 Hyperlipidemia, unspecified; I10 Essential (primary) hypertension; I73.00 Raynaud's syndrome without gangrene; F17.210 Nicotine dependence, cigarettes, uncomplicated; F41.9 Anxiety disorder, unspecified; F32.9 Major depressive disorder, single episode, unspecified; F10.10 Alcohol abuse, uncomplicated; Z79.84 Long term (current) use of oral hypoglycemic drugs; Z91.81 History of falling; Z20.828 Contact with and (suspected) exposure to other viral communicable diseases
CPT/HCPCS: 71045; 80048; 80053; 80307; 81003; 82962 ×2; 83605; 84484; 85025 ×2; 87040; 93005; 96374; 99285; G0378 ×3; J2354; U0003; 36415; 36416; 87635

== ENCOUNTER 2020-06-22 23:16 | Emergency (ER) | payer MEDICARE, MEDICAID ==
[2020-06-23] MEDS ORDERED: Ketorolac Tromethamine 30 MG/ML VIAL ONE (00:16)
--- NOTE | 2020-06-23 07:23 | CT ---
PRELIMINARY REPORT/[facility]/EMERGENCY AFTER HOURS PROCEDURE EXAM: CT Head Without Intravenous Contrast. CLINICAL HISTORY: 65-year-old chronic alcoholic comes in complaining of back pain and possible fall. He does not know t he mechanism of injury. He is a terrible historian. He said he thought maybe he was having a stroke. Said he had a tough year with many issues. TECHNIQUE: Axial computed tomography images of the head/brain without intravenous contrast. COMPARISON: CT\SR - CT BRAIN WO CON - 04/29/2020 11:16 AM DOCUMENT PHOTOGRAPHER FINDINGS: BRAIN: No acute intraparenchymal hemorrhage. No mass lesion. No CT evidence for acute territorial infarct. Similar appearing small bilateral chronic infarcts are again noted in the right zaman radiata, and left basal ganglia. Stable from prior. No midline shift or extra-axial collection. Diffuse parench ymal volume loss with commensurate enlargement of CSF spaces. There is periventricular white matter hypoattenuation suggesting chronic mitral vascular ischemic change. VENTRICLES: No hydrocephalus. ORBITS: The orbits are unremarkable. SINUSES AND MASTOIDS: The paranasal sinuses and mastoid air cells are clear. SOFT TISSUES: No significant facial or scalp soft tissue swelling evident. No radiopaque foreign body is seen. BONES: No acute skull fracture. IMPRESSION: No acute intracranial abnormality. Chronic changes as above. ELECTRONICALLY SIGNED BY: Phoenix Garza DO Jun 23, 2020 12:21:44 AM DOCUMENT PHOTOGRAPHER This report is intended for review by the ordering physician only, in accordance of law. If you recei ve this report in error, please call [facility] at [phone]. FINAL REPORT Final interpretation Head CT without contrast: 06/23/2020 COMPARISON: 04/29/2020 HISTORY: Fall, trauma. FINDINGS: I agree with the preliminary report. The visualized paranasal sinuses and mastoid air cells are well-aerated. There is no displaced calvarial fracture, intracranial hemorrhage, midline shift, or mass effect. White matter hypodensity noted suggesting small vessel disease, not significan tly changed. There is vascular calcification involving the cavernous carotid arteries and the distal left vertebral artery. IMPRESSION: No acute findings. Chronic findings as detailed above. Code QA Transcribed Date/Time: 06/23/2020 8:35 AM
--- NOTE | 2020-06-23 08:07 | CT ---
PRELIMINARY REPORT/[facility]/EMERGENCY AFTER HOURS PROCEDURE: EXAM: CT Lumbar Spine Without Intravenous Contrast. CLINICAL HISTORY: 65-year-old chronic alcoholic comes in complaining of back pain and possible fall. He does not know the mechanism of injury TECHNIQUE: Axial computed tomography images of the lumbar spine without intravenous contrast. Sagitta l and coronal reformations performed. COMPARISON: CT\CO\SR - CT LUMBAR SPINE WO CON - 04/29/2020 11:18 AM REAL ESTATE UNDERWRITER FINDINGS: BONES: No fracture. Alignment is grossly maintained in noting a subtle stable retrolisthesis of L1-L2 . DISCS/DEGENERATIVE CHANGES: Multilevel degenerative changes are present throughout the lumbar spine a s evidenced by disc height loss, degenerative disc changes and facet arthrosis. Overall severity of d egenerative changes appear similar to the prior. Again noted is a variable degree of spinal canal or neural foraminal stenosis. No severe neural foraminal narrowing is seen at the lower lumbar levels ra nging from moderate to severe. There is also spinal canal narrowing which is mild to moderate in se verity. SOFT TISSUES: The paraspinal soft tissues are unremarkable. IMPRESSION: No acute lumbar spine abnormality. Severe multilevel degenerative changes, no significant progression from the prior examination. ELECTRONICALLY SIGNED BY: Phoenix Garza DO Jun 23, 2020 12:30:13 AM REAL ESTATE UNDERWRITER FINAL REPORT CT LUMBAR SPINE WITHOUT CONTRAST: I agree with the preliminary report given by Dr. Phoenix Garza of [facility]. POS: [facility]
== END 2020-06-23 01:20 | disposition home or self-care (01) ==
LOC: ERS 23:16
DX: M54.5 Low back pain (principal); E11.9 Type 2 diabetes mellitus without complications; E78.00 Pure hypercholesterolemia, unspecified; I10 Essential (primary) hypertension; E78.5 Hyperlipidemia, unspecified; F17.210 Nicotine dependence, cigarettes, uncomplicated; F17.220 Nicotine dependence, chewing tobacco, uncomplicated; F17.290 Nicotine dependence, other tobacco product, uncomplicated; Z79.84 Long term (current) use of oral hypoglycemic drugs; Z79.899 Other long term (current) drug therapy; W19.XXXA Unspecified fall, initial encounter
CPT/HCPCS: 70450; 72131; 96372; J1885

== ENCOUNTER 2020-07-27 11:52 | Inpatient (IN) | payer MEDICARE, MEDICAID ==
[2020-07-27] MEDS ORDERED: Cefepime 2 GM VIAL ONE (12:45)
[2020-07-27] MEDS ORDERED: Morphine 4 MG/ML VIAL ONE (12:45)
[2020-07-27] MEDS ORDERED: Ondansetron PF 4 MG/2 ML Vial ONE ×2 (12:46→13:05)
[2020-07-27] MEDS ORDERED: Clindamycin/D5W 900 mg/50 ml Premix Bag ONE (12:46)
[2020-07-27] MEDS ORDERED: Glycopyrrolate 0.2 MG/ML 5 ML SYRINGE ONE (13:05)
[2020-07-27] MEDS ORDERED: Lidocaine 1% PF 5 ML VIAL ONE (13:05)
[2020-07-27] MEDS ORDERED: Rocuronium Bromide 10 MG/ML (10ML VIAL) ONE (13:05)
[2020-07-27] MEDS ORDERED: PROPOFOL 200 MG/20 ML VIAL ONE (13:05)
[2020-07-27] MEDS ORDERED: ePHEDrine 50 MG/ML VIAL ONE (13:05)
[2020-07-27] MEDS ORDERED: PHENYLEPHRINE-NS 100 MCG/ML 10 ML SYRINGE ONE (13:05)
[2020-07-27] MEDS ORDERED: VANCOMYCIN 2 GRAM/400 ML BAG 2 GM in Premix Bag 1 BAG IVPB SCH (13:15)
[2020-07-27 13:18] LABS: Hemoglobin 15.1 g/dL (14.0-18.0); Mean Corpuscular HGB CONC 33.7 g/dL (32.0-36.0); Mean Corpuscular Hemoglobin 31.8 pg (27.0-31.0); Mean Corpuscular Volume 94.2 fL (78.0-98.0); Mean Platelet Volume 9.1 fL (7.4-10.4); Platelet Count 252 thou/uL (130-400); RBC Distribution Width 13.8 % (11.5-14.5); Red Blood Cell (RBC) Count 4.75 mill/uL (4.70-6.10); White Blood Cell (WBC) Count 20.5 thou/uL (4.8-10.8)
[2020-07-27 13:25] LABS: INR-International Normal Ratio 1.1; PTT 31.7 sec (22.9-36.1); Prothrombin Time 14.1 sec (12.0-14.7)
--- NOTE | 2020-07-27 13:25 | RAD ---
EXAM: Single view of the chest HISTORY: Chills and fever COMPARISON: 05/04/2020 FINDINGS: Single view of the chest shows a normal sized cardiomediastinal silhouette. There is no celestine dence of consolidation, mass, or pleural effusion. No acute osseous abnormality. IMPRESSION: No evidence of acute cardiopulmonary disease
[2020-07-27 13:39] LABS: Band 48 % (5-11); Eosinophils 1 % (0-10); Lymphocytes 1 % (21-51); MDiff Complete? YES; Metamyelocyte 1 % (0-0); Monocytes 3 % (0-10); Myelocyte 1 % (0-0); Neutrophil 45 % (42-75); Platelet Morphology Comment Appears Adequate; Polychromasia SLIGHT = 2-3 cells (100X) (0-2/hpf); Reflex for Review?? YES; Schistocytes SLIGHT = 2-5 cells (100X) (0-1/hpf); Target Cells SLIGHT = 2-5 cells (100X) (0-1/hpf); Tear Drops SLIGHT = 2-5 cells (100X) (0-1/hpf); Toxic Granulation SLIGHT
[2020-07-27 13:43] LABS: Bacteria/HPF None Seen HPF (None Seen); Bilirubin Negative (Negative); Blood, Urine Negative (Negative); Clarity Clear (Clear); Glucose, Urine (Dipstick) Greater than 1000 mg/dL (Negative); Ketone, Urine 100 mg/dL (Negative); Leukocyte Negative Leu/uL (Negative); Nitrite Negative (Negative); Protein, Urine (Dipstick) 30 mg/dL (Neg-Trace); RBC/HPF 0-3 HPF (0-3); Specific Gravity, Urine 1.038 (1.002-1.036); Squamous Epithelial None Seen HPF (0-3); WBC/HPF 0-3 HPF (0-3)
[2020-07-27 14:35] LABS: ALT (SGPT) 26 U/L (8-55); AST (SGOT) 57 U/L (5-34); Albumin 2.5 g/dL (3.4-4.8); Alkaline Phosphatase 181 U/L (40-110); Anion Gap 18 mmol/L (10-20); BUN (Urea Nitrogen) 14 mg/dL (8.4-25.7); Bilirubin, Total 0.5 mg/dL (0.2-1.2); CK (CPK) 42 U/L (30-200); Calc. Creatinine Clearance 0 mL/min (70-130); Carbon Dioxide 20 mmol/L (23-31); Chloride 96 mmol/L (98-107); Globulin 3.9 g/dL (2.4-3.5); Glucose 326 mg/dL (80-115); Potassium 3.8 mmol/L (3.5-5.1); Protein, Total 6.4 g/dL (5.8-8.1); Sodium 130 mmol/L (136-145)
[2020-07-27 14:45] LABS: SARS-CoV-2 NAA Rapid Test Not Detected (NotDetected)
--- NOTE | 2020-07-27 15:53 | CT ---
CT Upper Ext Lt W Con History: Joint pain. Diabetes. Axillary drainage. Comparison: Chest radiograph same day Findings: The left lung parenchyma is relatively clear with some low-grade atelectasis. Healing left posterior lateral 10th rib fracture. There is extensive myonecrosis with peripheral enhancing debris and phlegmonous tissue/developing abs cess throughout the left pectoralis minor muscle which drains into the left axilla. There is phlegmonous necrotic material along the left subscapularis, triceps muscles extending down to the elb ow with some involvement of the short head biceps above the elbow. The left subclavian, axillary, brachial artery is patent. Extensive subcutaneous fat infiltration. Impression: 1. Healing left posterior lateral 10th rib fracture. 2. 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 The collection within the pectoralis mi nor appears to have a sinus tract to the axilla. Ordering provider notified of findings via telephone at 3:45 PM
[2020-07-27 16:35] LABS: Lactic Acid 1.4 mmol/L (0.5-2.2)
[2020-07-27] MEDS ORDERED: XYLOCAINE 2%-EPI 1:100,000 20 ML VIAL ONE (17:12)
[2020-07-27] MEDS ORDERED: Bupivacaine 0.25% HCL 30 ML VIAL ONE (17:12)
[2020-07-27] MEDS ORDERED: Fentanyl 100 MCG/2 ML VIAL ONE (17:48)
[2020-07-27] MEDS ORDERED: Phenylephrine 10 MG/ML VIAL ONE (17:49)
[2020-07-27] MEDS ORDERED: Iopamidol-370 76% 500 ML 1 ML ONE (17:56)
--- NOTE | 2020-07-27 18:37 | CON ---
DATE OF CONSULTATION: CHIEF COMPLAINT: Left arm pain. HISTORY OF PRESENT ILLNESS: Mr. Soler is a diabetic male, known to me from previous admissions. He has hypertension, hyperlipidemia, diabetes, Raynaud's, and had a severe stroke with left hemiparesis resulting in February 2020. I have seen him previously for a diabetic foot infection requiring a right second toe amputation and he has since then been admitted for hyponatremia, falls, weakness, and then his stroke. He states that he has had pain and swelling in his left arm for 2 to 3 weeks at home. It apparently got bad enough that he decided to come into the emergency room and was brought by ambulance. He has Home Health who comes out intermittently and the report from them is that his left arm has been pink and swollen since at least Friday. He does not take very good care of himself and he has not noticed any drainage from his arm or axilla, but on arrival in the ER, he was noted to have purulent drainage from the axilla and he underwent a CT scan of the left upper arm. This showed a large abscess extending into the pectoralis minor as well as down through the triceps and then up into the shoulder girdle including subscapularis. The CT unfortunately did not extend down below the elbow. He states that his arm is not usually swollen up until about 2 or 3 weeks ago. He denies any history of trauma to the arm. He does have several scratches and scabs on his hand and arm, which he attributes to eczema. He does not have any pets at home. He denies any fevers, chills, or sweats, and states that he has been able to ambulate using his walker. He does live basically by himself with Home Health assisting intermittently. He continues to smoke half a pack a day, but states that he has cut back on alcohol. He used to be a daily drinker, but no longer drinks often. He denies any other drug use recently. 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 PAST SURGICAL HISTORY: Inguinal hernia repair as a child, right second toe amputation in December 2019. ALLERGIES: HE REPORTS NO KNOWN ALLERGIES. MEDICATIONS: He does not have a list of medications with him. The list in the ER chart includes: 1. Metformin. 2. Atorvastatin. 3. Amlodipine. 4. Synthroid, which he states sounds correct. FAMILY HISTORY: Noncontributory. REVIEW OF SYSTEMS: Ten system review of systems is negative except per HPI. PHYSICAL EXAMINATION: VITAL SIGNS: T-max 99.9, T current 98.3; heart rate 98; respirations 20; blood pressure 168/78; 100% saturations on room air. GENERAL: Reveals a disheveled, ill-appearing elderly man, who appears older than his stated age. He is in no acute distress and is asking for water. HEENT: Unremarkable. Pupils are equal. Extraocular movements are intact. Mucous membranes are tacky. NECK: Supple without lymphadenopathy or thyroid masses. HEART: Regular in its rate and rhythm. I do not appreciate any murmurs, rubs, or gallops. LUNGS: Clear to auscultation bilaterally. ABDOMEN: Soft, nontender, and nondistended with a reducible umbilical hernia. EXTREMITIES: Warm, well perfused. His right second toe amputation site has well healed. He has normal dorsalis pedis pulses bilaterally. His left arm is extremely swollen. He has severe cellulitis along the underside of his left upper arm extending down to the elbow and up to the axilla. He has an open wound in his left axilla, which is draining pus. He is very tender to palpation of his entire left arm and has pain with passive movement of his shoulder more than his elbow. He has limited mobility and decreased strength of his left hand, but states that this is near his baseline since his stroke and really unable to actively move his left shoulder at all and limited movement of the elbow. No focal tenderness to palpation of the hand and forearm, but very tender over the posterior inner portion of the upper arm and onto the posterior shoulder and axillary area. NEUROLOGIC: Left hemiparesis and dysarthria, which he states are both at their baseline since his stroke. PSYCHIATRIC: Alert and appears oriented and appropriate although his speech is somewhat difficult to understand. LABORATORY DATA: Sodium is slightly low at 130, bicarb slightly low at 20, BUN and creatinine are 14 and 0.68, glucose 326. Lactate elevated at 2.3, but came down to 1.4 after hydration. AST is elevated at 57, alkaline phosphatase elevated at 181, albumin low at 2.5. COVID serology is negative. White count is elevated at 20 with bandemia of 48%; hemoglobin is 15, which is up slightly from his baseline of 13. Coags are unremarkable. IMAGING DATA: CT images are reviewed and I agree with the written report. He has extensive abscess formation through the muscles of the pectoralis minor, triceps, and extending up into the shoulder girdle with significant edema and inflammation of the nearby skin as well. ASSESSMENT: Extensive abscess formation of the muscles of the shoulder girdle and upper arm. This appears to be an indolent process. The patient states that it has been worsening over 2 to 3 weeks and Home Health confirms that he has had cellulitis since at least Friday. He has been posted urgently for the operating room for incision and debridement of the abscesses. It does not appear that he has a necrotizing soft tissue infection, although this is present. It is likely to be fatal given the extent of his disease. He will undergo incision, debridement, and drainage of the muscles of the shoulder girdle and upper arm. Orthopedics has been consulted as well. Dr. Hall is going to see the patient. He has been started on cefepime, clindamycin, and vancomycin, and cultures of the axillary pus are showing a polymicrobial picture with gram-positive cocci and gram-positive rods on Gram stain. I am going to ask the hospitalist service to admit him due to his multiple medical conditions and Infectious Disease will be consulted as well as the Wound Care Team. I have discussed this case with Dr. Hall, who is currently in the operating room, but is going to see the patient when he gets out. The planned procedure and its inherent risks were discussed with the patient. These risks include, but are not limited to, bleeding, infection, risks of anesthesia, damage to nearby structures including blood vessels and nerves, and need for more aggressive debridement or even amputation. He understands and accepts these risks and wishes to proceed. I do not believe that the myonecrosis or abscess formation extends down below the elbow and I am hesitant to admit him to an another dye load in his septic state, but if there is any clinical evidence of worsening of this area, we will repeat imaging of the lower arm with contrast. Job ID: [id number]
[2020-07-27] MEDS ORDERED: HYDROmorphone 2 MG/ML VIAL ONE (18:59)
--- NOTE | 2020-07-27 19:49 | OP ---
DATE OF PROCEDURE: 07/27/2020 PROCEDURE PERFORMED: Irrigation and debridement of extensive left axillary abscess as well as left upper arm and shoulder abscess. PREOPERATIVE DIAGNOSIS: Deep abscess to the left axilla with extension into the pectoralis minor subscapularis region as well as along the triceps muscle. POSTOPERATIVE DIAGNOSIS: Deep abscess to the left axilla with extension into the pectoralis minor subscapularis region as well as along the triceps muscle. COMPLICATIONS: None. ESTIMATED BLOOD LOSS: 150 mL. MANAGEMENT ENGINEER: Sharla Brown. IMPLANTS: None. INDICATIONS: Mr. Soler presented today to the emergency department with extensive infection of his left axilla and shoulder. He has a high elevated white count as well as fevers. He is a diabetic with poorly controlled diabetes. He has had previous strokes. He has a high risk for further complications, so he was urgently recommended to be taken to the operating room for irrigation and debridement of his infection. He has large abscess formation identified on CT scan of the left shoulder, axilla, triceps compartment and pectoralis minor. The goal of surgery is to improve his chances of eradicating his infection and decrease his chances of sepsis. He is at risk of further complications and will likely need further surgery. DESCRIPTION OF PROCEDURE: Mr. Soler was identified in the preoperative holding area. His correct extremity was marked. He was carried to the operating room. He was positioned supine. General anesthesia was induced. A multidisciplinary time-out was performed. The left upper extremity was prepped and draped in sterile fashion after the patient was placed in the lateral position. We began the procedure with an axillary incision. We extended the patient's purulent draining wound, which was in the axilla anteriorly and posteriorly. We exposed this underlying tissue. There was a large amount of purulent material, approximately 200 mL was evacuated. This was under pressure. We explored the deep cavities which extended medially over the chest wall under the pectoralis musculature as well as superiorly near the subscapularis musculature. These planes were developed bluntly. We thoroughly irrigated with copious lavage and debrided the spaces. We then worked posteriorly along the upper arm into the triceps compartment. There was purulent material in this direction as well. The purulence traveled down the triceps fascia and deep to the triceps. We made a long incision of the posterior arm dissecting down and we split the triceps, exposing this purulent abscess. This was thoroughly debrided and approximately 10 L of lavage was used throughout the wound. We obtained hemostasis. Prior to lavage, we did take cultures. We again explored but there was no further purulent material identified. We performed a final debridement and irrigation. At this point, we packed all the wounds with Betadine-soaked Kerlix gauze. A sterile dressing was then applied. The patient was taken to the recovery room. Job ID: [id number]
[2020-07-27] MEDS ORDERED: Promethazine HCl 25 MG/ML VIAL IM PRN (19:59)
[2020-07-27] MEDS ORDERED: PACU-Morphine 4MG/ML VIAL SLOW IVP PRN (19:59)
[2020-07-27] MEDS ORDERED: Promethazine HCl 25 MG/ML VIAL SLOW IVP PRN (19:59)
[2020-07-27] MEDS ORDERED: HYDROmorphone 2 MG/ML VIAL SLOW IVP PRN (19:59)
[2020-07-27] MEDS ORDERED: Ondansetron HCl/PF 4 MG/2 ML Vial IVP PRN (19:59)
[2020-07-27] MEDS ORDERED: hydrALAZINE 20 MG/ML VIAL SLOW IVP PRN (20:34)
[2020-07-27] MEDS ORDERED: Acetaminophen 325 MG TAB PO PRN (20:34)
[2020-07-27] MEDS ORDERED: cloNIDine 0.1 MG TAB PO PRN (20:34)
[2020-07-27] MEDS ORDERED: Promethazine HCl 12.5 MG in Sodium Chloride 0.9% 50 ML IVPB PRN (20:34)
[2020-07-27] MEDS ORDERED: Labetalol HCl 100 MG/20 ML VIAL SLOW IVP PRN (20:34)
[2020-07-27] MEDS ORDERED: Guaifenesin DM 100-10/5 ML UDCUP PO PRN (20:34)
[2020-07-27] MEDS ORDERED: Ondansetron PF 4 MG/2 ML Vial IVP PRN (20:34)
[2020-07-27] MEDS ORDERED: Dextrose 50% Abboject 50 ML SYRINGE SLOW IVP PRN (20:42)
[2020-07-27] MEDS ORDERED: Dextrose 5% in Water 1,000 ML IV PRN (20:42)
--- NOTE | 2020-07-27 20:43 | PDOC.HHP ---
Hospitalist HPI Left upper extremity pain History of Present Illness: Patient is a 65 year old male with PMH T2DM, HTN, tobacco abuse who presented to ED for left upper extremity pain. He developed some LUE pain about 2 weeks ago, worsened and at some point developed drainage, patient reported fever and chills, presented to ED, there vitals hypertensive, tachycardia, low grade fever. labs significant for leukocytosis. CT scans performed, preliminary read by ED physician concerning for left shoulder girdle myonecrosis with superi nfection within the left pectoralis minor, subscapularis, triceps, serratus, latissimus muscles along with the short head biceps extending to the elbow and possibly into the forearm, concerning for abscess. Patietn given vancomycin and clindamycin, surgery Dr Brown consulted, patient seen in PACU by me after I&D to be admitted for care of abscess and medical issues above. Patient has history of HTN and poorly controlled DM, has had partial amputation of the second toe on the right foot. He smokes 1/2 ppd and drinks 2-3 beers/day. Allergies/Adverse Reactions: Allergy/AdvReac Type Severity Reaction Status Date / Time No Known Allergies Allergy Verified 05/05/20 06:36 Home Medications: Medication Instructions Recorded Confirmed Type metFORMIN HCl [Metformin HCl] 1,000 mg PO BID-WM 01/10/18 05/05/20 History traMADol HCl [Tramadol HCl] 50 mg PO Q6HR PRN 02/06/20 05/05/20 History Levothyroxine Sodium [Synthroid] 150 mcg PO DAILY 02/07/20 05/05/20 History Finasteride [Proscar] 5 mg PO DAILY tab 02/15/20 05/05/20 Rx Folic Acid [Folvite] 1 mg PO DAILY tab 02/15/20 05/05/20 Rx Multivitamin W/ Minerals 1 tab PO DAILY tab 02/15/20 05/05/20 Rx [Theragran M] Thiamine 100 mg PO DAILY tab 02/15/20 05/05/20 Rx Amlodipine [Norvasc] 5 mg PO DAILY #30 tab 03/14/20 05/05/20 Rx Atorvastatin Calcium [Lipitor] 40 mg PO HS #30 tab 03/14/20 05/05/20 Rx Aspirin [Ecotrin Low Strength] 81 mg PO DAILY 03/17/20 05/05/20 History Temazepam [Restoril] 15 mg PO HS PRN 03/17/20 05/05/20 History Pioglitazone HCl [Actos] 45 mg PO DAILY 05/05/20 05/05/20 History Past History: PMHx: Diabetes Type II, Hyperlipidemia, High cholesterol, Hypertension, RAYNAUDS. pt is poor historian. PSHx: Surgical history of amputation to, Notes: RIGHT second toe, Surgical history of hernia repair. pt is poor historian. FHx: reviewed, no significant family history Social: Patient denies alcohol use Patient denies drug use Patient currently uses tobacco smokes cigarettes daily Patient smokes 1/2 packs per day. Hospitalist HPI ROS ROS unobtainable: due to mental status (residual anesthesia, patient groggy and not coherent) Hospitalist Exam General Appearance: NAD, awake alert Eye: PERRL, anicteric sclera ENT: normocephalic atraumatic, no oropharyngeal lesions, moist mucosa Neck: supple, symmetric, no JVD, no thyromegaly, no lymphadenopathy, no carotid bruit Heart: RRR, no murmur, no gallops, no rubs, normal peripheral pulses Respiratory: CTAB, no wheezes, no rales, no ronchi, normal chest expansion, no tachypnea, normal percussion Respiratory - other findings: appears apneic/BELA, loud and glottal stops snoring Gastrointestinal: soft, non-tender, non-distended, normal bowel sounds, no palpable masses, no hepatomegaly, no splenomegaly, no bruit Extremities: no cyanosis, no clubbing, no edema Skin: normal turgor, no lesions, no rashes Neurological: cranial nerve grossly intact, normal sensation to touch, no weakness, no focal deficits, no new deficit Musculoskeletal: normal tone, normal strength, no muscle wasting Psychiatric: normal affect, normal behavior, A&O x 3 Hospitalist Results Result Diagrams: 07/27/20 12:57 07/27/20 14:02 Lab results: Laboratory Last Values WBC 20.5 thou/uL (4.8-10.8) H 07/27/20 12:57 RBC 4.75 mill/uL (4.70-6.10) 07/27/20 12:57 Hgb 15.1 g/dL (14.0-18.0) 07/27/20 12:57 Hct 44.7 % (42.0-52.0) 07/27/20 12:57 MCV 94.2 fL (78.0-98.0) 07/27/20 12:57 MCH 31.8 pg (27.0-31.0) H 07/27/20 12:57 MCHC 33.7 g/dL (32.0-36.0) 07/27/20 12:57 RDW 13.8 % (11.5-14.5) 07/27/20 12:57 Plt Count 252 thou/uL (130-400) 07/27/20 12:57 MPV 9.1 fL (7.4-10.4) 07/27/20 12:57 Neutrophils % (Manual) 45 % (42-75) 07/27/20 12:57 Band Neuts % (Manual) 48 % (5-11) H 07/27/20 12:57 Lymphocytes % (Manual) 1 % (21-51) L 07/27/20 12:57 Monocytes % (Manual) 3 % (0-10) 07/27/20 12:57 Eosinophils % (Manual) 1 % (0-10) 07/27/20 12:57 Metamyelocytes % (Man) 1 % (0-0) H 07/27/20 12:57 Myelocytes % 1 % (0-0) H 07/27/20 12:57 Lymphocytes # Not Reportable 07/27/20 12:57 Toxic Granulation SLIGHT 07/27/20 12:57 Plt Morphology Comment Appears Adequate 07/27/20 12:57 Polychromasia SLIGHT = 2-3 cells (100X) (0-2/hpf) 07/27/20 12:57 Target Cells SLIGHT = 2-5 cells (100X) (0-1/hpf) 07/27/20 12:57 Tear Drop Cells SLIGHT = 2-5 cells (100X) (0-1/hpf) 07/27/20 12:57 Schistocytes SLIGHT = 2-5 cells (100X) (0-1/hpf) 07/27/20 12:57 PT 14.1 sec (12.0-14.7) 07/27/20 12:57 INR 1.1 07/27/20 12:57 APTT 31.7 sec (22.9-36.1) 07/27/20 12:57 Sodium 130 mmol/L (136-145) L 07/27/20 14:02 Potassium 3.8 mmol/L (3.5-5.1) 07/27/20 14:02 Chloride 96 mmol/L (98-107) L 07/27/20 14:02 Carbon Dioxide 20 mmol/L (23-31) L 07/27/20 14:02 Anion Gap 18 mmol/L (10-20) 07/27/20 14:02 BUN 14 mg/dL (8.4-25.7) 07/27/20 14:02 Creatinine 0.68 mg/dL (0.7-1.3) L 07/27/20 14:02 Estimated GFR (MDRD) Greater than 90 07/27/20 14:02 Glucose 326 mg/dL (80-115) H 07/27/20 14:02 POC Glucose 276 mg/dL (70-100) H 07/27/20 12:10 Lactic Acid 1.4 mmol/L (0.5-2.2) 07/27/20 16:09 Calcium 8.0 mg/dL (7.8-10.44) 07/27/20 14:02 Total Bilirubin 0.5 mg/dL (0.2-1.2) 07/27/20 14:02 AST 57 U/L (5-34) H 07/27/20 14:02 ALT 26 U/L (8-55) 07/27/20 14:02 Alkaline Phosphatase 181 U/L (40-110) H 07/27/20 14:02 Creatine Kinase 42 U/L (30-200) 07/27/20 14:02 Serum Total Protein 6.4 g/dL (5.8-8.1) 07/27/20 14:02 Albumin 2.5 g/dL (3.4-4.8) L 07/27/20 14:02 Globulin 3.9 g/dL (2.4-3.5) H 07/27/20 14:02 Albumin/Globulin Ratio 0.6 g/dL (1.2-2.2) L 07/27/20 14:02 Urine Color Light-Yellow (Yellow) 07/27/20 13:15 Urine Clarity Clear (Clear) 07/27/20 13:15 Urine pH 7.0 (5.0-9.0) 07/27/20 13:15 Ur Specific [place] 1.038 (1.002-1.036) H 07/27/20 13:15 Urine Protein 30 mg/dL (Neg-Trace) A 07/27/20 13:15 Urine Glucose (UA) Greater than 1000 mg/dL (Negative) A 07/27/20 13:15 Urine Ketones 100 mg/dL (Negative) A 07/27/20 13:15 Urine Blood Negative (Negative) 07/27/20 13:15 Urine Nitrite Negative (Negative) 07/27/20 13:15 Urine Bilirubin Negative (Negative) 07/27/20 13:15 Urine Urobilinogen 2.0 mg/dL (Less than 2) A 07/27/20 13:15 Ur Leukocyte Esterase Negative Va/uL (Negative) 07/27/20 13:15 Urine RBC 0-3 HPF (0-3) 07/27/20 13:15 Urine WBC 0-3 HPF (0-3) 07/27/20 13:15 Ur Squamous Epith Cells None Seen HPF (0-3) 07/27/20 13:15 Urine Bacteria None Seen HPF (None Seen) 07/27/20 13:15 Influenza A RNA INAAT Not Detected (NotDetected) 07/27/20 13:03 Influenza B RNA INAAT Not Detected (NotDetected) 07/27/20 13:03 SARS-CoV-2 Rap RNA(RT-PCR) Not Detected (NotDetected) 07/27/20 13:03 Additional comment: labs, preliminary CT read, ED documents reviewed Hospitalist H&P A/P Plan: Patient is a 65 year old male with PMH T2DM, HTN, tobacco abuse who presented to ED for left upper extremity pain. # abscess of left upper extremity # sepsis LUE pain x 2 weeks w/ drainage, tachycardia and leukocytosis in ED, CT scans concerning for extensive LUE abscess. Patient given vancomycin and clindamycin, surgery Dr Brown consulted, patient seen in PACU by me after I&D by Dr Hall, patient to be admitted for care of abscess and medical issues above. - preliminary culture results with GPC and GP rods - s/p I&D 07/27/[address] Hall, surgery Dr Brown and orthopedics Dr Hall consulted - consult infectious disease and wound care service for continued care - start empiric vancomycin and unasyn - follow culture results # uncontrolled DM - empiric SSI - A1C # HTN - PRN medications, monitor BP # tobacco abuse - consider nicotine patch once awake # hyponatremia - mild, in setting of sepsis, IVF ordered DVT/GI ppx full code
[2020-07-27] MEDS ORDERED: Electrolyte Replacement Protocol 1 EACH FS SCH (20:45)
[2020-07-27 21:49] VITALS: BMI 27.8
[2020-07-27] MEDS: Famotidine 20 MG TAB PO SCH (21:59)
[2020-07-27] MEDS: Ampicillin/Sulbactam 3 GM in Sodium Chloride 0.9% 100 ML IVPB SCH (22:13)
[2020-07-27] MEDS: Sodium Chloride 0.9% 1,000 ML IV SCH (22:15)
[2020-07-27] MEDS: HumaLOG 300 UNITS/3 ML VIAL SC PRN (22:16)
[2020-07-27] MEDS: VANCOMYCIN 1.25 GM/250 ML BAG 1.25 GM in Premix Bag 1 BAG IVPB SCH (23:48)
[2020-07-28] MEDS: Ampicillin/Sulbactam 3 GM in Sodium Chloride 0.9% 100 ML IVPB SCH ×4 (03:43→20:41)
[2020-07-28] MEDS: HYDROcodone/Acetaminophen 5/325 mg Tablet PO PRN ×2 (05:22→11:19)
[2020-07-28 05:31] LABS: Anion Gap 14 mmol/L (10-20); BUN (Urea Nitrogen) 17 mg/dL (8.4-25.7); Calc. Creatinine Clearance 124 mL/min (70-130); Calcium 7.4 mg/dL (7.8-10.44); Carbon Dioxide 20 mmol/L (23-31); Chloride 103 mmol/L (98-107); Glucose 274 mg/dL (80-115); Magnesium 1.8 mg/dL (1.6-2.6); Potassium 3.9 mmol/L (3.5-5.1); Sodium 133 mmol/L (136-145)
[2020-07-28] MEDS: HumaLOG 300 UNITS/3 ML VIAL SC PRN ×4 (05:40→20:50)
[2020-07-28 05:54] LABS: Hemoglobin A1c 11.1 % (4.0-6.0)
[2020-07-28 06:25] LABS: Mean Corpuscular HGB CONC 33.2 g/dL (32.0-36.0); Mean Corpuscular Hemoglobin 31.9 pg (27.0-31.0); Mean Corpuscular Volume 96.1 fL (78.0-98.0); Mean Platelet Volume 7.8 fL (7.4-10.4); Platelet Count 191 thou/uL (130-400); RBC Distribution Width 13.8 % (11.5-14.5); Red Blood Cell (RBC) Count 3.76 mill/uL (4.70-6.10); White Blood Cell (WBC) Count 20.1 thou/uL (4.8-10.8)
[2020-07-28] MEDS ORDERED: Magnesium 2 GM/50 ML 2 GM in Premix Bag 1 BAG IVPB SCH (06:45)
[2020-07-28 07:42] LABS: Band 41 % (5-11); Lymphocytes 4 % (21-51); MDiff Complete? YES; Metamyelocyte 2 % (0-0); Monocytes 4 % (0-10); Neutrophil 48 % (42-75); Platelet Morphology Comment Appears Adequate; Polychromasia SLIGHT = 2-3 cells (100X) (0-2/hpf); RBC Morphology Normal; Toxic Granulation SLIGHT
[2020-07-28] MEDS: Famotidine 20 MG TAB PO SCH ×2 (08:26→20:03)
[2020-07-28] MEDS: Polyethylene Glycol 3350 17 GM Packet PO SCH (08:26)
[2020-07-28] MEDS ORDERED: FLU VACC QS2020-21(65YR UP)/PF 240 MCG/0.7 ML SYRINGE IM ONE (09:00)
[2020-07-28] MEDS: VANCOMYCIN 1.25 GM/250 ML BAG 1.25 GM in Premix Bag 1 BAG IVPB SCH ×3 (09:59→23:12)
--- NOTE | 2020-07-28 10:28 | CT ---
CT OF THE LEFT UPPER EXTREMITY WITH IV CONTRAST: INDICATION: Followup left upper extremity abscess after debridement. COMPARISON: Prior CT of the left shoulder with IV contrast dated 07/27/2020 at 3:11 p.m. FINDINGS: There has been interval extensive surgical debridement of the posterior left arm, left axilla, and le ft chest wall musculature with packing material seen within the open debridement sites. There are residual peripherally enhancing fluid collections still present within the left pectoralis minor, measuring 4.7 x 3.8 cm on image 49 of series 2. This is just cephalad to some packing materia l extending up from the left axilla likely within the previously noted sinus tract. There is a peripherally enhancing fluid collection seen in the region of the short head of the biceps measuring 1.6 x 3.1 cm on image 50 of series 2 and image 79 of series 400. An additional fluid anh ection is seen within the short head of the biceps at the level of the left arm measuring 1.9 x 7 cm on image 72 of series 2 and image 81 of series 400. There are some residual fluid and gas collections within the left triceps measuring 4.2 x 5.9 cm on i mage 72 of series 2 and image 108 of series 400. An additional peripherally enhancing fluid collecti on is seen within the superior left triceps measuring 4.9 x 7.2 cm on image 50 of series 2 and image 101 of series 100. There is a loculated collection still present within the latissimus dorsi, but seen on image 54 of se annette 2 and image 113 of series 400 measuring 4.8 x 5.7 cm. Smaller collection is seen within the chris p latissimus dorsi measuring 3.5 x 4.1 cm on image 59 of series 2 and image 104 of series 400. There is a small collection within the left subscapularis muscle belly on image 39 of series 2 measur ing 2.1 x 0.8 cm on image 39 of series 2 and image 90 of series 400. There is extensive cellulitis of the left chest wall and the left arm. There is a healing left poste rolateral 10th rib fracture. There is subsegmental volume loss within the left lung. IMPRESSION: 1. Interval extensive debridement of the multifocal abscesses involving the left shoulder girdle mus culature. Some residual peripherally enhancing fluid collections remaining involving the left pector aye minor, left short head of the biceps, left latissimus dorsi, left triceps, and left subscapulari s musculature. 2. Prominent left chest wall and left upper extremity cellulitis. 3. Healing left posterolateral 10th rib fracture with subsegmental volume loss in the left lung. POS: [facility]
[2020-07-28] MEDS ORDERED: Iopamidol-370 76% 500 ML 1 ML ONE (11:26)
[2020-07-28] MEDS: Sodium Chloride 0.9% 1,000 ML IV SCH (11:55)
[2020-07-28] MEDS: Morphine 4 MG/ML VIAL SLOW IVP PRN ×2 (13:35→20:40)
[2020-07-28] MEDS ORDERED: Nicotine 14 MG PATCH TD PRN (15:14)
--- NOTE | 2020-07-28 15:17 | PDOC.HOSPP ---
- Subjective Encounter Date: 07/28/20 Encounter Time: 15:15 Subjective: Mr. Soler was seen today in follow-up for infection, ,abscess, of the left upper extremity. He notes fairly severe pain in the left shoulder. He admits to continues smoking, but says he wants to quit. - Objective Vital Signs & Weight: Vital Signs (12 hours) Temp Pulse Resp BP Pulse Ox 07/28/20 11:17 98.2 F 90 18 158/77 H 96 07/28/20 07:52 98.6 F 90 16 131/76 97 07/28/20 05:50 96 14 113/73 07/28/20 03:45 94 12 118/74 100 Weight Weight 189 lb I&O: 07/27/20 07/28/20 07/29/20 06:59 06:59 06:59 Intake Total 1200 Output Total 800 Balance 400 Result Diagrams: 07/28/20 04:53 07/28/20 04:53 Additional Labs: Accuchecks 07/28/20 07/27/20 07/27/20 12:04 21:55 19:50 POC Glucose 266 H 295 H 324 H Hospitalist ROS - Medication Medications: Active Medications Generic Name Dose Route Start Last Admin Trade Name Freq PRN Reason Stop Dose Admin Hydrocodone Bitart/Acetaminophen 1 tab 07/27/20 20:34 07/28/20 11:19 Hydrocodone/Acetaminophen 5/325 Mg Tablet PO 1 tab Q4H PRN Administration Moderate Pain (4-6) Famotidine 20 mg 07/27/20 21:00 07/28/20 08:26 Famotidine 20 Mg Tab PO 20 mg BID KAMINI Administration Sodium Chloride 1,000 mls @ 75 mls/hr 07/27/20 20:45 07/28/20 11:55 Normal Saline 0.9% IV 1,000 mls .[id number] KAMINI Administration Ampicillin Sodium/Sulbactam 100 mls @ 200 mls/hr 07/27/20 21:00 07/28/20 11:19 Sodium 3 gm/ Sodium Chloride IVPB 100 mls 0300,0900,1500,2100 KAMINI Administration Vancomycin HCl 1.25 gm/ Device 250 mls @ 166.667 mls/hr 07/27/20 23:59 07/28/20 09:59 IVPB 08/04/20 01:00 250 mls 0800,1600,2359 KAMINI Administration Insulin Human Lispro 0 units 07/27/20 20:42 07/28/20 12:05 Humalog 300 Units/3 Ml Vial SC 6 unit .MODERATE SLIDING SC PRN Administration Moderate Correctional Scale Morphine Sulfate 4 mg 07/28/20 12:08 07/28/20 13:35 Morphine 4 Mg/Ml Vial SLOW IVP 4 mg Q4H PRN Administration Pain Polyethylene Glycol 17 gm 07/28/20 09:00 07/28/20 08:26 Polyethylene Glycol 3350 17 Gm Packet PO 17 gm DAILY KAMINI Administration Sodium Chloride 10 ml 07/28/20 09:00 07/28/20 08:27 Flush - Normal Saline 10 Ml Syringe IVF 10 ml Q12HR KAMINI Administration Hospitalist Exam Vitals: Vital Signs (12 hours) Temp Pulse Resp BP Pulse Ox 07/28/20 11:17 98.2 F 90 18 158/77 H 96 07/28/20 07:52 98.6 F 90 16 131/76 97 07/28/20 05:50 96 14 113/73 07/28/20 03:45 94 12 118/74 100 Weight Weight 189 lb General Appearance: NAD, awake alert Eye: PERRL, anicteric sclera Heart: RRR, no murmur, no gallops, no rubs, normal peripheral pulses Gastrointestinal: soft, non-tender, non-distended, normal bowel sounds, no palpable masses, no hepatomegaly Extremities: no cyanosis Hosp A/P (1) Acute CVA (cerebrovascular accident) Code(s): I63.9 - CEREBRAL INFARCTION, UNSPECIFIED Status: Acute (2) Hypothyroidism Code(s): E03.9 - HYPOTHYROIDISM, UNSPECIFIED Status: Chronic (3) Alcohol abuse Code(s): F10.10 - ALCOHOL ABUSE, UNCOMPLICATED Status: Chronic (4) DM2 (diabetes mellitus, type 2) Status: Chronic Qualifiers: Diabetes mellitus longterm insulin use: without long term acute care registered nurse use Diabetes mellitus complication status: with circulatory complication Diabetes mellitus complication detail: with other circulatory complications Qualified Code(s): E11.59 - Type 2 diabetes mellitus with other circulatory complications (5) Hypothyroidism Code(s): E03.9 - HYPOTHYROIDISM, UNSPECIFIED Status: Chronic Qualifiers: Hypothyroidism type: acquired Qualified Code(s): E03.9 - Hypothyroidism, unspecified - Plan * Extensive Left upper extremity Cellulitis, and abscess- continue Unasyn and Vancomycin- blood culture is growing step, and axillary culture is growing Staph * HTN- blood pressure is stable * DM- Blood glucose is elevated- will give a dose of long acting insulin today, and then cover with SSI ( he will be going to surgery again tomorrow * Tobacco abuse- discussed. Will add a nicotine patch as needed * Previous CVA- stable
--- NOTE | 2020-07-28 16:08 | PDOC.GSPN ---
Surgery Progress Note: Subj - Subjective Narrative: Patient is feeling better today. He states that his pain is less since surgery. He has not had any high fevers but his white count is still elevated at 20,000. Multiple gram-positive cocci and white cells on Gram stain. Culture is still pending from the operative culture but he has staph aureus from the ER culture and strep anginosis on blood culture. On CT most of his abscesses have been drained but he has a few small to moderate fluid collections in his latissimus, subscapularis, pectoralis minor, and biceps. Dr. Pate is going to take him back to the operating room tomorrow to try to drain these and most likely place an irrigating wound VAC with the wound care team postoperatively. I am going to sign off as orthopedics is providing surgical care. Surgery Progress Note: Obj - Vital signs Vital signs: Vital Signs - Most Recent Temp Pulse Resp BP Pulse Ox 98.2 F 90 18 158/77 H 96 07/28/20 11:17 07/28/20 11:17 07/28/20 11:17 07/28/20 11:17 07/28/20 11:17 Surgery Progress Note: Results - Labs Result Diagrams: 07/28/20 04:53 07/28/20 04:53 Lab results: Laboratory Results - last 12 hr 07/27/20 07/27/20 07/28/20 12:57 19:50 04:53 WBC RBC Hgb Hct MCV MCH MCHC RDW Plt Count MPV Neutrophils % (Manual) Band Neuts % (Manual) Lymphocytes % (Manual) Monocytes % (Manual) Basophils % (Manual) Metamyelocytes % (Man) Lymphocytes # Toxic Granulation Plt Morphology Comment Polychromasia RBC Morph Comment Smear Path Review Sodium 133 L Potassium 3.9 Chloride 103 Carbon Dioxide 20 L Anion Gap 14 BUN 17 Creatinine 0.71 Estimated GFR (MDRD) Greater than 90 Glucose 274 H POC Glucose 324 H Hemoglobin A1c Calcium 7.4 L Magnesium 1.8 07/28/20 07/28/20 07/28/20 04:53 04:53 12:04 WBC 20.1 H RBC 3.76 L Hgb 12.0 L Hct 36.2 L MCV 96.1 MCH 31.9 H MCHC 33.2 RDW 13.8 Plt Count 191 MPV 7.8 Neutrophils % (Manual) 48 Band Neuts % (Manual) 41 H Lymphocytes % (Manual) 4 L Monocytes % (Manual) 4 Basophils % (Manual) 1 Metamyelocytes % (Man) 2 H Lymphocytes # Not Reportable Toxic Granulation SLIGHT Plt Morphology Comment Appears Adequate Polychromasia SLIGHT = 2-3 cells RBC Morph Comment Normal Smear Path Review Sodium Potassium Chloride Carbon Dioxide Anion Gap BUN Creatinine Estimated GFR (MDRD) Glucose POC Glucose 266 H Hemoglobin A1c 11.1 H Calcium Magnesium
--- NOTE | 2020-07-28 22:15 | CON ---
DATE OF CONSULTATION: 07/28/2020 REASON FOR CONSULTATION: Left upper extremity abscess. HISTORY OF PRESENT ILLNESS: A 65-year-old patient, whom I had seen in the past in December 2019 when he presented with a history of osteomyelitis, right foot, in the setting of peripheral vascular disease, type 2 diabetes, and hypertension. He had amputation of the right second toe and it successfully resolved and healed with oral Keflex and rifampin. This time, he presents with pain in the left axilla for the past 3 weeks approximately. The patient lives in his house in [place], and apparently, there is a homeless person who lives with him and two more people. He has mobility issues and has a walker. Because of his left axillary pain, he could not use his walker and was not getting enough nutrition. Apparently, the homeless person supposed to provide him with food does not treat him well. Adult Protective Service has been activated. He was having some fevers, and there was evidence of inflammatory process, which led to consultation of Orthopedic Surgery. Dr. Hall took him to the OR on July 27, and he did have deep abscess to the left axilla with extension into the pectoralis minor subscapular region as well as the triceps muscle. This did not appear to be a necrotizing process, although it was under pressure. Currently, he is having pain in that site. He cannot move his left upper extremity very well. He has had a stroke in the past, and he did have some movement, but with this process, now he has lost movement. No headaches. No oropharyngeal problems. Swallowing without difficulty. Oral cavity is somewhat dry. No shortness of breath or cough. No abdominal pain. He is voiding with an indwelling Kendall catheter, has peripheral IV access. PAST MEDICAL HISTORY: Includes peripheral vascular disease as well as type 2 diabetes, hyperlipidemia, hypertension, Raynaud's, previous amputation of the right second toe with complete healing, has had hernia repair as well. SOCIAL HISTORY: Lives in a house. He is disabled. Still smoking half pack a day. Does not drink. No drug use. FAMILY HISTORY: Noncontributory. ALLERGIES: NONE. MEDICATIONS: List at the moment, he is on, 1. Ampicillin-sulbactam. 2. Guaifenesin. 3. Labetalol. 4. Vancomycin. PHYSICAL EXAMINATION: VITAL SIGNS: T-max 99.3, blood pressure 130/70, heart rate 96, respirations 14-18, O2 saturation 100. SKIN: Shows wide area of debridement in the axilla and the arm, medial aspect, with fresh fatty tissue and muscle at the base. Peripheral IV access, indwelling Kendall catheter. GENERAL: He is awake. He is oriented. A little bit of difficulty with speech due to dry mouth. HEENT: Ocular movements conjugate. Conjunctivae are normal. Oral cavity, again dry. Numerous teeth in place with marked decay. No jugular vein distention. No thyromegaly. LUNGS: Symmetric, clear breath sounds. HEART: S1, S2. Regular rate. No S3 or S4. ABDOMEN: Soft, not distended or tender. EXTREMITIES: Markedly swollen hands, particularly at the left side. Pulses are present, radialis and ulnar arteries. ABDOMEN: Soft, not distended or tender. No ascites. No bladder distention. MUSCULOSKELETAL: No joint inflammatory activity outside the involved area. Trace edema in lower extremities, 1+ dorsalis pedis. NEUROLOGIC: Left foot weakness. Awake. Knows his name. Knows where he is. A little bit of dysarthria, probably from dry mouth. May have some expressive aphasic issues. LABORATORY DATA: White cell count 20.5 and now 20.1, hemoglobin 12, platelets 191, 40% bands. Creatinine 0.71, AST 57, alkaline phosphatase 181, albumin 2.5, globulin 3.9. Urinalysis, 0-3 wbc's. SARS-CoV-[address] scan showing the abscess and the drainage following the surgical procedure. There is a chest x-ray with no acute cardiopulmonary disease. ASSESSMENT: Peripheral vascular disease, type 2 diabetes, hyperlipidemia, hypertension, abscess, left upper extremity. The organisms include Staphylococcus aureus with pending susceptibilities and Streptococcus anginosus. DISCUSSION: The etiology of this abscess is not clear. Evidently, the patient does not have proper hygiene. Adult Protective Service has been activated, and he does not even have proper nutrition at home. He needs assistance and people he is living with do not appear to be helping him very much, so I think that probably maceration of the skin, maybe a little area of folliculitis, add to this process now. We will have to wait for the final results of cultures to see if there are any additional pathogens. In the meantime, we will continue current regimen until final susceptibilities for the Staph aureus is available, and depending on results, then we can probably transition him to cefazolin with the intention of switching to oral Keflex once there is control of the acute inflammatory process. Thus far, it does not appear that he will require protracted IV antimicrobial therapy administration. Job ID: [id number]
[2020-07-29] MEDS: Ampicillin/Sulbactam 3 GM in Sodium Chloride 0.9% 100 ML IVPB SCH ×4 (02:16→20:33)
[2020-07-29] MEDS: Morphine 4 MG/ML VIAL SLOW IVP PRN ×3 (02:25→19:50)
[2020-07-29] MEDS: Sodium Chloride 0.9% 1,000 ML IV SCH ×2 (02:31→14:32)
[2020-07-29] MEDS: HumaLOG 300 UNITS/3 ML VIAL SC PRN ×3 (06:02→20:40)
[2020-07-29] MEDS: VANCOMYCIN 1.25 GM/250 ML BAG 1.25 GM in Premix Bag 1 BAG IVPB SCH ×2 (08:48→15:08)
[2020-07-29] MEDS: Famotidine 20 MG TAB PO SCH ×2 (08:53→19:52)
[2020-07-29] MEDS: Heparin 5,000 UNITS/ML VIAL SC SCH ×2 (08:53→19:51)
[2020-07-29] MEDS: Polyethylene Glycol 3350 17 GM Packet PO SCH (08:53)
[2020-07-29 09:51] LABS: #Eosinphils 0.1 thou/uL (0.0-0.7); #Lymphocytes 0.6 thou/uL (1.20-3.40); #Monocytes 0.5 thou/uL (0.11-0.59); #Neutrophils 10.4 thou/uL (1.40-6.50); %Basophils 0.1 % (0.0-1.0); %Eosinophils 0.7 % (0.0-10.0); %Lymphocytes 5.3 % (21.0-51.0); %Monocytes 4.4 % (0.0-10.0); %Neutrophils 89.4 % (42.0-75.0); Hemoglobin 10.5 g/dL (14.0-18.0); Mean Corpuscular HGB CONC 32.4 g/dL (32.0-36.0); Mean Corpuscular Hemoglobin 30.7 pg (27.0-31.0); Mean Corpuscular Volume 94.8 fL (78.0-98.0); Mean Platelet Volume 7.5 fL (7.4-10.4); Platelet Count 172 thou/uL (130-400); RBC Distribution Width 13.9 % (11.5-14.5); Red Blood Cell (RBC) Count 3.41 mill/uL (4.70-6.10); White Blood Cell (WBC) Count 11.6 thou/uL (4.8-10.8)
[2020-07-29 10:10] LABS: Anion Gap 9 mmol/L (10-20); BUN (Urea Nitrogen) 9 mg/dL (8.4-25.7); Calc. Creatinine Clearance 142 mL/min (70-130); Calcium 7.3 mg/dL (7.8-10.44); Carbon Dioxide 28 mmol/L (23-31); Chloride 102 mmol/L (98-107); Glucose 204 mg/dL (80-115); Magnesium 1.9 mg/dL (1.6-2.6); Potassium 3.4 mmol/L (3.5-5.1); Sodium 136 mmol/L (136-145)
[2020-07-29] MEDS ORDERED: Magnesium 2 GM/50 ML 2 GM in Premix Bag 1 BAG IVPB SCH (11:30)
[2020-07-29] MEDS ORDERED: Fentanyl 100 MCG/2 ML VIAL ONE ×2 (11:40→14:04)
[2020-07-29] MEDS ORDERED: Neomycin-Polymyxin 1 ML AMP ONE (11:53)
[2020-07-29] MEDS ORDERED: PHENYLEPHRINE-NS 100 MCG/ML 10 ML SYRINGE ONE (13:58)
[2020-07-29] MEDS ORDERED: PROPOFOL 200 MG/20 ML VIAL ONE (13:58)
[2020-07-29] MEDS ORDERED: Lidocaine 1% PF 5 ML VIAL ONE (13:58)
[2020-07-29] MEDS ORDERED: Dexamethasone 20 MG/5 ML VIAL ONE (13:58)
[2020-07-29] MEDS ORDERED: Rocuronium Bromide 10 MG/ML (10ML VIAL) ONE (13:58)
[2020-07-29] MEDS ORDERED: Succinylcholine 200 MG/10 ml SYRINGE FS ONE (13:58)
[2020-07-29] MEDS ORDERED: Ondansetron PF 4 MG/2 ML Vial ONE (13:58)
[2020-07-29] MEDS: Potassium Chloride 20 MEQ in Premix Bag 1 BAG IVPB SCH ×2 (14:33→15:07)
[2020-07-29 15:40] LABS: Vancomycin, Trough 14.4 ug/mL
--- NOTE | 2020-07-29 17:16 | PDOC.HOSPP ---
- Subjective Encounter Date: 07/29/20 Encounter Time: 17:15 Subjective: Mr. Soler was seen today in follow-up of Left upper extremity abscess and cellulitis. He does not have any new complaints. - Objective Vital Signs & Weight: Vital Signs (12 hours) Temp Pulse Resp BP Pulse Ox 07/29/20 14:40 97.0 F L 86 20 149/73 H 95 07/29/20 08:19 98.4 F 90 16 143/72 H 100 07/29/20 08:00 100 Weight Admit Weight 189 lb Weight 189 lb I&O: 07/28/20 07/29/20 07/30/20 06:59 06:59 06:59 Intake Total 1200 3947 Output Total 800 1375 Balance 400 2572 Result Diagrams: 07/29/20 09:31 07/29/20 09:31 Additional Labs: Accuchecks 07/29/20 07/29/20 07/28/20 15:38 05:18 20:24 POC Glucose 232 H 254 H 252 H Hospitalist ROS - Medication Medications: Active Medications Generic Name Dose Route Start Last Admin Trade Name Freq PRN Reason Stop Dose Admin Hydrocodone Bitart/Acetaminophen 1 tab 07/27/20 20:34 07/28/20 11:19 Hydrocodone/Acetaminophen 5/325 Mg Tablet PO 1 tab Q4H PRN Administration Moderate Pain (4-6) Famotidine 20 mg 07/27/20 21:00 07/29/20 08:53 Famotidine 20 Mg Tab PO Not Given BID KAMINI Heparin Sodium (Porcine) 5,000 units 07/29/20 09:00 07/29/20 08:53 Heparin 5,000 Units/Ml Vial SC Not Given BID KAMINI Sodium Chloride 1,000 mls @ 75 mls/hr 07/27/20 20:45 07/29/20 14:32 Normal Saline 0.9% IV Not Given .[id number] KAMINI Ampicillin Sodium/Sulbactam 100 mls @ 200 mls/hr 07/27/20 21:00 07/29/20 14:32 Sodium 3 gm/ Sodium Chloride IVPB Not Given 0300,0900,1500,2100 KAMINI Vancomycin HCl 1.25 gm/ Device 250 mls @ 166.667 mls/hr 07/27/20 23:59 07/29/20 15:08 IVPB 08/04/20 01:00 250 mls 0800,1600,2359 KAMINI Administration Insulin Human Lispro 0 units 07/27/20 20:42 07/29/20 16:54 Humalog 300 Units/3 Ml Vial SC 4 unit .MODERATE SLIDING SC PRN Administration Moderate Correctional Scale Morphine Sulfate 4 mg 07/28/20 12:08 07/29/20 08:48 Morphine 4 Mg/Ml Vial SLOW IVP 4 mg Q4H PRN Administration Pain Polyethylene Glycol 17 gm 07/28/20 09:00 07/29/20 08:53 Polyethylene Glycol 3350 17 Gm Packet PO Not Given DAILY [facility] Sodium Chloride 10 ml 07/28/20 09:00 07/29/20 08:53 Flush - Normal Saline 10 Ml Syringe IVF Not Given Q12HR [facility] Hospitalist Exam Vitals: Vital Signs (12 hours) Temp Pulse Resp BP Pulse Ox 07/29/20 14:40 97.0 F L 86 20 149/73 H 95 07/29/20 08:19 98.4 F 90 16 143/72 H 100 07/29/20 08:00 100 Weight Admit Weight 189 lb Weight 189 lb Eye: PERRL, anicteric sclera Heart: RRR, no murmur, no gallops, no rubs, normal peripheral pulses Respiratory: CTAB, no wheezes, no rales, no ronchi, normal chest expansion, no tachypnea, normal percussion Gastrointestinal: soft, non-tender, non-distended, normal bowel sounds, no palpable masses Extremities: no cyanosis (pulses are palpable), 1+ LE edema (+ left upper extremity edema, radial and ulnar pulses are palpable, swelling is much improved from yesterday.) Hosp A/P (1) Acute CVA (cerebrovascular accident) Code(s): I63.9 - CEREBRAL INFARCTION, UNSPECIFIED Status: Acute (2) Hypothyroidism Code(s): E03.9 - HYPOTHYROIDISM, UNSPECIFIED Status: Chronic (3) Alcohol abuse Code(s): F10.10 - ALCOHOL ABUSE, UNCOMPLICATED Status: Chronic (4) DM2 (diabetes mellitus, type 2) Status: Chronic Qualifiers: Diabetes mellitus halfway insulin use: without terminal operations supervisor use Diabetes mellitus complication status: with circulatory complication Diabetes mellitus complication detail: with other circulatory complications Qualified Code(s): E11.59 - Type 2 diabetes mellitus with other circulatory complications (5) Hypothyroidism Code(s): E03.9 - HYPOTHYROIDISM, UNSPECIFIED Status: Chronic Qualifiers: Hypothyroidism type: acquired Qualified Code(s): E03.9 - Hypothyroidism, unspecified - Plan * Extensive Left upper extremity Cellulitis, and abscess- continue Unasyn and Vancomycin- blood culture is growing step, and axillary culture is growing Staph - still awaiting sensitivities * ID input appreciated * HTN- blood pressure is stable * DM- Blood glucose is elevated- will continue Lantus, and SSI- he is normally on Metformin and Actos- will hold these due to Contrast CT yesterday * Tobacco abuse-Nicotine patch as needed * Previous CVA- with left sided weakness- stable
[2020-07-29] MEDS: HYDROcodone/Acetaminophen 5/325 mg Tablet PO PRN (18:43)
[2020-07-30] MEDS: VANCOMYCIN 1.25 GM/250 ML BAG 1.25 GM in Premix Bag 1 BAG IVPB SCH ×4 (01:00→23:09)
[2020-07-30] MEDS: HYDROcodone/Acetaminophen 5/325 mg Tablet PO PRN ×5 (01:44→23:09)
[2020-07-30] MEDS: Morphine 4 MG/ML VIAL SLOW IVP PRN ×3 (02:57→19:48)
[2020-07-30] MEDS: Ampicillin/Sulbactam 3 GM in Sodium Chloride 0.9% 100 ML IVPB SCH ×4 (02:57→22:04)
[2020-07-30 05:16] LABS: #Lymphocytes 0.6 thou/uL (1.20-3.40); #Monocytes 0.5 thou/uL (0.11-0.59); #Neutrophils 11.8 thou/uL (1.40-6.50); %Basophils 0.2 % (0.0-1.0); %Eosinophils 0.1 % (0.0-10.0); %Lymphocytes 4.5 % (21.0-51.0); %Monocytes 3.7 % (0.0-10.0); %Neutrophils 91.6 % (42.0-75.0); Mean Corpuscular HGB CONC 32.7 g/dL (32.0-36.0); Mean Corpuscular Hemoglobin 31.1 pg (27.0-31.0); Mean Corpuscular Volume 95.1 fL (78.0-98.0); Mean Platelet Volume 7.8 fL (7.4-10.4); Platelet Count 188 thou/uL (130-400); RBC Distribution Width 13.6 % (11.5-14.5); Red Blood Cell (RBC) Count 3.55 mill/uL (4.70-6.10); White Blood Cell (WBC) Count 12.8 thou/uL (4.8-10.8)
[2020-07-30 05:37] LABS: Anion Gap 12 mmol/L (10-20); BUN (Urea Nitrogen) 12 mg/dL (8.4-25.7); Calc. Creatinine Clearance 124 mL/min (70-130); Calcium 7.7 mg/dL (7.8-10.44); Carbon Dioxide 25 mmol/L (23-31); Chloride 101 mmol/L (98-107); Glucose 348 mg/dL (80-115); Potassium 4.2 mmol/L (3.5-5.1); Sodium 134 mmol/L (136-145)
[2020-07-30] MEDS: HumaLOG 300 UNITS/3 ML VIAL SC PRN ×4 (05:46→19:48)
[2020-07-30] MEDS: Famotidine 20 MG TAB PO SCH ×2 (07:58→19:48)
[2020-07-30] MEDS: Heparin 5,000 UNITS/ML VIAL SC SCH ×2 (07:58→19:48)
[2020-07-30] MEDS: Polyethylene Glycol 3350 17 GM Packet PO SCH (07:59)
[2020-07-30] MEDS: Sodium Chloride 0.9% 1,000 ML IV SCH ×2 (07:59→08:10)
[2020-07-30] MEDS ORDERED: Magnesium 2 GM/50 ML 2 GM in Premix Bag 1 BAG IVPB SCH (09:30)
[2020-07-30] MEDS: Insulin Glargine 15 UNITS in Pre-Filled Syringe 1 EACH SC SCH (10:34)
--- NOTE | 2020-07-30 15:48 | PDOC.HOSPP ---
- Subjective Encounter Date: 07/30/20 Encounter Time: 15:46 Subjective: Ryder was seen today in follow-up of cellulitis and abscess of the left upper extremity. He notes better movement in his left hand. No complaints today. - Objective Vital Signs & Weight: Vital Signs (12 hours) Temp Pulse Resp BP Pulse Ox 07/30/20 15:12 97.7 F 77 16 126/67 96 07/30/20 08:00 98 07/30/20 07:57 97.7 F 72 20 129/74 98 07/30/20 04:32 97.8 F 73 16 134/75 96 Weight Admit Weight 189 lb Weight 189 lb I&O: 07/29/20 07/30/20 07/31/20 06:59 06:59 06:59 Intake Total 3947 2540 Output Total 1375 1975 Balance 2572 565 Result Diagrams: 07/30/20 04:25 07/30/20 04:25 Additional Labs: Accuchecks 07/30/20 07/30/20 07/29/20 15:08 12:10 20:40 POC Glucose 363 H 360 H 291 H Hospitalist ROS - Medication Medications: Active Medications Generic Name Dose Route Start Last Admin Trade Name Freq PRN Reason Stop Dose Admin Hydrocodone Bitart/Acetaminophen 1 tab 07/27/20 20:34 07/30/20 12:44 Hydrocodone/Acetaminophen 5/325 Mg Tablet PO 1 tab Q4H PRN Administration Moderate Pain (4-6) Famotidine 20 mg 07/27/20 21:00 07/30/20 07:58 Famotidine 20 Mg Tab PO 20 mg BID KAMINI Administration Heparin Sodium (Porcine) 5,000 units 07/29/20 09:00 07/30/20 07:58 Heparin 5,000 Units/Ml Vial SC 5,000 units BID KAMINI Administration Sodium Chloride 1,000 mls @ 75 mls/hr 07/27/20 20:45 07/30/20 08:10 Normal Saline 0.9% IV 1,000 mls .[id number] KAMINI Administration Ampicillin Sodium/Sulbactam 100 mls @ 200 mls/hr 07/27/20 21:00 07/30/20 08:10 Sodium 3 gm/ Sodium Chloride IVPB 100 mls 0300,0900,1500,2100 KAMINI Administration Vancomycin HCl 1.25 gm/ Device 250 mls @ 166.667 mls/hr 07/27/20 23:59 07/30/20 14:27 IVPB 08/04/20 01:00 250 mls 0800,1600,2359 KAMINI Administration Insulin Glargine 15 units/ 0.15 mls @ 0 mls/hr 07/30/20 09:00 07/30/20 10:34 Miscellaneous Medication SC 0.15 mls QAM KAMINI Administration Insulin Human Lispro 0 units 07/27/20 20:42 07/30/20 10:53 Humalog 300 Units/3 Ml Vial SC 6 unit .MODERATE SLIDING SC PRN Administration Moderate Correctional Scale Morphine Sulfate 4 mg 07/28/20 12:08 07/30/20 14:21 Morphine 4 Mg/Ml Vial SLOW IVP 4 mg Q4H PRN Administration Pain Polyethylene Glycol 17 gm 07/28/20 09:00 07/30/20 07:59 Polyethylene Glycol 3350 17 Gm Packet PO 17 gm DAILY KAMINI Administration Sodium Chloride 10 ml 07/28/20 09:00 07/30/20 08:00 Flush - Normal Saline 10 Ml Syringe IVF 10 ml Q12HR KAMINI Administration Hospitalist Exam Vitals: Vital Signs (12 hours) Temp Pulse Resp BP Pulse Ox 07/30/20 15:12 97.7 F 77 16 126/67 96 07/30/20 08:00 98 07/30/20 07:57 97.7 F 72 20 129/74 98 07/30/20 04:32 97.8 F 73 16 134/75 96 Weight Admit Weight 189 lb Weight 189 lb Eye: PERRL, anicteric sclera Heart: RRR, no murmur, no gallops, no rubs, normal peripheral pulses Respiratory: CTAB, no wheezes, no rales, no ronchi, normal chest expansion Gastrointestinal: soft, non-tender, normal bowel sounds Extremities: 1+ LE edema (+ swelling in the left upper extremity, radial and ulnar pulse are palpable) Hosp A/P (1) Abscess of left upper extremity Code(s): L02.414 - CUTANEOUS ABSCESS OF LEFT UPPER LIMB Status: Acute (2) Acute CVA (cerebrovascular accident) Code(s): I63.9 - CEREBRAL INFARCTION, UNSPECIFIED Status: Acute (3) Hypothyroidism Code(s): E03.9 - HYPOTHYROIDISM, UNSPECIFIED Status: Chronic (4) Alcohol abuse Code(s): F10.10 - ALCOHOL ABUSE, UNCOMPLICATED Status: Chronic (5) DM2 (diabetes mellitus, type 2) Status: Chronic Qualifiers: Diabetes mellitus alf insulin use: without alf use Diabetes mellitus complication status: with circulatory complication Diabetes mellitus complication detail: with other circulatory complications Qualified Code(s): E 11.59 - Type 2 diabetes mellitus with other circulatory complications (6) Hypothyroidism Code(s): E03.9 - HYPOTHYROIDISM, UNSPECIFIED Status: Chronic Qualifiers: Hypothyroidism type: acquired Qualified Code(s): E03.9 - Hypothyroidism, unspecified - Plan * Extensive Left upper extremity Cellulitis, and abscess- MRSA is growing from the culture taken from the left Axilla-ll continue Vancomycin, and also Unasyn, pending ID recommendations * HTN- blood pressure is stable * DM- Blood glucose is elevated- continue to titrate the dose of Lantus * Tobacco abuse-Nicotine patch as needed * Previous CVA- with left sided weakness- stable * He says he can not care for himself. Will consult Case Management for possible placement in long-term or Rehab prior to going home
[2020-07-30] MEDS ORDERED: Insulin Glargine 25 UNITS in Pre-Filled Syringe 1 EACH SC SCH (21:00)
[2020-07-31] MEDS ORDERED: Heparin 5,000 UNITS/ML VIAL ONE (09:16)
[2020-07-31] MEDS ORDERED: Famotidine 20 MG TAB ONE (09:17)
[2020-07-31] MEDS ORDERED: HYDROcodone/Acetaminophen 5/325 mg Tablet ONE ×2 (09:19→15:08)
[2020-07-31] MEDS ORDERED: Morphine 4 MG/ML VIAL ONE (10:37)
--- NOTE | 2020-07-31 12:43 | PRG ---
DATE OF SERVICE: 07/31/2020 SUBJECTIVE: Mr. William Soler was seen today in followup of cellulitis of the left upper extremity. Today, he is beginning to feel better. He notes better movement in the left upper extremity as well as decreased swelling there. He has no other major complaints. OBJECTIVE: VITAL SIGNS: Blood pressure was 135/76, heart rate 78, respiratory rate of 16, temperature is 97.7. HEENT: Pupils are equal, round, and reactive to light. LUNGS: Clear to auscultation. No wheezing. No rales. No rhonchi. CARDIOVASCULAR: He had a normal S1 and S2. No S3 or S4. No murmurs, clicks, or rubs. ABDOMEN: Soft, nontender, nondistended. Positive for bowel sounds. No rebound or guarding. EXTREMITIES: The left upper extremity has significant edema but is diminished from yesterday. He has palpable radial and ulnar pulses and movement in the first two fingers on the left hand. No lower extremity edema and good distal pulses. LABORATORY RESULTS: Pending. ASSESSMENT AND PLAN: 1. Cellulitis of the left upper extremity and abscess. We will continue vancomycin and Unasyn. We likely can discontinue vancomycin, but we will await further recommendations from ID. 2. Diabetes mellitus. Blood glucose is trending down. We will continue to monitor his hemoglobin. We will continue to monitor his blood glucose and titrate the insulin as needed. 3. Tobacco abuse. The patient is doing well on the nicotine patch. 4. Previous cerebrovascular accident, stable. 5. Continue DVT and GI prophylaxis. Job ID: [id number]
[2020-07-31] MEDS ORDERED: cloNIDine 0.1 MG TAB ONE (13:22)
[2020-07-31] MEDS: HYDROcodone/Acetaminophen 5/325 mg Tablet PO PRN ×2 (15:19→21:10)
[2020-07-31 15:38] LABS: Vancomycin, Trough 21.5 ug/mL
[2020-07-31] MEDS: Morphine 4 MG/ML VIAL SLOW IVP PRN ×2 (16:40→22:06)
[2020-07-31] MEDS: Vancomycin 1 GM in Premix Bag 1 BAG IVPB SCH (16:50)
[2020-07-31] MEDS: HumaLOG 300 UNITS/3 ML VIAL SC PRN ×2 (16:57→21:11)
[2020-07-31] MEDS: Ampicillin/Sulbactam 3 GM in Sodium Chloride 0.9% 100 ML IVPB SCH ×4 (18:41→21:11)
[2020-07-31] MEDS: Famotidine 20 MG TAB PO SCH ×2 (18:43→21:10)
[2020-07-31] MEDS: Sodium Chloride 0.9% 1,000 ML IV SCH ×2 (18:43→19:42)
[2020-07-31] MEDS: Heparin 5,000 UNITS/ML VIAL SC SCH ×2 (18:44→21:09)
[2020-07-31] MEDS: Insulin Glargine 15 UNITS in Pre-Filled Syringe 1 EACH SC SCH (18:44)
[2020-07-31] MEDS: Polyethylene Glycol 3350 17 GM Packet PO SCH (18:45)
[2020-07-31] MEDS: VANCOMYCIN 1.25 GM/250 ML BAG 1.25 GM in Premix Bag 1 BAG IVPB SCH ×2 (18:48→18:49)
[2020-07-31] MEDS: Insulin Glargine 30 UNITS in Pre-Filled Syringe SC SCH (21:22)
[2020-08-01] MEDS: Vancomycin 1 GM in Premix Bag 1 BAG IVPB SCH ×3 (00:37→16:46)
[2020-08-01] MEDS: Ampicillin/Sulbactam 3 GM in Sodium Chloride 0.9% 100 ML IVPB SCH ×4 (03:24→20:34)
[2020-08-01] MEDS: HYDROcodone/Acetaminophen 5/325 mg Tablet PO PRN ×4 (04:12→20:35)
[2020-08-01 05:10] LABS: #Eosinphils 0.1 thou/uL (0.0-0.7); #Lymphocytes 1.3 thou/uL (1.20-3.40); #Monocytes 0.9 thou/uL (0.11-0.59); #Neutrophils 6.2 thou/uL (1.40-6.50); %Basophils 0.2 % (0.0-1.0); %Eosinophils 1.4 % (0.0-10.0); %Lymphocytes 15.4 % (21.0-51.0); %Monocytes 10.5 % (0.0-10.0); %Neutrophils 72.5 % (42.0-75.0); Hemoglobin 11.9 g/dL (14.0-18.0); Mean Corpuscular HGB CONC 32.7 g/dL (32.0-36.0); Mean Corpuscular Hemoglobin 31.4 pg (27.0-31.0); Mean Corpuscular Volume 96.1 fL (78.0-98.0); Mean Platelet Volume 7.5 fL (7.4-10.4); Platelet Count 219 thou/uL (130-400); RBC Distribution Width 13.4 % (11.5-14.5); White Blood Cell (WBC) Count 8.5 thou/uL (4.8-10.8)
[2020-08-01 05:27] LABS: Anion Gap 11 mmol/L (10-20); BUN (Urea Nitrogen) 6 mg/dL (8.4-25.7); Calc. Creatinine Clearance 144 mL/min (70-130); Calcium 7.8 mg/dL (7.8-10.44); Carbon Dioxide 26 mmol/L (23-31); Chloride 100 mmol/L (98-107); Glucose 172 mg/dL (80-115); Potassium 3.7 mmol/L (3.5-5.1); Sodium 133 mmol/L (136-145)
[2020-08-01] MEDS: Morphine 4 MG/ML VIAL SLOW IVP PRN ×4 (05:39→21:30)
[2020-08-01] MEDS: Sodium Chloride 0.9% 1,000 ML IV SCH ×2 (05:40→20:36)
[2020-08-01] MEDS: HumaLOG 300 UNITS/3 ML VIAL SC PRN ×4 (05:40→20:45)
[2020-08-01] MEDS: Famotidine 20 MG TAB PO SCH ×2 (09:31→20:35)
[2020-08-01] MEDS: Heparin 5,000 UNITS/ML VIAL SC SCH ×2 (09:32→20:46)
[2020-08-01] MEDS: Polyethylene Glycol 3350 17 GM Packet PO SCH (09:33)
[2020-08-01] MEDS: Insulin Glargine 15 UNITS in Pre-Filled Syringe 1 EACH SC SCH (09:57)
[2020-08-01] MEDS ORDERED: Morphine 2 MG/ML VIAL SLOW IVP PRN ×2 (13:16→13:17)
--- NOTE | 2020-08-01 13:48 | OP ---
DATE OF PROCEDURE: 07/29/2020 PREOPERATIVE DIAGNOSIS: Left upper arm abscess with extension into the left axilla as well as left pectoralis minor, subscapularis, and triceps. POSTOPERATIVE DIAGNOSIS: Left upper arm abscess with extension into the left axilla as well as left pectoralis minor, subscapularis, and triceps. PROCEDURE PERFORMED: Irrigation and debridement of extensive left axillary abscess with extension into upper arm. ANESTHESIA: General. ESTIMATED BLOOD LOSS: 100 mL. IMPLANTS: None. SPECIMENS: None. COMPLICATIONS: None. DRAINS: Wound VAC x1. INDICATIONS FOR PROCEDURE: Mr. Soler is a 65-year-old gentleman with diabetes in poor control. He presented to the emergency room on 07/27 with an obvious abscess within the left axilla and shoulder. The patient is now status post incision and drainage with packing of this large abscess. He is now scheduled for return to the operating room for repeat irrigation. Informed consent has been obtained and all questions answered. DESCRIPTION OF PROCEDURE: The patient was positioned in a right lateral decubitus position and the packings were removed from the triceps and the axillary region and then a sterile prep and drape was performed. Next, the axillary region and pectoralis region were inspected. No new areas of abscess were encountered. Actually, the tissue looked relatively healthy with no necrotic tissue encountered in this region. Next, the triceps region was inspected. Triceps muscle belly all found to be viable. There was no necrosis of fascia or muscle belly itself. There was just some mild skin edge necrosis. This was sharply debrided with a scalpel through the skin and subcutaneous tissue, fat to healthy bleeding tissue. Palpation then performed and no further dissection of the abscess was encountered distally. Next, 5 L of normal saline was irrigated through each of these 2 abscess cavity sites. Once completed, the wound VAC was applied by the wound care team and then the patient was transferred to recovery room in stable condition. There were no complications. The patient tolerated the procedure well. Job ID: [id number]
--- NOTE | 2020-08-01 15:55 | PRG ---
DATE OF SERVICE: 08/01/2020 SUBJECTIVE: Dr. Pate did a revision of the initial I and D by Dr. Hall and he found good results. There is a little few areas that need to be debrided, but no abscess remaining in place. The patient is having the wound dressing change a later today. He denies any respiratory symptoms. No abdominal pain. He has a Kendall catheter still in place and is able to move extremities with limitations related to the left upper extremity abscess. He is able to move his fingers now. OBJECTIVE: VITAL SIGNS: Temperature is normal. Other vital signs are normal except for elevation of systolic and diastolic blood pressure. Sats 94 to 96 on room air. GENERAL: Appears in no distress, chronically ill appearing. LUNGS: Symmetric. Clear breath sounds. HEART: S1 and S2. Regular rate. EXTREMITIES: Left axillary and inner aspect of the left arm with wound dressing. ABDOMEN: Not distended or tender. No ascites. No bladder distention. He has a Kendall catheter in place. LABORATORY DATA: White cell count is down to 8.5, hemoglobin 11.9, and platelets 219. Creatinine 0.61. The final cultures include MRSA, Providencia rettgeri, and streptococcus anginosus. He has one set of blood cultures with Streptococcus anginosus as well. PLAN: He is currently on Unasyn and vancomycin and will continue with the wound management and conceivably could be discharged on oral Augmentin and doxycycline or clindamycin. Job ID: [id number]
--- NOTE | 2020-08-01 17:50 | PDOC.HOSPP ---
- Subjective Encounter Date: 08/01/20 Encounter Time: 17:43 Subjective: Mr. Soler was seen today in follow-up of cellulitis and abscess of the left upper extremity. He does not have any other complaints. - Objective Vital Signs & Weight: Vital Signs (12 hours) Temp Pulse Resp BP Pulse Ox 08/01/20 11:49 97.8 F 73 20 173/99 H 94 L 08/01/20 08:36 98.6 F 75 20 181/93 H 96 Weight Admit Weight 189 lb Weight 189 lb I&O: 07/31/20 08/01/20 08/02/20 06:59 06:59 06:59 Intake Total 3030 2600 Output Total 1500 1825 Balance 1530 775 Result Diagrams: 08/01/20 04:27 08/01/20 04:28 Additional Labs: Accuchecks 08/01/20 07/31/20 07/29/20 11:54 20:52 12:20 POC Glucose 302 H 304 H 181 H Hospitalist ROS - Medication Medications: Active Medications Generic Name Dose Route Start Last Admin Trade Name Freq PRN Reason Stop Dose Admin Hydrocodone Bitart/Acetaminophen 1 tab 07/27/20 20:34 08/01/20 15:41 Hydrocodone/Acetaminophen 5/325 Mg Tablet PO 1 tab Q4H PRN Administration Moderate Pain (4-6) Famotidine 20 mg 07/27/20 21:00 08/01/20 09:31 Famotidine 20 Mg Tab PO 20 mg BID KAMINI Administration Heparin Sodium (Porcine) 5,000 units 07/29/20 09:00 08/01/20 09:32 Heparin 5,000 Units/Ml Vial SC 5,000 units BID KAMINI Administration Sodium Chloride 1,000 mls @ 75 mls/hr 07/27/20 20:45 08/01/20 05:40 Normal Saline 0.9% IV 1,000 mls .[id number] KAMINI Administration Ampicillin Sodium/Sulbactam 100 mls @ 200 mls/hr 07/27/20 21:00 08/01/20 15:42 Sodium 3 gm/ Sodium Chloride IVPB 100 mls 0300,0900,1500,2100 KAMINI Administration Insulin Glargine 15 units/ 0.15 mls @ 0 mls/hr 07/30/20 09:00 08/01/20 09:57 Miscellaneous Medication SC 0.15 mls QAM KAMINI Administration Vancomycin HCl 1 gm/ Device 200 mls @ 200 mls/hr 07/31/20 17:00 08/01/20 1 6:46 IVPB 08/04/20 02:00 200 mls 0100,0900,1700 KAMINI Administration Insulin Glargine 30 units/ 0.3 mls @ 0 mls/hr 07/31/20 21:00 07/31/20 21:22 Miscellaneous Medication SC 0.3 mls HS KAMINI Administration Insulin Human Lispro 0 units 07/27/20 20:42 08/01/20 16:52 Humalog 300 Units/3 Ml Vial SC 4 unit .MODERATE SLIDING SC PRN Administration Moderate Correctional Scale Morphine Sulfate 4 mg 07/28/20 12:08 08/01/20 16:45 Morphine 4 Mg/Ml Vial SLOW IVP 4 mg Q4H PRN Administration Pain Polyethylene Glycol 17 gm 07/28/20 09:00 08/01/20 09:33 Polyethylene Glycol 3350 17 Gm Packet PO Not Given DAILY [facility] Sodium Chloride 10 ml 07/28/20 09:00 08/01/20 09:33 Flush - Normal Saline 10 Ml Syringe IVF Not Given Q12HR [facility] Hospitalist Exam Vitals: Vital Signs (12 hours) Temp Pulse Resp BP Pulse Ox 08/01/20 11:49 97.8 F 73 20 173/99 H 94 L 08/01/20 08:36 98.6 F 75 20 181/93 H 96 Weight Admit Weight 189 lb Weight 189 lb Eye: PERRL, anicteric sclera Heart: RRR, no murmur, no gallops, no rubs, normal peripheral pulses Respiratory: CTAB, no wheezes, no rales, no ronchi, normal chest expansion, no tachypnea, normal percussion Gastrointestinal: soft, non-tender, non-distended, normal bowel sounds, no palpable masses, no hepatomegaly Extremities: no cyanosis, no edema Hosp A/P (1) Abscess of left upper extremity Code(s): L02.414 - CUTANEOUS ABSCESS OF LEFT UPPER LIMB Status: Acute (2) Acute CVA (cerebrovascular accident) Code(s): I63.9 - CEREBRAL INFARCTION, UNSPECIFIED Status: Acute (3) Hypothyroidism Code(s): E03.9 - HYPOTHYROIDISM, UNSPECIFIED Status: Chronic (4) Alcohol abuse Code(s): F10.10 - ALCOHOL ABUSE, UNCOMPLICATED Status: Chronic (5) DM2 (diabetes mellitus, type 2) Status: Chronic Qualifiers: Diabetes mellitus snf insulin use: without extermination supervisor use Diabetes mellitus complication status: with circulatory complication Diabetes mellitus complication detail: with other circulatory complications Qualified Code(s): E11.59 - Type 2 diabetes mellitus with other circulatory complications (6) Hypothyroidism Code(s): E03.9 - HYPOTHYROIDISM, UNSPECIFIED Status: Chronic Qualifiers: Hypothyroidism type: acquired Qualified Code(s): E03.9 - Hypothyroidism, unspecified - Plan * Extensive Left upper extremity Cellulitis, and abscess- MRSA is growing from the culture taken from the left Axilla-continue Vancomycin, and Unasyn, until discharge * HTN- blood pressure has been a bit labile- will continue the current * DM- Blood glucose is elevated- continue to titrate the dose of Lantus * Tobacco abuse-Nicotine patch as needed * Previous CVA- with left sided weakness- stable * Hypothyroidism- stable * Discharge planning is in progress
[2020-08-01] MEDS: Insulin Glargine 30 UNITS in Pre-Filled Syringe SC SCH (20:45)
[2020-08-02] MEDS: HYDROcodone/Acetaminophen 5/325 mg Tablet PO PRN ×5 (01:06→20:19)
[2020-08-02] MEDS: Ampicillin/Sulbactam 3 GM in Sodium Chloride 0.9% 100 ML IVPB SCH ×5 (02:06→21:48)
[2020-08-02] MEDS: Vancomycin 1 GM in Premix Bag 1 BAG IVPB SCH ×3 (02:10→17:15)
[2020-08-02] MEDS: Morphine 4 MG/ML VIAL SLOW IVP PRN ×5 (02:10→21:36)
[2020-08-02] MEDS: HumaLOG 300 UNITS/3 ML VIAL SC PRN ×4 (06:00→21:47)
[2020-08-02] MEDS: Insulin Glargine 25 UNITS in Pre-Filled Syringe 1 EACH SC SCH (09:12)
[2020-08-02] MEDS: Polyethylene Glycol 3350 17 GM Packet PO SCH (09:12)
[2020-08-02] MEDS: Heparin 5,000 UNITS/ML VIAL SC SCH ×2 (09:12→20:19)
[2020-08-02] MEDS: Famotidine 20 MG TAB PO SCH ×2 (09:12→20:18)
[2020-08-02] MEDS: Sodium Chloride 0.9% 1,000 ML IV SCH ×2 (11:28→21:39)
--- NOTE | 2020-08-02 16:24 | PDOC.HOSPP ---
- Subjective Encounter Date: 08/02/20 Encounter Time: 16:22 Subjective: Mr. Soler was seen today in follow-up of abscess of the left upper extremity. He does not have any new complaints. - Objective Vital Signs & Weight: Vital Signs (12 hours) Temp Pulse Resp BP Pulse Ox 08/02/20 11:02 98.6 F 85 16 161/84 H 95 08/02/20 08:56 97.6 F 87 14 164/80 H 95 Weight Admit Weight 189 lb Weight 189 lb I&O: 08/01/20 08/02/20 08/03/20 06:59 06:59 06:59 Intake Total 2600 2610 1994 Output Total 1825 2025 2300 Balance 775 665 305 Result Diagrams: 08/01/20 04:27 08/01/20 04:28 Additional Labs: Accuchecks 08/02/20 08/02/20 08/02/20 15:10 11:00 06:01 POC Glucose 268 H 262 H 233 H 08/01/20 20:44 POC Glucose 271 H Hospitalist ROS - Medication Medications: Active Medications Generic Name Dose Route Start Last Admin Trade Name Freq PRN Reason Stop Dose Admin Hydrocodone Bitart/Acetaminophen 1 tab 07/27/20 20:34 08/02/20 15:49 Hydrocodone/Acetaminophen 5/325 Mg Tablet PO 1 tab Q4H PRN Administration Moderate Pain (4-6) Famotidine 20 mg 07/27/20 21:00 08/02/20 09:12 Famotidine 20 Mg Tab PO 20 mg BID KAMINI Administration Heparin Sodium (Porcine) 5,000 units 07/29/20 09:00 08/02/20 09:12 Heparin 5,000 Units/Ml Vial SC 5,000 units BID KAMINI Administration Sodium Chloride 1,000 mls @ 75 mls/hr 07/27/20 20:45 08/02/20 11:28 Normal Saline 0.9% IV Not Given .[id number] KAMINI Ampicillin Sodium/Sulbactam 100 mls @ 200 mls/hr 07/27/20 21:00 08/02/20 14:27 Sodium 3 gm/ Sodium Chloride IVPB 100 mls 0300,0900,1500,2100 KAMINI Administration Vancomycin HCl 1 gm/ Device 200 mls @ 200 mls/hr 07/31/20 17:00 08/02/20 09:13 IVPB 08/04/20 02:00 200 mls 0100,0900,1700 KAMINI Administration Insulin Glargine 30 units/ 0.3 mls @ 0 mls/hr 07/31/20 21:00 08/01/20 20:45 Miscellaneous Medication SC 0.3 mls HS KAMINI Administration Insulin Glargine 25 units/ 0.25 mls @ 0 mls/hr 08/02/20 09:00 08/02/20 09:12 Miscellaneous Medication SC 0.25 mls QAM KAMINI Administration Insulin Human Lispro 0 units 07/27/20 20:42 08/02/20 16:03 Humalog 300 Units/3 Ml Vial SC 6 unit .MODERATE SLIDING SC PRN Administration Moderate Correctional Scale Morphine Sulfate 4 mg 07/28/20 12:08 08/02/20 12:09 Morphine 4 Mg/Ml Vial SLOW IVP 4 mg Q4H PRN Administration Pain Polyethylene Glycol 17 gm 07/28/20 09:00 08/02/20 09:12 Polyethylene Glycol 3350 17 Gm Packet PO 17 gm DAILY KAMINI Administration Sodium Chloride 10 ml 07/28/20 09:00 08/02/20 09:12 Flush - Normal Saline 10 Ml Syringe IVF 10 ml Q12HR KAMINI Administration Hospitalist Exam Vitals: Vital Signs (12 hours) Temp Pulse Resp BP Pulse Ox 08/02/20 11:02 98.6 F 85 16 161/84 H 95 08/02/20 08:56 97.6 F 87 14 164/80 H 95 Weight Admit Weight 189 lb Weight 189 lb Eye: PERRL, anicteric sclera Heart: RRR, no murmur, no gallops, no rubs, normal peripheral pulses Respiratory: CTAB, no wheezes, no rales, no ronchi, normal chest expansion, no tachypnea, normal percussion Gastrointestinal: soft, non-tender, non-distended, normal bowel sounds, no palpable masses, no hepatomegaly Extremities: no cyanosis (palpable d.p. 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 Diabetes mellitus complication status: with circulatory complication Diabetes mellitus complication detail: with other circulatory complications Qualified Code(s): E11.59 - Type 2 diabetes mellitus with other circulatory complications (6) Hypothyroidism Code(s): E03.9 - HYPOTHYROIDISM, UNSPECIFIED Status: Chronic Qualifiers: Hypothyroidism type: acquired Qualified Code(s): E03.9 - Hypothyroidism, unspecified - Plan * Extensive Left upper extremity Cellulitis, and abscess- MRSA is growing from the culture taken from the left Axilla-continue Vancomycin, and Unasyn, until discharge or through the weekend * HTN- blood pressure has been elevated- will add Lisinopril * DM- Blood glucose is elevated- continue to titrate the dose of Lantus * Tobacco abuse-Nicotine patch as needed * Previous CVA- with left sided weakness- stable * Hypothyroidism- stable * Discharge planning is in progress
[2020-08-02] MEDS ORDERED: Lisinopril 5 MG TAB PO SCH (18:00)
--- NOTE | 2020-08-02 18:06 | PRG ---
DATE OF SERVICE: 08/02/2020 SUBJECTIVE: William is a 65-year-old male, postop day 6 from an irrigation and debridement x2 of a left chest wall abscess and axillary abscess, requiring irrigation and debridement on two occasions. He has MRSA as well as Streptococcus culture positive. He is on appropriate antibiotics per Dr. Andino at this point. He has not had any recrudescence of constitutional symptoms and he still feels relatively well. He is being managed currently by the Medicine Team. OBJECTIVE: VITAL SIGNS: Temperature 98.6, pulse 85, respiratory rate 16, O2 saturation 95% on room air, and blood pressure 161/84. GENERAL: He is alert, responsive, and appropriate with the examiner. Converses easily. Incision wound VAC is placed. Scant drainage is noted. IMPRESSION: 1. A 65-year-old male postop day 6 for a left axillary abscess and chest wall abscess. Normal white count presently and afebrile. 2. Hyperlipidemia. 3. Diabetes, type 2. PLAN: Continue current care. He will most likely require an LTAC placement. Job ID: [id number]
[2020-08-02] MEDS ORDERED: diphenhydrAMINE 25 MG CAP PO SCH (20:45)
[2020-08-02] MEDS: Insulin Glargine 30 UNITS in Pre-Filled Syringe SC SCH (21:46)
[2020-08-03] MEDS: Vancomycin 1 GM in Premix Bag 1 BAG IVPB SCH ×3 (00:40→17:23)
[2020-08-03] MEDS: HYDROcodone/Acetaminophen 5/325 mg Tablet PO PRN ×5 (01:55→21:23)
[2020-08-03] MEDS: Ampicillin/Sulbactam 3 GM in Sodium Chloride 0.9% 100 ML IVPB SCH ×4 (02:54→21:22)
[2020-08-03] MEDS: Morphine 4 MG/ML VIAL SLOW IVP PRN ×4 (02:54→22:30)
[2020-08-03] MEDS: HumaLOG 300 UNITS/3 ML VIAL SC PRN ×4 (06:50→21:24)
[2020-08-03] MEDS: Famotidine 20 MG TAB PO SCH ×2 (09:11→21:22)
[2020-08-03] MEDS: Polyethylene Glycol 3350 17 GM Packet PO SCH (09:11)
[2020-08-03] MEDS: Lisinopril 5 MG TAB PO SCH (09:11)
[2020-08-03] MEDS: Heparin 5,000 UNITS/ML VIAL SC SCH ×2 (09:12→21:23)
[2020-08-03] MEDS: Insulin Glargine 25 UNITS in Pre-Filled Syringe 1 EACH SC SCH (10:05)
[2020-08-03] MEDS: Sodium Chloride 0.9% 1,000 ML IV SCH ×2 (14:28→19:41)
--- NOTE | 2020-08-03 14:43 | PDOC.HOSPP ---
- Subjective Encounter Date: 08/03/20 Encounter Time: 14:41 Subjective: Mr. Soler was seen today in follow-up of cellulitis and abscess of the left upper extremity. He notes less pain with the wound dressing change today. He howeer has not been out of the bed since surgery. He says prior to coming to the hospital he was able to walk with a walker, and transfer on his own. - Objective Vital Signs & Weight: Vital Signs (12 hours) Temp Pulse Resp BP BP Pulse Ox 08/03/20 10:57 98.1 F 75 16 159/76 H 95 08/03/20 09:11 76 142/70 H 08/03/20 07:47 98.1 F 76 18 142/70 H 96 08/03/20 04:00 98.1 F 72 16 158/81 H 98 Weight Admit Weight 189 lb Weight 189 lb I&O: 08/02/20 08/03/20 08/04/20 06:59 06:59 06:59 Intake Total 2610 4295 840 Output Total 2025 5950 Balance 585 -1655 840 Result Diagrams: 08/01/20 04:27 08/01/20 04:28 Additional Labs: Accuchecks 08/03/20 08/03/20 08/02/20 11:01 06:31 21:46 POC Glucose 228 H 186 H 198 H 08/02/20 15:10 POC Glucose 268 H Hospitalist ROS - Medication Medications: Active Medications Generic Name Dose Route Start Last Admin Trade Name Freq PRN Reason Stop Dose Admin Hydrocodone Bitart/Acetaminophen 1 tab 07/27/20 20:34 08/03/20 13:35 Hydrocodone/Acetaminophen 5/325 Mg Tablet PO 1 tab Q4H PRN Administration Moderate Pain (4-6) Famotidine 20 mg 07/27/20 21:00 08/03/20 09:11 Famotidine 20 Mg Tab PO 20 mg BID KAMINI Administration Heparin Sodium (Porcine) 5,000 units 07/29/20 09:00 08/03/20 09:12 Heparin 5,000 Units/Ml Vial SC 5,000 units BID KAMINI Administration Sodium Chloride 1,000 mls @ 75 mls/hr 07/27/20 20:45 08/03/20 14:28 Normal Saline 0.9% IV Not Given .[id number] KAMINI Ampicillin Sodium/Sulbactam 100 mls @ 200 mls/hr 07/27/20 21:00 08/03/20 10:36 Sodium 3 gm/ Sodium Chloride IVPB 100 mls 0300,0900,1500,2100 KAMINI Administration Vancomycin HCl 1 gm/ Device 200 mls @ 200 mls/hr 07/31/20 17:00 08/03/20 09:11 IVPB 08/04/20 02:00 200 mls 0100,0900,1700 KAMINI Administration Insulin Glargine 30 units/ 0.3 mls @ 0 mls/hr 07/31/20 21:00 08/02/20 21:46 Miscellaneous Medication SC 0.3 mls HS KAMINI Administration Insulin Glargine 25 units/ 0.25 mls @ 0 mls/hr 08/02/20 09:00 08/03/20 10:05 Miscellaneous Medication SC 0.25 mls QAM KAMINI Administration Insulin Human Lispro 0 units 07/27/20 20:42 08/03/20 12:02 Humalog 300 Units/3 Ml Vial SC 4 unit .MODERATE SLIDING SC PRN Administration Moderate Correctional Scale Lisinopril 5 mg 08/03/20 09:00 08/03/20 09:11 Lisinopril 5 Mg Tab PO 5 mg DAILY KAMINI Administration Morphine Sulfate 4 mg 07/28/20 12:08 08/03/20 09:13 Morphine 4 Mg/Ml Vial SLOW IVP 4 mg Q4H PRN Administration Pain Morphine Sulfate 2 mg 08/01/20 13:16 08/03/20 11:33 Morphine 2 Mg/Ml Vial SLOW IVP 2 mg WILLCALL PRN Administration PREMEDICATE FOR DRESSING BRENNER Polyethylene Glycol 17 gm 07/28/20 09:00 08/03/20 09:11 Polyethylene Glycol 3350 17 Gm Packet PO 17 gm DAILY KAMINI Administration Sodium Chloride 10 ml 07/28/20 09:00 08/03/20 09:12 Flush - Normal Saline 10 Ml Syringe IVF 10 ml Q12HR KAMINI Administration Hospitalist Exam Vitals: Vital Signs (12 hours) Temp Pulse Resp BP BP Pulse Ox 08/03/20 10:57 98.1 F 75 16 159/76 H 95 08/03/20 09:11 76 142/70 H 08/03/20 07:47 98.1 F 76 18 142/70 H 96 02/18/21 04:00 98.1 F 72 16 158/81 H 98 Weight Admit Weight 189 lb Weight 189 lb Eye: PERRL, anicteric sclera Heart: RRR, no murmur, no gallops, no rubs, normal peripheral pulses Respiratory: CTAB, no wheezes, no rales, no ronchi, normal chest expansion Gastrointestinal: soft, non-tender, non-distended, normal bowel sounds, no palpable masses, no hepatomegaly Extremities: no cyanosis, 1+ LE edema Hosp A/P (1) Abscess of left upper extremity Code(s): L02.414 - CUTANEOUS ABSCESS OF LEFT UPPER LIMB Status: Acute (2) Acute CVA (cerebrovascular accident) Code(s): I63.9 - CEREBRAL INFARCTION, UNSPECIFIED Status: Acute (3) Hypothyroidism Code(s): E03.9 - HYPOTHYROIDISM, UNSPECIFIED Status: Chronic (4) Alcohol abuse Code(s): F10.10 - ALCOHOL ABUSE, UNCOMPLICATED Status: Chronic (5) DM2 (diabetes mellitus, type 2) Status: Chronic Qualifiers: Diabetes mellitus assisted insulin use: without assisted use Diabetes mellitus complication status: with circulatory complication Diabetes mellitus complication detail: with other circulatory complications Qualified Code(s): E11.59 - Type 2 diabetes mellitus with other circulatory complications (6) Hypothyroidism Code(s): E03.9 - HYPOTHYROIDISM, UNSPECIFIED Status: Chronic Qualifiers: Hypothyroidism type: acquired Qualified Code(s): E03.9 - Hypothyroidism, unspecified - Plan * Extensive Left upper extremity Cellulitis, and abscess- due to MRSA- continue Vancomycin and Unasyn, until discharge or through the weekend * HTN- blood pressure - is a bit better, will continue to monitor the trend * DM- Blood glucose is elevated- continue to titrate the dose of Lantus * Tobacco abuse-Nicotine patch as needed * Previous CVA- with left sided weakness- stable * Hypothyroidism- stable * Re-Consult PT/OT * Discharge planning is in progress
[2020-08-03] MEDS: diphenhydrAMINE 30 GM TUBE TOP PRN ×2 (15:31→23:36)
[2020-08-03] MEDS: Insulin Glargine 30 UNITS in Pre-Filled Syringe SC SCH (21:23)
[2020-08-04] MEDS: Vancomycin 1 GM in Premix Bag 1 BAG IVPB SCH (01:04)
[2020-08-04] MEDS: Ampicillin/Sulbactam 3 GM in Sodium Chloride 0.9% 100 ML IVPB SCH ×3 (02:32→14:26)
[2020-08-04] MEDS: HYDROcodone/Acetaminophen 5/325 mg Tablet PO PRN ×4 (02:32→18:10)
[2020-08-04] MEDS: Morphine 4 MG/ML VIAL SLOW IVP PRN ×3 (03:47→17:10)
[2020-08-04] MEDS: HumaLOG 300 UNITS/3 ML VIAL SC PRN ×2 (06:37→12:15)
[2020-08-04] MEDS ORDERED: Insulin Glargine 30 UNITS in Pre-Filled Syringe 1 EACH SC SCH (09:00)
[2020-08-04] MEDS: Lisinopril 5 MG TAB PO SCH (09:06)
[2020-08-04] MEDS: Famotidine 20 MG TAB PO SCH (09:06)
[2020-08-04] MEDS: Polyethylene Glycol 3350 17 GM Packet PO SCH (09:06)
[2020-08-04] MEDS: Heparin 5,000 UNITS/ML VIAL SC SCH (09:07)
[2020-08-04] MEDS: Sodium Chloride 0.9% 1,000 ML IV SCH (14:35)
--- NOTE | 2020-08-04 15:24 | PDOC.HOSPP ---
- Subjective Encounter Date: 08/04/20 Encounter Time: 15:22 Subjective: Mr. Soler was seen today in follow-up of cellulitis of the left upper extremity. He is much improved.No new complaints. - Objective Vital Signs & Weight: Vital Signs (12 hours) Temp Pulse Resp BP BP BP Pulse Ox 08/04/20 11:31 98.4 F 74 16 145/78 H 96 08/04/20 09:06 84 159/76 H 08/04/20 08:02 97.6 F 84 16 159/76 H 98 08/04/20 03:48 98.2 F 86 20 154/84 H 94 L Weight Admit Weight 189 lb Weight 189 lb I&O: 08/03/20 08/04/20 08/05/20 06:59 06:59 06:59 Intake Total 4295 4327 Output Total 5568 7032 Balance -3622 -7749 Result Diagrams: 08/01/20 04:27 08/01/20 04:28 Additional Labs: Accuchecks 08/04/20 08/04/20 08/03/20 10:20 05:43 21:06 POC Glucose 267 H 219 H 283 H 08/03/20 15:41 POC Glucose 228 H Hospitalist ROS - Medication Medications: Active Medications Generic Name Dose Route Start Last Admin Trade Name Freq PRN Reason Stop Dose Admin Hydrocodone Bitart/Acetaminophen 1 tab 07/27/20 20:34 08/04/20 14:35 Hydrocodone/Acetaminophen 5/325 Mg Tablet PO 1 tab Q4H PRN Administration Moderate Pain (4-6) Famotidine 20 mg 07/27/20 21:00 08/04/20 09:06 Famotidine 20 Mg Tab PO 20 mg BID KAMINI Administration Heparin Sodium (Porcine) 5,000 units 07/29/20 09:00 08/04/20 09:07 Heparin 5,000 Units/Ml Vial SC 5,000 units BID KAMINI Administration Sodium Chloride 1,000 mls @ 75 mls/hr 07/27/20 20:45 08/04/20 14:35 Normal Saline 0.9% IV 1,000 mls .[id number] KAMINI Administration Insulin Glargine 30 units/ 0.3 mls @ 0 mls/hr 07/31/20 21:00 08/03/20 21:23 Miscellaneous Medication SC 0.3 mls HS KAMINI Administration Insulin Glargine 30 units/ 0.3 mls @ 0 mls/hr 08/04/20 09:00 08/04/20 09:10 Miscellaneous Medication SC 0.3 mls QAM KAMINI Administration Insulin Human Lispro 0 units 07/27/20 20:42 08/04/20 12:15 Humalog 300 Units/3 Ml Vial SC 6 unit .MODERATE SLIDING SC PRN Administration Moderate Correctional Scale Lisinopril 5 mg 08/03/20 09:00 08/04/20 09:06 Lisinopril 5 Mg Tab PO 5 mg DAILY KAMINI Administration Morphine Sulfate 4 mg 07/28/20 12:08 08/04/20 12:18 Morphine 4 Mg/Ml Vial SLOW IVP 4 mg Q4H PRN Administration Pain Morphine Sulfate 2 mg 08/01/20 13:16 08/03/20 11:33 Morphine 2 Mg/Ml Vial SLOW IVP 2 mg WILLCALL PRN Administration PREMEDICATE FOR DRESSING BRENNER Polyethylene Glycol 17 gm 07/28/20 09:00 08/04/20 09:06 Polyethylene Glycol 3350 17 Gm Packet PO 17 gm DAILY KAMINI Administration Sodium Chloride 10 ml 07/28/20 09:00 08/04/20 14:45 Flush - Normal Saline 10 Ml Syringe IVF 10 ml Q12HR KAMINI Administration Zinc Acetate/Diphenhydramine 0 gm 08/02/20 20:17 08/03/20 23:36 Diphenhydramine 30 Gm Tube TOP 1 applic QID PRN Administration Itching Hospitalist Exam Vitals: Vital Signs (12 hours) Temp Pulse Resp BP BP BP Pulse Ox 08/04/20 11:31 98.4 F 74 16 145/78 H 96 08/04/20 09:06 84 159/76 H 08/04/20 08:02 97.6 F 84 16 159/76 H 98 08/04/20 03:48 98.2 F 86 20 154/84 H 94 L Weight Admit Weight 189 lb Weight 189 lb General Appearance: NAD, awake alert Heart: RRR, no murmur, no gallops, no rubs, normal peripheral pulses Respiratory: CTAB, no wheezes, no rales, no ronchi, normal chest expansion, no tachypnea, normal percussion Gastrointestinal: soft, non-tender, non-distended, normal bowel sounds, no palpable masses, no hepatomegaly Extremities: no cyanosis, no edema Hosp A/P (1) Abscess of left upper extremity Code(s): L02.414 - CUTANEOUS ABSCESS OF LEFT UPPER LIMB Status: Acute (2) Acute CVA (cerebrovascular accident) Code(s): I63.9 - CEREBRAL INFARCTION, UNSPECIFIED Status: Acute (3) Hypothyroidism Code(s): E03.9 - HYPOTHYROIDISM, UNSPECIFIED Status: Chronic (4) Alcohol abuse Code(s): F10.10 - ALCOHOL ABUSE, UNCOMPLICATED Status: Chronic (5) DM2 (diabetes mellitus, type 2) Status: Chronic 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 Diabetes mellitus complication status: with circulatory complication Diabetes mellitus complication detail: with other circulatory complications Qualified Code(s): E11.59 - Type 2 diabetes mellitus with other circulatory complications (6) Hypothyroidism Code(s): E03.9 - HYPOTHYROIDISM, UNSPECIFIED Status: Chronic Qualifiers: Hypothyroidism type: acquired Qualified Code(s): E03.9 - Hypothyroidism, unspecified - Plan * Extensive Left upper extremity Cellulitis, and abscess-will transition him to Augmentin and Doxycycline * HTN- blood pressure - stable * DM- Blood glucose is elevated- continue to titrate the dose of Lantus * Tobacco abuse-Nicotine patch as needed * Previous CVA- with left sided weakness- stable * Hypothyroidism- stable- re-start Levothyroxine * Stable for discharge to [facility]
[2020-08-04 16:05] VITALS: BP 145/68; TEMP 97.4
--- NOTE | 2020-08-04 17:39 | PRG ---
DATE OF SERVICE: 08/04/2020 SUBJECTIVE: Being readied for discharge to [facility]. The patient is not very happy. He is trying to get some supplies that he has at his home he cannot reach out to anybody that could help him and he would like to postpone discharge planning for Friday if possible. He has quite a bit of pain in the left upper extremity still. No respiratory symptoms. No abdominal pain. He is voiding with an Indwelling Kendall catheter. No headaches. No shortness of breath. No abdominal pain. No diarrhea. LABORATORY DATA: White cell count is finally down to normal levels at 8.5, hemoglobin 11, platelets 219. Creatinine 0.61. Cultures with Staphylococcus aureus and strep anginosus. Staph aureus is MRSA, shows a nice granulating surface of the wound without necrosis. ASSESSMENT AND DISCUSSION: Peripheral vascular disease, type 2 diabetes, hyperlipidemia, hypertension, abscess in left upper extremity with polymicrobial antonio including strep anginosus, Staph aureus which is methicillin-resistant. The plan is to continue doxycycline and Augmentin for protracted period of time. The end date would be around the August 2020. Weekly labs including CBC, CRP, and the basic metabolic panel. Job ID: [id number] [facility]
--- NOTE | 2020-08-04 19:00 | DIS ---
DATE OF ADMISSION: 07/27/2020 DATE OF DISCHARGE: 08/04/2020 DISCHARGE DISPOSITION: [facility]. DISCHARGE DIAGNOSES: 1. Cellulitis and abscess of the left upper extremity. 2. Diabetes mellitus, poorly controlled. 3. Hypothyroidism. 4. Cerebrovascular accident with left-sided weakness. 5. Obstructive sleep apnea. 6. Hypertension. 7. Obesity. 8. Tobacco abuse. DISCHARGE MEDICATIONS: Include, 1. Augmentin 875 mg one p.o. b.i.d. and this is until the end of August. 2. Doxycycline 100 mg p.o. b.i.d. and this is until the end of August. 3. Lisinopril 5 mg p.o. daily. 4. Thiamine 100 mg p.o. daily. 5. Multivitamin one tablet p.o. daily. 6. Proscar 5 mg p.o. daily. 7. Pepcid 20 mg p.o. b.i.d. 8. Norvasc 5 mg p.o. daily. 9. Nicoderm 4 mg transdermal daily. 10. MiraLAX 17 g p.o. daily. 11. Lipitor 40 mg p.o. at bedtime. 12. Lantus insulin 25 units in the morning and 25 in the evening. 13. Heparin 5000 units subcu twice a day. 14. Folic acid 1 mg p.o. daily. 15. Tramadol 50 mg p.o. q.6 as needed. 16. Synthroid 150 mcg p.o. daily. 17. Restoril 15 mg p.o. at bedtime. 18. Metformin 1000 mg p.o. b.i.d. 19. Glyburide 5 mg p.o. daily. 20. Escitalopram 20 mg p.o. daily. 21. Aspirin 81 mg daily. 22. Actos 45 mg p.o. daily. IMAGING DONE DURING THE HOSPITAL STAY: The patient had a CT scan of the left upper extremity demonstrating healing posterolateral left rib fracture at the 10th rib, extensive left shoulder girdle myonecrosis and superinfection within the left pectoralis minor, subscapularis, triceps, serratus, latissimus muscles along with the short head of the biceps extending to the elbow and possibly into the forearm out of view. The patient had a repeat CT scan of the left upper extremity showing interval extensive debridement of the multifocal abscesses involving the left shoulder girdle musculature. There were some residual fluid enhancing collections remaining involving the left pectoralis minor and the short head of the biceps and the left latissimus dorsi, the left triceps, and the left subscapularis musculature. CODE STATUS: Full code. ALLERGIES: NO KNOWN DRUG ALLERGIES. HOSPITAL COURSE: Mr. Soler is a pleasant 65-year-old gentleman, who came to the emergency room after having severe pain in his left upper extremity. A CT scan of the arm showed extensive abscess in the left shoulder girdle musculature as per the previous CT scan with extension into the left pectoralis minor, subscapularis, triceps, serratus, latissimus muscles and into the forearm. He was seen by both General Surgery as well as Orthopedic Surgery. He ultimately had extensive debridement x2 of the left upper extremity. He was seen by Dr. Andino with Infectious Disease. His cultures grew methicillin Staph as well as Streptococcus anginosus from the axilla and Streptococcus anginosus from the blood. He was placed on IV vancomycin as well as Unasyn. His white blood cell count improved as well as his overall condition. He was instructed on smoking cessation and was placed on a nicotine patch during his hospital stay. The link between infection and smoking was also discussed as well as the need to maintain his blood glucose in tight control. The patient had been ambulatory with a walker prior to being admitted to the hospital and now with difficulty using his left upper extremity due to the infection and the recent surgery. He will be transitioned to the inpatient rehabilitation facility at [facility] until which time he is safe enough to be discharged home. Job ID: [id number]
[2020-08-04] MEDS ORDERED: Doxycycline 100 MG CAP PO SCH (21:00)
[2020-08-04] MEDS ORDERED: Amoxicillin/Potassium Clav 875 MG TAB PO SCH (21:00)
--- NOTE | 2020-08-05 17:05 | EKG ---
Test Reason : Blood Pressure : / mmHG Vent. Rate : 093 BPM Atrial Rate : 093 BPM P-R Int : 124 ms QRS Dur : 100 ms QT Int : 382 ms P-R-T Axes : 054 -22 067 degrees QTc Int : 474 ms Normal sinus rhythm Cannot rule out Inferior infarct , age undetermined Abnormal ECG Confirmed by FRANKLIN SHEIKH DO ([id number]), website/blog editor HIRA GOLDSMITH ([id number]) on 08/05/2020 5:05:07 PM Referred By: Confirmed By:FRANKLIN SHEIKH DO
== END 2020-08-04 18:23 | DRG 854 ==
LOC: ERS 11:52 → SDC/OP 17:11 → SURG A 20:39
PROVIDERS: ADMIT Internal Medicine; ATTEND Internal Medicine
PROC: 0KD80ZZ Extraction of Left Upper Arm Muscle, Open Approach (ICD-10-PCS; principal; 2020-07-27)
PROC: 0JBF0ZZ Excision of Left Upper Arm Subcutaneous Tissue and Fascia, Open Approach (ICD-10-PCS; 2020-07-29)
DX: A41.9 Sepsis, unspecified organism (principal); L02.414 Cutaneous abscess of left upper limb; E87.1 Hypo-osmolality and hyponatremia; I69.354 Hemiplegia and hemiparesis following cerebral infarction affecting left non-dominant side; L03.114 Cellulitis of left upper limb; M60.012 Infective myositis, left shoulder; I10 Essential (primary) hypertension; F17.210 Nicotine dependence, cigarettes, uncomplicated; F10.10 Alcohol abuse, uncomplicated; E03.9 Hypothyroidism, unspecified; E11.65 Type 2 diabetes mellitus with hyperglycemia; G47.33 Obstructive sleep apnea (adult) (pediatric); E66.9 Obesity, unspecified; E78.5 Hyperlipidemia, unspecified; E11.51 Type 2 diabetes mellitus with diabetic peripheral angiopathy without gangrene; Z20.822 Contact with and (suspected) exposure to COVID-19; Z79.82 Long term (current) use of aspirin; Z89.421 Acquired absence of other right toe(s); Z71.6 Tobacco abuse counseling; Z68.27 Body mass index [BMI] 27.0-27.9, adult; Z79.84 Long term (current) use of oral hypoglycemic drugs
CPT/HCPCS: 0240U; 36415; 36416; 51702; 71045; 80048; 80053; 80202; 81003; 81015; 82550; 83036; 83605; 83735; 85025; 85060; 85610; 85730; 87040; 87070; 87077; 87086; 87149; 87186; 87205; 90471; 90662; 90732; 93005; 94660; 94760; 96365; 96366; 96367; 96375; G0008; G0009; J0295; J0692; J1100; J1170; J1644; J1815; J2270; J2370; J2405; J2704; J3010; J3370; J3475; J3480; J3490; Q0163; Q9967; S0020

== ENCOUNTER 2020-08-06 10:58 | Inpatient (IN) | payer MEDICARE, MEDICAID ==
[~2020-08-06 10:58] MED LIST changes: +Heparin 1,000 UNITS/ML VIAL ONE; -Iopamidol-370 76% 500 ML 1 ML ONE
[2020-08-06 11:52] LABS: Hemoglobin 12.2 g/dL (14.0-18.0); Mean Corpuscular HGB CONC 32.9 g/dL (32.0-36.0); Mean Corpuscular Hemoglobin 31.3 pg (27.0-31.0); Mean Corpuscular Volume 95.1 fL (78.0-98.0); Mean Platelet Volume 7.4 fL (7.4-10.4); Platelet Count 366 thou/uL (130-400); Red Blood Cell (RBC) Count 3.92 mill/uL (4.70-6.10)
[2020-08-06 12:01] LABS: Band 1 % (5-11); Lymphocytes 6 % (21-51); MDiff Complete? YES; Monocytes 7 % (0-10); Neutrophil 86 % (42-75); Platelet Morphology Comment Appears Decreased; White Blood Cell (WBC) Count 22.8 thou/uL (4.8-10.8)
[2020-08-06 12:04] LABS: ALT (SGPT) 20 U/L (8-55); AST (SGOT) 25 U/L (5-34); Albumin 2.8 g/dL (3.4-4.8); Alkaline Phosphatase 151 U/L (40-110); Anion Gap 14 mmol/L (10-20); BUN (Urea Nitrogen) 11 mg/dL (8.4-25.7); Bilirubin, Total 0.5 mg/dL (0.2-1.2); Calc. Creatinine Clearance 0 mL/min (70-130); Calcium 8.6 mg/dL (7.8-10.44); Carbon Dioxide 24 mmol/L (23-31); Chloride 98 mmol/L (98-107); Globulin 4.5 g/dL (2.4-3.5); Glucose 313 mg/dL (80-115); Potassium 4.5 mmol/L (3.5-5.1); Protein, Total 7.3 g/dL (5.8-8.1); Sodium 131 mmol/L (136-145)
[2020-08-06] MEDS ORDERED: Morphine 2 MG/ML VIAL ONE (13:48)
[2020-08-06] MEDS ORDERED: Vancomycin 1 GM/200 ML BAG ONE (14:16)
[2020-08-06 15:34] LABS: Bacteria/HPF None Seen HPF (None Seen); Bilirubin Negative (Negative); Blood, Urine 1+ (Negative); Clarity Clear (Clear); Glucose, Urine (Dipstick) 300 mg/dL (Negative); Ketone, Urine Negative (Negative); Leukocyte 25 Leu/uL (Negative); Nitrite Negative (Negative); Protein, Urine (Dipstick) 30 mg/dL (Neg-Trace); RBC/HPF 21-50 HPF (0-3); Squamous Epithelial None Seen HPF (0-3); Urobilinogen Normal mg/dL (Less than 2); pH, Urine 6.5 (5.0-9.0)
[2020-08-06 15:36] LABS: Specific Gravity, Urine 1.044 (1.002-1.036)
[2020-08-06] MEDS ORDERED: Morphine 4 MG/ML VIAL ONE (15:42)
[2020-08-06] MEDS ORDERED: Dextrose 5% in Water 1,000 ML IV PRN (16:58)
[2020-08-06] MEDS ORDERED: Acetaminophen 325 MG TAB PO PRN (16:58)
[2020-08-06] MEDS ORDERED: HumaLOG 300 UNITS/3 ML VIAL SC PRN (16:58)
[2020-08-06 17:15] LABS: SARS-CoV-2 NAA Rapid Test Not Detected (NotDetected)
[2020-08-06 17:30] LABS: Hemoglobin 11.5 g/dL (14.0-18.0); Mean Corpuscular HGB CONC 32.8 g/dL (32.0-36.0); Mean Corpuscular Hemoglobin 30.8 pg (27.0-31.0); Mean Platelet Volume 7.3 fL (7.4-10.4); Platelet Count 356 thou/uL (130-400); RBC Distribution Width 14.3 % (11.5-14.5); Red Blood Cell (RBC) Count 3.73 mill/uL (4.70-6.10); White Blood Cell (WBC) Count 26.6 thou/uL (4.8-10.8)
[2020-08-06 18:01] LABS: Band 14 % (5-11); Lymphocytes 6 % (21-51); MDiff Complete? YES; Monocytes 1 % (0-10); Neutrophil 79 % (42-75); Platelet Morphology Comment Appears Adequate; Polychromasia SLIGHT = 2-3 cells (100X) (0-2/hpf)
[2020-08-06 18:07] LABS: ALT (SGPT) 21 U/L (8-55); AST (SGOT) 28 U/L (5-34); Albumin 2.7 g/dL (3.4-4.8); Alkaline Phosphatase 149 U/L (40-110); Anion Gap 13 mmol/L (10-20); BUN (Urea Nitrogen) 15 mg/dL (8.4-25.7); Bilirubin, Total 0.5 mg/dL (0.2-1.2); Calc. Creatinine Clearance 0 mL/min (70-130); Calcium 8.4 mg/dL (7.8-10.44); Carbon Dioxide 26 mmol/L (23-31); Chloride 97 mmol/L (98-107); Globulin 4.4 g/dL (2.4-3.5); Glucose 266 mg/dL (80-115); Potassium 4.5 mmol/L (3.5-5.1); Protein, Total 7.1 g/dL (5.8-8.1); Sodium 131 mmol/L (136-145)
[2020-08-06 19:51] VITALS: BMI 35.4
[2020-08-06] MEDS ORDERED: Vancomycin 1.5 GRAM/300 ML BAG 1.5 GM in Premix Bag 1 BAG IVPB SCH (21:00)
[2020-08-06] MEDS ORDERED: Cefepime 2 GM in Sodium Chloride 0.9% 100 ML IVPB SCH (21:00)
[2020-08-06] MEDS: Sodium Chloride 0.9% 1,000 ML IV SCH (22:09)
[2020-08-06] MEDS: Morphine 4 MG/ML VIAL SLOW IVP PRN (22:09)
[2020-08-06] MEDS: Heparin 5,000 UNITS/ML VIAL SC SCH (22:09)
[2020-08-06] MEDS: Famotidine 20 MG TAB PO SCH (22:10)
[2020-08-06] MEDS: Insulin Glargine 15 UNITS in Pre-Filled Syringe SC SCH (22:10)
[2020-08-06] MEDS: HYDROcodone/Acetaminophen 5/325 mg Tablet PO PRN (23:58)
[2020-08-07] MEDS: Vancomycin 1.5 GRAM/300 ML BAG 1.5 GM in Premix Bag 1 BAG IVPB SCH ×2 (01:24→14:35)
[2020-08-07] MEDS: Sodium Chloride 0.9% 1,000 ML IV SCH ×3 (01:25→17:04)
[2020-08-07] MEDS: Morphine 4 MG/ML VIAL SLOW IVP PRN ×5 (02:17→21:46)
[2020-08-07] MEDS: HYDROcodone/Acetaminophen 5/325 mg Tablet PO PRN ×2 (04:17→20:10)
[2020-08-07 06:07] LABS: Anion Gap 11 mmol/L (10-20); BUN (Urea Nitrogen) 17 mg/dL (8.4-25.7); Calc. Creatinine Clearance 172 mL/min (70-130); Calcium 8.1 mg/dL (7.8-10.44); Carbon Dioxide 23 mmol/L (23-31); Chloride 103 mmol/L (98-107); Glucose 63 mg/dL (80-115); Potassium 4.8 mmol/L (3.5-5.1); Sodium 132 mmol/L (136-145)
[2020-08-07] MEDS: Dextrose 50% Abboject 50 ML SYRINGE SLOW IVP PRN ×2 (06:15→11:24)
[2020-08-07 07:33] LABS: #Basophils 0.1 thou/uL (0.0-0.2); #Eosinphils 0.2 thou/uL (0.0-0.7); #Lymphocytes 1.2 thou/uL (1.20-3.40); #Monocytes 1.1 thou/uL (0.11-0.59); %Basophils 0.3 % (0.0-1.0); %Eosinophils 0.9 % (0.0-10.0); %Lymphocytes 5.8 % (21.0-51.0); %Monocytes 5.5 % (0.0-10.0); %Neutrophils 87.5 % (42.0-75.0); Hemoglobin 11.1 g/dL (14.0-18.0); Mean Corpuscular HGB CONC 32.2 g/dL (32.0-36.0); Mean Corpuscular Hemoglobin 31.3 pg (27.0-31.0); Mean Corpuscular Volume 97.4 fL (78.0-98.0); Mean Platelet Volume 7.7 fL (7.4-10.4); Platelet Count 268 thou/uL (130-400); RBC Distribution Width 14.3 % (11.5-14.5); Red Blood Cell (RBC) Count 3.54 mill/uL (4.70-6.10); White Blood Cell (WBC) Count 20.6 thou/uL (4.8-10.8)
[2020-08-07 09:03] LABS: Band 19 % (5-11); Lymphocytes 5 % (21-51); Monocytes 5 % (0-10)
[2020-08-07 09:04] LABS: Neutrophil 71 % (42-75)
[2020-08-07] MEDS ORDERED: Rocuronium Bromide 10 MG/ML (10ML VIAL) ONE (10:26)
[2020-08-07] MEDS ORDERED: Lidocaine 1% PF 5 ML VIAL ONE (10:26)
[2020-08-07] MEDS ORDERED: PHENYLEPHRINE-NS 100 MCG/ML 10 ML SYRINGE ONE (10:26)
[2020-08-07] MEDS ORDERED: PROPOFOL 200 MG/20 ML VIAL ONE (10:26)
[2020-08-07] MEDS ORDERED: Glycopyrrolate 0.2 MG/ML 5 ML SYRINGE ONE (10:26)
[2020-08-07] MEDS: Ondansetron PF 4 MG/2 ML Vial IVP PRN ×2 (10:33→20:17)
[2020-08-07] MEDS: Heparin 5,000 UNITS/ML VIAL SC SCH ×3 (11:28→20:09)
[2020-08-07] MEDS: Famotidine 20 MG TAB PO SCH ×3 (11:28→20:11)
[2020-08-07] MEDS ORDERED: D5 1/2 NS w/40 mEq KCL 1,000 ML IV SCH (12:15)
[2020-08-07] MEDS ORDERED: Dextrose 50% Abboject 50 ML SYRINGE ONE (13:46)
[2020-08-07] MEDS ORDERED: Fentanyl 100 MCG/2 ML VIAL ONE ×2 (13:47→15:29)
[2020-08-07] MEDS ORDERED: Temazepam 15 MG CAP PO PRN (14:15)
[2020-08-07] MEDS ORDERED: Ondansetron ODT 4 MG TAB PO PRN (14:31)
[2020-08-07] MEDS: Cefepime 2 GM in Sodium Chloride 0.9% 100 ML IVPB SCH ×2 (14:34→23:47)
[2020-08-07] MEDS ORDERED: SUGAMMADEX SODIUM 200 MG/2 ML VIAL ONE (15:05)
[2020-08-07] MEDS ORDERED: metFORMIN 500 MG TAB PO SCH (17:00)
[2020-08-07 19:16] LABS: Glucose 68 mg/dL (80-115)
[2020-08-07] MEDS: Atorvastatin Calcium 40 MG TAB PO SCH (20:09)
[2020-08-07] MEDS ORDERED: Insulin Glargine 25 UNITS in Pre-Filled Syringe 1 EACH SC SCH (21:00)
[2020-08-07] MEDS ORDERED: Non-Formulary Item 1 EACH (Insulin Glargine,Hum.Rec.Anlog [Basaglar Kwikpen U-100] 100 UN SQ SCH (21:00)
[2020-08-07] MEDS: Insulin Glargine 15 UNITS in Pre-Filled Syringe SC SCH (22:22)
[2020-08-08] MEDS: HYDROcodone/Acetaminophen 5/325 mg Tablet PO PRN ×4 (00:36→20:46)
[2020-08-08] MEDS: Vancomycin 1.5 GRAM/300 ML BAG 1.5 GM in Premix Bag 1 BAG IVPB SCH ×2 (00:36→13:27)
[2020-08-08] MEDS: Morphine 4 MG/ML VIAL SLOW IVP PRN ×5 (02:10→22:59)
[2020-08-08] MEDS: Sodium Chloride 0.9% 1,000 ML IV SCH ×3 (03:20→17:34)
[2020-08-08] MEDS: Dextrose 50% Abboject 50 ML SYRINGE SLOW IVP PRN (03:37)
[2020-08-08] MEDS: Levothyroxine 150 MCG TAB PO SCH (06:24)
[2020-08-08 07:20] LABS: #Basophils 0.1 thou/uL (0.0-0.2); #Eosinphils 0.3 thou/uL (0.0-0.7); #Lymphocytes 0.9 thou/uL (1.20-3.40); #Monocytes 0.9 thou/uL (0.11-0.59); #Neutrophils 11.4 thou/uL (1.40-6.50); %Basophils 0.5 % (0.0-1.0); %Lymphocytes 6.9 % (21.0-51.0); %Monocytes 6.7 % (0.0-10.0); %Neutrophils 83.9 % (42.0-75.0); Hemoglobin 11.1 g/dL (14.0-18.0); Mean Corpuscular HGB CONC 32.3 g/dL (32.0-36.0); Mean Corpuscular Hemoglobin 31.4 pg (27.0-31.0); Mean Corpuscular Volume 97.2 fL (78.0-98.0); Mean Platelet Volume 7.4 fL (7.4-10.4); Platelet Count 278 thou/uL (130-400); RBC Distribution Width 14.1 % (11.5-14.5); Red Blood Cell (RBC) Count 3.53 mill/uL (4.70-6.10); White Blood Cell (WBC) Count 13.6 thou/uL (4.8-10.8)
[2020-08-08 07:36] LABS: Anion Gap 15 mmol/L (10-20); BUN (Urea Nitrogen) 8 mg/dL (8.4-25.7); Calc. Creatinine Clearance 170 mL/min (70-130); Calcium 8.2 mg/dL (7.8-10.44); Carbon Dioxide 23 mmol/L (23-31); Chloride 100 mmol/L (98-107); Glucose 133 mg/dL (80-115); Potassium 4.6 mmol/L (3.5-5.1); Sodium 133 mmol/L (136-145)
[2020-08-08] MEDS ORDERED: Lisinopril 5 MG TAB PO SCH (09:00)
[2020-08-08] MEDS ORDERED: glyBURIDE 5 MG TAB PO SCH (09:00)
[2020-08-08] MEDS ORDERED: Dextrose 50% Abboject 50 ML SYRINGE SLOW IVP PRN (09:09)
[2020-08-08] MEDS ORDERED: Dextrose 5% in Water 1,000 ML IV PRN (09:09)
[2020-08-08] MEDS: Aspirin 81 mg Enteric Coated Tablet PO SCH (09:19)
[2020-08-08] MEDS: Multivitamin W/ Minerals 1 TAB PO SCH (09:19)
[2020-08-08] MEDS: Finasteride 5 MG TAB PO SCH (09:20)
[2020-08-08] MEDS: Famotidine 20 MG TAB PO SCH ×2 (09:20→20:46)
[2020-08-08] MEDS: Thiamine 100 MG TAB PO SCH (09:20)
[2020-08-08] MEDS: Heparin 5,000 UNITS/ML VIAL SC SCH (09:20)
[2020-08-08] MEDS: Folic Acid 1 MG TAB PO SCH (09:21)
[2020-08-08] MEDS: Escitalopram Oxalate 20 mg Tablet PO SCH (09:21)
[2020-08-08] MEDS: Polyethylene Glycol 3350 17 GM Packet PO SCH (09:22)
[2020-08-08] MEDS: Pioglitazone HCl 45 MG TAB PO SCH (09:24)
[2020-08-08] MEDS: Insulin Glargine 12 UNITS in Pre-Filled Syringe 1 EACH SC SCH ×2 (09:24→23:05)
[2020-08-08] MEDS: Cefepime 2 GM in Sodium Chloride 0.9% 100 ML IVPB SCH ×2 (11:33→23:53)
[2020-08-08] MEDS ORDERED: Pharmacy to Dose- VANCOMYCIN IVPB PRN (13:19)
[2020-08-08] MEDS: Atorvastatin Calcium 40 MG TAB PO SCH (20:46)
[2020-08-08] MEDS: Lisinopril 20 MG TAB PO SCH (20:46)
[2020-08-08] MEDS: Ondansetron PF 4 MG/2 ML Vial IVP PRN (23:53)
[2020-08-09 00:49] LABS: Vancomycin, Trough 16.3 ug/mL
[2020-08-09] MEDS: HYDROcodone/Acetaminophen 5/325 mg Tablet PO PRN ×5 (01:36→20:05)
[2020-08-09] MEDS: Vancomycin 1.5 GRAM/300 ML BAG 1.5 GM in Premix Bag 1 BAG IVPB SCH ×2 (01:37→15:00)
[2020-08-09] MEDS: Sodium Chloride 0.9% 1,000 ML IV SCH ×3 (03:36→18:25)
[2020-08-09] MEDS: Morphine 4 MG/ML VIAL SLOW IVP PRN ×5 (03:58→22:17)
[2020-08-09] MEDS: Levothyroxine 150 MCG TAB PO SCH (05:40)
[2020-08-09 05:59] LABS: #Basophils 0.1 thou/uL (0.0-0.2); #Eosinphils 0.2 thou/uL (0.0-0.7); #Lymphocytes 0.9 thou/uL (1.20-3.40); %Basophils 0.6 % (0.0-1.0); %Eosinophils 1.8 % (0.0-10.0); %Lymphocytes 7.9 % (21.0-51.0); %Monocytes 9.1 % (0.0-10.0); %Neutrophils 80.6 % (42.0-75.0); Hemoglobin 9.6 g/dL (14.0-18.0); Mean Corpuscular HGB CONC 31.9 g/dL (32.0-36.0); Mean Corpuscular Hemoglobin 30.4 pg (27.0-31.0); Mean Corpuscular Volume 95.2 fL (78.0-98.0); Mean Platelet Volume 7.4 fL (7.4-10.4); Platelet Count 278 thou/uL (130-400); Red Blood Cell (RBC) Count 3.14 mill/uL (4.70-6.10); White Blood Cell (WBC) Count 11.2 thou/uL (4.8-10.8)
[2020-08-09 06:20] LABS: Anion Gap 7 mmol/L (10-20); BUN (Urea Nitrogen) 8 mg/dL (8.4-25.7); Calc. Creatinine Clearance 165 mL/min (70-130); Calcium 7.9 mg/dL (7.8-10.44); Carbon Dioxide 30 mmol/L (23-31); Chloride 96 mmol/L (98-107); Glucose 168 mg/dL (80-115); Potassium 4.4 mmol/L (3.5-5.1); Sodium 129 mmol/L (136-145)
[2020-08-09] MEDS ORDERED: Polyethylene Glycol 3350 17 GM Packet PO PRN (07:56)
[2020-08-09] MEDS: Insulin Glargine 12 UNITS in Pre-Filled Syringe 1 EACH SC SCH ×2 (09:09→20:16)
[2020-08-09] MEDS: Escitalopram Oxalate 20 mg Tablet PO SCH (09:09)
[2020-08-09] MEDS: Pioglitazone HCl 45 MG TAB PO SCH (09:09)
[2020-08-09] MEDS: Polyethylene Glycol 3350 17 GM Packet PO SCH (09:09)
[2020-08-09] MEDS: Multivitamin W/ Minerals 1 TAB PO SCH (09:09)
[2020-08-09] MEDS: Famotidine 20 MG TAB PO SCH ×2 (09:09→20:12)
[2020-08-09] MEDS: Folic Acid 1 MG TAB PO SCH (09:10)
[2020-08-09] MEDS: Lisinopril 20 MG TAB PO SCH ×2 (09:10→20:09)
[2020-08-09] MEDS: Senokot S 8.6-50 MG TAB PO SCH ×2 (09:10→20:12)
[2020-08-09] MEDS: Aspirin 81 mg Enteric Coated Tablet PO SCH (09:10)
[2020-08-09] MEDS: Thiamine 100 MG TAB PO SCH (09:11)
[2020-08-09] MEDS: Finasteride 5 MG TAB PO SCH (09:11)
[2020-08-09] MEDS ORDERED: Milk Of Magnesia 30 ML UDCUP PO PRN (11:50)
[2020-08-09] MEDS: Cefepime 2 GM in Sodium Chloride 0.9% 100 ML IVPB SCH (12:34)
[2020-08-09] MEDS: cefTRIAXone\\ROCEPHIN 1 GM in Sodium Chloride 0.9% 100 ML IVPB SCH (14:35)
[2020-08-09] MEDS: NS 0.9% w/ 20 MEQ KCL 1,000 ML/1,000 ML BAG IV SCH (15:34)
[2020-08-09] MEDS: Atorvastatin Calcium 40 MG TAB PO SCH (20:12)
[2020-08-10] MEDS: Vancomycin 1.5 GRAM/300 ML BAG 1.5 GM in Premix Bag 1 BAG IVPB SCH ×2 (00:17→12:52)
[2020-08-10] MEDS: HYDROcodone/Acetaminophen 5/325 mg Tablet PO PRN ×6 (00:17→20:35)
[2020-08-10] MEDS: Sodium Chloride 0.9% 1,000 ML IV SCH ×3 (01:53→16:02)
[2020-08-10] MEDS: Morphine 4 MG/ML VIAL SLOW IVP PRN ×6 (02:33→22:21)
[2020-08-10] MEDS: NS 0.9% w/ 20 MEQ KCL 1,000 ML/1,000 ML BAG IV SCH ×2 (04:21→10:59)
[2020-08-10] MEDS: Levothyroxine 150 MCG TAB PO SCH (06:29)
[2020-08-10 07:00] LABS: #Basophils 0.1 thou/uL (0.0-0.2); #Eosinphils 0.3 thou/uL (0.0-0.7); #Monocytes 0.8 thou/uL (0.11-0.59); #Neutrophils 6.6 thou/uL (1.40-6.50); %Basophils 0.6 % (0.0-1.0); %Eosinophils 3.6 % (0.0-10.0); %Monocytes 9.4 % (0.0-10.0); %Neutrophils 75.4 % (42.0-75.0); Hemoglobin 9.3 g/dL (14.0-18.0); Mean Corpuscular HGB CONC 33.4 g/dL (32.0-36.0); Mean Corpuscular Hemoglobin 32.1 pg (27.0-31.0); Mean Corpuscular Volume 96.3 fL (78.0-98.0); Mean Platelet Volume 7.7 fL (7.4-10.4); Platelet Count 232 thou/uL (130-400); RBC Distribution Width 14.1 % (11.5-14.5); Red Blood Cell (RBC) Count 2.88 mill/uL (4.70-6.10); White Blood Cell (WBC) Count 8.8 thou/uL (4.8-10.8)
[2020-08-10 07:09] LABS: Anion Gap 8 mmol/L (10-20); BUN (Urea Nitrogen) 10 mg/dL (8.4-25.7); Calc. Creatinine Clearance 162 mL/min (70-130); Calcium 7.8 mg/dL (7.8-10.44); Carbon Dioxide 29 mmol/L (23-31); Chloride 96 mmol/L (98-107); Glucose 128 mg/dL (80-115); Potassium 4.3 mmol/L (3.5-5.1); Sodium 129 mmol/L (136-145)
[2020-08-10] MEDS: Insulin Glargine 12 UNITS in Pre-Filled Syringe 1 EACH SC SCH ×2 (08:22→20:34)
[2020-08-10] MEDS: Famotidine 20 MG TAB PO SCH ×2 (08:22→20:35)
[2020-08-10] MEDS: Polyethylene Glycol 3350 17 GM Packet PO SCH (08:22)
[2020-08-10] MEDS: Senokot S 8.6-50 MG TAB PO SCH ×2 (08:22→20:34)
[2020-08-10] MEDS: Aspirin 81 mg Enteric Coated Tablet PO SCH (08:22)
[2020-08-10] MEDS: Escitalopram Oxalate 20 mg Tablet PO SCH (08:23)
[2020-08-10] MEDS: Thiamine 100 MG TAB PO SCH (08:23)
[2020-08-10] MEDS: Finasteride 5 MG TAB PO SCH (08:23)
[2020-08-10] MEDS: Lisinopril 20 MG TAB PO SCH ×2 (08:23→20:35)
[2020-08-10] MEDS: Multivitamin W/ Minerals 1 TAB PO SCH (08:23)
[2020-08-10] MEDS: Folic Acid 1 MG TAB PO SCH (08:23)
[2020-08-10] MEDS: Pioglitazone HCl 45 MG TAB PO SCH (08:23)
[2020-08-10 12:31] LABS: Vancomycin, Trough 17.6 ug/mL
[2020-08-10] MEDS: cefTRIAXone\\ROCEPHIN 1 GM in Sodium Chloride 0.9% 100 ML IVPB SCH (14:51)
[2020-08-10] MEDS: HumaLOG 300 UNITS/3 ML VIAL SC SCH (16:38)
[2020-08-10] MEDS: Atorvastatin Calcium 40 MG TAB PO SCH (20:34)
[2020-08-11] MEDS: HYDROcodone/Acetaminophen 5/325 mg Tablet PO PRN ×3 (00:45→11:01)
[2020-08-11] MEDS: Vancomycin 1.5 GRAM/300 ML BAG 1.5 GM in Premix Bag 1 BAG IVPB SCH ×2 (00:45→12:35)
[2020-08-11] MEDS: Sodium Chloride 0.9% 1,000 ML IV SCH ×3 (01:01→18:00)
[2020-08-11] MEDS: Morphine 4 MG/ML VIAL SLOW IVP PRN ×3 (02:32→12:37)
[2020-08-11] MEDS: Levothyroxine 150 MCG TAB PO SCH (05:26)
[2020-08-11 06:32] LABS: #Basophils 0.1 thou/uL (0.0-0.2); #Eosinphils 0.3 thou/uL (0.0-0.7); #Lymphocytes 1.1 thou/uL (1.20-3.40); #Monocytes 0.9 thou/uL (0.11-0.59); %Basophils 0.6 % (0.0-1.0); %Eosinophils 3.3 % (0.0-10.0); %Lymphocytes 13.3 % (21.0-51.0); %Monocytes 10.8 % (0.0-10.0); Mean Corpuscular HGB CONC 33.3 g/dL (32.0-36.0); Mean Corpuscular Hemoglobin 32.3 pg (27.0-31.0); Mean Corpuscular Volume 96.7 fL (78.0-98.0); Mean Platelet Volume 7.4 fL (7.4-10.4); Platelet Count 232 thou/uL (130-400); Red Blood Cell (RBC) Count 3.09 mill/uL (4.70-6.10); White Blood Cell (WBC) Count 8.3 thou/uL (4.8-10.8)
[2020-08-11 06:57] LABS: Anion Gap 10 mmol/L (10-20); BUN (Urea Nitrogen) 9 mg/dL (8.4-25.7); Calc. Creatinine Clearance 151 mL/min (70-130); Calcium 8.2 mg/dL (7.8-10.44); Carbon Dioxide 28 mmol/L (23-31); Chloride 96 mmol/L (98-107); Glucose 115 mg/dL (80-115); Potassium 4.8 mmol/L (3.5-5.1); Sodium 129 mmol/L (136-145)
[2020-08-11] MEDS: Nicotine 14 MG PATCH TD PRN (08:20)
[2020-08-11] MEDS: Multivitamin W/ Minerals 1 TAB PO SCH (08:20)
[2020-08-11] MEDS: Folic Acid 1 MG TAB PO SCH (08:20)
[2020-08-11] MEDS: Polyethylene Glycol 3350 17 GM Packet PO SCH (08:20)
[2020-08-11] MEDS: Famotidine 20 MG TAB PO SCH ×2 (08:20→21:28)
[2020-08-11] MEDS: Escitalopram Oxalate 20 mg Tablet PO SCH (08:20)
[2020-08-11] MEDS: Senokot S 8.6-50 MG TAB PO SCH ×2 (08:20→21:28)
[2020-08-11] MEDS: Pioglitazone HCl 45 MG TAB PO SCH (08:21)
[2020-08-11] MEDS: NS 0.9% w/ 20 MEQ KCL 1,000 ML/1,000 ML BAG IV SCH ×2 (08:21→18:00)
[2020-08-11] MEDS: Aspirin 81 mg Enteric Coated Tablet PO SCH (08:21)
[2020-08-11] MEDS: Lisinopril 20 MG TAB PO SCH ×2 (08:21→21:34)
[2020-08-11] MEDS: Thiamine 100 MG TAB PO SCH (08:21)
[2020-08-11] MEDS: Finasteride 5 MG TAB PO SCH (08:21)
[2020-08-11] MEDS: Insulin Glargine 12 UNITS in Pre-Filled Syringe 1 EACH SC SCH ×2 (08:46→21:34)
[2020-08-11] MEDS ORDERED: Sodium Chloride 1 GM TAB PO SCH (09:00)
[2020-08-11] MEDS: cefTRIAXone\\ROCEPHIN 1 GM in Sodium Chloride 0.9% 100 ML IVPB SCH (14:48)
[2020-08-11] MEDS: HYDROcodone/Acetaminophen 10/325 mg Tablet PO PRN ×2 (14:48→18:42)
[2020-08-11] MEDS: Atorvastatin Calcium 40 MG TAB PO SCH (21:28)
[2020-08-12] MEDS: Vancomycin 1.5 GRAM/300 ML BAG 1.5 GM in Premix Bag 1 BAG IVPB SCH ×2 (00:31→12:16)
[2020-08-12] MEDS: NS 0.9% w/ 20 MEQ KCL 1,000 ML/1,000 ML BAG IV SCH ×2 (00:31→09:10)
[2020-08-12] MEDS: HYDROcodone/Acetaminophen 10/325 mg Tablet PO PRN ×6 (00:43→21:33)
[2020-08-12] MEDS: Sodium Chloride 0.9% 1,000 ML IV SCH ×3 (01:24→17:23)
[2020-08-12] MEDS: Levothyroxine 150 MCG TAB PO SCH (05:15)
[2020-08-12] MEDS: HumaLOG 300 UNITS/3 ML VIAL SC SCH ×3 (05:45→17:53)
[2020-08-12] MEDS: Nicotine 14 MG PATCH TD PRN (09:08)
[2020-08-12] MEDS: Insulin Glargine 12 UNITS in Pre-Filled Syringe 1 EACH SC SCH ×2 (09:09→21:34)
[2020-08-12] MEDS: Polyethylene Glycol 3350 17 GM Packet PO SCH (09:09)
[2020-08-12] MEDS: Folic Acid 1 MG TAB PO SCH (09:10)
[2020-08-12] MEDS: Lisinopril 20 MG TAB PO SCH ×2 (09:10→21:33)
[2020-08-12] MEDS: Finasteride 5 MG TAB PO SCH (09:10)
[2020-08-12] MEDS: Aspirin 81 mg Enteric Coated Tablet PO SCH (09:10)
[2020-08-12] MEDS: Escitalopram Oxalate 20 mg Tablet PO SCH (09:10)
[2020-08-12] MEDS: Famotidine 20 MG TAB PO SCH ×2 (09:10→21:34)
[2020-08-12] MEDS: Thiamine 100 MG TAB PO SCH (09:10)
[2020-08-12] MEDS: Pioglitazone HCl 45 MG TAB PO SCH (09:10)
[2020-08-12] MEDS: Senokot S 8.6-50 MG TAB PO SCH ×2 (09:11→21:34)
[2020-08-12] MEDS: Multivitamin W/ Minerals 1 TAB PO SCH (09:11)
[2020-08-12] MEDS: cefTRIAXone\\ROCEPHIN 1 GM in Sodium Chloride 0.9% 100 ML IVPB SCH (14:11)
[2020-08-12] MEDS: Atorvastatin Calcium 40 MG TAB PO SCH (21:34)
[2020-08-12] MEDS: Zolpidem Tartrate 5 MG TAB PO PRN (22:19)
[2020-08-13] MEDS: Vancomycin 1.5 GRAM/300 ML BAG 1.5 GM in Premix Bag 1 BAG IVPB SCH ×2 (00:23→13:04)
[2020-08-13] MEDS: Sodium Chloride 0.9% 1,000 ML IV SCH ×3 (00:24→18:05)
[2020-08-13] MEDS: NS 0.9% w/ 20 MEQ KCL 1,000 ML/1,000 ML BAG IV SCH (00:24)
[2020-08-13 04:56] LABS: #Basophils 0.1 thou/uL (0.0-0.2); #Eosinphils 0.4 thou/uL (0.0-0.7); #Lymphocytes 1.2 thou/uL (1.20-3.40); #Monocytes 0.9 thou/uL (0.11-0.59); #Neutrophils 4.8 thou/uL (1.40-6.50); %Basophils 0.9 % (0.0-1.0); %Lymphocytes 15.8 % (21.0-51.0); %Monocytes 11.7 % (0.0-10.0); %Neutrophils 65.6 % (42.0-75.0); Hemoglobin 9.2 g/dL (14.0-18.0); Mean Corpuscular HGB CONC 33.2 g/dL (32.0-36.0); Mean Corpuscular Hemoglobin 31.9 pg (27.0-31.0); Mean Corpuscular Volume 96.1 fL (78.0-98.0); Mean Platelet Volume 7.1 fL (7.4-10.4); Platelet Count 232 thou/uL (130-400); RBC Distribution Width 14.1 % (11.5-14.5); Red Blood Cell (RBC) Count 2.89 mill/uL (4.70-6.10); White Blood Cell (WBC) Count 7.3 thou/uL (4.8-10.8)
[2020-08-13 05:17] LABS: Anion Gap 9 mmol/L (10-20); BUN (Urea Nitrogen) 7 mg/dL (8.4-25.7); Calc. Creatinine Clearance 162 mL/min (70-130); Calcium 8.1 mg/dL (7.8-10.44); Carbon Dioxide 30 mmol/L (23-31); Chloride 98 mmol/L (98-107); Glucose 128 mg/dL (80-115); Potassium 4.5 mmol/L (3.5-5.1); Sodium 132 mmol/L (136-145)
[2020-08-13] MEDS: Levothyroxine 150 MCG TAB PO SCH (05:42)
[2020-08-13] MEDS: HYDROcodone/Acetaminophen 10/325 mg Tablet PO PRN ×4 (05:42→18:04)
[2020-08-13] MEDS: Escitalopram Oxalate 20 mg Tablet PO SCH (09:47)
[2020-08-13] MEDS: Aspirin 81 mg Enteric Coated Tablet PO SCH (09:47)
[2020-08-13] MEDS: Pioglitazone HCl 45 MG TAB PO SCH (09:47)
[2020-08-13] MEDS: Insulin Glargine 12 UNITS in Pre-Filled Syringe 1 EACH SC SCH ×2 (09:47→21:14)
[2020-08-13] MEDS: Finasteride 5 MG TAB PO SCH (09:47)
[2020-08-13] MEDS: Folic Acid 1 MG TAB PO SCH (09:48)
[2020-08-13] MEDS: Thiamine 100 MG TAB PO SCH (09:48)
[2020-08-13] MEDS: Multivitamin W/ Minerals 1 TAB PO SCH (09:48)
[2020-08-13] MEDS: Famotidine 20 MG TAB PO SCH ×2 (09:48→21:14)
[2020-08-13] MEDS: Senokot S 8.6-50 MG TAB PO SCH ×2 (09:49→21:14)
[2020-08-13] MEDS: Polyethylene Glycol 3350 17 GM Packet PO SCH (09:49)
[2020-08-13] MEDS: Lisinopril 20 MG TAB PO SCH ×2 (09:52→21:14)
[2020-08-13] MEDS: HumaLOG 300 UNITS/3 ML VIAL SC SCH (13:04)
[2020-08-13] MEDS: cefTRIAXone\\ROCEPHIN 1 GM in Sodium Chloride 0.9% 100 ML IVPB SCH (14:16)
[2020-08-13] MEDS: Zolpidem Tartrate 5 MG TAB PO PRN (19:35)
[2020-08-13] MEDS: Atorvastatin Calcium 40 MG TAB PO SCH (21:14)
[2020-08-14] MEDS: Vancomycin 1.5 GRAM/300 ML BAG 1.5 GM in Premix Bag 1 BAG IVPB SCH ×2 (00:19→15:02)
[2020-08-14] MEDS: HYDROcodone/Acetaminophen 10/325 mg Tablet PO PRN ×6 (00:20→20:05)
[2020-08-14] MEDS: Sodium Chloride 0.9% 1,000 ML IV SCH ×2 (04:08→15:09)
[2020-08-14 04:52] LABS: #Basophils 0.1 thou/uL (0.0-0.2); #Eosinphils 0.5 thou/uL (0.0-0.7); #Lymphocytes 1.3 thou/uL (1.20-3.40); #Monocytes 0.8 thou/uL (0.11-0.59); #Neutrophils 4.8 thou/uL (1.40-6.50); %Basophils 0.9 % (0.0-1.0); %Eosinophils 6.2 % (0.0-10.0); %Lymphocytes 17.7 % (21.0-51.0); %Monocytes 10.7 % (0.0-10.0); %Neutrophils 64.5 % (42.0-75.0); Hemoglobin 9.3 g/dL (14.0-18.0); Mean Corpuscular HGB CONC 31.7 g/dL (32.0-36.0); Mean Corpuscular Volume 94.6 fL (78.0-98.0); Mean Platelet Volume 7.6 fL (7.4-10.4); Platelet Count 237 thou/uL (130-400); Red Blood Cell (RBC) Count 3.09 mill/uL (4.70-6.10); White Blood Cell (WBC) Count 7.4 thou/uL (4.8-10.8)
[2020-08-14 05:05] LABS: Anion Gap 10 mmol/L (10-20); BUN (Urea Nitrogen) 10 mg/dL (8.4-25.7); Calc. Creatinine Clearance 149 mL/min (70-130); Calcium 8.2 mg/dL (7.8-10.44); Carbon Dioxide 30 mmol/L (23-31); Chloride 97 mmol/L (98-107); Glucose 148 mg/dL (80-115); Potassium 4.6 mmol/L (3.5-5.1); Sodium 132 mmol/L (136-145)
[2020-08-14] MEDS: Levothyroxine 150 MCG TAB PO SCH (05:28)
[2020-08-14] MEDS: HumaLOG 300 UNITS/3 ML VIAL SC SCH ×2 (05:33→16:16)
[2020-08-14] MEDS: Pioglitazone HCl 45 MG TAB PO SCH (08:15)
[2020-08-14] MEDS: Lisinopril 20 MG TAB PO SCH ×2 (08:15→21:09)
[2020-08-14] MEDS: Aspirin 81 mg Enteric Coated Tablet PO SCH (08:15)
[2020-08-14] MEDS: Famotidine 20 MG TAB PO SCH ×2 (08:15→20:06)
[2020-08-14] MEDS: Folic Acid 1 MG TAB PO SCH (08:15)
[2020-08-14] MEDS: Escitalopram Oxalate 20 mg Tablet PO SCH (08:15)
[2020-08-14] MEDS: Finasteride 5 MG TAB PO SCH (08:16)
[2020-08-14] MEDS: Multivitamin W/ Minerals 1 TAB PO SCH (08:16)
[2020-08-14] MEDS: Polyethylene Glycol 3350 17 GM Packet PO SCH (08:16)
[2020-08-14] MEDS: Thiamine 100 MG TAB PO SCH (08:16)
[2020-08-14] MEDS: Senokot S 8.6-50 MG TAB PO SCH ×2 (08:16→20:06)
[2020-08-14] MEDS: Insulin Glargine 12 UNITS in Pre-Filled Syringe 1 EACH SC SCH ×2 (08:36→20:08)
[2020-08-14] MEDS: Morphine 4 MG/ML VIAL SLOW IVP PRN (09:54)
[2020-08-14] MEDS: cefTRIAXone\\ROCEPHIN 1 GM in Sodium Chloride 0.9% 100 ML IVPB SCH (13:03)
[2020-08-14] MEDS: Atorvastatin Calcium 40 MG TAB PO SCH (20:06)
[2020-08-14] MEDS: Zolpidem Tartrate 5 MG TAB PO PRN (21:09)
[2020-08-15] MEDS: HYDROcodone/Acetaminophen 10/325 mg Tablet PO PRN ×5 (00:06→20:36)
[2020-08-15] MEDS: Vancomycin 1.5 GRAM/300 ML BAG 1.5 GM in Premix Bag 1 BAG IVPB SCH ×2 (00:06→13:38)
[2020-08-15] MEDS: Sodium Chloride 0.9% 1,000 ML IV SCH ×3 (04:59→16:20)
[2020-08-15] MEDS: Levothyroxine 150 MCG TAB PO SCH (04:59)
[2020-08-15 05:14] LABS: #Basophils 0.1 thou/uL (0.0-0.2); #Eosinphils 0.4 thou/uL (0.0-0.7); #Lymphocytes 1.3 thou/uL (1.20-3.40); #Monocytes 0.7 thou/uL (0.11-0.59); #Neutrophils 6.7 thou/uL (1.40-6.50); %Basophils 0.6 % (0.0-1.0); %Eosinophils 4.9 % (0.0-10.0); %Lymphocytes 13.7 % (21.0-51.0); %Monocytes 7.7 % (0.0-10.0); %Neutrophils 73.1 % (42.0-75.0); Hemoglobin 9.7 g/dL (14.0-18.0); Mean Corpuscular HGB CONC 32.6 g/dL (32.0-36.0); Mean Corpuscular Hemoglobin 30.7 pg (27.0-31.0); Mean Corpuscular Volume 94.3 fL (78.0-98.0); Mean Platelet Volume 7.1 fL (7.4-10.4); Platelet Count 244 thou/uL (130-400); RBC Distribution Width 13.9 % (11.5-14.5); Red Blood Cell (RBC) Count 3.14 mill/uL (4.70-6.10); White Blood Cell (WBC) Count 9.2 thou/uL (4.8-10.8)
[2020-08-15 05:36] LABS: Anion Gap 10 mmol/L (10-20); BUN (Urea Nitrogen) 9 mg/dL (8.4-25.7); Calc. Creatinine Clearance 165 mL/min (70-130); Calcium 8.2 mg/dL (7.8-10.44); Carbon Dioxide 30 mmol/L (23-31); Chloride 97 mmol/L (98-107); Glucose 166 mg/dL (80-115); Potassium 4.5 mmol/L (3.5-5.1); Sodium 132 mmol/L (136-145)
[2020-08-15] MEDS: Thiamine 100 MG TAB PO SCH (08:27)
[2020-08-15] MEDS: Insulin Glargine 12 UNITS in Pre-Filled Syringe 1 EACH SC SCH ×2 (08:27→20:35)
[2020-08-15] MEDS: Escitalopram Oxalate 20 mg Tablet PO SCH (08:28)
[2020-08-15] MEDS: Polyethylene Glycol 3350 17 GM Packet PO SCH (08:28)
[2020-08-15] MEDS: Aspirin 81 mg Enteric Coated Tablet PO SCH (08:28)
[2020-08-15] MEDS: Pioglitazone HCl 45 MG TAB PO SCH (08:28)
[2020-08-15] MEDS: Folic Acid 1 MG TAB PO SCH (08:28)
[2020-08-15] MEDS: Multivitamin W/ Minerals 1 TAB PO SCH (08:28)
[2020-08-15] MEDS: Lisinopril 20 MG TAB PO SCH ×2 (08:28→20:35)
[2020-08-15] MEDS: Senokot S 8.6-50 MG TAB PO SCH ×2 (08:28→20:35)
[2020-08-15] MEDS: Famotidine 20 MG TAB PO SCH ×2 (08:28→20:29)
[2020-08-15] MEDS: Finasteride 5 MG TAB PO SCH (08:28)
[2020-08-15] MEDS: HumaLOG 300 UNITS/3 ML VIAL SC SCH ×2 (12:41→16:21)
[2020-08-15] MEDS: cefTRIAXone\\ROCEPHIN 1 GM in Sodium Chloride 0.9% 100 ML IVPB SCH (12:41)
[2020-08-15 12:52] LABS: Vancomycin, Trough 17.4 ug/mL
[2020-08-15] MEDS: Atorvastatin Calcium 40 MG TAB PO SCH (20:29)
[2020-08-15] MEDS: Zolpidem Tartrate 5 MG TAB PO PRN (22:53)
[2020-08-15] MEDS: Nystatin Powder 15 GM BOT TOP SCH (22:53)
[2020-08-16] MEDS: HYDROcodone/Acetaminophen 10/325 mg Tablet PO PRN ×6 (00:24→21:45)
[2020-08-16] MEDS: Vancomycin 1.5 GRAM/300 ML BAG 1.5 GM in Premix Bag 1 BAG IVPB SCH ×2 (00:24→13:38)
[2020-08-16] MEDS: Sodium Chloride 0.9% 1,000 ML IV SCH ×2 (05:34→17:24)
[2020-08-16] MEDS: Levothyroxine 150 MCG TAB PO SCH (05:35)
[2020-08-16] MEDS: HumaLOG 300 UNITS/3 ML VIAL SC SCH ×2 (05:57→12:50)
[2020-08-16] MEDS: Polyethylene Glycol 3350 17 GM Packet PO SCH (09:21)
[2020-08-16] MEDS: Insulin Glargine 12 UNITS in Pre-Filled Syringe 1 EACH SC SCH (09:21)
[2020-08-16] MEDS: Folic Acid 1 MG TAB PO SCH (09:21)
[2020-08-16] MEDS: Senokot S 8.6-50 MG TAB PO SCH ×2 (09:22→20:13)
[2020-08-16] MEDS: Famotidine 20 MG TAB PO SCH ×2 (09:22→20:13)
[2020-08-16] MEDS: Pioglitazone HCl 45 MG TAB PO SCH (09:22)
[2020-08-16] MEDS: Aspirin 81 mg Enteric Coated Tablet PO SCH (09:22)
[2020-08-16] MEDS: Thiamine 100 MG TAB PO SCH (09:22)
[2020-08-16] MEDS: Finasteride 5 MG TAB PO SCH (09:22)
[2020-08-16] MEDS: Escitalopram Oxalate 20 mg Tablet PO SCH (09:22)
[2020-08-16] MEDS: Multivitamin W/ Minerals 1 TAB PO SCH (09:22)
[2020-08-16] MEDS: Nystatin Powder 15 GM BOT TOP SCH ×2 (09:23→20:14)
[2020-08-16] MEDS: Lisinopril 20 MG TAB PO SCH ×2 (09:29→20:15)
[2020-08-16] MEDS: Morphine 4 MG/ML VIAL SLOW IVP PRN (10:15)
[2020-08-16 12:48] LABS: Vancomycin, Trough 16.7 ug/mL
[2020-08-16] MEDS: cefTRIAXone\\ROCEPHIN 1 GM in Sodium Chloride 0.9% 100 ML IVPB SCH (15:00)
[2020-08-16] MEDS: Zolpidem Tartrate 5 MG TAB PO PRN (20:13)
[2020-08-16] MEDS: Atorvastatin Calcium 40 MG TAB PO SCH (20:13)
[2020-08-16] MEDS: Heparin 5,000 UNITS/ML VIAL SC SCH (20:14)
[2020-08-16] MEDS: Insulin Glargine 15 UNITS in Pre-Filled Syringe 1 EACH SC SCH (20:39)
[2020-08-17] MEDS: Vancomycin 1.5 GRAM/300 ML BAG 1.5 GM in Premix Bag 1 BAG IVPB SCH ×2 (00:27→14:12)
[2020-08-17] MEDS: HYDROcodone/Acetaminophen 10/325 mg Tablet PO PRN ×6 (02:01→23:00)
[2020-08-17] MEDS: Sodium Chloride 0.9% 1,000 ML IV SCH ×2 (05:45→16:52)
[2020-08-17] MEDS: Levothyroxine 150 MCG TAB PO SCH (05:45)
[2020-08-17] MEDS: HumaLOG 300 UNITS/3 ML VIAL SC SCH (05:54)
[2020-08-17] MEDS: Multivitamin W/ Minerals 1 TAB PO SCH (09:49)
[2020-08-17] MEDS: Famotidine 20 MG TAB PO SCH ×2 (09:49→19:58)
[2020-08-17] MEDS: Folic Acid 1 MG TAB PO SCH (09:50)
[2020-08-17] MEDS: Polyethylene Glycol 3350 17 GM Packet PO SCH (09:50)
[2020-08-17] MEDS: Pioglitazone HCl 45 MG TAB PO SCH (09:50)
[2020-08-17] MEDS: Aspirin 81 mg Enteric Coated Tablet PO SCH (09:50)
[2020-08-17] MEDS: Senokot S 8.6-50 MG TAB PO SCH ×2 (09:50→19:59)
[2020-08-17] MEDS: Lisinopril 20 MG TAB PO SCH ×2 (09:50→20:16)
[2020-08-17] MEDS: Escitalopram Oxalate 20 mg Tablet PO SCH (09:51)
[2020-08-17] MEDS: Finasteride 5 MG TAB PO SCH (09:51)
[2020-08-17] MEDS: Nystatin Powder 15 GM BOT TOP SCH ×2 (09:51→19:59)
[2020-08-17] MEDS: Insulin Glargine 15 UNITS in Pre-Filled Syringe 1 EACH SC SCH ×2 (09:52→19:57)
[2020-08-17] MEDS: Heparin 5,000 UNITS/ML VIAL SC SCH ×2 (09:52→19:58)
[2020-08-17] MEDS: Thiamine 100 MG TAB PO SCH (09:53)
[2020-08-17] MEDS: cefTRIAXone\\ROCEPHIN 1 GM in Sodium Chloride 0.9% 100 ML IVPB SCH (14:12)
[2020-08-17] MEDS: Zolpidem Tartrate 5 MG TAB PO PRN (19:58)
[2020-08-17] MEDS: Atorvastatin Calcium 40 MG TAB PO SCH (19:58)
[2020-08-18] MEDS: Sodium Chloride 0.9% 1,000 ML IV SCH ×3 (00:09→18:39)
[2020-08-18] MEDS: Vancomycin 1.5 GRAM/300 ML BAG 1.5 GM in Premix Bag 1 BAG IVPB SCH ×2 (00:26→12:55)
[2020-08-18] MEDS: HYDROcodone/Acetaminophen 10/325 mg Tablet PO PRN ×5 (03:38→21:46)
[2020-08-18] MEDS: Levothyroxine 150 MCG TAB PO SCH (05:17)
[2020-08-18] MEDS: HumaLOG 300 UNITS/3 ML VIAL SC SCH (06:13)
[2020-08-18] MEDS: Insulin Glargine 15 UNITS in Pre-Filled Syringe 1 EACH SC SCH ×2 (08:45→21:57)
[2020-08-18] MEDS: Aspirin 81 mg Enteric Coated Tablet PO SCH (08:46)
[2020-08-18] MEDS: Pioglitazone HCl 45 MG TAB PO SCH (08:46)
[2020-08-18] MEDS: Multivitamin W/ Minerals 1 TAB PO SCH (08:46)
[2020-08-18] MEDS: Famotidine 20 MG TAB PO SCH ×2 (08:46→20:27)
[2020-08-18] MEDS: Lisinopril 20 MG TAB PO SCH ×2 (08:46→20:31)
[2020-08-18] MEDS: Finasteride 5 MG TAB PO SCH (08:47)
[2020-08-18] MEDS: Escitalopram Oxalate 20 mg Tablet PO SCH (08:47)
[2020-08-18] MEDS: Thiamine 100 MG TAB PO SCH (08:47)
[2020-08-18] MEDS: Folic Acid 1 MG TAB PO SCH (08:48)
[2020-08-18] MEDS: Heparin 5,000 UNITS/ML VIAL SC SCH ×2 (08:48→20:27)
[2020-08-18] MEDS: Morphine 4 MG/ML VIAL SLOW IVP PRN (09:58)
[2020-08-18] MEDS: cefTRIAXone\\ROCEPHIN 1 GM in Sodium Chloride 0.9% 100 ML IVPB SCH (14:39)
[2020-08-18] MEDS: Nystatin Powder 15 GM BOT TOP SCH ×2 (14:40→20:35)
[2020-08-18] MEDS: Senokot S 8.6-50 MG TAB PO SCH ×2 (14:41→20:31)
[2020-08-18] MEDS: Polyethylene Glycol 3350 17 GM Packet PO SCH (14:41)
[2020-08-18] MEDS: Atorvastatin Calcium 40 MG TAB PO SCH (20:24)
[2020-08-18] MEDS: Zolpidem Tartrate 5 MG TAB PO PRN (21:50)
[2020-08-19] MEDS: Vancomycin 1.5 GRAM/300 ML BAG 1.5 GM in Premix Bag 1 BAG IVPB SCH ×2 (00:34→13:18)
[2020-08-19] MEDS: Sodium Chloride 0.9% 1,000 ML IV SCH ×2 (00:34→15:46)
[2020-08-19] MEDS: HYDROcodone/Acetaminophen 10/325 mg Tablet PO PRN ×5 (03:12→21:50)
[2020-08-19] MEDS: Levothyroxine 150 MCG TAB PO SCH (05:53)
[2020-08-19] MEDS: HumaLOG 300 UNITS/3 ML VIAL SC SCH ×2 (05:53→11:40)
[2020-08-19] MEDS: Insulin Glargine 15 UNITS in Pre-Filled Syringe 1 EACH SC SCH ×2 (09:38→21:51)
[2020-08-19] MEDS: Senokot S 8.6-50 MG TAB PO SCH ×2 (09:39→21:48)
[2020-08-19] MEDS: Multivitamin W/ Minerals 1 TAB PO SCH (09:40)
[2020-08-19] MEDS: Pioglitazone HCl 45 MG TAB PO SCH (09:40)
[2020-08-19] MEDS: Folic Acid 1 MG TAB PO SCH (09:40)
[2020-08-19] MEDS: Famotidine 20 MG TAB PO SCH ×2 (09:40→21:48)
[2020-08-19] MEDS: Thiamine 100 MG TAB PO SCH (09:40)
[2020-08-19] MEDS: Escitalopram Oxalate 20 mg Tablet PO SCH (09:40)
[2020-08-19] MEDS: Finasteride 5 MG TAB PO SCH (09:40)
[2020-08-19] MEDS: Aspirin 81 mg Enteric Coated Tablet PO SCH (09:40)
[2020-08-19] MEDS: Heparin 5,000 UNITS/ML VIAL SC SCH (09:41)
[2020-08-19] MEDS: Lisinopril 20 MG TAB PO SCH ×2 (09:41→21:49)
[2020-08-19] MEDS: Polyethylene Glycol 3350 17 GM Packet PO SCH (09:41)
[2020-08-19 13:03] LABS: Vancomycin, Trough 16.5 ug/mL
[2020-08-19] MEDS: cefTRIAXone\\ROCEPHIN 1 GM in Sodium Chloride 0.9% 100 ML IVPB SCH (15:38)
[2020-08-19] MEDS: Zolpidem Tartrate 5 MG TAB PO PRN (21:49)
[2020-08-19] MEDS: Tamsulosin HCl 0.4 MG CAP PO SCH (21:49)
[2020-08-19] MEDS: Atorvastatin Calcium 40 MG TAB PO SCH (21:50)
[2020-08-20] MEDS: Sodium Chloride 0.9% 1,000 ML IV SCH ×3 (01:40→21:11)
[2020-08-20] MEDS: Vancomycin 1.5 GRAM/300 ML BAG 1.5 GM in Premix Bag 1 BAG IVPB SCH ×2 (01:40→12:42)
[2020-08-20] MEDS: HYDROcodone/Acetaminophen 10/325 mg Tablet PO PRN ×5 (03:35→21:12)
[2020-08-20] MEDS: Levothyroxine 150 MCG TAB PO SCH (06:15)
[2020-08-20] MEDS: HumaLOG 300 UNITS/3 ML VIAL SC SCH ×3 (06:24→17:01)
[2020-08-20] MEDS: Insulin Glargine 15 UNITS in Pre-Filled Syringe 1 EACH SC SCH ×2 (08:52→21:15)
[2020-08-20] MEDS: Enoxaparin Sodium 40 MG/0.4 ML SYRINGE SC SCH (08:52)
[2020-08-20] MEDS: Polyethylene Glycol 3350 17 GM Packet PO SCH (08:54)
[2020-08-20] MEDS: Pioglitazone HCl 45 MG TAB PO SCH (08:54)
[2020-08-20] MEDS: Senokot S 8.6-50 MG TAB PO SCH ×2 (08:54→21:14)
[2020-08-20] MEDS: Finasteride 5 MG TAB PO SCH (08:55)
[2020-08-20] MEDS: Famotidine 20 MG TAB PO SCH ×2 (08:55→21:14)
[2020-08-20] MEDS: Multivitamin W/ Minerals 1 TAB PO SCH (08:55)
[2020-08-20] MEDS: Lisinopril 20 MG TAB PO SCH ×2 (08:55→21:15)
[2020-08-20] MEDS: Escitalopram Oxalate 20 mg Tablet PO SCH (08:56)
[2020-08-20] MEDS: Aspirin 81 mg Enteric Coated Tablet PO SCH (08:56)
[2020-08-20] MEDS: Amlodipine 5 MG TAB PO SCH (08:56)
[2020-08-20] MEDS: Thiamine 100 MG TAB PO SCH (08:58)
[2020-08-20] MEDS: Folic Acid 1 MG TAB PO SCH (08:58)
[2020-08-20] MEDS: Zolpidem Tartrate 5 MG TAB PO PRN (21:12)
[2020-08-20] MEDS: Atorvastatin Calcium 40 MG TAB PO SCH (21:14)
[2020-08-20] MEDS: Tamsulosin HCl 0.4 MG CAP PO SCH (21:14)
[2020-08-21 00:25] LABS: Vancomycin, Trough 18.9 ug/mL
[2020-08-21] MEDS: Vancomycin 1.5 GRAM/300 ML BAG 1.5 GM in Premix Bag 1 BAG IVPB SCH ×2 (01:57→13:15)
[2020-08-21] MEDS: HYDROcodone/Acetaminophen 10/325 mg Tablet PO PRN ×2 (01:58→06:52)
[2020-08-21] MEDS: HumaLOG 300 UNITS/3 ML VIAL SC SCH ×3 (06:46→21:10)
[2020-08-21] MEDS: Levothyroxine 150 MCG TAB PO SCH (06:52)
[2020-08-21] MEDS: Insulin Glargine 15 UNITS in Pre-Filled Syringe 1 EACH SC SCH ×2 (09:02→21:07)
[2020-08-21] MEDS: Famotidine 20 MG TAB PO SCH ×2 (09:03→21:07)
[2020-08-21] MEDS: Thiamine 100 MG TAB PO SCH (09:03)
[2020-08-21] MEDS: Escitalopram Oxalate 20 mg Tablet PO SCH (09:03)
[2020-08-21] MEDS: Aspirin 81 mg Enteric Coated Tablet PO SCH (09:03)
[2020-08-21] MEDS: Amlodipine 5 MG TAB PO SCH (09:03)
[2020-08-21] MEDS: Finasteride 5 MG TAB PO SCH (09:03)
[2020-08-21] MEDS: Enoxaparin Sodium 40 MG/0.4 ML SYRINGE SC SCH (09:03)
[2020-08-21] MEDS: Pioglitazone HCl 45 MG TAB PO SCH (09:03)
[2020-08-21] MEDS: Folic Acid 1 MG TAB PO SCH (09:04)
[2020-08-21] MEDS: Multivitamin W/ Minerals 1 TAB PO SCH (09:04)
[2020-08-21] MEDS: Lisinopril 20 MG TAB PO SCH ×2 (09:04→21:07)
[2020-08-21] MEDS: Polyethylene Glycol 3350 17 GM Packet PO SCH (09:05)
[2020-08-21] MEDS: Senokot S 8.6-50 MG TAB PO SCH ×2 (09:05→21:08)
[2020-08-21] MEDS: Morphine 4 MG/ML VIAL SLOW IVP PRN (10:14)
[2020-08-21] MEDS ORDERED: Acetaminophen/Codeine 30-300mg Tablet PO PRN (10:44)
[2020-08-21] MEDS: Sodium Chloride 0.9% 1,000 ML IV SCH ×2 (11:55→16:41)
[2020-08-21] MEDS: cefTRIAXone\\ROCEPHIN 1 GM in Sodium Chloride 0.9% 100 ML IVPB SCH (11:55)
[2020-08-21] MEDS: Acetaminophen/Codeine 30-300mg Tablet PO PRN ×3 (12:02→23:50)
[2020-08-21] MEDS: Tamsulosin HCl 0.4 MG CAP PO SCH (21:07)
[2020-08-21] MEDS: Zolpidem Tartrate 5 MG TAB PO PRN (21:07)
[2020-08-21] MEDS: Atorvastatin Calcium 40 MG TAB PO SCH (21:07)
[2020-08-22] MEDS: Sodium Chloride 0.9% 1,000 ML IV SCH ×3 (00:33→21:08)
[2020-08-22] MEDS: Vancomycin 1.5 GRAM/300 ML BAG 1.5 GM in Premix Bag 1 BAG IVPB SCH ×2 (00:33→13:50)
[2020-08-22] MEDS ORDERED: traMADol HCl 50 MG TAB PO SCH (01:30)
[2020-08-22 02:10] LABS: #Basophils 0.1 thou/uL (0.0-0.2); #Eosinphils 0.2 thou/uL (0.0-0.7); #Lymphocytes 0.9 thou/uL (1.20-3.40); #Monocytes 0.7 thou/uL (0.11-0.59); #Neutrophils 4.4 thou/uL (1.40-6.50); %Basophils 0.9 % (0.0-1.0); %Eosinophils 3.1 % (0.0-10.0); %Lymphocytes 14.6 % (21.0-51.0); %Monocytes 10.5 % (0.0-10.0); %Neutrophils 70.8 % (42.0-75.0); Hemoglobin 8.8 g/dL (14.0-18.0); Mean Corpuscular HGB CONC 33.2 g/dL (32.0-36.0); Mean Corpuscular Hemoglobin 31.5 pg (27.0-31.0); Mean Corpuscular Volume 94.8 fL (78.0-98.0); Platelet Count 204 thou/uL (130-400); RBC Distribution Width 14.1 % (11.5-14.5); Red Blood Cell (RBC) Count 2.79 mill/uL (4.70-6.10); White Blood Cell (WBC) Count 6.2 thou/uL (4.8-10.8)
[2020-08-22 02:23] LABS: ALT (SGPT) 10 U/L (8-55); AST (SGOT) 15 U/L (5-34); Albumin 2.6 g/dL (3.4-4.8); Alkaline Phosphatase 124 U/L (40-110); Anion Gap 10 mmol/L (10-20); BUN (Urea Nitrogen) 10 mg/dL (8.4-25.7); Bilirubin, Total 0.2 mg/dL (0.2-1.2); Calc. Creatinine Clearance 165 mL/min (70-130); Calcium 8.3 mg/dL (7.8-10.44); Carbon Dioxide 27 mmol/L (23-31); Chloride 100 mmol/L (98-107); Globulin 3.7 g/dL (2.4-3.5); Glucose 250 mg/dL (80-115); Magnesium 1.6 mg/dL (1.6-2.6); Potassium 4.3 mmol/L (3.5-5.1); Protein, Total 6.3 g/dL (5.8-8.1); Sodium 133 mmol/L (136-145)
[2020-08-22] MEDS: Levothyroxine 150 MCG TAB PO SCH (05:00)
[2020-08-22] MEDS: Acetaminophen/Codeine 30-300mg Tablet PO PRN ×3 (05:00→20:25)
[2020-08-22] MEDS: HumaLOG 300 UNITS/3 ML VIAL SC SCH ×3 (05:44→20:25)
[2020-08-22] MEDS: Multivitamin W/ Minerals 1 TAB PO SCH (08:42)
[2020-08-22] MEDS: Folic Acid 1 MG TAB PO SCH (08:43)
[2020-08-22] MEDS: Aspirin 81 mg Enteric Coated Tablet PO SCH (08:43)
[2020-08-22] MEDS: Senokot S 8.6-50 MG TAB PO SCH ×2 (08:43→20:24)
[2020-08-22] MEDS: Thiamine 100 MG TAB PO SCH (08:43)
[2020-08-22] MEDS: Famotidine 20 MG TAB PO SCH ×2 (08:43→20:24)
[2020-08-22] MEDS: Escitalopram Oxalate 20 mg Tablet PO SCH (08:44)
[2020-08-22] MEDS: Pioglitazone HCl 45 MG TAB PO SCH (08:44)
[2020-08-22] MEDS: Enoxaparin Sodium 40 MG/0.4 ML SYRINGE SC SCH (08:44)
[2020-08-22] MEDS: Amlodipine 5 MG TAB PO SCH (08:45)
[2020-08-22] MEDS: Lisinopril 20 MG TAB PO SCH ×2 (08:46→20:24)
[2020-08-22] MEDS: Finasteride 5 MG TAB PO SCH (08:46)
[2020-08-22] MEDS: Polyethylene Glycol 3350 17 GM Packet PO SCH (08:47)
[2020-08-22] MEDS: Insulin Glargine 15 UNITS in Pre-Filled Syringe 1 EACH SC SCH ×2 (08:48→20:24)
[2020-08-22] MEDS: cefTRIAXone\\ROCEPHIN 1 GM in Sodium Chloride 0.9% 100 ML IVPB SCH (12:33)
[2020-08-22] MEDS: Atorvastatin Calcium 40 MG TAB PO SCH (20:24)
[2020-08-22] MEDS: Tamsulosin HCl 0.4 MG CAP PO SCH (20:24)
[2020-08-22] MEDS: Zolpidem Tartrate 5 MG TAB PO PRN (20:25)
[2020-08-23] MEDS ORDERED: Ibuprofen 800 MG TAB PO SCH (00:15)
[2020-08-23] MEDS: Vancomycin 1.5 GRAM/300 ML BAG 1.5 GM in Premix Bag 1 BAG IVPB SCH ×2 (00:19→13:17)
[2020-08-23] MEDS: HumaLOG 300 UNITS/3 ML VIAL SC SCH ×2 (05:48→12:07)
[2020-08-23] MEDS: Levothyroxine 150 MCG TAB PO SCH (05:49)
[2020-08-23] MEDS: Acetaminophen/Codeine 30-300mg Tablet PO PRN ×2 (05:52→18:46)
[2020-08-23] MEDS: Sodium Chloride 0.9% 1,000 ML IV SCH (07:00)
[2020-08-23] MEDS: Lisinopril 20 MG TAB PO SCH (09:32)
[2020-08-23] MEDS: Insulin Glargine 15 UNITS in Pre-Filled Syringe 1 EACH SC SCH (09:32)
[2020-08-23] MEDS: Enoxaparin Sodium 40 MG/0.4 ML SYRINGE SC SCH (09:32)
[2020-08-23] MEDS: Amlodipine 5 MG TAB PO SCH (09:32)
[2020-08-23] MEDS: Pioglitazone HCl 45 MG TAB PO SCH (09:32)
[2020-08-23] MEDS: Aspirin 81 mg Enteric Coated Tablet PO SCH (09:32)
[2020-08-23] MEDS: Escitalopram Oxalate 20 mg Tablet PO SCH (09:32)
[2020-08-23] MEDS: Senokot S 8.6-50 MG TAB PO SCH (09:32)
[2020-08-23] MEDS: Famotidine 20 MG TAB PO SCH (09:32)
[2020-08-23] MEDS: Multivitamin W/ Minerals 1 TAB PO SCH (09:33)
[2020-08-23] MEDS: Folic Acid 1 MG TAB PO SCH (09:33)
[2020-08-23] MEDS: Thiamine 100 MG TAB PO SCH (09:33)
[2020-08-23] MEDS: Finasteride 5 MG TAB PO SCH (09:33)
[2020-08-23] MEDS ORDERED: Morphine 4 MG/ML VIAL SLOW IVP PRN (10:33)
[2020-08-23] MEDS: Polyethylene Glycol 3350 17 GM Packet PO SCH (10:52)
[2020-08-23 11:27] VITALS: TEMP 98
[2020-08-23] MEDS: cefTRIAXone\\ROCEPHIN 1 GM in Sodium Chloride 0.9% 100 ML IVPB SCH (12:05)
[2020-08-23 15:41] VITALS: BP 136/76
[2020-08-23] MEDS ORDERED: Insulin Glargine 20 UNITS in Pre-Filled Syringe 1 EACH SC SCH (21:00)
== END 2020-08-23 19:52 | disposition swing bed (61) | DRG 982 ==
LOC: ERS 10:58 → SURG A 16:36
PROVIDERS: ADMIT Internal Medicine; ATTEND Internal Medicine
PROC: 0LB40ZZ Excision of Left Upper Arm Tendon, Open Approach (ICD-10-PCS; principal; 2020-08-07)
PROC: 02HV33Z Insertion of Infusion Device into Superior Vena Cava, Percutaneous Approach (ICD-10-PCS; 2020-08-08)
PROC: B518ZZA Fluoroscopy of Superior Vena Cava, Guidance (ICD-10-PCS; 2020-08-08)
PROC: B548ZZA Ultrasonography of Superior Vena Cava, Guidance (ICD-10-PCS; 2020-08-08)
DX: L02.414 Cutaneous abscess of left upper limb (principal); L02.213 Cutaneous abscess of chest wall; N39.0 Urinary tract infection, site not specified; E87.1 Hypo-osmolality and hyponatremia; L03.313 Cellulitis of chest wall; Z20.822 Contact with and (suspected) exposure to COVID-19; L03.114 Cellulitis of left upper limb; B95.62 Methicillin resistant Staphylococcus aureus infection as the cause of diseases classified elsewhere; R33.9 Retention of urine, unspecified; I10 Essential (primary) hypertension; I65.8 Occlusion and stenosis of other precerebral arteries; E78.5 Hyperlipidemia, unspecified; E03.9 Hypothyroidism, unspecified; F17.210 Nicotine dependence, cigarettes, uncomplicated; E11.65 Type 2 diabetes mellitus with hyperglycemia; D64.9 Anemia, unspecified; F41.9 Anxiety disorder, unspecified; F32.9 Major depressive disorder, single episode, unspecified; K21.9 Gastro-esophageal reflux disease without esophagitis; E11.51 Type 2 diabetes mellitus with diabetic peripheral angiopathy without gangrene; K59.00 Constipation, unspecified; R62.7 Adult failure to thrive; Z68.35 Body mass index [BMI] 35.0-35.9, adult; Z79.890 Hormone replacement therapy; Z79.899 Other long term (current) drug therapy; Z79.82 Long term (current) use of aspirin; Z79.4 Long term (current) use of insulin; Z89.421 Acquired absence of other right toe(s)
CPT/HCPCS: 0240U; 36415; 36416; 36569; 71045; 80048; 80053; 80202; 81003; 81015; 83605; 83735; 85025; 87040; 87070; 87077; 87186; 87205; 94760; 96365; 96375; 96376; C1751; J0692; J0696; J1644; J1650; J1815; J2270; J2405; J2704; J3010; J3370; J3480; J3490; Q0162

== ENCOUNTER 2020-10-11 08:48 | Emergency (ER) | payer MEDICARE, MEDICAID ==
[2020-10-11] MEDS ORDERED: Ketorolac Tromethamine 30 MG/ML VIAL ONE (09:40)
[2020-10-11 09:56] LABS: #Basophils 0.1 thou/uL (0.0-0.2); #Eosinphils 0.3 thou/uL (0.0-0.7); #Lymphocytes 1.1 thou/uL (1.20-3.40); #Monocytes 0.7 thou/uL (0.11-0.59); #Neutrophils 4.9 thou/uL (1.40-6.50); %Basophils 0.8 % (0.0-1.0); %Eosinophils 4.4 % (0.0-10.0); %Lymphocytes 15.5 % (21.0-51.0); %Monocytes 9.9 % (0.0-10.0); %Neutrophils 69.3 % (42.0-75.0); Hemoglobin 11.8 g/dL (14.0-18.0); Mean Corpuscular HGB CONC 32.7 g/dL (32.0-36.0); Mean Corpuscular Hemoglobin 28.4 pg (27.0-31.0); Mean Corpuscular Volume 86.8 fL (78.0-98.0); Mean Platelet Volume 7.7 fL (7.4-10.4); Platelet Count 243 thou/uL (130-400); RBC Distribution Width 13.3 % (11.5-14.5); Red Blood Cell (RBC) Count 4.14 mill/uL (4.70-6.10); White Blood Cell (WBC) Count 7.1 thou/uL (4.8-10.8)
[2020-10-11 10:02] LABS: ALT (SGPT) 13 U/L (8-55); AST (SGOT) 18 U/L (5-34); Albumin 3.7 g/dL (3.4-4.8); Alkaline Phosphatase 125 U/L (40-110); Anion Gap 14 mmol/L (10-20); BUN (Urea Nitrogen) 12 mg/dL (8.4-25.7); Bilirubin, Total 0.3 mg/dL (0.2-1.2); Calc. Creatinine Clearance 0 mL/min (70-130); Calcium 8.9 mg/dL (7.8-10.44); Carbon Dioxide 24 mmol/L (23-31); Chloride 99 mmol/L (98-107); Globulin 3.6 g/dL (2.4-3.5); Glucose 171 mg/dL (80-115); Protein, Total 7.3 g/dL (5.8-8.1); Sodium 133 mmol/L (136-145)
[2020-10-11 10:06] LABS: Troponin I 0.012 ng/mL (< 0.028)
[2020-10-11 10:23] LABS: Bacteria/HPF None Seen HPF (None Seen); Bilirubin Negative (Negative); Blood, Urine Trace (Negative); Clarity Clear (Clear); Glucose, Urine (Dipstick) Normal (Negative); Ketone, Urine Negative (Negative); Leukocyte Negative Leu/uL (Negative); Nitrite Negative (Negative); Protein, Urine (Dipstick) 10 mg/dL (Neg-Trace); RBC/HPF 0-3 HPF (0-3); Specific Gravity, Urine 1.016 (1.002-1.036); Squamous Epithelial 0-3 HPF (0-3); Urobilinogen Normal mg/dL (Less than 2); WBC/HPF 0-3 HPF (0-3)
[2020-10-11 10:37] LABS: Lactic Acid 1.6 mmol/L (0.5-2.2)
== END 2020-10-11 16:25 | disposition home or self-care (01) ==
LOC: ERS 08:48
DX: S80.812A Abrasion, left lower leg, initial encounter (principal); S80.811A Abrasion, right lower leg, initial encounter; E03.9 Hypothyroidism, unspecified; E11.9 Type 2 diabetes mellitus without complications; E78.5 Hyperlipidemia, unspecified; Z87.891 Personal history of nicotine dependence; Z79.899 Other long term (current) drug therapy; W19.XXXA Unspecified fall, initial encounter
CPT/HCPCS: 36415; 70450; 71045; 80053; 81003; 81015; 83605; 84484; 85025; 99284; J1885

== ENCOUNTER 2020-10-17 16:50 | Inpatient (IN) | payer MEDICARE, MEDICAID ==
[2020-10-17] MEDS ORDERED: Ibuprofen 200 MG TAB ONE (17:45)
[2020-10-17 17:49] LABS: #Basophils 0.1 thou/uL (0.0-0.2); #Eosinphils 0.2 thou/uL (0.0-0.7); #Lymphocytes 1.8 thou/uL (1.20-3.40); #Monocytes 0.8 thou/uL (0.11-0.59); %Basophils 0.8 % (0.0-1.0); %Eosinophils 1.8 % (0.0-10.0); %Lymphocytes 18.7 % (21.0-51.0); %Monocytes 7.8 % (0.0-10.0); %Neutrophils 70.8 % (42.0-75.0); Hemoglobin 12.5 g/dL (14.0-18.0); Mean Corpuscular HGB CONC 33.3 g/dL (32.0-36.0); Mean Corpuscular Hemoglobin 28.3 pg (27.0-31.0); Mean Corpuscular Volume 85.1 fL (78.0-98.0); Mean Platelet Volume 7.3 fL (7.4-10.4); Platelet Count 255 thou/uL (130-400); RBC Distribution Width 13.2 % (11.5-14.5); Red Blood Cell (RBC) Count 4.41 mill/uL (4.70-6.10); White Blood Cell (WBC) Count 9.8 thou/uL (4.8-10.8)
[2020-10-17 18:03] LABS: Bacteria/HPF None Seen HPF (None Seen); Bilirubin Negative (Negative); Blood, Urine Negative (Negative); Clarity Clear (Clear); Glucose, Urine (Dipstick) Normal (Negative); Ketone, Urine Negative (Negative); Leukocyte Negative Leu/uL (Negative); Nitrite Negative (Negative); Protein, Urine (Dipstick) 70 mg/dL (Neg-Trace); RBC/HPF 0-3 HPF (0-3); Specific Gravity, Urine 1.026 (1.002-1.036); Squamous Epithelial None Seen HPF (0-3); Urobilinogen Normal mg/dL (Less than 2); WBC/HPF 0-3 HPF (0-3)
[2020-10-17 18:09] LABS: ALT (SGPT) 18 U/L (8-55); AST (SGOT) 21 U/L (5-34); Albumin 3.9 g/dL (3.4-4.8); Alkaline Phosphatase 156 U/L (40-110); Anion Gap 13 mmol/L (10-20); BUN (Urea Nitrogen) 10 mg/dL (8.4-25.7); Bilirubin, Total 0.3 mg/dL (0.2-1.2); Calc. Creatinine Clearance 0 mL/min (70-130); Calcium 9.3 mg/dL (7.8-10.44); Carbon Dioxide 24 mmol/L (23-31); Chloride 94 mmol/L (98-107); Globulin 3.7 g/dL (2.4-3.5); Glucose 144 mg/dL (80-115); Protein, Total 7.6 g/dL (5.8-8.1); Sodium 127 mmol/L (136-145)
[2020-10-17] MEDS ORDERED: Ondansetron PF 4 MG/2 ML Vial IVP PRN (19:43)
[2020-10-17] MEDS ORDERED: Dextrose 50% Abboject 50 ML SYRINGE SLOW IVP PRN (19:43)
[2020-10-17] MEDS ORDERED: Bisacodyl 5 MG TAB PO PRN (19:43)
[2020-10-17] MEDS ORDERED: Dextrose 5% in Water 1,000 ML IV PRN (19:43)
[2020-10-17] MEDS ORDERED: Sodium Chloride 0.9% 1,000 ML IV SCH (19:45)
[2020-10-17] MEDS: Famotidine 20 MG TAB PO SCH (22:12)
[2020-10-17] MEDS: Atorvastatin Calcium 40 MG TAB PO SCH (22:13)
[2020-10-17] MEDS: Tamsulosin HCl 0.4 MG CAP PO SCH (22:14)
[2020-10-17] MEDS: HYDROcodone/Acetaminophen 7.5/325 mg Tablet PO PRN (22:15)
[2020-10-17 22:53] VITALS: BMI 29.9
[2020-10-17] MEDS: Nicotine 14 MG PATCH TD SCH (23:39)
[2020-10-17] MEDS: Zolpidem Tartrate 5 MG TAB PO PRN (23:40)
[2020-10-18] MEDS: HYDROcodone/Acetaminophen 7.5/325 mg Tablet PO PRN ×5 (03:09→22:26)
[2020-10-18 05:43] LABS: SARS-CoV-2 PCR by NAA Not Detected (NotDetected)
[2020-10-18] MEDS: Levothyroxine 150 MCG TAB PO SCH (06:12)
[2020-10-18] MEDS: HumaLOG 300 UNITS/3 ML VIAL SC PRN ×3 (06:12→22:16)
[2020-10-18 06:34] LABS: Hemoglobin 11.3 g/dL (14.0-18.0); Mean Corpuscular HGB CONC 31.6 g/dL (32.0-36.0); Mean Corpuscular Hemoglobin 26.8 pg (27.0-31.0); Mean Corpuscular Volume 84.9 fL (78.0-98.0); Mean Platelet Volume 7.6 fL (7.4-10.4); Platelet Count 252 thou/uL (130-400); RBC Distribution Width 13.2 % (11.5-14.5); White Blood Cell (WBC) Count 8.2 thou/uL (4.8-10.8)
[2020-10-18 06:49] LABS: ALT (SGPT) 17 U/L (8-55); AST (SGOT) 20 U/L (5-34); Albumin 3.4 g/dL (3.4-4.8); Alkaline Phosphatase 144 U/L (40-110); Anion Gap 13 mmol/L (10-20); BUN (Urea Nitrogen) 10 mg/dL (8.4-25.7); Bilirubin, Total 0.2 mg/dL (0.2-1.2); Calc. Creatinine Clearance 135 mL/min (70-130); Calcium 8.8 mg/dL (7.8-10.44); Carbon Dioxide 22 mmol/L (23-31); Chloride 96 mmol/L (98-107); Globulin 3.3 g/dL (2.4-3.5); Glucose 140 mg/dL (80-115); Potassium 3.8 mmol/L (3.5-5.1); Protein, Total 6.7 g/dL (5.8-8.1); Sodium 127 mmol/L (136-145)
[2020-10-18 07:51] LABS: Band 2 % (5-11); Eosinophils 2 % (0-10); Lymphocytes 25 % (21-51); MDiff Complete? YES; Monocytes 4 % (0-10); Myelocyte 1 % (0-0); Neutrophil 64 % (42-75); Platelet Morphology Comment Appears Adequate; Polychromasia SLIGHT = 2-3 cells (100X) (0-2/hpf); Reactive Lymphocytes 1 % (0-10)
[2020-10-18 08:45] LABS: Sodium 127 mmol/L (136-145)
[2020-10-18] MEDS: Famotidine 20 MG TAB PO SCH ×2 (08:45→21:00)
[2020-10-18] MEDS: Finasteride 5 MG TAB PO SCH (08:45)
[2020-10-18] MEDS: Lisinopril 5 MG TAB PO SCH (08:45)
[2020-10-18] MEDS: Thiamine 100 MG TAB PO SCH (08:45)
[2020-10-18] MEDS: Enoxaparin Sodium 40 MG/0.4 ML SYRINGE SC SCH (08:46)
[2020-10-18] MEDS: Amlodipine 5 MG TAB PO SCH (08:46)
[2020-10-18] MEDS: Escitalopram Oxalate 20 mg Tablet PO SCH (08:46)
[2020-10-18] MEDS: TOLVAPTAN 30 MG TAB PO SCH (11:00)
[2020-10-18] MEDS: Pioglitazone HCl 45 MG TAB PO SCH (11:00)
[2020-10-18 15:26] LABS: Sodium 129 mmol/L (136-145)
[2020-10-18] MEDS: Nicotine 14 MG PATCH TD SCH (21:00)
[2020-10-18] MEDS ORDERED: Zolpidem Tartrate 5 MG TAB PO SCH (21:00)
[2020-10-18] MEDS: Tamsulosin HCl 0.4 MG CAP PO SCH (21:00)
[2020-10-18] MEDS: Zolpidem Tartrate 5 MG TAB PO PRN (21:00)
[2020-10-18] MEDS: Atorvastatin Calcium 40 MG TAB PO SCH (21:00)
[2020-10-19] MEDS: HYDROcodone/Acetaminophen 7.5/325 mg Tablet PO PRN ×6 (01:45→20:55)
[2020-10-19] MEDS: HumaLOG 300 UNITS/3 ML VIAL SC PRN ×3 (04:56→20:56)
[2020-10-19] MEDS: Levothyroxine 150 MCG TAB PO SCH (04:58)
[2020-10-19 05:55] LABS: Anion Gap 12 mmol/L (10-20); BUN (Urea Nitrogen) 15 mg/dL (8.4-25.7); Calc. Creatinine Clearance 105 mL/min (70-130); Calcium 9.2 mg/dL (7.8-10.44); Carbon Dioxide 22 mmol/L (23-31); Chloride 100 mmol/L (98-107); Glucose 213 mg/dL (80-115); Potassium 4.6 mmol/L (3.5-5.1); Sodium 129 mmol/L (136-145)
[2020-10-19] MEDS: Pioglitazone HCl 45 MG TAB PO SCH (08:38)
[2020-10-19] MEDS: Lisinopril 5 MG TAB PO SCH (08:39)
[2020-10-19] MEDS: Enoxaparin Sodium 40 MG/0.4 ML SYRINGE SC SCH (08:39)
[2020-10-19] MEDS: Thiamine 100 MG TAB PO SCH (08:40)
[2020-10-19] MEDS: Multivitamin W/ Minerals 1 TAB PO SCH (08:40)
[2020-10-19] MEDS: Amlodipine 5 MG TAB PO SCH (08:40)
[2020-10-19] MEDS: Folic Acid 1 MG TAB PO SCH (08:40)
[2020-10-19] MEDS: Finasteride 5 MG TAB PO SCH (08:40)
[2020-10-19] MEDS: TOLVAPTAN 30 MG TAB PO SCH (08:40)
[2020-10-19] MEDS: Famotidine 20 MG TAB PO SCH ×2 (08:40→20:53)
[2020-10-19] MEDS: Escitalopram Oxalate 20 mg Tablet PO SCH (08:40)
[2020-10-19] MEDS: Aspirin 81 mg Enteric Coated Tablet PO SCH (08:40)
[2020-10-19] MEDS ORDERED: Tolvaptan 15 MG TAB PO SCH (09:00)
[2020-10-19] MEDS: Nicotine 14 MG PATCH TD SCH (20:53)
[2020-10-19] MEDS: Zolpidem Tartrate 5 MG TAB PO PRN (20:54)
[2020-10-19] MEDS: Atorvastatin Calcium 40 MG TAB PO SCH (20:54)
[2020-10-19] MEDS: Tamsulosin HCl 0.4 MG CAP PO SCH (20:54)
[2020-10-20] MEDS: HYDROcodone/Acetaminophen 7.5/325 mg Tablet PO PRN ×4 (02:17→16:06)
[2020-10-20] MEDS: HumaLOG 300 UNITS/3 ML VIAL SC PRN ×2 (06:08→11:40)
[2020-10-20] MEDS: Levothyroxine 150 MCG TAB PO SCH (06:08)
[2020-10-20 07:02] LABS: Anion Gap 10 mmol/L (10-20); BUN (Urea Nitrogen) 18 mg/dL (8.4-25.7); Calc. Creatinine Clearance 111 mL/min (70-130); Calcium 9.2 mg/dL (7.8-10.44); Carbon Dioxide 27 mmol/L (23-31); Chloride 99 mmol/L (98-107); Glucose 226 mg/dL (80-115); Potassium 4.5 mmol/L (3.5-5.1); Sodium 131 mmol/L (136-145)
[2020-10-20] MEDS: Enoxaparin Sodium 40 MG/0.4 ML SYRINGE SC SCH (08:47)
[2020-10-20] MEDS: Pioglitazone HCl 45 MG TAB PO SCH (08:47)
[2020-10-20] MEDS: Folic Acid 1 MG TAB PO SCH (08:48)
[2020-10-20] MEDS: Finasteride 5 MG TAB PO SCH (08:48)
[2020-10-20] MEDS: Lisinopril 5 MG TAB PO SCH (08:48)
[2020-10-20] MEDS: Amlodipine 5 MG TAB PO SCH (08:48)
[2020-10-20] MEDS: Aspirin 81 mg Enteric Coated Tablet PO SCH (08:48)
[2020-10-20] MEDS: Famotidine 20 MG TAB PO SCH (08:48)
[2020-10-20] MEDS: Multivitamin W/ Minerals 1 TAB PO SCH (08:48)
[2020-10-20] MEDS: Thiamine 100 MG TAB PO SCH (08:49)
[2020-10-20] MEDS ORDERED: Escitalopram Oxalate 20 mg Tablet PO SCH (09:00)
[2020-10-20] MEDS ORDERED: Tolvaptan 15 MG TAB PO SCH (09:00)
[2020-10-20 11:26] VITALS: BP 108/69; TEMP 97.2
== END 2020-10-20 18:47 | DRG 644 ==
LOC: ERS 16:50 → T4-A 19:15 → SDC/OP 19:45 → OBSVTOIN 10-19 18:28
PROVIDERS: ADMIT Internal Medicine; ATTEND Family Medicine
DX: E22.2 Syndrome of inappropriate secretion of antidiuretic hormone (principal); I69.954 Hemiplegia and hemiparesis following unspecified cerebrovascular disease affecting left non-dominant side; I10 Essential (primary) hypertension; Z20.822 Contact with and (suspected) exposure to COVID-19; G40.909 Epilepsy, unspecified, not intractable, without status epilepticus; F17.210 Nicotine dependence, cigarettes, uncomplicated; E66.9 Obesity, unspecified; E03.9 Hypothyroidism, unspecified; G89.29 Other chronic pain; E78.00 Pure hypercholesterolemia, unspecified; Z79.84 Long term (current) use of oral hypoglycemic drugs; Z79.82 Long term (current) use of aspirin; Z79.899 Other long term (current) drug therapy; Z68.29 Body mass index [BMI] 29.0-29.9, adult; Z91.81 History of falling
CPT/HCPCS: 36415; 36416; 71045; 80048; 80053; 81003; 81015; 83930; 83935; 84484; 84550; 85007; 85025; 85027; 87635; 93005; 96372; G0378; J1650; J1815; U0003; U0005